=== PATIENT | male | born 1955 | race Caucasian/White ===

== ENCOUNTER → 2019-03-06 | Outpatient (CLI) | payer OTHER, SELFPAY ==
[2017-10-02 23:47] VITALS: BMI 21.1
[2019-03-06 14:15] LABS: AST(SGOT) 23 U/L (15-37); Alanine Aminotransfer ALT/SGPT 40 U/L (16-61); Albumin, Serum 3.7 g/dL (3.2-5.0); Alkaline Phosphatase 87 U/L (45-117); Cholesterol 163 mg/dL (200); Globulin 3.5 g/dL (2.2-4.2); High Density Lipoprotein 56 mg/dL; PSA,Total - Annual Screen 0.41 ng/mL (0.00-4.00); Protein, Total 7.2 g/dL (6.4-8.2); Triglycerides 120 mg/dL; Very Low Density Lipoprotein 24 mg/dL (5-40)
== END | disposition home or self-care (01) ==
LOC: MTLAB 12:38
PROVIDERS: Family Provider Family Medicine; PCP Family Medicine; Referring Provider Internal Medicine Cardiovascular Disease; Visit Provider Internal Medicine Cardiovascular Disease
DX: E78.5 Hyperlipidemia, unspecified (principal); I10 Essential (primary) hypertension; I34.1 Nonrheumatic mitral (valve) prolapse; R00.2 Palpitations; Z12.5 Encounter for screening for malignant neoplasm of prostate
CPT/HCPCS: 36415; 80061; 80076; 84153; G0103

== ENCOUNTER 2020-05-16 20:49 | Emergency (ER) | payer OTHER, SELFPAY ==
[2020-03-19 13:48] VITALS: BMI 21.4
[2020-05-16 20:49] VITALS: BP 101/74; PULSE 63; RESP 15; TEMP 36.7; O2SAT 98; BMI 20.9
[2020-05-16] MEDS: Diphth,Pertuss(Acell),Tet Vac 0.5 ML Vial IM (21:38)
--- NOTE | 2020-05-16 21:41 | ED.VISSUMM ---
- ER Visit Summary Date of Service: 05/16/20 Chief Complaint: Laceration History of Present Illness: The patient is a [address] Christie. He is unsure when his last tetanus shot was. He is right-hand dominant. Reports that just prior to coming emergency department he was trimming the roses and cut his left middle finger with the tremors. Reports that he had an aching pain is 6 out of 10 at worst. Is 1 out of 10 currently after ice. He denies any paresthesias. Physical Examination: Vitals: Stable. Afebrile. General: Well-nourished and well-developed. Head: Normocephalic atraumatic. Neck: Supple, no lymphadenopathy. No JVD. Nontender. Cardiovascular: Regular rate and rhythm. No murmurs. Respiratory: No respiratory distress. Clear to auscultation bilaterally. Abdominal: Soft, nontender, nondistended, normal bowel sounds. No guarding, rebound, or peritoneal signs. Back: Nontender. Extremities: Superficial avulsion of the distal left third fingertip. This approximately 1 cm in diameter. The skin is still present. However, it is not viable. He has no subungual hematoma. Skin: Normal color, no rash. Neurologic: Alert and oriented ?3. Cranial nerves II through XII are intact. Normal strength and sensation. Psych: Normal affect. Emergency Department Course and Treatment: Patient had his tetanus updated. His wound was cleansed and a dressing was placed. Treatment Plan: Patient be discharged instructions to keep his wound clean, dry, and covered. Follow-up his primary care physician in 10 to 14 days if not improving. Return to the emergency department for any worsening symptoms. Disposition: To home in improved and stable condition. Impression: 1. Avulsion left third fingertip, 1 cm, not repaired. This note was generated with [employer] dictation software. It may contain incorrect words, spelling, and punctuation that were not noted in review of the chart prior to signing ED Disposition - Plan for ED Patient: Disposition: Home or Assisted Living Instructions: ED Finger Tip Amputation Open Treatment Referrals: Alexander Christie MD [Primary Care Provider] - 10-14 Days if not better
== END 2020-05-16 22:11 | disposition home or self-care (01) ==
PROVIDERS: Emergency Provider Emergency Medicine; PCP Family Medicine
DX: S61.213A Laceration without foreign body of left middle finger without damage to nail, initial encounter (principal); W27.1XXA Contact with garden tool, initial encounter; Y93.9 Activity, unspecified; Y92.89 Other specified places as the place of occurrence of the external cause; Y99.9 Unspecified external cause status
CPT/HCPCS: 90715; 99282; A4216

== ENCOUNTER → 2021-04-29 11:41 | Outpatient (CLI) | payer OTHER, SELFPAY ==
[2021-04-08 15:25] VITALS: BMI 22.3
[2021-04-29 13:05] LABS: AST(SGOT) 26 U/L (15-37); Alanine Aminotransfer ALT/SGPT 37 U/L (16-61); Albumin, Serum 3.6 g/dL (3.2-5.0); Alkaline Phosphatase 75 U/L (45-117); Bilirubin, Direct 0.14 mg/dL (0.00-0.30); Cholesterol 181 mg/dL (200); Globulin 3.6 g/dL (2.2-4.2); High Density Lipoprotein 61 mg/dL; Protein, Total 7.2 g/dL (6.4-8.2); Triglycerides 122 mg/dL; Very Low Density Lipoprotein 24 mg/dL (5-40)
== END ==
PROVIDERS: PCP Family Medicine; Referring Provider Internal Medicine Cardiovascular Disease; Visit Provider Internal Medicine Cardiovascular Disease
DX: E78.5 Hyperlipidemia, unspecified (principal); I10 Essential (primary) hypertension; I34.1 Nonrheumatic mitral (valve) prolapse
CPT/HCPCS: 36415; 80061; 80076

== ENCOUNTER → 2021-05-21 15:43 | Outpatient (CLI) | payer OTHER, SELFPAY ==
[2021-04-08 15:25] VITALS: BMI 22.3
--- NOTE | 2021-05-21 15:50 | MRI_ITS ---
STUDY: MRI BRAIN WITHOUT CONTRAST REASON FOR EXAM: Male, 65 years old. Chronic HEADACHES x 16 months TECHNIQUE: Standardized multiplanar fat and water weighted pulse sequences were obtained. COMPARISON: None. FINDINGS: There is mild cerebral atrophy with widening of the extra-axial spaces and ventricular dilatation. Normal white matter tracts of the supratentorial brain. There is no evidence for recent intracranial ischemia or other cause of cytotoxic edema on diffusion weighted imaging (DWI). Normal T2* images of the brain without demonstrated susceptibility artifact. There is no demonstrated hemosiderin stain. Normal bilateral basal ganglia. Normal thalami. There is no extra-axial fluid accumulation. Normal flow voids within the major intracranial circulation suggesting patency by spin echo criteria. Normal sella turcica, pituitary gland, infundibular stalk, optic chiasm and hypothalamus. Normal tectal plate and pineal gland. Normal midbrain, nury and medulla. Normal cerebellum. Normal basal cisterns. Normal bilateral temporal bones. Normal bilateral internal auditory canals. No demonstrated orbital abnormality, within the constraints of a routine brain study. Normal visualized paranasal sinuses. Normal calvarium and skull base. Normal visualized soft tissue structures. Normal visualized upper cervical spine. MRI/Brain without Contrast IMPRESSION: Normal unenhanced MRI of the brain. Electronically Signed: Vu Cortez MD at 18:31 EDT Tel , Service support ,
== END ==
PROVIDERS: PCP Family Medicine; Referring Provider Family Medicine; Visit Provider Family Medicine
DX: R51.9 Headache, unspecified (principal)
CPT/HCPCS: 70551

== ENCOUNTER → 2021-08-18 16:48 | Outpatient (CLI) | payer OTHER, SELFPAY ==
[2021-08-18 18:55] LABS: PSA,Total - Annual Screen 0.43 ng/mL (0.00-4.00)
[2021-08-18 19:14] LABS: Vitamin D,25 Hydroxy 74.8 ng/mL
== END ==
PROVIDERS: PCP Family Medicine; Referring Provider Family Medicine; Visit Provider Family Medicine
DX: E55.9 Vitamin D deficiency, unspecified (principal); Z12.5 Encounter for screening for malignant neoplasm of prostate
CPT/HCPCS: 36415; 82306; 84153; G0103

== ENCOUNTER → 2021-09-03 | Outpatient (CLI) | payer OTHER, SELFPAY | END | disposition home or self-care (01) | LOC: LABSPEC 15:15 | PROVIDERS: PCP Family Medicine; Referring Provider Physician Assistant; Visit Provider Physician Assistant | DX: Z11.52 Encounter for screening for COVID-19 (principal) | CPT/HCPCS: 87635; U0005; U0003 ==

== ENCOUNTER 2021-12-21 10:27 | Outpatient (CLI) | payer BC, SELFPAY | END 2021-12-21 23:59 | disposition short-term general hospital (02) | LOC: LABSPEC 10:28 | PROVIDERS: PCP Family Medicine; Visit Provider Physician Assistant | DX: Z20.822 Contact with and (suspected) exposure to COVID-19 (principal) | CPT/HCPCS: 87635; U0003; U0005 ==

== ENCOUNTER 2022-02-28 22:13 | Emergency (ER) | payer BC, SELFPAY ==
[2022-02-28 22:15] VITALS: BP 126/76; PULSE 73; RESP 16; TEMP 35.9; O2SAT 95; BMI 21.7
--- NOTE | 2022-02-28 23:11 | EDS_ITS ---
HPI History of Present Illness Chief Complaint: Other, Pain/Inj Narrative Narrative: Patient is a 66-year-old male who states he was playing in a hockey game today when he tried to block a shot. He states he put his hand and stick down towards the eyes to block a past and the puck struck him in the right hand. He reports he was wearing his hockey gloves but noticed some pain despite the thick padding. He states about 10 minutes later he went took his glove off and he noticed that his ring was deformed. He states that there has been no numbness tingling weakness or color change to the finger but he cannot get the ring off because of the deformity and has concerned this could progress to a ring impaction and therefore comes in for evaluation. [facility] Medical History (Updated 02/28/22 @ 23:[address] Renard Darby, DO) Allergic rhinitis BPH (benign prostatic hyperplasia) Essential (primary) hypertension Hyperlipidemia Malaria Nonrheumatic mitral valve prolapse Home Medications finasteride 5 mg PO DAILY 10/02/17 [History Last Taken Unknown] albuterol sulfate 90 mcg/actuation aerosol inhaler 1 inh INHALATION Q6H PRN g 03/19/20 [History Last Taken Unknown] atorvastatin 10 mg tablet 5 mg PO DAILY #45 tab 02/20/21 [Rx Last Taken Unknown] escitalopram oxalate 5 mg tablet 5 mg PO DAILY tab 04/08/21 [History Last Taken Unknown] lisinopril 20 mg tablet 20 mg PO DAILY #90 tab 04/08/21 [Rx Last Taken Unknown] lorazepam 1 mg tablet 1 mg PO DAILY PRN tab 04/08/21 [History Last Taken Unknown] propranolol 10 mg tablet 10 mg PO BID #180 tab 06/02/21 [Rx Last Taken Unknown] dexlansoprazole [Dexilant] mg 02/28/22 [History Last Taken Unknown] montelukast mg 02/28/22 [History Last Taken Unknown] Allergy/AdvReac Type Severity Reaction Status Date / Time No Known Allergies Allergy Verified 02/28/22 22:21 Family History Father CAD (coronary artery disease) Myocardial infarction [place] age 52 Mother CVA (cerebral vascular accident) Surgical History History of oral surgery Social History Smoking Status: Never smoker ROS ROS ED Constitutional Constitutional ED: Denies chills or fever(s) ENT ENT ED: Denies sore throat Cardiovascular Cardiovascular: Denies chest pain Respiratory/Chest Respiratory/Chest: Denies cough or dyspnea Gastrointestinal Gastrointestinal: Denies abdominal pain, diarrhea, nausea or vomiting Genitourinary Genitourinary ED: Denies dysuria Musculoskeletal Musculoskeletal: Reports other Details: Positive right hand/finger pain ; Denies myalgias Integumentary Denies rash Neurologic Neurologic: Denies headache(s), paresthesias or weakness Hematologic/Lymphatic Hematologic/Lymphatic: Denies easy bleeding or easy bruising EXAM Physical Exam Const Vital Signs: 02/28/22 22:15 02/28/22 23:14 Temperature 96.6 F L Temperature Source Temporal Pulse Rate 73 64 Respiratory Rate 16 16 Blood Pressure 126/76 H 136/72 H Blood Pressure Mean 92 Pulse Ox 95 Oxygen Delivery Method Room Air Positive well nourished and well developed General Appearance ED: well developed Eyes PERRL and EOMs intact bilaterally Neck supple Resp normal respiratory effort and clear to auscultation bilaterally Cardio regular rate and regular rhythm Extremity Extremity Narrative: Right upper extremity is neurovascularly intact; AIN/PIN are intact and normal. There is mild soft tissue swelling at the proximal phalanx of the right fourth digit. There is a ring present that is deformed as well compressing the soft tissue but there is no obvious bony deformity and capillary refill is less than 3 seconds color is normal and there is no subungual hematoma. Neuro oriented x3 and CN's II-XII intact bilaterally Sensorium / Orientation: alert Motor Exam: strength 5/5 throughout Psych mental status grossly normal Skin no rashes or lesions noted MDM MDM MDM Narrative Medical decision making narrative: Patient presented to the ER with a compressed ring causing some swelling to the proximal fourth phalanx. However there is no signs of ligamentous or tendon injury no bony deformity and no signs of neurovascular compromise. At this time the ring does need to be removed and as it cannot be slid over the finger secondary to his deformity and proximal phalanx swelling Ring cutters were used. The ring cutter was removed the ring without difficulty. Patient tolerated the procedure well without complication. Once the ring was removed patient remained neurovascular intact with normal hand/finger function. Discharge Plan Triage Chief Complaint: Other, Pain/Inj ED Provider: Renard Darby Dx/Rx/DC Orders Clinical Impression: Soft tissues foreign body Prescriptions: No Action albuterol sulfate 90 mcg/actuation HFA aerosol inhaler 1 inh INHALATION Q6H PRN (Reason: Sob &/Or Wheezing) RF: 0 escitalopram oxalate 5 mg tablet 5 mg PO DAILY RF: 0 lorazepam 1 mg tablet 1 mg PO DAILY PRN (Reason: Anxiety) RF: 0 lisinopril 20 mg tablet 20 mg PO DAILY Qty: 90 RF: 3 finasteride 5 MG tablet 5 mg PO DAILY RF: 0 montelukast 10 mg tablet RF: 0 dexlansoprazole [Dexilant] 60 mg capsule,biphase delayed releas RF: 0 atorvastatin 10 mg tablet 5 mg PO DAILY Qty: 45 RF: 4 propranolol 10 mg tablet 10 mg PO BID Qty: 180 RF: 3 Primary Care Provider: Alexander Christie Referrals: Alexander Christie MD [Primary Care Provider] - Disposition Disposition: Home, Self Care Discharge Date/Time: 02/28/22 23:15
[2022-02-28 23:14] VITALS: BP 136/72; PULSE 64; RESP 16
== END 2022-02-28 23:15 | disposition home or self-care (01) ==
LOC: ED 22:36
PROVIDERS: Emergency Provider Emergency Medicine; PCP Family Medicine; Visit Provider Emergency Medicine
DX: S60.444A External constriction of right ring finger, initial encounter (principal); W49.04XA Ring or other jewelry causing external constriction, initial encounter; I10 Essential (primary) hypertension; E78.5 Hyperlipidemia, unspecified; N40.0 Benign prostatic hyperplasia without lower urinary tract symptoms; I34.1 Nonrheumatic mitral (valve) prolapse; Z79.899 Other long term (current) drug therapy
CPT/HCPCS: 99282

== ENCOUNTER 2022-03-02 15:08 | Outpatient (CLI) | payer BC, SELFPAY ==
[2022-03-02 18:24] LABS: AST(SGOT) 16 U/L (15-37); Alanine Aminotransfer ALT/SGPT 27 U/L (16-61); Albumin, Serum 3.6 g/dL (3.2-5.0); Alkaline Phosphatase 67 U/L (45-117); Bilirubin, Direct 0.17 mg/dL (0.00-0.30); Cholesterol 224 mg/dL (200); Globulin 3.6 g/dL (2.2-4.2); High Density Lipoprotein 66 mg/dL; Protein, Total 7.2 g/dL (6.4-8.2); Triglycerides 124 mg/dL; Very Low Density Lipoprotein 25 mg/dL (5-40)
== END 2022-03-02 23:59 | disposition home or self-care (01) ==
PROVIDERS: PCP Family Medicine; Referring Provider Internal Medicine Cardiovascular Disease; Visit Provider Internal Medicine Cardiovascular Disease
DX: E78.00 Pure hypercholesterolemia, unspecified (principal)
CPT/HCPCS: 36415; 80061; 80076

== ENCOUNTER → 2022-04-06 | Outpatient (CLI) | payer BC, SELFPAY ==
--- NOTE | 2022-04-06 08:58 | STE_ITS ---
Reason For Study: CHEST PAIN Stress Results Protocol: Ian Protocol Maximum Predicted HR: 152 bpm Target HR: 129 bpm % Maximum Predicted HR: 90 % DurationHeart Rate Stage (mm:ss) (bpm) BP Comment BASELINE 56 148/85 STAGE 1 3:00 81 138/84 STAGE 2 3:00 109 158/84 STAGE 3 3:00 125 182/100SOB NOTED STAGE 4 1:30 137 / INCREASED SOB RECOVERY 102 152/92 Stress Duration: 10:30 mm:ss Maximum Stress HR: 137 bpm Baseline Echocardiogram Findings Stress Echo Wall motion Data Resting WM Intermediate WM Stress WM ECHO/Stress Test Echo w/o Contrast Interpretation Summary Sinus stress echo. 66-year-old male with a history of hypertension chest pain. Stress protocol: Rest EKG demonstrates sinus bradycardia with a rate of 56 bpm normal intervals are noted resting blood pressure is 148/82 mmHg. The patient exercised according to regular Ian protocol for total duration of 10 minutes and 30 seconds completing 1 minute and 30 seconds into s tage IV of the Ian protocol. The maximum heart rate attained was 139 bpm which was 91% of max impa ct at heart rate the maximum workload was 13.4 metabolic equivalents. The patient maintained sinus r hythm throughout the recording. At rest there were no ST or T wave changes noted to suggest ischemia and at peak exercise upsloping ST changes were noted which did not meet the criteria for ischemia. O ccasional premature ventricular complex was noted during recovery. No clinical angina was noted the test was terminated due to leg fatigue. The peak blood pressure was 182/100 mmHg. Stress echocardiogram. Resting and stress echocardiographic images were obtaine d and demonstrated preserved ejection fraction at rest estimated EF 55 to 60% and a peak ejection fraction of 70%. No wall motion abnormalities were noted to suggest ischemia. Conclusion: Normal exercise myocardial perfusion stress test at a high workload. Good functional aerobic capacity. Ordering Physician: Jacques Hernandez Referring Physician: Jacques Hernandez Performed By: Radha Aguilar RDCS
== END | disposition home or self-care (01) ==
LOC: CVS 08:56
PROVIDERS: PCP Family Medicine; Referring Provider Internal Medicine Cardiovascular Disease; Visit Provider Internal Medicine Cardiovascular Disease
DX: I10 Essential (primary) hypertension (principal); R07.9 Chest pain, unspecified
CPT/HCPCS: 93017; 93350

== ENCOUNTER 2022-04-10 17:07 | Emergency (ER) | payer BC, SELFPAY ==
[2022-04-10 17:08] VITALS: BP 135/92; PULSE 70; RESP 11; TEMP 37.1; O2SAT 98; BMI 22.2
--- NOTE | 2022-04-10 17:24 | EKG12_ITS ---
Test Reason : CP Blood Pressure : / mmHG Vent. Rate : 063 BPM Atrial Rate : 063 BPM P-R Int : 142 ms QRS Dur : 088 ms QT Int : 406 ms P-R-T Axes : -12 021 044 degrees QTc Int : 415 ms Normal sinus rhythm Normal ECG Confirmed by ARNOLD CRAWFORD MD ([id number]), video editor JANET GONZALEZ ([id number]) on 04/12/2022 1:44:56 PM Referred By: KAIA
--- NOTE | 2022-04-10 17:26 | CT_ITS ---
INDICATION: chest pain, rule out dissection EXAMINATION: CTA CHEST, ABDOMEN AND PELVIS WITH CONTRAST - TECHNIQUE: A CTA of the chest, abdomen, and pelvis is obtained with sagittal and coronal reconstructed MIP views. Three-dimensional surface rendered sequence of the thoracic and abdominal aorta was obtained. A radiation dose optimization technique was used for this scan. mL of Isovue-[id number]. Oral contrast: None. COMPARISON: None. FINDINGS: CT CHEST: THORACIC AORTA: No atheromatous disease, no aneurysmal changes or dissection. ABDOMINAL AORTA: No aneurysm or dissection. Mild atherosclerotic disease. The iliac arteries are unremarkable. LUNGS: The lungs are well-expanded without acute changes. There are granulomatous nodules. No effusions or pneumothorax. MEDIASTINUM: The thyroid gland is normal. No mediastinal or hilar adenopathy. HEART: Heart is normal size. No pericardial effusion. CT ABDOMEN AND PELVIS: LIVER: The liver enhances homogeneously. No masses identified. GALLBLADDER: The CBD is normal. Normal gallbladder. SPLEEN: Normal. PANCREAS: No masses or inflammation. ADRENAL GLANDS: Normal. KIDNEYS AND URETERS: The kidneys both enhance appropriately. There are normal size and shape. No hydronephrosis or nephrolithiasis. No renal masses or cysts. STOMACH: Normal. SMALL BOWEL: No abnormal distention of the small bowel. MESENTERY: No mesenteric inflammation. No ascites. COLON: No significant diverticulosis, masses or inflammation. The colon otherwise is normal. There is a large fatty ileocecal valve. APPENDIX: The appendix is visualized and normal. IVC: Normal. RETROPERITONEUM: No retroperitoneal lymphadenopathy. PELVIC STRUCTURES: Normal bladder. SOFT TISSUES ABDOMEN: The anterior abdominal wall is normal. SOFT TISSUE CHEST: The extrathoracic soft tissues are normal. BONES: No fractures or significant degenerative disease. CT/CTA Chst, Abd, Pel W and/or WO IMPRESSION: Normal contrast-enhanced CT of the chest. Normal contrast-enhanced CT of the abdomen and pelvis. Electronically Signed: Domingo Hartmann DO at 19:14 EDT Reading Location ID and State: [facility] / [place] Tel [phone], Service support ,
--- NOTE | 2022-04-10 17:28 | ED.VIS.CHEST ---
HPI <MARIELY Medrano - Last Filed: 04/10/22 18:39> History of Present Illness Chief Complaint: Chest Pain Narrative Narrative: 66-year-old male with PMH of HTN, HLD, GERD presents with chest and abdominal pain. He was working outside in the yard all day weeding and moving mulch. He went to the store and was loading 9 bags of mulch in the back of his car around 3:30 pm. While putting the last bag in he felt immediate sharp pain in his lower midsternal/upper abdominal area. No radiation to his back. No shortness of breath. Mild nausea, no vomiting. He walked back into the store to buy something else and still had the pain and felt slightly confused. He said when he came outside he was not sure where his car was again. The pain subsided after about 20 to 30 minutes. He denies cardiac history, history of aneurysm/dissection, or DVT/PE. Since 2019 he was having some dyspnea on exertion so just this last week he had a stress test which was negative. He does not smoke and denies drug use. PFSH <MARIELY Medrano - Last Filed: 04/10/22 18:39> PFSH Medical History Allergic rhinitis BPH (benign prostatic hyperplasia) Essential (primary) hypertension Hyperlipidemia Malaria Nonrheumatic mitral valve prolapse Soft tissues foreign body Home Medications finasteride 5 mg PO DAILY 10/02/17 [History Last Taken Unknown] albuterol sulfate 90 mcg/actuation aerosol inhaler 1 inh INHALATION Q6H PRN g 03/19/20 [History Last Taken Unknown] lorazepam 1 mg tablet 1 mg PO DAILY PRN tab 04/08/21 [History Last Taken Unknown] dexlansoprazole [Dexilant] mg 02/28/22 [History Last Taken Unknown] montelukast mg 02/28/22 [History Last Taken Unknown] propranolol 10 mg tablet 10 mg PO DAILY tab 03/03/22 [History Last Taken Unknown] atorvastatin 10 mg tablet 5 mg PO DAILY #45 tab 04/07/22 [Rx Last Taken Unknown] lisinopril 20 mg tablet 20 mg PO BID #180 tab 04/07/22 [Rx Last Taken Unknown] Allergy/AdvReac Type Severity Reaction Status Date / Time escitalopram AdvReac Diarrhea Verified 03/03/22 16:31 TREE NUTS Allergy NEEDS Uncoded 04/10/22 17:12 FOLLOW-UP Family History Father CAD (coronary artery disease) Myocardial infarction [place] age 52 Mother CVA (cerebral vascular accident) Surgical History History of oral surgery Social History Smoking Status: Never smoker ROS <MARIELY Medrano - Last Filed: 04/10/22 18:39> ROS ED ROS Narrative Constitutional: Negative for fever, chills, malaise. Eyes: Negative for visual change. ENT: Negative for sore throat, ear pain, rhinorrhea. CVS: Positive for chest pain. Negative for palpitations, syncope. Respiratory: Negative for shortness of breath, cough, orthopnea. GI: Positive for abdominal pain, nausea. Negative for vomiting, diarrhea, constipation, melena, hematochezia. : Negative for dysuria, hematuria or frequency. Neuro: Negative for headache, motor/sensory dysfunction. Skin: Negative for rash, abscess, or wound. Musc: Negative for joint pain, swelling, trauma. Heme: Negative for easy bruising, bleeding, lymphadenopathy. EXAM <MARIELY Medrano - Last Filed: 04/10/22 18:39> Physical Exam Narrative Exam Narrative: CONST: Patient sitting in no acute distress. EYES: Normal inspection. NECK: Normal inspection. RESP: No respiratory distress, CTAB. CVS: Regular rate and rhythm, no murmur, no gallop. ABD: Soft with slight RUQ tenderness, no guarding or rebound, nondistended, no pulsatile mass. Back: Normal inspection, no CVA tenderness. SKIN: Color normal, no rash, warm, dry, intact. EXTREMITIES: Normal appearance, no pedal edema. NEURO: Oriented x4. PSYCH: Normal affect. Const Vital Signs: 04/10/22 17:08 04/10/22 17:10 04/10/22 17:37 Temperature 98.7 F Temperature Source Oral Pulse Rate 70 Respiratory Rate 11 L Respiratory Effort Normal Non-Labored Blood Pressure 135/92 H Blood Pressure Mean 106 Pulse Ox 98 Oxygen Delivery Method Room Air Room Air 04/10/22 18:00 04/10/22 19:00 04/10/22 20:54 Temperature Temperature Source Pulse Rate 66 62 66 Respiratory Rate 18 15 18 Respiratory Effort Blood Pressure 143/80 H 131/82 H 140/90 H Blood Pressure Mean 101 98 Pulse Ox 96 100 99 Oxygen Delivery Method Room Air Room Air <Dr. Sujata Montes De Oca MD - Last Filed: 04/11/22 00:05> Physical Exam Const Vital Signs: 04/10/22 17:08 04/10/22 17:10 04/10/22 17:37 Temperature 98.7 F Temperature Source Oral Pulse Rate 70 Respiratory Rate 11 L Respiratory Effort Normal Non-Labored Blood Pressure 135/92 H Blood Pressure Mean 106 Pulse Ox 98 Oxygen Delivery Method Room Air Room Air 04/10/22 18:00 04/10/22 19:00 04/10/22 20:54 Temperature Temperature Source Pulse Rate 66 62 66 Respiratory Rate 18 15 18 Respiratory Effort Blood Pressure 143/80 H 131/82 H 140/90 H Blood Pressure Mean 101 98 Pulse Ox 96 100 99 Oxygen Delivery Method Room Air Room Air <MARIELY Medrano - Last Filed: 04/10/22 18:39> Heart Score History: Moderately Suspicious ECG: Normal Age: >/= 65 years Risk Factors: 1 or 2 Risk Factors Troponin: </= Normal Limit Score: 4 MDM <MARIELY Medrano - Last Filed: 04/10/22 18:39> [facility] Narrative Medical decision making narrative: Patient presents with chest pain/upper abdominal pain that occurred after exertion. He appears well nontoxic. Afebrile and vital signs within normal limits. On examination heart is regular rate and rhythm. Lungs clear. No reproducible pain of the chest wall, mild tenderness in the upper abdomen but no guarding or rebound. No pulsatile mass. Upper and lower extremity pulses are strong and equal. EKG is normal sinus rhythm with no acute ischemia and troponin is less than 3. I also have low concern for ACS as he had a normal stress test within the last week. Basic labs unremarkable. Due to the sharp nature of his pain extending into his abdomen a CTA of the chest abdomen pelvis was obtained to rule out dissection. Lab Data Labs: Laboratory Results - last 24 hr 04/10/22 04/10/22 04/10/22 17:10 17:10 19:35 WBC 8.2 RBC 4.78 Hgb 13.9 Hct 42.7 MCV 89.3 MCH 29.1 MCHC 32.6 RDW Std Deviation 41.7 RDW Coeff of Kandace 12.6 Plt Count 326 MPV 9.9 Immature Gran % (Auto) 0.200 Neut % (Auto) 49.2 Lymph % (Auto) 32.9 Woodward % (Auto) 13.3 H Eos % (Auto) 4.0 Baso % (Auto) 0.4 Absolute Neuts (auto) 4.0 Absolute Lymphs (auto) 2.69 Nucleated RBC % 0 Sodium 142 Potassium 4.0 Chloride 109 H Carbon Dioxide 24.0 Anion Gap 9 BUN 19 H Creatinine 1.22 Estim Creat Clear Calc 56.07 Est GFR (MDRD) Af Amer 76 Est GFR (MDRD) Non-Af 63 BUN/Creatinine Ratio 15.6 Glucose 94 Calcium 9.3 Troponin I High Sens < 3 L < 3 L Radiography Chest X-Ray - ED: 1 View, Read by ED Physician, Read by Radiologist, Normal, Heart, Lungs, Mediastinum, Bony Structures and No Acute Disease Diagnostic Testing: Clinical Impression(s) from Imaging Studies Chest/Abdomen/Pelvis CTA 04/10/22 17:26 IMPRESSION: Normal contrast-enhanced CT of the chest. Normal contrast-enhanced CT of the abdomen and pelvis. Electronically Signed: Domingo Hartmann DO at 19:14 EDT , Chest X-Ray 04/10/22 18:10 IMPRESSION: Right pulmonary granulomas. Electronically Signed: Domingo Hartmann DO at 19:51 EDT , ED attending interpretation shows normal heart size, no acute infiltrate, edema, or effusion. EKG Initial EKG: Attestation: I personally reviewed and interpreted this EKG as follows: Interpretation: Sinus Rhythm Comments: Normal sinus rhythm 63 bpm, no ischemia <Dr. Sujata Montes De Oca MD - Last Filed: 04/11/22 00:05> [facility] Lab Data Attestation: I reviewed the patient's lab results. Labs: Laboratory Results - last 24 hr 04/10/22 04/10/22 04/10/22 17:10 17:10 19:35 WBC 8.2 RBC 4.78 Hgb 13.9 Hct 42.7 MCV 89.3 MCH 29.1 MCHC 32.6 RDW Std Deviation 41.7 RDW Coeff of Kandace 12.6 Plt Count 326 MPV 9.9 Immature Gran % (Auto) 0.200 Neut % (Auto) 49.2 Lymph % (Auto) 32.9 Woodward % (Auto) 13.3 H Eos % (Auto) 4.0 Baso % (Auto) 0.4 Absolute Neuts (auto) 4.0 Absolute Lymphs (auto) 2.69 Nucleated RBC % 0 Sodium 142 Potassium 4.0 Chloride 109 H Carbon Dioxide 24.0 Anion Gap 9 BUN 19 H Creatinine 1.22 Estim Creat Clear Calc 56.07 Est GFR (MDRD) Af Amer 76 Est GFR (MDRD) Non-Af 63 BUN/Creatinine Ratio 15.6 Glucose 94 Calcium 9.3 Troponin I High Sens < 3 L < 3 L Radiography Chest X-Ray - ED: 1 View, Read by ED Physician, Normal, Heart, Lungs and Mediastinum Diagnostic Testing: Clinical Impression(s) from Imaging Studies Chest/Abdomen/Pelvis CTA 04/10/22 17:26 IMPRESSION: Normal contrast-enhanced CT of the chest. Normal contrast-enhanced CT of the abdomen and pelvis. Electronically Signed: Domingo Hartmann DO at 19:14 EDT , Chest X-Ray 04/10/22 18:10 IMPRESSION: Right pulmonary granulomas. Electronically Signed: Domingo Hartmann DO at 19:51 EDT , EKG Initial EKG: Attestation: I personally reviewed and interpreted this EKG as follows: Interpretation: Sinus Rhythm (Sinus at 63 with no acute ischemia.) Treatment and Re-Evaluation Narrative: Patient seen and evaluated with UZIEL. I personally interviewed and examined the patient. I was involved in all aspects of patient's orders, interpretation of results, and treatment. Patient presents secondary to chest pain while loading mulch into his SUV today. He is pain-free on arrival to the emergency room. He did have a stress test earlier this week that was unremarkable. Patient sitting upright in bed no acute distress. Head and neck examination unremarkable. Heart is regular rate and rhythm. Lung sounds are clear. Abdomen is soft and nontender. Neuro exam normal. EKG and chest x-ray unremarkable per my interpretation. Lab work normal including negative repeat troponin. CTA obtained to rule out dissection and this is unremarkable. Patient be discharged home to continue supportive care. Reassurance provided. Return instructions given. Discharge Plan Triage Chief Complaint: Chest Pain ED Midlevel Provider: Terri Lucas ED Provider: Sujata Montes De Oca Dx/Rx/DC Orders Clinical Impression: Atypical chest pain Instructions: ED Chest Pain, Noncardiac Prescriptions: No Action albuterol sulfate 90 mcg/actuation HFA aerosol inhaler 1 inh INHALATION Q6H PRN (Reason: Sob &/Or Wheezing) RF: 0 lorazepam 1 mg tablet 1 mg PO DAILY PRN (Reason: Anxiety) RF: 0 propranolol 10 mg tablet 10 mg PO DAILY RF: 0 finasteride 5 MG tablet 5 mg PO DAILY RF: 0 montelukast 10 mg tablet RF: 0 dexlansoprazole [Dexilant] 60 mg capsule,biphase delayed releas RF: 0 atorvastatin 10 mg tablet 5 mg PO DAILY Qty: 45 RF: 4 lisinopril 20 mg tablet 20 mg PO BID Qty: 180 RF: 3 Primary Care Provider: Alexander Christie Referrals: Alexander Christie MD [Primary Care Provider] - 1-2 Weeks Disposition Disposition: Home, Self Care Discharge Date/Time: 04/10/22 21:08
[2022-04-10] MEDS: Aspirin 81 MG TAB.CHEW 324 MG PO (17:31)
[2022-04-10] MEDS: 0.9% Normal Saline 1,000 ML 1000 ML IV (17:32)
[2022-04-10 17:35] LABS: Absolute Lymphocyte Count 2.69 X10^3/uL (0.83-4.51); Basophil# 0.03 X10^3/uL; Basophil% 0.4 % (0-1); Eosinophil# 0.33 X10^3/uL; Hematocrit 42.7 % (40-54); Hemoglobin 13.9 g/dL (13.0-16.5); Lymphocyte # 2.69 X10^3/ul (0.83-4.51); Lymphocyte % 32.9 % (19-41); Mean Corp Hgb Conc 32.6 g/dL (32-36); Mean Corpuscular Hgb 29.1 pg (27.0-32.0); Mean Corpuscular Volume 89.3 fL (80-94); Mean Platelet Vol. 9.9 fl (6.2-12.0); Monocyte# 1.09 X10^3/uL; Monocyte% 13.3 % (0-10); NRBC Flagged by Analyzer 0 % (0-5); Neutrophil # 4.01 X10^3/uL (2.7-7.7); Neutrophil % 49.2 % (47-70); Platelet Count 326 K/mm3 (150-450); RBC Distribution Width CV 12.6 % (11.6-14.6); RBC Distribution Width SD 41.7 fl (35.1-43.9); Red Blood Count 4.78 M/mm3 (4.6-6.2); White Blood Count 8.2 K/mm3 (4.4-11.0)
[2022-04-10 17:52] LABS: Anion Gap 9 (5-15); BUN 19 mg/dL (7-18); BUN/Creat Ratio 15.6 RATIO (10-20); Calcium,Total 9.3 mg/dL (8.5-10.1); Chloride 109 mmol/L (98-107); Creatinine, Serum 1.22 mg/dL (0.70-1.30); EST Glomerular Filtration Rate 63 mL/min (>60); Est Glom Filt Rate - Afr Amer 76 mL/min (>60); Estimated Creatinine Clearance 56.07 ml/min; Glucose 94 mg/dL (74-106); Sodium Level 142 mmol/L (136-145); Troponin-I HS (w/2H Reflex) < 3 pg/mL (3.0-78.0)
[2022-04-10 18:00] VITALS: BP 143/80; PULSE 66; RESP 18; O2SAT 96
--- NOTE | 2022-04-10 18:10 | RAD_ITS ---
STUDY: X-RAY CHEST REASON FOR EXAM: Male, 66 years old. Chest pain TECHNIQUE: Frontal view COMPARISON: 03/28/2017 FINDINGS: The lungs are expanded. Right pulmonary granulomatous. Normal size heart. Normal mediastinum and bee. Normal visualized pulmonary arteries. Normal visualized aortic arch and descending thoracic aorta. Normal visualized thoracic spine. Normal visualized ribs, clavicles, and shoulders. There is no demonstrated abnormality of the visualized soft tissue structures of the upper abdomen. RAD/Chest 1 View (Portable) IMPRESSION: Right pulmonary granulomas. Electronically Signed: Domingo Hartmann DO at 19:51 EDT ,
[2022-04-10 19:00] VITALS: BP 131/82; PULSE 62; RESP 15; O2SAT 100
[2022-04-10 20:45] LABS: Troponin-I HS < 3 pg/mL (3.0-78.0)
[2022-04-10 20:54] VITALS: BP 140/90; PULSE 66; RESP 18; O2SAT 99
== END 2022-04-10 21:08 | disposition home or self-care (01) ==
PROVIDERS: Physician Assistant; Emergency Provider Emergency Medicine; PCP Family Medicine; Visit Provider Emergency Medicine
DX: R07.89 Other chest pain (principal); N40.0 Benign prostatic hyperplasia without lower urinary tract symptoms; I10 Essential (primary) hypertension; E78.5 Hyperlipidemia, unspecified; I34.1 Nonrheumatic mitral (valve) prolapse; Z79.899 Other long term (current) drug therapy; K21.9 Gastro-esophageal reflux disease without esophagitis; R11.0 Nausea
CPT/HCPCS: 71045; 71275; 74174; 80048; 84484; 85025; 93005; 96360; 99285; J7030; Q9967

== ENCOUNTER 2022-10-29 16:42 | Outpatient (CLI) | payer BC, SELFPAY | END 2022-10-29 23:59 | disposition home or self-care (01) | LOC: LABSPEC 16:44 | PROVIDERS: PCP Family Medicine; Visit Provider Otolaryngology | DX: R05.9 Cough, unspecified (principal) | CPT/HCPCS: 87070; 87205 ==

== ENCOUNTER → 2023-08-23 | Outpatient (CLI) | payer BC, SELFPAY ==
--- NOTE | 2023-08-23 08:35 | RAD_ITS ---
STUDY: X-RAY - ESOPHAGUS (BARIUM SWALLOW) WITH FLUOROSCOPY REASON FOR EXAM: Male, 68 years old. GERD TECHNIQUE: 16 view(s) of the esophagus were obtained following swallowing of barium. FLUOROSCOPY TIME (if supplied): (36 seconds) minutes/seconds. 16.95 mGy COMPARISON: None. FINDINGS: There is no demonstrated esophageal foreign body. There is no demonstrated stricture or mucosal abnormality. Normal gastroesophageal junction, without a demonstrated hiatal hernia. The patient ingested a 12 mm tablet of barium without any difficulty. Normal visualized aortic arch and descending thoracic aorta. Normal visualized pulmonary parenchyma. Normal visualized osseous structures of the thorax. RAD/Esophagus Single Contrast IMPRESSION: Normal plain film x-ray examination (barium swallow) of the esophagus. Electronically Signed: Carrington Holden MD at 12:37 EDT ,
== END | disposition home or self-care (01) ==
LOC: RAD 08:24
PROVIDERS: PCP Family Medicine; Referring Provider Otolaryngology; Visit Provider Otolaryngology
DX: R13.14 Dysphagia, pharyngoesophageal phase (principal); K21.9 Gastro-esophageal reflux disease without esophagitis
CPT/HCPCS: 74220

== ENCOUNTER → 2024-04-27 | Outpatient (CLI) | payer BC, SELFPAY ==
[2024-04-27 13:07] LABS: ALB/GLOB Ratio 0.9 RATIO (0.9-2.4); AST(SGOT) 20 U/L (15-37); Alanine Aminotransfer ALT/SGPT 19 U/L (16-61); Albumin, Serum 3.6 g/dL (3.2-5.0); Alkaline Phosphatase 64 U/L (45-117); Anion Gap 4 (5-15); BUN 13 mg/dL (7-18); BUN/Creat Ratio 11.5 RATIO (10-20); Calcium,Total 9.1 mg/dL (8.5-10.1); Chloride 106 mmol/L (98-107); Cholesterol 198 mg/dL (200); Creatinine, Serum 1.13 mg/dL (0.70-1.30); EST Glomerular Filtration Rate 68 mL/min (>60); Est Glom Filt Rate - Afr Amer 82 mL/min (>60); Globulin 3.8 g/dL (2.2-4.2); Glucose 89 mg/dL (74-106); High Density Lipoprotein 58 mg/dL; Potassium 3.9 mmol/L (3.5-5.1); Protein, Total 7.4 g/dL (6.4-8.2); Sodium Level 139 mmol/L (136-145); Triglycerides 113 mg/dL; Very Low Density Lipoprotein 23 mg/dL (5-40)
== END | disposition home or self-care (01) ==
PROVIDERS: PCP Family Medicine; Referring Provider Internal Medicine Cardiovascular Disease; Visit Provider Internal Medicine Cardiovascular Disease
DX: R00.2 Palpitations (principal); R07.89 Other chest pain; E78.5 Hyperlipidemia, unspecified; I10 Essential (primary) hypertension
CPT/HCPCS: 36415; 80053; 80061

== ENCOUNTER → 2024-05-03 | Outpatient (CLI) | payer BC, SELFPAY ==
--- NOTE | 2024-05-03 13:23 | CT_ITS ---
STUDY: CT CHEST WITH T WITHOUT CONTRAST REASON FOR EXAM: Male, 68 years old. CHEST TIGHTNESS, FAMILY HX OF [place] AND ANEURYSM RADIATION DOSAGE (If Supplied By Facility): CTDIvol = ( 27.16 ) mGy, DLP = ( 1694.3 ) mGycm TECHNIQUE: Transaxial imaging was performed pre and post intravenous administration of 100 cc of Isovue-370.. Cardiac over read examination. Individualized dose optimization techniques were used for this CT. COMPARISON: No relevant priors. FINDINGS: CHEST There is a 5.3 mm calcified granuloma in the peripheral lateral aspect of the right upper lobe as seen on axial image #37. Mild linear scarring and/or atelectasis at the lung bases. There is no demonstrated pleural abnormality. There are calcifications of the coronary arteries. Normal mediastinum. Normal hilar regions. Normal unenhanced pulmonary arteries. Normal aorta arch and descending thoracic aorta. Normal osseous structures. There is no demonstrated abnormality of the visualized upper abdomen. CT/Limited Chest CT Cardiac Only IMPRESSION: Coronary artery calcification. Calcified granuloma in the peripheral lateral aspect of the right upper lobe. Electronically Signed: Carrington Holden MD at 9:25 EDT ,
[2024-05-03 13:40] VITALS: BP 143/90; PULSE 56; RESP 14; O2SAT 98; BMI 24.2
[2024-05-03 14:15] VITALS: BP 143/90; PULSE 56
[2024-05-03] MEDS: Nitroglycerin SL (ED/IMG/CATH) 0.4 MG TABLET SL (14:15)
[2024-05-03 14:30] VITALS: BP 109/74; PULSE 54; RESP 14; O2SAT 96
--- NOTE | 2024-05-04 09:44 | CCTA.WCONT ---
CCTA w/Cont Coronary Arteries Date of Study:: 05/03/24 Chest pain Coronary Calcium Scoring: High-resolution Computed Tomographic imaging of the chest was performed on [05/03/2024], with particular attention paid to the coronary arteries. Intravenous contrast agent was administered per protocol and images reconstructed and displayed. LEFT MAIN CORONARY ARTERY: Arises from the left coronary cusp and bifurcates into a left anterior descending artery and left circumflex artery no significant atherosclerotic plaquing is present [] LEFT ANTERIOR DESCENDING CORONARY ARTERY: Left anterior descending artery is a medium size vessel with 2 areas of plaque formation in the proximal and mid segments. There is mild luminal stenosis noted in those areas. The vessel continues and wraps around the apex of the ventricle. [] LEFT CIRCUMFLEX CORONARY ARTERY: Nondominant vessel with a proximal eccentric 30 to 40% stenosis smooth, and mid segment focal calcified area with no significant stenosis present. [] RIGHT CORONARY ARTERY: Dominant vessel with no significant atherosclerotic plaquing present. CORONARY CALCIUM SCORE: 78.7. Percentile ranking between 25th and 50th percentile. Conclusion: Coronary CT angio gram with mild atherosclerotic plaquing, coronary calcium score below 100, and nonstenotic soft plaque noted in the proximal circumflex artery. []
== END | disposition home or self-care (01) ==
LOC: CT 13:22
PROVIDERS: PCP Family Medicine; Referring Provider Internal Medicine Cardiovascular Disease; Visit Provider Internal Medicine Cardiovascular Disease
DX: R07.89 Other chest pain (principal); Z82.49 Family history of ischemic heart disease and other diseases of the circulatory system; R06.02 Shortness of breath; R00.2 Palpitations; I10 Essential (primary) hypertension; E78.5 Hyperlipidemia, unspecified; I34.1 Nonrheumatic mitral (valve) prolapse; I25.10 Atherosclerotic heart disease of native coronary artery without angina pectoris
CPT/HCPCS: 75571; 75574; 76380; Q9967

== ENCOUNTER → 2024-08-01 | Outpatient (CLI) | payer BC, SELFPAY | END | disposition home or self-care (01) | LOC: PSN 11:59 | PROVIDERS: PCP Family Medicine; Referring Provider Internal Medicine Cardiovascular Disease; Visit Provider Internal Medicine Cardiovascular Disease | DX: R00.2 Palpitations (principal) | CPT/HCPCS: 93225; 93226 ==

== ENCOUNTER 2024-09-19 12:00 | Outpatient (RCR) | payer BC, SELFPAY ==
--- NOTE | 2024-05-18 14:36 | HP.PTEVAL ---
Patient's Visit Information Visit Information Visit Information: JODIE SIDDIQUI is a 68 year old M referred to Physical Therapy by Dr. Kai Thorne, with a diagnosis of L knee OA adn pain. 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 EG to recheck upon return to ensure POC still appropriate. Subjective Subjective: L knee pain. Was in [place] getting ready to do a hike 85 miles. Had pain in L lateral knee a number of times with hiking over the years as he is an avid hiker. Got PFitis and neuroma and forgot about knee pain. That got better after the first mile in the am. Took alot of advil. L knee then continued to hurt. Feels left lateral knee pain every now and then over the years. Gearing up for this hike he was doing a steep hill after 20 miles and got sharp pain in February. Gone quickly but happened again with more steps. Pain was underneath knee cap and lateral and transient. Not painful at rest. Steps at home hurt sometimes with dull ache. Saw Dr. Thorne who did x rays and knees are in good shape. will leave for [place] lilibeth a week and will be gone for 6 weeks and will be hiking again. Currently is just a dull achy feeling with walking alot but no limping or sharp pains lately. Typically used to hurt at the bottom of a steep hill. Sleep is fine and this pain is minor. Taking care of self is I and painfree. 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 Pain L knee achy: Pain Intensity (Out of 10): N/A Objective Objective: L knee tender lateral joint line minimally and lateral knee cap minimally. Walks normal and I, steps reciprocal without rail and no pain. - varus and valgus tests, - bounce home, - patellar grind. - disco. Full aROM L knee adn R knee without pain in NWB and WB stoop and squat today. Pt is in excellent shape3 and moves well. reflexes 1/3 patella adn achilles Sensation LE WNL to gross light touch. strength 4+/5 in knee flexion adn ext without pain, hip abd and rotations 3+/5 no pain B. ankle 5/5 no pain. Good coordination to reciprocal toe and heel tap. Balance/Special Test Scores Lower Extremity Functional Score: 72 Goals Goal 1:: I appropriate HEP for hip stabs to minimize future knee pain and maximize comfortable funciton. Goal Time Frame: 2-4 Weeks Rehabilitation Potential Physical Therapy Diagnosis: l hip weakness unstable femur and intermittent knee pain Rehabilitation Potential: Good Anticipated Interventions Text: Thank you for the opportunity to evaluate your patient. For Medicare and Medicare HMO plans, please review the plan of care and approve it. It will need to be FAXED BACK to us at [phone] for Medicare purposes. For Medicare only, by signing this I certify the plan of care. Please let me know if there are questions or concerns regarding this plan of care. Physician Signature: Date:
--- NOTE | 2024-08-31 09:58 | HP.PTREVAL ---
Re-Evaluation Intro: Dr. Kai Thorne, DO, It has been my pleasure to treat JODIE SIDDIQUI over the last 2 visits for L knee OA adn pain. Please see the progress note below for an update on the physical therapy plan of care! Subjective Subjective: Was in [place] for a couple months and then tied up with a youngster that he brought back. Leg held up OK and is improving even with the activity. time between twinges is increased and intensity is reduced. has played 2 hockey games recently without incident in the leg. Twinges occurring 1-2x/week with squatting and twisting down to low cupboards. Hurts 1 or less. Transient. Objective Objective/Function: Walking and squatting without issues. 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 Goal Time Frame: 2-4 Weeks Goal Progress: still appropriate. Anticipated Interventions Re-Evaluation Ending Re-evaluation ending: Please do not hesitate to contact me at [phone] by phone or if you have questions or concerns regarding this new plan of care! Sincerely, Jovi Lock, DPT, OCS, CSCS
--- NOTE | 2024-09-19 13:32 | HP.PTDCSUM ---
Discharge Summary D/C summary: It has been my pleasure to treat JODIE SIDDIQUI referred by Dr. Kai Thorne DO, with the diagnosis of L knee OA adn pain for a total of 7 visit(s). Discharge Date: 09/19/24 Please see the following information for a summary of their discharge status. Subjective Subjective: Workout went OK. 3instances of slight pain in knee after doing heavy work around house and in yard. Will continue himself 2-3 x week. Pain L knee achy: Pain Intensity (Out of 10): 0 Overall Improvement % Improvement: 90 Objective Objective/Function: reassess subjective adn verbal I with ex. Goals Goal 1:: I appropriate HEP for hip stabs to minimize future knee pain and maximize comfortable funciton. Goal Progress: Goal Met Plan Plan: d/c to HEP in gym 2x/week and home 2x/week/. D/C Information d/c sentence: If there are questions or concerns regarding this patient's physical therapy, please feel free to call me at [phone]. Thank you for the referral of this patient. Sincerely, Jovi Lock, DPT, OCS, CSCS Balance/Gait/Functional tests Balance/Special Test Scores Lower Extremity Functional Score: 72 Improvement % Improvement: 90
== END 2024-09-19 19:00 | disposition home or self-care (01) ==
LOC: PT 12:00
PROVIDERS: PCP Family Medicine; Referring Provider Student in an Organized Health Care Education/Training Program; Visit Provider Student in an Organized Health Care Education/Training Program
DX: M25.562 Pain in left knee (principal); M17.12 Unilateral primary osteoarthritis, left knee
CPT/HCPCS: 97110; 97161

== ENCOUNTER → 2024-10-19 | Outpatient (CLI) | payer BC, SELFPAY ==
[2024-10-19 15:35] LABS: Hemoglobin 14.3 g/dL (13.0-16.5); Mean Corp Hgb Conc 32.5 g/dL (32-36); Mean Corpuscular Hgb 29.9 pg (27.0-32.0); Mean Corpuscular Volume 91.9 fL (80-94); Mean Platelet Vol. 10.7 fl (6.2-12.0); Platelet Count 290 K/mm3 (150-450); RBC Distribution Width CV 12.7 % (11.6-14.6); RBC Distribution Width SD 43.1 fl (35.1-43.9); Red Blood Count 4.79 M/mm3 (4.6-6.2); White Blood Count 7.1 K/mm3 (4.4-11.0)
[2024-10-19 16:20] LABS: Vitamin D,25 Hydroxy 41.5 ng/mL
[2024-10-19 16:21] LABS: ALB/GLOB Ratio 0.9 RATIO (0.9-2.4); AST(SGOT) 19 U/L (15-37); Alanine Aminotransfer ALT/SGPT 24 U/L (16-61); Albumin, Serum 3.4 g/dL (3.2-5.0); Alkaline Phosphatase 69 U/L (45-117); Anion Gap 4 (5-15); BUN 13 mg/dL (7-18); BUN/Creat Ratio 12.4 RATIO (10-20); Calcium,Total 9.1 mg/dL (8.5-10.1); Chloride 105 mmol/L (98-107); Cholesterol 232 mg/dL (200); Creatinine, Serum 1.05 mg/dL (0.70-1.30); EST Glomerular Filtration Rate 74 mL/min (>60); Est Glom Filt Rate - Afr Amer 90 mL/min (>60); Globulin 3.7 g/dL (2.2-4.2); Glucose 91 mg/dL (74-106); High Density Lipoprotein 61 mg/dL; Magnesium 2.1 mg/dL (1.6-2.6); PSA,Total - Annual Screen 0.47 ng/mL (0.00-4.00); Potassium 4.4 mmol/L (3.5-5.1); Protein, Total 7.1 g/dL (6.4-8.2); Sodium Level 139 mmol/L (136-145); Triglycerides 211 mg/dL; Very Low Density Lipoprotein 42 mg/dL (5-40)
== END | disposition home or self-care (01) ==
PROVIDERS: PCP Family Medicine; Referring Provider Family Medicine; Visit Provider Family Medicine
DX: I10 Essential (primary) hypertension (principal); I34.1 Nonrheumatic mitral (valve) prolapse; K21.9 Gastro-esophageal reflux disease without esophagitis; E55.9 Vitamin D deficiency, unspecified; N40.0 Benign prostatic hyperplasia without lower urinary tract symptoms
CPT/HCPCS: 36415; 80053; 80061; 82306; 83735; 84153; 85027; G0103

== ENCOUNTER → 2024-11-09 | Outpatient (CLI) | payer BC, SELFPAY | END | disposition home or self-care (01) | LOC: LAB 11:53 | PROVIDERS: PCP Family Medicine; Referring Provider Family Medicine; Visit Provider Family Medicine | DX: L65.9 Nonscarring hair loss, unspecified (principal) | CPT/HCPCS: 36415; 84402; 84443 ==

== ENCOUNTER → 2025-07-16 | Outpatient (CLI) | payer BC, SELFPAY ==
[2025-07-16 12:59] LABS: Hematocrit 39.8 % (40-54); Hemoglobin 13.2 g/dL (13.0-16.5); Immature Granulocytes Count 0.020 X10^3/uL (0.0-0.0); Mean Corp Hgb Conc 33.2 g/dL (32-36); Mean Corpuscular Volume 89.0 fL (80-94); Mean Platelet Vol. 9.9 fl (6.2-12.0); NRBC Flagged by Analyzer 0 % (0-5); POSITIVE MORPHOLOGY YES; Platelet Count 282 K/mm3 (150-450); RBC Distribution Width CV 13.2 % (11.6-14.6); RBC Distribution Width SD 43.6 fl (35.1-43.9); Red Blood Count 4.47 M/mm3 (4.6-6.2); White Blood Count 5.8 K/mm3 (4.4-11.0)
[2025-07-16 13:01] LABS: Differential Indicated SCAN CRITERIA MET
[2025-07-16 13:23] LABS: Differential Comment SCANNED
[2025-07-16 13:56] LABS: AST(SGOT) 20 U/L (<=37); Alanine Aminotransfer ALT/SGPT 17 U/L (<=46); Albumin, Serum 3.9 g/dL (3.4-4.8); Alkaline Phosphatase 67 U/L (40-129); Anion Gap 10 (5-15); BUN 11 mg/dL (4-19); BUN/Creat Ratio 11.3 RATIO (10-20); Bilirubin, Direct 0.24 mg/dL (0.00-0.30); Calcium,Total 9.1 mg/dL (7.6-11.0); Carbon Dioxide 26.3 mmol/L (21.0-32.0); Chloride 105 mmol/L (98-108); Globulin 2.7 g/dL (2.2-4.2); Glucose 92 mg/dL (70-99); Potassium 4.1 mmol/L (3.3-5.1)
[2025-07-16 15:40] LABS: Cholesterol 167 mg/dL (<=200); Low Density Lipoprotein Calc. 93 mg/dL; Triglycerides 95 mg/dL; Very Low Density Lipoprotein 19 mg/dL (5-40); cholesterol:hdl ratio screen 3.03
--- OUTSIDE RECORDS SUMMARY | 2025-07-16 21:15 | XMS RPT_ITS | CCD ---
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 Yesi Christie Primary Care Provider [phone] Dr. Yesi Christie Referring Provider [phone] Antoinette SCHUSTER, [place] Leon Guillermo Attending Provider MARIELY Wolfe Attending Provider Dr. Jacques Hernandez Attending Provider Dr. Yesi Christie Primary Care Provider Dr. Yesi Christie Referring Provider Dr. LAMONT COATES Attending Arleneny des Membreno MD, Yesi Aquino Primary Care Provider Sonu Caal DO Primary Care Provider [phone] oSnu Caal DO Primary Care Provider Yesi Patel Primary Care Unavailable David, Jacques Attending Unavailable David, Jacques Referring Unavailable David, Jacques Consulting Unavailable David, Jacques Attending Unavailable Yesi Patel Primary Care Unavailable David, Jacques Referring Unavailable Lulu, Chalon Primary Care Unavailable Lulu, Chalon Attending Unavailable Lulu, Chalon Referring Unavailable Lulu, Chalon Primary Care Unavailable Lulu, Chalon Attending Unavailable Lulu, Chalon Referring Unavailable Yesi Patel Primary Care Unavailable David, [place] Attending Unavailable David, Jacques Referring Unavailable David, [place] Attending Unavailable Yesi Patel E Primary Care Unavailable David, Jacques Referring Unavailable Schinner, Yesi E Primary Care Unavailable Nayana Thornes Attending Unavailable Spittle, Kai Referring Unavailable David, [place] Attending Unavailable Schinner, Yesi E Referring Unavailable Schinner, Yesi E Primary Care Unavailable WilianinYesi dominique E Primary Care Unavailable David, [place] Attending Unavailable David, [place] Referring Unavailable Schinner, Yesi E Primary Care Unavailable David, [place] Referring Unavailable David, Jacques Attending Unavailable Unavailable Primary Care Provider UnavailYESI Szymanski Attending Unavailable YESI ZELAYA Attending Unavailable SONU CAAL Primary Care Unavailable Allergies Allergy Classification Reported Allergen(s) Allergy Type Date of Onset Reaction(s) Facility cashew nut allergenic extract (1 source) cashew nut allergenic extract Drug Allergy 5 GI [facility] (12 sources) clemastine; Translations: [TAVIST D] allergy to substance 1 Urinary retention [facility] Work Phone: (4 sources) clemastine/pheny lpropanolamine drug allergy 6 Urinary retention [facility] Work Phone: (5 sources) Escitalopram Drug Allergy 2 Diarrhea [facility] (1 source) tree nut, unspecified Allergy to substance 2 NEEDS FOLLOW-UP [facility] Work Phone: (3 sources) tree nut, unspecified; Translations: [tree nut] Allergy to substance 2 NEEDS FOLLOW-UP [facility] (13 sources) cashew nut allergenic extract; Translations: [CASHEW NUT] Drug Allergy 5 GI [facility] (14 sources) Nut - Unspecified; Translations: [NUT - UNSPECIFIED] Drug Allergy 5 GI [facility] (1 source) Escitalopram Drug Allergy 4 [facility] Repository Medications Current Medications Medication Drug Class(es) Dates Sig (Normalized) Sig (Original) [id number] 200 actuat albuterol 0.09 mg/actuat metered dose inhaler (19 sources) beta2-Adrenergic Agonist Start: 03-19-2020 Albuterol Sulfate Active 1 INH INHALATION EVERY 6 HOURS March 19, 2020 12:00am Start: 03-09-2015 PROAIR HFA 90 mcg/actuation inhaler as needed. 03/09/2015 Active Comment on above: as needed. amoxicillin 500 mg oral capsule (2 sources) Penicillin-class Antibacterial Start: 2 take 2000 mg by mouth every hour Amoxicillin Active 2000 MG PO .COMPLEX 4 August 24, 2022 12:00am 2,000 mg orally 1 hour prior to dental procedure; atorvastatin 10 mg oral tablet (20 sources) HMG-CoA Reductase Inhibitor Start: 8 End: 3 take 5 mg by mouth once daily Atorvastatin Active 5 MG PO DAILY August 03, 2023 3:45pm Start: 10-02-2017 End: 11-07-2018 take 10 mg by mouth once daily Atorvastatin Discontinu ed 10 MG PO DAILY October 02, 2017 12:00am November 07, 2018 5:47pm Start: 07-27-2011 take 0.5 tablet by m outh once daily LIPITOR 10 MG TABS 1/2 tablet by mouth daily ATORVASTATIN CALCIUM [id number] Jacques Hernandez MD Comment on above: Take 10 mg by mouth as directed. Take one half tablet of 10 mg . betamethasone 1 mg/ml topical cream (14 sources) Corticosteroid Start: 10-28-2022 End: 08-16-2023 betamethasone valerate 0.1 % cream Apply twice daily as needed to the face for psoriasis. 15 g 1 08/16/2023 Active Comment on above: Apply twice daily as needed to the face for psoriasis. betamethasone dipropionate 0.643 mg/ml / calcipotriene 0.05 mg/ml topical foam (20 sources) Corticosteroid, Vitamin D Analog Start: 08-19-2021 End: 10-28-2022 calcipotriene-betametha sone (ENSTILAR) 0.005-0.064 % foam Indications: Psoriasis Apply to affected area once daily as needed. 60 g 5 10/28/2022 Active Start: 03-19-2020 End: 04-08-2021 Calcipotriene-Betamethasone Discontinued 1 APPLIC TOPICAL DAILY March 19, 2020 12:00am April 08, 2021 3:48pm Comment on above: Apply to affected ar ea once daily as needed. calcipotriene 0.49789 mg/mg topical ointment (13 sources) Vitamin D Analog Start: 03-17-2020 calcipotriene (DOVONEX) 0.005 % oint Apply 1 application to affected area twice daily. 120 g 3 03/17/2020 Active Comment on above: Apply 1 application to affected area twice daily. clobetasol propionate 0.5 mg/ml medicated shampoo (8 sources) Corticosteroid Start: 01-24-2024 Clobetasol Propionate (CLOBEX) 0.05 % sham Apply to affected area once daily. Apply to a dry scalp once daily as needed, leave on for 15 minutes before showering. 118 mL 3 01/24/2024 Active Start: 10-28-2022 End: 02-15-2023 Clobetasol Propionate (CLOBE X) 0.05 % sham Apply to affected area once daily. Apply to a dry scalp once daily as needed, leave on for 15 minutes before showering. 118 mL 3 10/28/2022 02/15/2023 Discontinued End: 01-24-2024 Clobetasol Propionate 0.05 % sham Apply to affected area. 0 01/24/2024 Discontinued Comment on above: Apply to affected ar ea once daily. Apply to a dry scalp once daily as needed, leave on for 15 minutes before showering. Apply to affected ar ea. Dexlansoprazole (Dexilant) 60 mg capsule,biphase delayed releas (6 sources) Start: 02-28-2022 Dexlansoprazole (Dexilant) 60 mg capsule,biphase delayed releas Active MG February 28, 2022 10:35pm Start: 02-28-2022 Dexlansoprazol e (Dexilant) 60 mg capsule,biphase delayed releas Active MG February 28, 2022 12:00am Start: 02-28-2022 Dexlansoprazol e (Dexilant) 60 mg capsule,biphase delayed releas Active MG February 27, 2022 11:00pm finasteride 5 mg oral tablet (19 sources) 5-alpha Reductase Inhibitor Start: 10-02-2017 take 1 tablet by mouth once daily finasteride (PROSCAR) 5 mg tablet Take 1 tablet by mouth once daily. 90 tablet 06/05/2018 Active Comment on above: Take 1 tablet by [facility] once daily. fluticasone propionate 0.05 mg/actuat metered dose nasal spray (13 sources) Corticosteroid take 1 spray(s) nasal route once daily as needed fluticasone (FLONASE) 50 mcg/actuation nasal spray Use 1 [place] in each nostril once daily. Taking as needed, per patient Active Comment on above: Use 1 [place] in each nostril once daily. Taking as needed, per patient hydrocortisone 25 mg/ml topical lotion (20 sources) Corticosteroid Start: 08-19-2021 hydrocortisone (HYTONE) 2.5 % lotion Apply to affected area twice daily as needed (for psoriasis of the perez area and the ears.). 59 mL 3 08/19/2021 Active Start: 02-13-2019 hydrocortisone valerate (WESTCORT) 0.2 % cream Apply 1 application to affected area twice daily as needed (for rash). 60 g 1 02/13/2019 Active Start: 07-27-2011 End: 04-12-2014 HYDROCORTISONE 0.5 % OINT Ap ply as directed HYDROCORTISONE [id number] Jacques Hernandez MD Comment on above: Apply 1 application to affected area twice daily as needed (for rash). Apply to affected ar ea twice daily as needed (for psoriasis of the perez area and the ears.). ibuprofen 600 mg oral tablet (13 sources) Nonsteroidal Anti-inflammatory Drug Start: 4 take 1 tablet by mouth three times daily at mealtime as needed ibuprofen (MOTRIN) 600 mg tablet Take 600 mg by mouth three times daily with meals. As needed 10/11/2014 Active Comment on above: Take 600 mg by mouth three times daily with meals. As needed ammonium lactate 120 mg/ml topical cream (4 sources) Start: 4 ammonium lactate (LAC-HYDRIN) 12 % cream Apply 1 application to affected area as needed for dry skin. 385 g 3 01/24/2024 Active Comment on above: Apply 1 application to affected area as needed for dry skin. lisinopril 20 mg oral tablet (20 sources) Angiotensin Converting Enzyme Inhibitor Start: 2 End: 3 take 20 mg by mouth twice daily Lisinopril Active 20 MG PO TWICE A DAY 180 March 25, 2023 4:51pm Start: 04-08-2021 End: 03-03-2022 take 20 mg by mouth once daily Lisinopril Discontinued 20 MG PO DAILY 90 April 08, 2021 4:14pm March 03, 2022 4:41pm Start: 08-29-2015 End: 04-08-2021 take 10 mg by mouth once daily Lisinopril Discontinued 10 MG PO DAILY 90 August 25, 2020 10:07am April 08, 2021 4:16pm Comment on above: Take 10 mg by mouth once daily. LORazepam 1 mg oral tablet (6 sources) Benzodiazepine Start: 04-08-20 21 take 1 mg by mouth once daily Lorazepam Active 1 MG PO DAILY April 08, 2021 12:00am montelukast 10 mg oral tablet (6 sources) Leukotriene Receptor Antagonist Start: 02-29-20 22 Montelukast Active MG February 28, 2022 12:00am pimecrolimus 10 mg/ml topical cream (4 sources) Calcineurin Inhibitor Immunosuppressant Start: 01-24-20 24 pimecrolimus (ELIDEL) 1 % cream Apply to affected area two times a day as needed (for dermatitis). 60 g 3 01/24/2024 Active Comment on above: Apply to affected ar ea two times a day as needed (for dermatitis). propranolol hydrochloride 10 mg oral tablet (20 sources) beta-Adrenergic Colleen Start: 03-03-20 22 take 10 mg by mouth once daily Propranolol Active 10 MG PO DAILY March 03, 2022 4:03pm Start: 06-02-2021 End: 03-03-2022 take 10 mg by mouth twice daily Propranolol Discontinu ed 10 MG PO TWICE A DAY 180 June 02, 2021 9:24am March 03, 2022 4:03pm Start: 05-16-2020 End: 06-02-2021 take 10 mg by mouth once daily Propranolol Discontinue d 10 MG PO DAILY May 16, 2020 9:54pm June 02, 2021 9:24am Start: 03-19-2020 End: 03-19-2020 take 10 mg by mouth once daily Propranolol Discontinue d 10 MG PO DAILY March 19, 2020 2:07pm March 19, 2020 2:49pm Start: 03-19-2020 End: 05-16-2020 take 10 mg by mouth twice daily Propranolol Discontinu ed 10 MG PO TWICE A DAY 180 March 19, 2020 12:00am May 16, 2020 9:54pm Start: 03-07-2019 End: 03-19-2020 take 5 mg by mouth once daily Propranolol Discontinued 5 MG PO DAILY 45 January 28, 2020 1:01pm March 19, 2020 2:05pm Start: 10-02-2017 End: 03-07-2019 take 10 mg by mouth once daily Propranolol Discontinue d 10 MG PO DAILY October 02, 2017 12:00am March 07, 2019 3:06pm Start: 04-12-2014 PROPRANOLOL HC L 10 MG TABS 1/2 tablet as needed PROPRANOLOL HCL [id number] Jacques Hernandez MD Start: 07-27-2011 End: 04-12-2014 take 1 tablet by mouth once daily as needed PROPRANOLOL HCL 10 MG TABS One tablet by mouth daily as needed PROPRANOLOL HCL [id number] Jacques Hernandez MD take 2 tablets by mo ut once daily PROPRANOLOL HCL (PROPRANOLOL ORAL) Take 10 mg by mouth as directed. 2 tablet daily Active take 2 tablets by mo uth once daily PROPRANOLOL HCL (PROPRANOLOL ORAL) Take 10 mg by mouth as directed. 2 tablet daily 0 Active Comment on above: Take 10 mg by mouth as directed. 2 tablet daily Roflumilast (1 source) Phosphodiesterase 4 Inhibitor Start: 02-27-2025 roflumilast (ZORYVE) 0.15 % cream Apply to affected area once daily. 60 g 2 02/27/2025 Active zinc pyrithione 0.02 mg/mg medicated bar soap (13 sources) Start: 10-28-2022 Pyrithione Zinc (DERMAZINC) 2 % bar Apply 1 application to affected area once daily. 1 Each 5 10/28/2022 Active Comment on above: Apply 1 application to affected area once daily. Completed/Discontinued Medications Medication Drug Class(es) Dates Sig (Normalized) Sig (Original) ALPRAZolam 0.25 mg oral tablet (12 sources) Benzodiazepine Start: 11-02-2016 take 1 tablet by mouth once daily as needed XANAX 0.25 MG TABS One tablet by mouth daily prn ALPRAZOLAM [id number] Jacques Hernandez MD Start: 07-27-2011 take 1 tablet by jose twice daily XANAX 0.25 MG TABS One tablet by mouth twice daily needed (takes very rarely) ALPRAZOLAM [id number] Jacques Hernandez MD aspirin 81 mg oral strip (12 sources) Nonsteroidal Anti-inflammatory Drug Start: 04-12-2014 End: 08-29-2015 take 1 tablet by mouth once daily ASPIRIN 81 MG TABS One tablet by mouth daily ASPIRIN [id number] Jacques Hernandez MD Start: 07-27-2011 ASPIRIN 325 MG TABS Not taking regularly ASPIRIN [id number] Abbie Wynne cetirizine hydrochloride 10 mg oral tablet (8 sources) Histamine-1 Receptor Antagonist Start: 04-12-2014 take 1 tablet by mouth once daily ZYRTEC ALLERGY 10 MG TABS One tablet by mouth daily CETIRIZINE HCL [id number] Jacques Hernandez MD cholecalciferol 2000 unt oral tablet (17 sources) Vitamin D Start: 04-12-2014 take 1 tablet by mouth once daily VITAMIN D 2000 UNIT TABS One tablet by mouth daily CHOLECALCIFEROL [id number] Jacques Hernandez MD Comment on above: Take 2,000 Units by mouth once daily. ciprofloxacin 500 mg oral tablet (8 sources) Quinolone Antimicrobial Start: 04-12-2014 End: 08-29-2015 take 1 tablet by mouth twice daily CIPRO 500 MG TABS One tablet by mouth twice daily CIPROFLOXACIN HCL [id number] Jacques Hernandez MD clarithromycin 50 mg/ml oral suspension (8 sources) Macrolide Antimicrobial Start: 08-29-2015 End: 12-24-2015 take 1 tablet by mouth once daily CLARITHROMYCIN 250 MG/5ML SUSR One tablet by mouth daily for 30 days for sinus infection CLARITHROMYCIN [id number] Jacques Hernandez MD dexlansoprazole 60 mg delayed release oral capsule (20 sources) Proton Pump Inhibitor Start: 10-02-2017 End: 04-08-2021 take 60 mg by mouth once daily Dexlansoprazole Discontinued 60 MG PO DAILY March 19, 2020 2:01pm April 08, 2021 3:48pm Start: 07-27-2011 take 1 tablet by jose once daily as needed DEXILANT 30 MG CPDR One tablet by mouth daily as needed DEXLANSOPRAZOLE [id number] Jacques Hernandez MD DEXLANSOPRAZOLE (DEXILANT ORAL) Take 160 mg by mouth as needed. Active DEXLANSOPRAZOLE (DEXILANT ORAL) Take 160 mg by mouth as needed. 0 Active Comment on above: Take 160 mg by mouth as needed. escitalopram 5 mg oral tablet (6 sources) Serotonin Reuptake Inhibitor Start: 04-08-20 End: 03-03-20 take 5 mg by mouth once daily Escitalopram Oxalate Discontinued 5 MG PO DAILY April 08, 2021 12:00am March 03, 2022 4:01pm 30 actuat fluticasone furoate 0.1 mg/actuat / vilanterol 0.025 mg/actuat dry powder inhaler (15 sources) Corticosteroid, beta2-Adrenergic Agonist Start: 05-16-20 End: 04-08-20 take 1 puff(s) by inhalation once daily Fluticasone Furoate-Vilanterol Discontinued 1 PUFF IH DAILY May 16, 2020 12:00am April 08, 2021 3:48pm Start: 03-19-2020 End: 04-08-2021 Fluticasone Furoate-Vilanter ol Discontinued 1 INH INHALATION DAILY March 19, 2020 12:00am April 08, 2021 3:48pm Start: 03-11-2020 End: 02-15-2023 BREO ELLIPTA 100-25 mcg/dose inhaler loratadine 10 mg oral tablet (17 sources) Start: 04-12-2014 take 1 tablet by mouth once daily CLARITIN 10 MG CAPS One tablet by mouth daily LORATADINE [id number] Jacques Hernandez MD LORATADINE (CLAR ITIN ORAL) Take by mouth. Active LORATADINE (CLAR ITIN ORAL) Take by mouth. 0 Active Comment on above: Take by mouth. sulfacetamide sodium 100 mg/ml / sulfur 50 mg/ml medicated liquid soap (5 sources) Sulfonamide Antibacterial Start: 01-11-2023 End: 08-16-2023 Sulfacetamide Sodium-Sulfur 10-5 % (w/w) clsr Indications: Psoriasis Apply to affected area once daily. For the face. 227 g 3 01/11/2023 08/16/2023 Discontinued Comment on above: Apply to affected ar ea once daily. For the face. Problems Active Problems Problem Classification Problem Date Documented Da te Episodic/Chronic Diseases of white blood cells (1 source) Eosinophil count raised; Translations: [Eosinophilia, unspecified type] 11-07-2023 Chronic Disorders of lipid metabolism (20 sources) Hyperlipidemia; Translations: [Hyperlipidemia, unspecified] Onset: 07-27-2011 07-27-2011 Chronic Essential hypertension (20 sources) Hypertensive disorder; Translations: [Essential hypertension] Onset: 08-29-2015 08-29-2015 Chronic Heart valve disorders (18 sources) Mitral valve prolapse; Translations: [Nonrheumatic mitral (valve) prolapse] Onset: 03-08-2019 02-15-2023 Chronic Immunizations and screening for infectious disease (18 sources) Patient encounter status; Translations: [Encounter for screening for COVID-19] Episodic Lymphadenitis (1 source) Inguinal lymphadenopathy; Translations: [Localized enlarged lymph nodes] Episodic Osteoarthritis (1 source) Unilateral primary osteoarthritis, left knee; Translations: [Unilateral primary osteoarthritis, left knee] Onset: 10-01-2024 Chronic Other and unspecified benign neoplasm (2 sources) Multiple benign melanocytic nevi ; Translations: [Melanocytic nevi, unspecified] Episodic Other and unspecified benign neoplasm (3 sources) Senile angioma; Translations: [Hemangioma of skin and subcutaneous tissue] Episodic Other connective tissue disease (5 sources) Foreign body; Translations: [Residual foreign body in soft tissue] 03-08-2022 Episodic Other inflammatory condition of skin (4 sources) Psoriasis; Translations: [Psoriasis, unspecified] Chronic Other inflammatory condition of skin (1 source) Seborrheic dermatitis; Translations: [Seborrheic dermatitis, unspecified] 02-27-2025 Episodic Other lower respiratory disease (13 sources) Dyspnea; Translations: [Shortness of breath] Onset: 07-27-2011 Resolved: 08-29-2015 08-29-2015 Episodic Other non-traumatic joint disorders (1 source) Pain in left knee; Translations: [Pain in left knee] Onset: 10-01-2024 Episodic Other skin disorders (2 sources) Telogen effluvium; Translations: [Telogen effluvium] 08-16-2023 Episodic Other skin disorders (2 sources) Inflamed seborrheic keratosis; Translations: [Inflamed seborrheic keratosis] 08-16-2023 Episodic Other skin disorders (5 sources) Seborrheic keratosis; Translations: [Other seborrheic keratosis] Onset: 05-19-2014 Resolved: 11-03-2014 08-16-2023 Episodic Other skin disorders (2 sources) Alopecia; Translations: [Androgenic alopecia, unspecified] 11-07-2023 Episodic Other skin disorders (1 source) Asteatosis cutis; Translations: [Xerosis cutis] 02-19-2024 Episodic Other skin disorders (1 source) Nonscarring hair loss, unspecified; Translations: [Nonscarring hair loss, unspecified] Onset: 12-12-2024 Episodic Residual codes; unclassified (1 source) Flushing; Translations: [Flushing] Episodic Past or Other Problems Problem Classification Problem Date Documented Date Episodic/Chronic Allergic reactions (13 sources) Solar degeneration; Translations: [Other skin changes due to chronic exposure to nonionizing radiation] Onset: 05-19-2014 05-19-2014 Episodic Cardiac dysrhythmias (12 sources) Palpitations; Translations: [Intermittent palpitations] Onset: 07-27-2011 07-27-2011 Episodic Nonspecific chest pain (13 sources) Chest discomfort; Translations: [Atypical chest pain] Onset: 07-27-2011 Resolved: 08-29-2015 08-29-2015 Episodic Other aftercare (4 sources) Other retirement (current) drug therapy; Translations: [Other retirement (current) drug therapy] Onset: 07-27-2011 07-27-2011 Episodic Other and unspecified benign neoplasm (2 sources) Melanocytic nevi of unspecified part of face; Translations: [Benign neoplasm of skin of other and unspecified parts of face] Onset: 05-19-2014 Resolved: 11-03-2014 11-03-2014 Episodic Other circulatory disease (4 sources) Electrocardiogram abnormal; Translations: [Abnormal electrocardiogram [ECG] [EKG]] Onset: 07-27-2011 07-27-2011 Episodic Other lower respiratory disease (4 sources) Shortness of breath; Translations: [Shortness of breath] Onset: 05-11-2024 Episodic Other skin disorders (14 sources) Actinic keratosis; Translations: [Actinic keratosis] Onset: 05-19-2014 Episodic Other skin disorders (2 sources) Sebaceous hyperplasia; Translations: [Other specified follicular disorders] Onset: 05-19-2014 Resolved: 11-03-2014 11-03-2014 Episodic Other skin disorders (2 sources) Solar lentigo; Translations: [Other melanin hyperpigmentation] Onset: 05-19-2014 Resolved: 11-03-2014 11-03-2014 Episodic Other skin disorders (2 sources) Changes in skin texture; Translations: [Other skin changes] Onset: 07-07-2014 Resolved: 11-03-2014 11-03-2014 Episodic Residual codes; unclassified (1 source) Family history of ischemic heart disease and other diseases of the circulatory system; Translations: [Family history of ischemic heart disease and other diseases of the circulatory system] Onset: 05-11-2024 Episodic Results Test Name Value Interpretation Reference Range Facility OV 02-27-2025 [facility] Office Visit (DER[facility] ) JODIE JAIN ([id number]) 1955 M Date Time Provider Department 02/27/25 3:40 PM YESI ZELAYA During your visit today, we recorded the following information about you: Yesi Zelaya MD 02/27/2025 6:19 PM Signed [facility] Department of Dermatology Yesi Zelaya MD 02/27/2025 Last visit in Dermatology: 04/25/2024 Ambient AI software not used during the patient portion of the visit. 1. Psoriasis (L40.9) 2. Seborrheic dermatitis (L21.9) - Psoriasis on lower extremities is well-controlled; no active lesions noted today. Mild psoriasis on the perez area intermittently flares; minimal scaling observed today. - Discussed potential overlap with seborrheic dermatitis on the face. - Initiated trial of 0.15% roflumilast cream, to be used once daily as needed for maintenance. - Betamethasone valerate cream to be reserved for flares. 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 - Patient reports improvement with dietary changes and use of a biotin-containing shampoo. - No scaling of the scalp noted. 4. Seborrheic keratosis (L82.1) - Multiple hyperkeratotic, stuck-on papules less than 1 cm in diameter on the left supraclavicular area and back; no bleeding or significant inflammation, but pruritic. - Discussed treatment options including liquid nitrogen; deferred due to insurance coverage concerns. - Advised use of small amounts of betamethasone valerate or roflumilast cream as needed for pruritus. 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 - No treatment necessary at this time. We discussed the risks, benefits, alternatives, and expected outcomes concerning the prescribed medications. We answered any patient questions regarding these medications and reviewed their use. Requested Prescriptions Signed Prescriptions Disp Refills roflumilast (ZORYVE) 0.15 % cream 60 g 2 Sig: Apply to affected area once daily. Return in about 3 months (around 05/29/2025) for EST appt, skin check. --- Chief complaint: Patient presents with: LESION, SKIN: Spots on chest and backback itchy been there for a couple months No data to display Additional HPI: Jodie is a 69-year-old male presenting for evaluation of psoriasis, pruritic hypokeratotic papules on the left supraclavicular area and back, and small red papules on the torso. Jodie reports that his psoriasis on the lower extremities has been well-controlled and has essentially resolved following a fall in [facility], which resulted in a large abrasion on the right knee. This incident required tetanus immunization, antibiotics, and debridement. He notes persistent mild psoriasis in the perez area, which intermittently flares. He manages this with sparing and intermittent use of betamethasone valerate, approximately once every 7-10 days. He also reports the recent appearance of pruritic hypokeratotic papules on the left supraclavicular area and back, with no known inciting factors. Additionally, he has noticed small red papules on his torso. Previous hair loss, thought to be telogen effluvium, has improved, which he attributes to better nutrition and the use of a biotin-containing shampoo. He denies any scaling of the scalp. Jodie mentions a recent colonoscopy that showed no polyps and reports overall improved health. He had an episode of COVID-19 several months ago but has fully recovered. Past medical history is reviewed. Medication list is reviewed. Review of Systems: Skin: (+) pruritus on left supraclavicular area, (+) intermittent facial dermatitis flares Physical exam: General: Well-appearing. Skin: Minimal scaling on perez; hyperpigmentation on bilateral lower extremities at sites of previous psoriasis, no active psoriasis; healed wound on right extensor knee with slightly atrophic scar; hyperkeratotic, small, stuck-on papules on left supraclavicular area and back, each less than 1 cm, no bleeding or obvious inflammation other than pruritus; scattered prabhakar red papules diffusely on trunk. To waist: Scalp, face, ears, neck, back, chest, abdomen, bilateral upper extremities Labs: Imaging: Tests: - Colonoscopy: No polyps identified Intake by Shreyas Pillai LPN Attending signature: Yesi Zelaya MD This note is completed at 6:19 PM on 02/27/2025 and reflects the services provided at the time of the appointment. I agree with the Chief Complaint, ROS, and Past Histories that may have been independently gathered by the clinical instructional support services director and the remaining scribed note (including AI-generated content) is reviewed and accurately describes my personal service to the patient. Yesi Zelaya MD 02/27/2025 6:19 PM Addendum - Apply 0.15% Zoryve (more content not included)... Normal [facility] Testosterone Freeon 12-17-20 24 TESTOSTER FREE 8.0 pg/mL Normal 6.6-18.1 [facility] Comment on above: Order Comment: Order Date: 11/08/24 Order Info: [id number] - TESTOF Result Comment: Perf ormed at: [facility] [id number] Car Sales Associate: Luz Maria Weaver MD, Phone: [phone] Performed By: #### L 737.6891, D9807.8346 #### [facility] [address] [place], [place], [id number] Thyroid Stim Hormone (TSH)on 11-09-2024 TSH 1.310 uIU/mL Normal 0.358-3.740 [facility] Comment on above: Order Comment: Order Date: 11/08/24 Order Info: [id number] - TSH Performed By: #### L 260.1480, V9782.3876 #### [facility] [address] [place], [place], [id number] CBC-Complete Blood Cnt No Di ffon 10-19-2024 Erythrocyte distribution width (RBC) [Ratio] 12.7 % Normal 11.6-14.6 [facility] Comment on above: Order Comment: Order Date: 09/25/24 Order Info: [id number] - CBC Performed By: #### L 100.0500, L500.4050, L506.1000, L501.9910, L500.4100 #### [facility] [address] [place], [address] Hematocrit (Bld) [Volume fraction] 44.0 % Normal 40-54 [facility] Comment on above: Order Comment: Order Date: 09/25/24 Order Info: [id number] - CBC Performed By: #### L 100.0500, L500.4050, L506.1000, L501.9910, L500.4100 #### [facility] [address] [place], [place], [phone] (417) Hemoglobin (Bld) [Mass/Vol] 14.3 g/dL Normal 13.0-16.5 [facility] Comment on above: Order Comment: Order Date: 09/25/24 Order Info: [id number] - CBC Performed By: #### L 100.0500, L500.4050, L506.1000, L501.9910, L500.4100 #### [facility] [address] [place], [address] MCH (RBC) [Entitic mass] 29.9 pg Normal 27.0-32.0 [facility] Comment on above: Order Comment: Order Date: 09/25/24 Order Info: [id number] - CBC Performed By: #### L 100.0500, L500.4050, L506.1000, L501.9910, L500.4100 #### [facility] [address] [place], [address] MCHC (RBC) [Mass/Vol] 32.5 g/dL Normal 32-36 [facility] Comment on above: Order Comment: Order Date: 09/25/24 Order Info: [id number] - CBC Performed By: #### L 100.0500, L500.4050, L506.1000, L501.9910, L500.4100 #### [facility] [address] [place], [address] MCV (RBC) [Entitic vol] 91.9 fL Normal 80-94 [facility] Comment on above: Order Comment: Order Date: 09/25/24 Order Info: [id number] - CBC Performed By: #### L 100.0500, L500.4050, L506.1000, L501.9910, L500.4100 #### [facility] [address] [place], [address] Platelet mean volume (Bld) [Entitic vol] 10.7 fL Normal 6.2-12.0 [facility] Comment on above: Order Comment: Order Date: 09/25/24 Order Info: [id number] - CBC Performed By: #### L 100.0500, L500.4050, L506.1000, L501.9910, L500.4100 #### [facility] [address] [place], [address] Platelets (Bld) [#/Vol] 290 10*3/uL Normal 150-450 [facility] Comment on above: Order Comment: Order Date: 09/25/24 Order Info: [id number] - CBC Performed By: #### L 100.0500, L500.4050, L506.1000, L501.9910, L500.4100 #### [facility] [address] [place], [address] RBC (Bld) [#/Vol] 4.79 10*6/uL Normal 4.6-6.2 [facility] Comment on above: Order Comment: Order Date: 09/25/24 Order Info: [id number] - CBC Performed By: #### L 100.0500, L500.4050, L506.1000, L501.9910, L500.4100 #### [facility] [address] [place], [address] RDW SD 43.1 fl Normal 35.1-43.9 [facility] Comment on above: Order Comment: Order Date: 09/25/24 Order Info: [id number] - CBC Performed By: #### L 100.0500, L500.4050, L506.1000, L501.9910, L500.4100 #### [facility] [address] [place], [address] WBC (Bld) [#/Vol] 7.1 10*3/uL Normal 4.4-11.0 [facility] Comment on above: Order Comment: Order Date: 09/25/24 Order Info: [id number] - CBC Performed By: #### L 100.0500, L500.4050, L506.1000, L501.9910, L500.4100 #### [facility] [address] [place], [address] Comprehensive Metabolic Prof ilon 10-19-2024 Albumin [Mass/Vol] 3.4 g/dL Normal 3.2-5.0 [facility] Comment on above: Order Comment: Order Date: 09/25/24 Order Info: [id number] - CMP Order Info: [id number] - LIPID Order Info: [id number] - MG Order Info: 2857-1 - PSA Performed By: #### L 100.0500, L500.4050, L506.1000, L501.9910, L500.4100 #### [facility] [address] [place], [address] Albumin/Globulin [Mass ratio] 0.9 {ratio} Normal 0.9-2.4 [facility] Comment on above: Order Comment: Order Date: 09/25/24 Order Info: 86-1 - CMP Order Info: [id number] - LIPID Order Info: [id number] - MG Order Info: 2857-1 - PSA Performed By: #### L 100.0500, L500.4050, L506.1000, L501.9910, L500.4100 #### [facility] [address] [place], [place], [id number] ALK P 69 U/L Normal 45-117 [facility] Comment on above: Order Comment: Order Date: 09/25/24 Order Info: 0786-1 - CMP Order Info: [id number] - LIPID Order Info: [id number] - MG Order Info: 2857-1 - PSA Performed By: #### L 100.0500, L500.4050, L506.1000, L501.9910, L500.4100 #### [facility] [address] [place], [place], [address] ALT [Catalytic activity/Vol] 24 U/L Normal 16-61 [facility] Comment on above: Order Comment: Order Date: 09/25/24 Order Info: 0786-1 - CMP Order Info: [id number] - LIPID Order Info: [id number] - MG Order Info: 2857-1 - PSA Performed By: #### L 100.0500, L500.4050, L506.1000, L501.9910, L500.4100 #### [facility] [address] [place], [address] AST [Catalytic activity/Vol] 19 U/L Normal 15-37 [facility] Comment on above: Order Comment: Order Date: 09/25/24 Order Info: 0786-1 - CMP Order Info: [id number] - LIPID Order Info: [id number] - MG Order Info: [id number] - PSA Performed By: #### L 100.0500, L500.4050, L506.1000, L501.9910, L500.4100 #### [facility] [address] [place], [address] Bilirubin [Mass/Vol] 0.60 mg/dL Normal 0.20-1.00 [facility] Comment on above: Order Comment: Order Date: 09/25/24 Order Info: 86-1 - CMP Order Info: [id number] - LIPID Order Info: [id number] - MG Order Info: [id number] - PSA Result Comment: For patients on eltrombopag therapy, use of Dimension [place] TBIL is not recommended. Performed By: #### L 100.0500, L500.4050, L506.1000, L501.9910, L500.4100 #### [facility] [address] [place], [address] BUN/CRE 12.4 RATIO Normal 10-20 [facility] Comment on above: Order Comment: Order Date: 09/25/24 Order Info: 0786-1 - CMP Order Info: [id number] - LIPID Order Info: [id number] - MG Order Info: 7-1 - PSA Performed By: #### L 100.0500, L500.4050, L506.1000, L501.9910, L500.4100 #### [facility] [address] [place], [address] CA,Total 9.1 mg/dL Normal 8.5-10.1 [facility] Comment on above: Order Comment: Order Date: 09/25/24 Order Info: 86-1 - CMP Order Info: [id number] - LIPID Order Info: [id number] - MG Order Info: 2856-1 - PSA Performed By: #### L 100.0500, L500.4050, L506.1000, L501.9910, L500.4100 #### [facility] [address] [place], [address] Chloride [Moles/Vol] 105 mmol/L Normal 98-107 [facility] Comment on above: Order Comment: Order Date: 09/25/24 Order Info: 785-1 - CMP Order Info: [id number] - LIPID Order Info: [id number] - MG Order Info: 1 - PSA Performed By: #### L 100.0500, L500.4050, L506.1000, L501.9910, L500.4100 #### [facility] [address] [place], [address] CO2 [Moles/Vol] 30.0 mmol/L Normal 21.0-32.0 [facility] Comment on above: Order Comment: Order Date: 09/25/24 Order Info: 785- - CMP Order Info: [id number] - LIPID Order Info: [id number] - MG Order Info: 1 - PSA Performed By: #### L 100.0500, L500.4050, L506.1000, L501.9910, L500.4100 #### [facility] [address] [place], [address] Creatinine [Mass/Vol] 1.05 mg/dL Normal 0.70-1.30 [facility] Comment on above: Order Comment: Order Date: 09/25/24 Order Info: 86-1 - CMP Order Info: [id number] - LIPID Order Info: [id number] - MG Order Info: 2856-1 - PSA Result Comment: The validity of the calculated GFR GFRAA in patients over 70 years has not been determined. Clinical correlation is essential. Performed By: #### L 100.0500, L500.4050, L506.1000, L501.9910, L500.4100 #### [facility] [address] [place], [address] EST GFR - AA 90 mL/min Normal >60 [facility] Comment on above: Order Comment: Order Date: 09/25/24 Order Info: 0786-1 - CMP Order Info: [id number] - LIPID Order Info: [id number] - MG Order Info: 285-1 - PSA Result Comment: Afri can Ken[place] GFR Calc Performed By: #### L 100.0500, L500.4050, L506.1000, L501.9910, L500.4100 #### [facility] [address] [place], [place], [id number] GAP 4 Low 5-15 [facility] Comment on above: Order Comment: Order Date: 09/25/24 Order Info: 785-1 - CMP Order Info: [id number] - LIPID Order Info: [id number] - MG Order Info: [id number] - PSA Performed By: #### L 100.0500, L500.4050, L506.1000, L501.9910, L500.4100 #### [facility] [address] [place], [place], [address] GFR/1.73 sq M.predicted among non-blacks MDRD (S/P/Bld) [Vol rate/Area] 74 mL/min/{1.73_m2} Normal >60 [facility] Comment on above: Order Comment: Order Date: 09/25/24 Order Info: 785-1 - CMP Order Info: [id number] - LIPID Order Info: [id number] - MG Order Info: 2857-1 - PSA Result Comment: Non- GFR Calc Performed By: #### L 100.0500, L500.4050, L506.1000, L501.9910, L500.4100 #### [facility] [address] [place], [address] Globulin (S) [Mass/Vol] 3.7 g/dL Normal 2.2-4.2 [facility] Comment on above: Order Comment: Order Date: 09/25/24 Order Info: 0786-1 - CMP Order Info: [id number] - LIPID Order Info: [id number] - MG Order Info: 2857-1 - PSA Performed By: #### L 100.0500, L500.4050, L506.1000, L501.9910, L500.4100 #### [facility] [address] [place], [address] Glucose [Mass/Vol] 91 mg/dL Normal 74-106 [facility] Comment on above: Order Comment: Order Date: 09/25/24 Order Info: 785-1 - CMP Order Info: - LIPID Order Info: [id number] - MG Order Info: 2857-1 - PSA Performed By: #### L 100.0500, L500.4050, L506.1000, L501.9910, L500.4100 #### [facility] [address] [place], [address] Potassium [Moles/Vol] 4.4 mmol/L Normal 3.5-5.1 [facility] Comment on above: Order Comment: Order Date: 09/25/24 Order Info: 785-1 - CMP Order Info: [id number] - LIPID Order Info: [id number] - MG Order Info: 2857-1 - PSA Performed By: #### L 100.0500, L500.4050, L506.1000, L501.9910, L500.4100 #### [facility] [address] [place], [address] Sodium [Moles/Vol] 139 mmol/L Normal 136-145 [facility] Comment on above: Order Comment: Order Date: 09/25/24 Order Info: 86-1 - CMP Order Info: [id number] - LIPID Order Info: [id number] - MG Order Info: 2856-1 - PSA Performed By: #### L 100.0500, L500.4050, L506.1000, L501.9910, L500.4100 #### [facility] [address] [place], [address] T PROT 7.1 g/dL Normal 6.4-8.2 [facility] Comment on above: Order Comment: Order Date: 09/25/24 Order Info: 86-1 - CMP Order Info: [id number] - LIPID Order Info: [id number] - MG Order Info: [id number] - PSA Performed By: #### L 100.0500, L500.4050, L506.1000, L501.9910, L500.4100 #### [facility] [address] [place], [address] Urea nitrogen [Mass/Vol] 13 mg/dL Normal 7-18 [facility] Comment on above: Order Comment: Order Date: 09/25/24 Order Info: 785-11 - CMP Order Info: - LIPID Order Info: [id number] - MG Order Info: [id number] - PSA Performed By: #### L 100.0500, L500.4050, L506.1000, L501.9910, L500.4100 #### [facility] [address] [place], [address] Lipid Profileon 10-19-2024 Cholesterol [Mass/Vol] 232 mg/dL High 200 [facility] Comment on above: Order Comment: Order Date: 09/25/24Order Info: 07- - CMPOrder Info: [id number] - LIPIDOrder Info: [id number] - MGOrder Info: 2857-1 - PSA Result Comment: <200 mg/dL Desirable 200-240 mg/dL Borderline >240 mg/dL High Risk Performed By: #### L 100.0500, L500.4050, L506.1000, L501.9910, L500.4100 ####[facility] [address] [place], [address] Cholesterol in HDL [Mass/Vol] 61 mg/dL Normal [facility] Comment on above: Order Comment: Order Date: 09/25/24Order Info: 785- - CMPOrder Info: [id number] - LIPIDOrder Info: [id number] - MGOrder Info: 2857-1 - PSA Result Comment: The drugs N-Acetylcysteine and Metamizole may falsely depress this assay. Reference Range HDL <40 mg/dL Low HDL Cholesterol HDL >or= 60 mg/dL High HDL Cholesterol Performed By: #### L 100.0500, L500.4050, L506.1000, L501.9910, L500.4100 ####[facility] [address] [place], [address] Cholesterol in LDL [Mass/Vol] 129 mg/dL Normal 0-130 [facility] Comment on above: Order Comment: Order Date: 09/25/24Order Info: 785-11 - CMPOrder Info: - LIPIDOrder Info: [id number] - MGOrder Info: 2857-1 - PSA Performed By: #### L 100.0500, L500.4050, L506.1000, L501.9910, L500.4100 ####[facility] [address] [place], [address] Cholesterol in VLDL [Mass/Vol] 42 mg/dL High 5-40 [facility] Comment on above: Order Comment: Order Date: 09/25/24Order Info: 785-11 - CMPOrder Info: [id number] - LIPIDOrder Info: [id number] - MGOrder Info: 2857-1 - PSA Performed By: #### L 100.0500, L500.4050, L506.1000, L501.9910, L500.4100 ####[facility] [address] [place], [address] Triglyceride [Mass/Vol] 211 mg/dL High [facility] Comment on above: Order Comment: Order Date: 09/25/24Order Info: 0786-1 - CMPOrder Info: [id number] - LIPIDOrder Info: [id number] - MGOrder Info: 285- - PSA Result Comment: The drugs N-Acetylcysteine and Metamizole may falsely depress this assay. Serum Triglycerides Reference Interval Normal <150 mg/dL Borderline high 150 - 199 mg/dL High 200 - 499 mg/dL Very High > or = 500 mg/dL Performed By: #### L 100.0500, L500.4050, L506.1000, L501.9910, L500.4100 ####[facility] [address] [place], [place], [address] Magnesiumon 10-19-2024 Magnesium [Mass/Vol] 2.1 mg/dL Normal 1.6-2.6 [facility] Comment on above: Order Comment: Order Date: 09/25/24Order Info: 0786 - CMPOrder Info: - LIPIDOrder Info: - MGOrder Info: [id number] - PSA Performed By: #### L 501.5200 ####[facility] [address] [place], [place], [address] PSA,Total - Annual Screenon 10-19-2024 PSA,TOT SCREEN 0.47 ng/mL Normal 0.00-4.00 [facility] Comment on above: Order Comment: Order Date: 09/25/24Order Info: 0786- - CMPOrder Info: - LIPIDOrder Info: - MGOrder Info: [id number] - PSA Result Comment: This test was performed using the TPSA assay method for the [employer] chemistry system. Values obtained with different assay methods cannot be used interchangably. When changing PSA assays in the course of monitoring a patient, additional sequential testing should be carried out to confirm baseline values. Performed By: #### L 100.0500, L500.4050, L506.1000, L501.9910, L500.4100 ####[facility] [address] [place], [place], [id number] Vitamin D,25 Hydroxyon 10-19 Vitamin D 25-OH 41.5 ng/mL Normal [facility] Comment on above: Order Comment: Order Date: 09/25/24 Order Info: [id number] - VITD25 Result Comment: Rosario min D 25(OH) Status Range Deficiency <20 ng/mL (50nmol/L) Insufficiency 20 - 30 ng/mL (50 - 75 nmol/L) Sufficiency 30 - 100 ng/mL (75 - 250 nmol/L) Toxicity >100 ng/mL (>250 nmol/L) Performed By: #### L 100.0500, L500.4050, L506.1000, L501.9910, L500.4100 #### [facility] [address] [place], [place], [id number] PT D/C Summary (1)on 024 PT D/C Summary (1) [facility] [address] [place] [address]. [address] [place] [address] / REHABILITATION SERVICES DISCHARGE SUMMARY MR#: [id number] Acct: [id number] Name: JODIE JAIN Rep #: [id number] : 1955 69 From: Jovi Lock DPT, OCS, CSCS Referring Dr.: Dr. Kai Thorne DO Status: REG RCR Insurance: [employer] INSURANCE Discharge Summary D/C summary: It has been my pleasure to treat JODIE Boone CHEN referred by Dr. Kai Thorne, , with the diagnosis of L knee OA adn pain for a total of 7 visit(s). Discharge Date: 09/19/24 Please see the following information for a summary of their discharge status. Subjective Subjective: Workout went OK. 3instances of slight pain in knee after doing heavy work around house and in yard. Will continue himself 2-3 x week. Pain L knee achy: Pain Intensity (Out of 10): 0 Overall Improvement % Improvement: 90 Objective Objective/Function: reassess subjective adn verbal I with ex. Goals Goal 1:: I appropriate HEP for hip stabs to minimize future knee pain and maximize comfortable funciton. Goal Progress: Goal Met Plan Plan: d/c to HEP in gym 2x/week and home 2x/week/. D/C Information d/c sentence: If there are questions or concerns regarding this patient's physical therapy, please feel free to call me at [phone]. Thank you for the referral of this patient. Sincerely, Jovi Lock DPT, OCS, CSCS Balance/Gait/Function al tests Balance/Special Test Scores Lower Extremity Functional Score: 72 Improvement % Improvement: 90 09/19/24 1332 CC: Dr. Yesi Patel MD; Dr. Kai Thorne DO EBG Signed Normal [facility] Re-Evaluation - PT (1)on Re-Evaluation - PT (1) [facility] [address] [place] [address] [address] [place] [address] / REEVALUATION / MEDICARE RECERTIFICATION PHYSICAL THERAPY MR#: [id number] Acct: [id number] Name: JODIE JAIN Rep #: [id number] : 1955 69 From: Jovi Lock DPT, OCS, CSCS Referring Dr.: Dr. Kai Thorne DO Status:REG RC R Insurance: [employer] PA[employer] INSURANCE Re-Evaluation Intro: Dr. Kai Thorne DO, It has been my pleasure to treat JODIE JAIN over the last 2 visits for L knee OA adn pain. Please see the progress note below for an update on the physical therapy plan of care! Subjective Subjective: Was in [place] for a couple months and then tied up with a youngster that he brought back. Leg held up OK and is improving even with the activity. time between twinges is increased and intensity is reduced. has played 2 hockey games recently without incident in the leg. Twinges occurring 1-2x/week with squatting and twisting down to low cupboards. Hurts 1 or less. Transient. Objective Objective/Function: Walking and squatting without issues. 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 gym and band with pics pt will join gym and do HEP after d/c Balance/Gait/Function al tests Balance/Special Test Scores Lower Extremity Functional Score: 72 Goals Goals Goal 1:: I appropriate HEP for hip stabs to minimize future knee pain and maximize comfortable funciton. Goal Time Frame: 2-4 Weeks Goal Progress: still appropriate. Anticipated Interventions Re-Evaluation Ending Re-evaluation ending: Please do not hesitate to contact me at [phone] by phone or if you have questions or concerns regarding this new plan of care! Sincerely, Jovi oLck, PAPIT, OCS, CSCS 08/31/24 0958 CC: Dr. Yesi Patel MD; Dr. Kai Thorne DO EBG Signed For Medicare only, by signing this I certify the plan of care. Physicians Signature Date Normal [facility] Visit Reporton Cardiology Visit Report [facility] [address] [place] [address] OFFICE VISIT Date of Service: 05/22/24 MR#: [id number] Acct: [id number] Name: JODIE JAIN Mely Rep #: [id number] : 1955 Provider: Dr. Jacques Hernandez MD Age/Sex: 68/M [place] [facility] Status: Signed HPI [facility] History of Present Illness Details: 68-year-old gentleman with a history of hypertension, palpitations, and hyperlipidemia.??? As you know he does have equivocal mitral valve prolapse. He tells me that he has overall been doing quite well. He did have 2 episodes of COVID the last 1 being rather brief. He did have a few unusual feelings around that time with occasional palpitations. He has not had any shortness of breath no chest pain no pedal edema. You remember last year he underwent a stress echocardiogram where he exercised to 13.4 metabolic equivalents without any evidence of ischemia. He says that while he was in it today he did develop some palpitations and chest discomfort he did contact our office and had some adjustments to his medications and eventually also had a coronary calcium score CT angiogram performed which demonstrated mild atherosclerotic plaquing with a calcium score of 78. His physical exam at that particular time is unremarkable Intake Vital Signs 05/03/24 13:40 05/22/24 13:47 Height 5 ft 6 in 5 ft 6 in Weight: 147 lb 5 oz BMI 23.8 BP 99/72 Blood Pressure Location Lt brachial Position Sitting Respiration 16 Pulse 53 L Pulse Source Monitor Intake Visit Reasons: 1 Y FU Poll Watcher Required: No Accompanied by: Is patient in pain?: No Allergies tree nut Allergy (Verified 05/22/24 13:59) NEEDS FOLLOW-UP escitalopram Adverse Reaction (Severe, Verified 05/22/24 14:00) Diarrhea Medications ???Medication ???Instructions ???Recorded ???Confirmed ???Type finasteride 5 mg tablet 5 mg PO DAILY 10/02/17 05/22/24 History albuterol sulfate 90 mcg/actuation 1 inh inhalation Q6H PRN Sob /Or 03/19/20 05/22/24 History aerosol inhaler Wheezing lorazepam 1 mg tablet 1 mg PO DAILY PRN Anxiety 04/08/21 05/22/24 History amoxicillin 500 mg capsule 2,000 mg (4 x 500 mg) PO .COMPLEX 08/24/22 05/22/24 Rx #4 caps atorvastatin 10 mg tablet 5 mg (1/2 x 10 mg) PO DAILY #45 08/03/23 05/22/24 Rx tabs lisinopril 40 mg tablet 40 mg PO DAILY #90 tabs 04/13/24 05/22/24 Rx propranolol 10 mg tablet 10 mg PO .COMPLEX #180 tabs 04/13/24 05/22/24 Rx fluticasone propionate 50 2 spray intranasal DAILY PRN 05/03/24 05/22/24 History mcg/actuation nasal allergy symptoms spray,suspension (24 Hour Allergy Relief) loratadine 10 mg disintegrating 10 mg PO DAILY 05/03/24 05/22/24 History tablet (Alavert) betamethasone valerate 0.1 % applic topical PRN 05/22/24 05/22/24 History topical cream calcipotriene 0.005 topical PRN 05/22/24 05/22/24 History %-betamethasone 0.064 % topical foam (Enstilar) dexlansoprazole 60 mg 60 mg PO DAILY PRN 05/22/24 05/22/24 History capsule,biphase delayed release (Dexilant) Have you fallen in the past year?: No PFSH Medical History Soft tissues foreign body BPH (benign prostatic hyperplasia) Essential (primary) hypertension Nonrheumatic mitral valve prolapse Allergic rhinitis Malaria Hyperlipidemia Surgical History History of oral surgery Family History Father CAD (coronary artery disease) Myocardial infarction [place] age 52 Mother CVA (cerebral vascular accident) Social History Smoking Status: Never smoker ROS Const Const: Positive for fatigue; Negative for weakness, headache(s), daytime sleepiness or difficulty sleeping ENT ENT: Negative for headache(s), dizziness or Nosebleed/epistaxis Cardio Chest Pain: Yes Frequency: other (while hiking on vacation ) Character: dull (ache/pressure) Onset: exercise Location: mid sternal, left chest and right chest Duration: minutes Exacerbation: exercise Relieving: other (propanolol) Recurrence: exercise Palpitations: Yes (in the afternoon for 10-15 min) feels like its: fast and thumping Edema: None Resp Respiratory: Positive for SOB with activity; Negative for SOB at rest, SOB orthopnea SOB lying down or Cough GI GI: Negative nausea, vomiting or heartburn Neuro Neuro: Negative for dizziness, lightheadedness, near syncope, headache(s) or weakness Endo Endo: Positive for fatigue Cardiology Exam Const Appearance: cooperative, healthy appearing, no acute distress, well developed and well groomed Nutritional Appearance: average body habitus and well romel (more content not included)... Normal [facility] Inital Evaluation (1) - PTon 05-18-2024 Inital Evaluation (1) - PT [facility] Physical [facility] [address] [place] [address] / REHABILITATION SERVICES INITIAL EVALUATION MR#: [id number] Acct: [id number] Name: JODIE JAIN Rep #: [id number] : 1955 68 From: Jovi Lock DPT, OCS, CSCS Referring Dr.: Dr. Kai Thorne DO Status: REG RCR Insurance: [employer] SELF PAY INSURANCE Patient's Visit Information Visit Information Visit Information: JODIE JAIN is a 68 year old M referred to Physical Therapy by Dr. Kai Thorne DO with a diagnosis of L knee OA adn pain. 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 EG to recheck upon return to ensure POC still appropriate. Subjective Subjective: L knee pain. Was in [place] getting ready to do a hike 85 miles. Had pain in L lateral knee a number of times with hiking over the years as he is an avid hiker. Got PFitis and neuroma and forgot about knee pain. That got better after the first mile in the am. Took alot of advil. L knee then continued to hurt. Feels left lateral knee pain every now and then over the years. Gearing up for this hike he was doing a steep hill after 20 miles and got sharp pain in February. Gone quickly but happened again with more steps. Pain was underneath knee cap and lateral and transient. Not painful at rest. Steps at home hurt sometimes with dull ache. Saw Dr. Thorne who did x rays and knees are in good shape. will leave for [place] lilibeth a week and will be gone for 6 weeks and will be hiking again. Currently is just a dull achy feeling with walking alot but no limping or sharp pains lately. Typically used to hurt at the bottom of a steep hill. Sleep is fine and this pain is minor. Taking care of self is I and painfree. Works at [employer] and does study abroad. 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 Pain L knee achy: Pain Intensity (Out of 10): N/A Objective Objective: L knee tender lateral joint line minimally and lateral knee cap minimally. Walks normal and I, steps reciprocal without rail and no pain. - varus and valgus tests, - bounce home, - patellar grind. - disco. Full aROM L knee adn R knee without pain in NWB and WB stoop and squat today. Pt is in excellent shape3 and moves well. reflexes 1/3 patella adn achilles Sensation LE WNL to gross light touch. strength 4+/5 in knee flexion adn ext without pain, hip abd and rotations 3+/5 no pain B. ankle 5/5 no pain. Good coordination to reciprocal toe and heel tap. Balance/Special Test Scores Lower Extremity Functional Score: 72 Goals Goal 1:: I appropriate HEP for hip stabs to minimize future knee pain and maximize comfortable funciton. Goal Time Frame: 2-4 Weeks Rehabilitation Potential Physical Therapy Diagnosis: l hip weakness unstable femur and intermittent knee pain Rehabilitation Potential: Good Anticipated Interventions Text: Thank you for the opportunity to evaluate your patient. For Medicare and Medicare HMO plans, please review the plan of care and approve it. It will need to be FAXED BACK to us at [phone] for Medicare purposes. For Medicare only, by signing this I certify the plan of care. Please let me know if there are questions or concerns regarding this plan of care. Physician Signature: Date : 05/18/24 1436 CC: Dr. Yesi Patel MD; Dr. Kai Thorne DO EBG Signed Normal [facility] Coronary Angiography CTon Coronary Angiography CT [facility] Imaging Services [address] [place] [address] 05/04/24 0944 MR#: [id number] Acct: [id number] Name: JODIE JAIN Rep #: [id number] : 1955 68 From: Jacques Hernandez MD PCP: Dr. Yesi Patel MD Status:REG CLI Y Location: CT CCTA w/Cont Coronary Arteries Date of Study:: 05/03/24 Chest pain Coronary Calcium Scoring: High-resolution Computed Tomographic imaging of the chest was performed on [05/03/2024], with particular attention paid to the coronary arteries. Intravenous contrast agent was administered per protocol and images reconstructed and displayed. LEFT MAIN CORONARY ARTERY: Arises from the left coronary cusp and bifurcates into a left anterior descending artery and left circumflex artery no significant atherosclerotic plaquing is present [] LEFT ANTERIOR DESCENDING CORONARY ARTERY: Left anterior descending artery is a medium size vessel with 2 areas of plaque formation in the proximal and mid segments. There is mild luminal stenosis noted in those areas. The vessel continues and wraps around the apex of the ventricle. [] LEFT CIRCUMFLEX CORONARY ARTERY: Nondominant vessel with a proximal eccentric 30 to 40% stenosis smooth, and mid segment focal calcified area with no significant stenosis present. [] RIGHT CORONARY ARTERY: Dominant vessel with no significant atherosclerotic plaquing present. CORONARY CALCIUM SCORE: 78.7. Percentile ranking between 25th and 50th percentile. Conclusion: Coronary CT angio gram with mild atherosclerotic plaquing, coronary calcium score below 100, and nonstenotic soft plaque noted in the proximal circumflex artery. [] 05/04/24 0946 Date Jacques Hernandez MD Cosigner Signature (if applicable): Date CC: Dr. Jacques Hernandez MD; Dr. Yesi Patel MD Signed Normal [facility] Limited Chest CT Cardiac Onl [facility] 05-03-[address] Cardiac Only [facility] Imaging Services [address] [place] [address] Cardiac Only MR#: [id number] Acct: [id number] Name: JODIE JAIN Rep #: [id number] : 1955 M 68 From: Carrington trujillo MD PCP: Dr. Yesi Patel MD Status: REG CLI Study: Limited Chest CT Cardiac Only Date of Exam: Exam# [id number] Ordering Dr: Jacques Hernandez MD [id number] STUDY: CT CHEST WITH T WITHOUT CONTRAST REASON FOR EXAM: Male, 68 years old. CHEST TIGHTNESS, FAMILY HX OF ND AND ANEURYSM RADIATION DOSAGE (If Supplied By Facility): CTDIvol = ( 27.16 ) mGy, DLP = ( 1694.3 ) mGycm TECHNIQUE: Transaxial imaging was performed pre and post intravenous administration of 100 cc of Isovue-370.. Cardiac over read examination. Individualized dose optimization techniques were used for this CT. COMPARISON: No relevant priors. FINDINGS: CHEST There is a 5.3 mm calcified granuloma in the peripheral lateral aspect of the right upper lobe as seen on axial image #37. Mild linear scarring and/or atelectasis at the lung bases. There is no demonstrated pleural abnormality. There are calcifications of the coronary arteries. Normal mediastinum. Normal hilar regions. Normal unenhanced pulmonary arteries. Normal aorta arch and descending thoracic aorta. Normal osseous structures. There is no demonstrated abnormality of the visualized upper abdomen. CT/Limited Chest CT Cardiac Only IMPRESSION: Coronary artery calcification. Calcified granuloma in the peripheral lateral aspect of the right upper lobe. Electronically Signed: Carrington Holden MD at 9:25 EDT , CC: Dr. Jacques Hernandez MD; Dr. Yesi Patel MD Varnish Dipper: Signed Normal [facility] Comprehensive Metabolic Prof ilon 04-27-2024 Albumin [Mass/Vol] 3.6 g/dL Normal 3.2-5.0 [facility] Comment on above: Performed By: #### L 500.4050, L500.4100 ####[facility] [address] [place], [address] Albumin/Globulin [Mass ratio] 0.9 {ratio} Normal 0.9-2.4 [facility] Comment on above: Performed By: #### L 500.4050, L500.4100 ####[facility] [address] [place], [address] ALK P 64 U/L Normal 45-117 [facility] Comment on above: Performed By: #### L 500.4050, L500.4100 ####[facility] [address] [place], [address] ALT [Catalytic activity/Vol] 19 U/L Normal 16-61 [facility] Comment on above: Performed By: #### L 500.4050, L500.4100 ####[facility] [address] [place], [address] AST [Catalytic activity/Vol] 20 U/L Normal 15-37 [facility] Comment on above: Performed By: #### L 500.4050, L500.4100 ####[facility] [address] [place], [address] Bilirubin [Mass/Vol] 0.90 mg/dL Normal 0.20-1.00 [facility] Comment on above: Result Comment: For patients on eltrombopag therapy, use of Dimension [place] TBIL is not recommended. Performed By: #### L 500.4050, L500.4100 ####[facility] [address] [place], [address] BUN/CRE 11.5 RATIO Normal 10-20 [facility] Comment on above: Performed By: #### L 500.4050, L500.4100 ####[facility] [address] [place], [address] CA,Total 9.1 mg/dL Normal 8.5-10.1 [facility] Comment on above: Performed By: #### L 500.4050, L500.4100 ####[facility] [address] [place], [address] Chloride [Moles/Vol] 106 mmol/L Normal 98-107 [facility] Comment on above: Performed By: #### L 500.4050, L500.4100 ####[facility] [address] [place], [address] CO2 [Moles/Vol] 29.0 mmol/L Normal 21.0-32.0 [facility] Comment on above: Performed By: #### L 500.4050, L500.4100 ####[facility] [address] [place], [address] Creatinine [Mass/Vol] 1.13 mg/dL Normal 0.70-1.30 [facility] Comment on above: Result Comment: The validity of the calculated GFR GFRAA in patients over 70 years has not been determined. Clinical correlation is essential. Performed By: #### L 500.4050, L500.4100 ####[facility] [address] [place], [address] EST GFR - AA 82 mL/min Normal >60 [facility] Comment on above: Result Comment: Afri can Ken[place] GFR Calc Performed By: #### L 500.4050, L500.4100 ####[facility] [address] [place], [address] GAP 4 Low 5-15 [facility] Comment on above: Performed By: #### L 500.4050, L500.4100 ####[facility] [address] [place], [address] GFR/1.73 sq M.predicted among non-blacks MDRD (S/P/Bld) [Vol rate/Area] 68 mL/min/{1.73_m2} Normal >60 [facility] Comment on above: Result Comment: Non- GFR Calc Performed By: #### L 500.4050, L500.4100 ####[facility] [address] [place], [address] Globulin (S) [Mass/Vol] 3.8 g/dL Normal 2.2-4.2 [facility] Comment on above: Performed By: #### L 500.4050, L500.4100 ####[facility] [address] [place], [address] Glucose [Mass/Vol] 89 mg/dL Normal 74-106 [facility] Comment on above: Performed By: #### L 500.4050, L500.4100 ####[facility] [address] [place], [address] Potassium [Moles/Vol] 3.9 mmol/L Normal 3.5-5.1 [facility] Comment on above: Performed By: #### L 500.4050, L500.4100 ####[facility] [address] [place], [address] Sodium [Moles/Vol] 139 mmol/L Normal 136-145 [facility] Comment on above: Performed By: #### L 500.4050, L500.4100 ####[facility] [address] [place], [address] T PROT 7.4 g/dL Normal 6.4-8.2 [facility] Comment on above: Performed By: #### L 500.4050, L500.4100 ####[facility] [address] [place], [address] Urea nitrogen [Mass/Vol] 13 mg/dL Normal 7-18 [facility] Comment on above: Performed By: #### L 500.4050, L500.4100 ####[facility] [address] [place], [address] Lipid Profileon 04-27-2024 Cholesterol [Mass/Vol] 198 mg/dL Normal 200 [facility] Comment on above: Result Comment: <200 mg/dL Desirable 200-240 mg/dL Borderline >240 mg/dL High Risk Performed By: #### L 500.4050, L500.4100 ####[facility] [address] [place], [address] Cholesterol in HDL [Mass/Vol] 58 mg/dL Normal [facility] Comment on above: Result Comment: The drugs N-Acetylcysteine and Metamizole may falsely depress this assay. Reference Range HDL <40 mg/dL Low HDL Cholesterol HDL >or= 60 mg/dL High HDL Cholesterol Performed By: #### L 500.4050, L500.4100 ####[facility] [address] [place], [address] Cholesterol in LDL [Mass/Vol] 117 mg/dL Normal 0-130 [facility] Comment on above: Performed By: #### L 500.4050, L500.4100 ####[facility] [address] [place], [address] Cholesterol in VLDL [Mass/Vol] 23 mg/dL Normal 5-40 [facility] Comment on above: Performed By: #### L 500.4050, L500.4100 ####[facility] [address] [place], [address] Triglyceride [Mass/Vol] 113 mg/dL Normal [facility] Comment on above: Result Comment: The drugs N-Acetylcysteine and Metamizole may falsely depress this assay. Serum Triglycerides Reference Interval Normal <150 mg/dL Borderline high 150 - 199 mg/dL High 200 - 499 mg/dL Very High > or = 500 mg/dL Performed By: #### L 500.4050, L500.4100 ####[facility] [address] [place], [address] CNOVon 04-25-2024 CNOV Office Visit (DERMST ) JODIE JAIN ([id number]) 1955 M Date Time Provider Department 04/25/24 2:00 PM YESI ZELAYA During your visit today, we recorded the following information about you: Yesi Zelaya MD 05/03/2024 9:20 AM Signed Department of Dermatology Yesi Zelaya MD 04/25/2024 Last visit in Dermatology: 01/24/2024 Objective/Assessment/ Plan 1. Seborrheic keratosis 2. Multiple benign nevi 3. Prabhakar angioma 4. Psoriasis Related Medications calcipotriene-betamet hasone (ENSTILAR) 0.005-0.064 % foam Apply to affected area once daily as needed. 5. Skin cancer screening The patient's skin was examined for evidence of cutaneous malignancy. The nature of sun-induced photo-aging and skin cancers is discussed. Sun avoidance, protective clothing, and the use of 30-SPF sunscreens is advised. Observe closely for skin damage/changes, and call if such occurs. The patient's psoriasis is well controlled at the present. The remaining diagnoses are benign and require no additional treatment at this time. Follow-up as noted below or as needed. Plan follow-up with us at least annually. --- Chief Complaint: Patient presents with: Full Body Skin Check Subjective and Objective No data to display HPI: Jodie Jain is a 68 year old male who presents for skin check. Desires: Total body skin check History of skin cancer?: No Areas of particular concern?: No Past medical history is reviewed. Medication list is reviewed. Physical Exam included: Scalp, face, ears, neck, chest, back, abdomen, bilateral upper extremities, bilateral lower extremities, buttocks, hands, feet, nails and hair Intake: Chery Miner LPN Attending signature: Yesi Zelaya MD This note is completed at 9:18 AM on 05/03/2024 and reflects the services provided at the time of the appointment. I agree with the Chief Complaint, ROS, and Past Histories independently gathered by the clinical instructional support services director. Chery Miner LPN 04/25/2024 2:16 PM Signed GENERAL SUN SAFETY Thank you for allowing me to examine you for signs of skin cancer today. We had an opportunity to discuss my findings and any treatments I recommended. I believe that there are several steps that a person can do to help prevent skin cancers and to detect them at an early, treatable stage: 1. I highly recommend that once a month you perform your own complete skin check looking for changing or unusual spots. Use a wall-mounted mirror and a hand mirror to assist in seeing body areas that are difficult to see otherwise. If you have a family member that can assist, this is often helpful. Additional information can be obtained at: www.skincancer.org/sk jl-cvuenw-zwnxmtyietp /early-detection 2. In many cases, skin cancer can be prevented. The best way to protect yourself is to avoid too much sun and sunburns. Health care providers believe that ultraviolet rays (UV rays) from the sun damage the skin and over time lead to skin cancer. Here are ways to protect yourself: -Don't spend long periods of time in direct sunlight. -Wear hats with brims to protect your face and ears. -Wear long-sleeved shirts and pants to protect your arms and legs. -Use broad spectrum sunscreens with a SPF (skin protection factor) of 30 or higher that protect against burning and tanning rays. Apply the lotion 30 minutes before you go outside. (Broad-spectrum sunscreens protect against UV-B and UV-A rays.) -Wear sunglasses to protect your eyes. -Use a lip balm with sunscreen. -Avoid the sun between 10am and 4pm. -Show any changing mole to your health care provider. Allergies As of Date: 04/25/2024 Noted Allergy Reaction NUT - UNSPECIFIED 12/27/2014 8 - GI Upset Comments: Tree nuts CASHEW NUT 12/13/2014 8 - GI Upset Date Reviewed: 04/25/2024 Reviewed by: Chery Miner LPN - Fully Assessed Reason for Visit: Full Body Skin Check [1445] Primary Visit Diagnosis:Seborrheic keratosis [L82.1] Other Visit Diagnoses:Multiple benign nevi [D22.9] Prabhakar angioma [D18.01] Psoriasis [L40.9] Skin cancer screening [Z12.83] Prescriptions as of 05/03/2024 - Clobetasol Propionate (CLOBEX) 0.05 % sham Apply to affected area once daily. Apply to a dry scalp once daily as needed, leave on for 15 minutes before showering. - pimecrolimus (ELIDEL) 1 % cream Apply to affected area two times a day as needed (for dermatitis). - ammonium lactate (LAC-HYDRIN) 12 % cream Apply 1 application to affected area as needed for dry skin. - betamethasone valerate 0.1 % cream Apply twice daily as needed to the face for psoriasis. - Pyrithione Zinc (DERMAZINC) 2 % bar Apply 1 application to affected area once daily. - calcipotriene-betamet hasone (ENSTILAR) 0.005-0.064 % foam Apply to affected area once daily as needed. - hydrocortisone (more content not included)... Normal [facility] ZINC BLDon 08-22-2023 Zinc [Mass/Vol] 60 ug/dL 60 - 120 ug/dL [facility] Iron and Iron binding capaci ty panelon 08-20-2023 Iron [Mass/Vol] 168 ug/dL 41 - 186 ug/dL [facility] Iron binding capacity [Mass/Vol] 317 ug/dL 232 - 386 ug/dL [facility] Iron/TIBC [Molar ratio] 53.0 % 15.0 - 57.0 % [facility] MAGNESIUM Don 08-20-2023 Magnesium [Mass/Vol] 1.9 mg/dL 1.7 - 2 .3 mg/dL [facility] TSH BLDon 08-20-2023 TSH Qn 1.350 m[IU]/L 0.270 - 4.200 mIU/L [facility] VITAMIN D 25 HYDROXYon 08-20 25-hydroxyvitamin D3 [Mass/Vol] 117.0 ng/mL High 31.0 - 80.0 ng/mL [facility] CBC W Auto Differential pane l (Bld)on 08-19-2023 Basophils (Bld) [#/Vol] 0.05 10*3/uL <0.11 k/uL [facility] Basophils/100 WBC (Bld) 0.8 % [facility] Differential cell count method Nom (Bld) Auto [facility] Eosinophils (Bld) [#/Vol] 0.67 10*3/uL High <0.46 k/uL [facility] Eosinophils/100 WBC (Bld) 10.3 % [facility] Erythrocyte distribution width (RBC) [Ratio] 12.8 % 11.5 - 15.0 % [facility] Hematocrit (Bld) [Volume fraction] 44.1 % 39.0 - 51.0 % [facility] Hemoglobin (Bld) [Mass/Vol] 14.1 g/dL 13.0 - 17.0 g/dL [facility] Immature granulocytes (Bld) [#/Vol] <0.10 k/uL [facility] Immature granulocytes/100 WBC (Bld) 0.2 % [facility] Lymphocytes (Bld) [#/Vol] 2.32 10*3/uL 1.00 - 4.00 k/uL [facility] Lymphocytes/100 WBC (Bld) 35.6 % [facility] MCH (RBC) [Entitic mass] 29.3 pg 26.0 - 34.0 pg [facility] MCHC (RBC) [Mass/Vol] 32.0 g/dL 30.5 - 36.0 g/dL [facility] MCV (RBC) [Entitic vol] 91.5 fL 80.0 - 100.0 fL [facility] Monocytes (Bld) [#/Vol] 0.77 10*3/uL <0.87 k/uL [facility] Monocytes/100 WBC (Bld) 11.8 % [facility] Neutrophils (Bld) [#/Vol] 2.69 10*3/uL 1.45 - 7.50 k/uL [facility] Neutrophils/100 WBC (Bld) 41.3 % [facility] Nucleated RBC (Bld) [#/Vol] <0.01 k/uL [facility] Nucleated RBC/100 WBC (Bld) [Ratio] 0.0 /100 WBC [facility] Platelet mean volume (Bld) [Entitic vol] 10.6 fL 9.0 - 12.7 fL [facility] Platelets (Bld) [#/Vol] 282 10*3/uL 150 - 400 k/uL [facility] RBC (Bld) [#/Vol] 4.82 10*6/uL 4.20 - 6.0 0 m/uL [facility] WBC (Bld) [#/Vol] 6.51 10*3/uL 3.70 - 11. 00 k/uL [facility] 08-26-2022 [facility] Surgical Pathology Department Name JODIE JAIN Pathologist: JANETTE ARIAS DMD Date of Procedure: 08/26/2022 Date Received: 08/26/2022 Date Reported 08/30/2022 Submitting Physician: LAMONT COATES MD, DDS Location: [facility] [facility] Other External # FINAL DIAGNOSIS A. ANTERIOR MAXILLA, BIOPSY: -- FIBROUS AND GRANULATION TISSUE (PERIAPICAL GRANULOMA) WITH MODERATE ACUTE AND CHRONIC INFLAMMATION ICD-10: M27.2 Electronically Signed Out By JANETTE ARIAS DMD/IJS By the signature on this report, the individual or group listed as making the Final Interpretation/Diagno sis certifies that they have reviewed this case. Diagnostic interpretation performed at [facility], [place] [address] [address] [facility] [address] Microscopic Description: The sections consist of fibrous and granulation tissue with moderate acute and chronic inflammation consisting chiefly of plasma cells, lymphocytes and neutrophils. Scant fragments of calcific debris are present. Cystic epithelial lining, as seen in radicular (periapical) cysts, is not present in any examined sections. Clinical History: The lesion was biopsied from the anterior maxilla where it measures 3.0 x 2.0 x 2.0 cm and has been present since 2019. This represents an incidental finding on routine checkup. 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 Clinical impression: Benign cyst. Specimens Submitted As: A: UA CYST Gross Description: Received in formalin, labeled with the patient's name and hospital number and UA cyst, are multiple portions of mucosal covered soft tissue admixed with blood aggregating to 2.1 x 1.2 x 0.4 cm. The mucosal surface is unremarkable. The resection margin is inked blue. The specimen is bisected and entirely submitted in 3 cassettes. [facility] mk/08/27/2022 [facility] Department of Pathology [address] [place] [address] Normal [facility] Comment on above: Performed By: #### U [facility] #### [facility] Surgical Pathology Department [address] [facility] [address] Absolute lymphocyte counton 04-10-2022 Lymphocytes Auto (Unsp spec) [#/Vol] 2.69 10*3/uL 0.83-4.51 [facility] Work Phone: Basophil percentageon 2021 Basophils/100 WBC (Bld) 0.4 % 0-1 [facility] Work Phone: Chloride [Moles/Vol] 109 mmol/L 98-107 [facility] Work Phone: Eosinophils/100 WBC (Bld) 4.0 % 0-5 [facility] Work Phone: Glucose [Mass/Vol] 94 mg/dL 74-106 [facility] Work Phone: Neutrophils (Bld) [#/Vol] 4.0 10*3/uL 2.0-7.7 [facility] Work Phone: Neutrophils/100 WBC (Bld) 49.2 % 47-70 [facility] Work Phone: Potassium [Moles/Vol] 4.0 mmol/L 3.5-5.1 [facility] Work Phone: Sodium [Moles/Vol] 142 mmol/L 136-145 [facility] Work Phone: WBC (Bld) [#/Vol] 8.2 10*3/uL 4.4-11.0 [facility] Work Phone: Blood erythrocytes count (nu mber/volume)on 04-10-2022 RBC (Bld) [#/Vol] 4.78 10*6/uL 4.6-6.2 [facility] Work Phone: Blood hemoglobin measurement (mass/volume)on 04-10-2022 Hemoglobin (Bld) [Mass/Vol] 13.9 g/dL 13.0-16.5 [facility] Work Phone: Blood lymphocytes/100 leukoc yteson 04-10-2022 Lymphocytes/100 WBC (Bld) 32.9 % 19-41 [facility] Work Phone: Blood monocytes/100 leukocyt eson 04-10-2022 Monocytes/100 WBC (Bld) 13.3 % 0-10 [facility] Work Phone: Blood platelet mean volumeon 04-10-2022 Platelet mean volume (Bld) [Entitic vol] 9.9 fL 6.2-12.0 [facility] Work Phone: Determination of erythrocyte mean corpuscular volume (MCV)on 04-10-2022 MCV (RBC) [Entitic vol] 89.3 fL 80-94 [facility] Work Phone: Hematocrit Auto (Bld) [Volum e fraction]on 04-10-2022 Hematocrit (Bld) [Volume fraction] 42.7 % 40-54 [facility] Work Phone: Laboratory - Chemistry and C hemistry - challengeon 04-10-2022 CO2 [Moles/Vol] 24.0 mmol/L 21.0-32.0 [facility] Work Phone: Urea nitrogen/Creatinine [Mass ratio] 15.6 mg/mg 10-20 [facility] Work Phone: Laboratory - Hematology and Cell countson 04-10-2022 Erythrocyte distribution width (RBC) [Entitic vol] 41.7 fL 35.1-43.9 [facility] Work Phone: [phone] Erythrocyte distribution width (RBC) [Ratio] 12.6 % 11.6-14.6 [facility] Work Phone: [phone] Immature granulocytes/100 WBC (Bld) 0.200 % 0.0-0.9 [facility] Work Phone: [phone] Comment on above: IG% - Immature Granu locytes (promyelocytes, myelocytes and metamyelocytes) > 1% indicates that a LEFT SHIFT is Present. MCH (RBC) [Entitic mass] 29.1 pg 27.0-32.0 [facility] Work Phone: [phone] Nucleated RBC/100 WBC (Bld) [Ratio] 0 % 0-5 [facility] Work Phone: [phone] MCHC Auto (RBC) [Mass/Vol]on 04-10-2022 MCHC (RBC) [Mass/Vol] 32.6 g/dL 32-36 [facility] Work Phone: [phone] No Panel Informationon 04-10 Troponin I High Sensitivity < 3 pg/mL 3.0-78.0 [facility] Work Phone: [phone] Comment on above: Please Note: New Jessica t Units and Gender Specific Reference Ranges. For more information see Policy Stat Procedure [place] High Sensitivity Troponin (TNIH) and attachments. Estimated Creatinine Clearance Calc 56.07 ml/min [facility] Work Phone: [phone] Estimated GFR (MDRD) Amer 76 mL/min >60 [facility] Work Phone: [phone] Comment on above: GFR Calc Estimated GFR (MDRD) Non-Af Amer 63 mL/min >60 [facility] Work Phone: [phone] Comment on above: Non- GFR Calc Platelets bldon 04-10-2022 Platelets (Bld) [#/Vol] 326 10*3/uL 150-450 [facility] Work Phone: [phone] Serum or plasma calcium fausto urement (mass/volume)on 04-10-2022 Calcium [Mass/Vol] 9.3 mg/dL 8.5-10.1 [facility] Work Phone: [phone] Serum or plasma creatinine m easurement (mass/volume)on 04-10-2022 Creatinine [Mass/Vol] 1.22 mg/dL 0.70-1.30 [facility] Work Phone: [phone] Comment on above: The validity of the calculated GFR & GFRAA in patients over 70 years has not been determined. Clinical correlation is essential. Serum or plasma urea nitroge n measurement (mass/volume)on 04-10-2022 Urea nitrogen [Mass/Vol] 19 mg/dL 7-18 [facility] Work Phone: [phone] Thin prep Papanicolaou smear with manual screeningon 04-10-2022 Thin prep Papanicolaou smear with manual screening 9 5-15 [facility] Work Phone: [phone] Basophil percentageon 2021 Bilirubin [Mass/Vol] 0.80 mg/dL 0.20-1.00 [facility] Work Phone: [phone] Comment on above: For patients on eltr ombopag therapy, use of Dimension [place] TBIL is not recommended. Cholesterol [Mass/Vol] 224 mg/dL <200 [facility] Work Phone: [phone] Comment on above: <200 mg/dL Desirable 200-240 mg/dL Borderline >240 mg/dL High Risk Protein [Mass/Vol] 7.2 g/dL 6.4-8.2 [facility] Work Phone: [phone] Triglyceride [Mass/Vol] 124 mg/dL [facility] Work Phone: [phone] Comment on above: The drugs N-Acetylcy steine and Metamizole may falsely depress this assay.Serum Triglycerides Reference Interval Normal <150 mg/dL Borderline high 150 - 199 mg/dL High 200 - 499 mg/dL Very High > or = 500 mg/dL Direct bilirubinon Bilirubin.direct [Mass/Vol] 0.17 mg/dL 0.00-0.30 [facility] Work Phone: Laboratory - Chemistry and C hemistry - challengeon 03-02-2022 ALP [Catalytic activity/Vol] 67 U/L 45-117 [facility] Work Phone: [phone] ALT [Catalytic activity/Vol] 27 U/L 16-61 [facility] Work Phone: [phone] Globulin (S) [Mass/Vol] 3.6 g/dL 2.2-4.2 [facility] Work Phone: [phone] Serum or plasma albumin fausto urement (mass/volume)on 03-02-2022 Albumin [Mass/Vol] 3.6 g/dL 3.2-5.0 [facility] Work Phone: [phone] Serum or plasma cholesterol in HDL measurement (mass/volume)on 03-02-2022 Cholesterol in HDL [Mass/Vol] 66 mg/dL [facility] Work Phone: Comment on above: The drugs N-Acetylcy steine and Metamizole may falsely depress this assay. Reference Range HDL <40 mg/dL Low HDL Cholesterol HDL >or= 60 mg/dL High HDL Cholesterol Serum or plasma cholesterol in VLDL measurement (mass/volume)on 03-02-2022 Cholesterol in VLDL [Mass/Vol] 25 mg/dL 5-40 [facility] Work Phone: Serum or plasma low density lipoprotein (LDL) cholesterol measurement (mass/volume)on 03-02-2022 Cholesterol in LDL [Mass/Vol] 133 mg/dL 0-130 [facility] Work Phone: [phone] Thin prep Papanicolaou smear with manual screeningon 03-02-2022 Thin prep Papanicolaou smear with manual screening 16 U/L 15-37 [facility] Work Phone: [phone] Laboratory - Microbiology an d Antimicrobial susceptibilityon 12-20-2021 SARS-CoV-2 (COVID-19) RNA SULEMA+probe Ql (Unsp spec) Not detected Not Detect [facility] Work Phone: Comment on above: Normal Reference Ran ge: Not DetectedMethod:(RT-PCR) real-time reverse transcriptase PCRLuminex MANJU Instrument*The Food and Drug Administration (FDA) has issued an Emergency Use Authorization (EAU) for the MANJU SARS-CoV-2 Assay for the rapid detection of the virus that causes COVID-19. This test has been validated, but the FDAs independent review of this validation is pending.*Negative results do not preclude infection and should not be used as the sole basis for treatment or patient management. Optimum specimen types and timing for peak viral levels during infections caused by SARS-CoV-2 have not been determined. Collection of multiple specimens from the same patient may be necessary to detect the virus. The possibility of a false negative result should be considered if the patient has clinical presentation or has had recent exposure. Laboratory - Microbiology an d Antimicrobial susceptibilityon 11-12-2021 SARS-CoV-2 (COVID-19) RNA SULEMA+probe Ql (Unsp spec) Not detected [facility] Work Phone: No Panel Informationon 11-12 POC Nasal Swab Influenza A,B Not detected [facility] Work Phone: POC Nasal Swab RSV Not detected [facility] Work Phone: Lab Report: Lipid Profileon 04-01-2017 Cholesterol 155 mg/dL Invalid Interpretation Code 200 [facility] Work Phone: [phone] HDL Cholesterol 62 mg/dL Invalid Interpretation Code [facility] Work Phone: [phone] LDL Cholesterol 77 mg/dL Invalid Interpretation Code 0-130 [facility] Work Phone: [phone] Triglyceride 78 mg/dL Invalid Interpretation Code [facility] Work Phone: [phone] very low density lipoproteins 16 mg/dL Invalid Interpretation Code 5-40 [facility] Work Phone: [phone] Lab Report: Liver Profileon 04-01-2017 Alanine aminotransferase (ALT) 32 U/L Invalid Interpretation Code 12-78 [facility] Work Phone: [phone] Albumin 3.7 g/dL Invalid Interpretation Code 3.4-5.0 [facility] Work Phone: [phone] Alkaline phosphatase (ALP) 63 U/L Invalid Interpretation Code 45-117 [facility] Work Phone: [phone] Aspartate aminotransferase (AST) 18 U/L Invalid Interpretation Code 15-37 [facility] Phone: [phone] Bilirubin (direct) 0.13 mg/dL Invalid Interpretation Code 0.00-0.30 [facility] Phone: [phone] Bilirubin (total) 0.60 mg/dL Invalid Interpretation Code 0.20-1.00 [facility] Phone: [phone] Globulin 3.4 g/dL Invalid Interpretation Code 2.3-3.5 [facility] Phone: [phone] Protein 7.1 g/dL Invalid Interpretation Code 6.4-8.2 [facility] Phone: [phone] Office Visiton 03-29-2017 Documentation of current medications (procedure) Done Invalid Interpretation Code [facility] Phone: [phone] Fall risk assessment Fall risk assessment Invali d Interpretation Code [facility] Phone: [phone] Lab Report: Lipid Profileon 08-06-2016 Cholesterol 180 mg/dL Invalid Interpretation Code 200 [facility] Phone: [phone] HDL Cholesterol 55 mg/dL Invalid Interpretation Code [facility] Phone: [phone] LDL Cholesterol 98 mg/dL Invalid Interpretation Code 0-130 [facility] Phone: [phone] Triglyceride 134 mg/dL Invalid Interpretation Code [facility] Phone: [phone] very low density lipoproteins 27 mg/dL Invalid Interpretation Code 5-40 [facility] Phone: [phone] Lab Report: Liver Profileon 08-06-2016 Alanine aminotransferase (ALT) 30 U/L Invalid Interpretation Code 12-78 [facility] Phone: [phone] Albumin 3.8 g/dL Invalid Interpretation Code 3.4-5.0 [facility] Phone: [phone] Alkaline phosphatase (ALP) 58 U/L Invalid Interpretation Code 50-136 [facility] Phone: [phone] Aspartate aminotransferase (AST) 21 U/L Invalid Interpretation Code 15-37 [facility] Phone: [phone] Bilirubin (direct) 0.14 mg/dL Invalid Interpretation Code 0.00-0.30 [facility] Phone: [phone] Bilirubin (total) 0.90 mg/dL Invalid Interpretation Code 0.20-1.00 [facility] Phone: [phone] Globulin 3.5 g/dL Invalid Interpretation Code 2.3-3.5 [facility] Phone: [phone] Protein 7.3 g/dL Invalid Interpretation Code 6.4-8.2 [facility] Phone: [phone] Office Visiton 08-05-2016 Tobacco use CPHS Former smoker Invalid Interpretation Code [facility] Phone: [phone] Office Visiton 12-24-2015 General cardiovascular disease 10Y risk [#] Miladys.Trung'Agokp 4 % Invalid Interpretation Code [facility] Phone: [phone] Office Visiton 08-29-2015 cardiac risk group B Invalid Interpretation Code [facility] Phone: [phone] Replaced Document: Midmark E CG Observationson 08-29-2015 electrocardiogram interpretation Sinus Bradycardia WITHIN NORMAL LIMITS Invalid Interpretation Code [facility] Phone: [phone] GE use only - for LinkLogic import when terms are not otherwise specified 408 ms Invalid Interpretation Code [facility] Phone: [phone] P wave axis, electrocardiogram -1 deg Invalid Interpretation Code [facility] Phone: [phone] NV interval, electrocardiogram 152 ms Invalid Interpretation Code [facility] Phone: [phone] Pulse (Heart Rate) 55 /min Invalid Interpretation Code [facility] Phone: [phone] QRS axis, electrocardiogram 13 deg Invalid Interpretation Code [facility] Phone: [phone] QRS duration, electrocardiogram 96 ms Invalid Interpretation Code [facility] Phone: [phone] QT interval, electrocardiogram new path ms Invalid Interpretation Code [facility] Phone: [phone] T wave axis, electrocardiogram 27 deg Invalid Interpretation Code [facility] Phone: [phone] Office Visiton 04-12-2014 Alcoholism counseling (procedure) no Invalid Interpretation Code [facility] Phone: [phone] Lab Report: BMPon 07-14-2012 Calcium 8.8 mg/dL Normal 8.5-10.1 [facility] Work Phone: [phone] Chloride 105 mmol/L Normal 98-107 [facility] Work Phone: [phone] Creatinine 1.1 mg/dL Normal 0.8-1.3 [facility] Work Phone: [phone] Glucose 84 mg/dL Normal 70-110 [facility] Work [phone] Potassium 4.1 mmol/L Normal 3.5-5.1 [facility] Work Phone: [phone] Sodium 138 mmol/L Normal 136-145 [facility] Work Phone: [phone] Urea nitrogen 14 mg/dL Normal 7-18 [facility] Work Phone: [phone] Lab Report: CBCon 07-14-2012 Erythrocytes (RBC) 4.55 10*6/uL Low 4.6-6.2 [facility] Work Phone: [phone] Hematocrit (HCT) 40.5 % Normal 40-54 [facility] Work Phone: [phone] Hemoglobin (HGB) 13.6 G.DL Normal 13.0-16.5 [facility] Work Phone: [phone] Platelets 276 10*3/mm3 Normal 150-450 [facility] Work Phone: [phone] WBC (Leukocytes) 6.4 10*3/uL Normal 4.4-11.0 [facility] Work Phone: [phone] Clinical Lists Update: Prelo bit sander 08-10-2011 Anion gap 10 mmol/L Invalid Interpretation Code [facility] Work Phone: [phone] BUN/Creatinine Ratio 14.4 mg/mg Invalid Interpretation Code [facility] Work Phone: [phone] CO2 27 mmol/L Invalid Interpretation Code [facility] Work Phone: [phone] MCH 30.6 pg Invalid Interpretation Code [facility] Work Phone: [phone] MCV 91.3 fL Invalid Interpretation Code [facility] Work Phone: Lab Reporton 08-10-2011 Thyroid stimulating hormone (TSH) 1.27 u[iU]/mL Invalid Interpretation Code [facility] Work Phone: [phone] Gram stain for investigation of transfusion reaction Microscopic observation Gram stain Nom (Unsp spec) [facility] Work Phone: [phone] No Panel Information [facility] Vital Signs Date Time Vital Sign Value Performing Clinician Facility 03-24-2023 14:55-0400 Body temperature 96.49 [degF] Mercy Hogan APRN.MANUFACTURING ENGINEERING DIRECTOR Work Phone: [facility] 03-24-2023 14:55-0400 Body weight 70.4 kg Mercy Hogan APRN.MANUFACTURING ENGINEERING DIRECTOR Work Phone: [facility] 03-24-2023 14:55-0400 Diastolic blood pressure 80 mm[Hg] Mercy Hogan APRN.MANUFACTURING ENGINEERING DIRECTOR Work Phone: [facility] 03-24-2023 14:55-0400 Heart rate 57 /min Mercy Hogan APRN.MANUFACTURING ENGINEERING DIRECTOR Work Phone: [facility] 03-24-2023 14:55-0400 Respiratory rate 20 /min Mercy Hogan APRN.MANUFACTURING ENGINEERING DIRECTOR Work Phone: [facility] 03-24-2023 14:55-0400 SaO2% (BldA) [Mass fraction] 99 % Mercy Hogan APRN.MANUFACTURING ENGINEERING DIRECTOR Work Phone: [facility] 03-24-2023 14:55-0400 Systolic blood pressure 114 mm[Hg] Mercy Hogan APRN.MANUFACTURING ENGINEERING DIRECTOR Work Phone: [facility] 02-15-2023 09:01-0400 Body temperature 97.81 [degF] Sonu Caal DO Work Phone: [facility] 02-15-2023 09:01-0400 Body weight 70.26 kg Sonu Caal DO Work Phone: [facility] 02-15-2023 09:01-0400 Diastolic blood pressure 92 mm[Hg] Sonu Caal DO Work Phone: [facility] 02-15-2023 09:01-0400 Heart rate 62 /min Sonu Caal DO Work Phone: [facility] 02-15-2023 09:01-0400 Systolic blood pressure 141 mm[Hg] Sonu Caal DO Work Phone: [facility] 04-10-2022 20:54-0400 Diastolic blood pressure 90 mm[Hg] Dr. Yesi Christie Work Phone: [facility] Work Phone: 04-10-2022 20:54-0400 Heart rate 66 /min Dr. Yesi Christie Work Phone: [facility] Work Phone: 04-10-2022 20:54-0400 Respiratory rate 18 /min Dr. Yesi Christie Work Phone: [facility] Work Phone: 04-10-2022 20:54-0400 SaO2% (BldA) [Mass fraction] 99 % Dr. Yesi Christie Work Phone: [facility] Work Phone: 04-10-2022 20:54-0400 Systolic blood pressure 140 mm[Hg] Dr. Yesi Christie Work Phone: [facility] Work Phone: 04-10-2022 17:08-0400 Body height 175.[address] Yesi Christie Work Phone: [facility] Work Phone: 04-10-2022 17:08-0400 Body mass index (BMI) [Ratio] 22.2 kg/m2 Dr. Yesi Christie Work Phone: [facility] Work Phone: 04-10-2022 17:08-0400 Body temperature 98.7 [degF] Dr. Yesi Christie Work Phone: [facility] Work Phone: 04-10-2022 17:08-0400 Body weight 68.[address] Yesi Christie Work Phone: [facility] Work Phone: 03-03-2022 12:44-0400 Body height 175.[address] Yesi Christie Work Phone: [facility] Work Phone: 03-03-2022 12:44-0400 Body weight 68.[address] Yesi Christie Work Phone: [facility] Work Phone: 03-03-2022 12:44-0400 Diastolic blood pressure 89 mm[Hg] Dr. Yesi Christie Work Phone: [facility] Work Phone: 03-03-2022 12:44-0400 Heart rate 64 /min Dr. Yesi Christie Work Phone: [facility] Work Phone: 03-03-2022 12:44-0400 Respiratory rate 16 /min Dr. Yesi Christie Work Phone: [facility] Work Phone: 03-03-2022 12:44-0400 SaO2% (BldA) [Mass fraction] 98 % Dr. Yesi Christie Work Phone: [facility] Work Phone: 03-03-2022 12:44-0400 Systolic blood pressure 147 mm[Hg] Dr. Yesi Christie Work Phone: [facility] Work Phone: 02-28-2022 23:14-0400 Diastolic blood pressure 72 mm[Hg] Dr. Yesi Christie Work Phone: [facility] Work Phone: 02-28-2022 23:14-0400 Heart rate 64 /min Dr. Yesi Christie Work Phone: [facility] Work Phone: 02-28-2022 23:14-0400 Respiratory rate 16 /min Dr. Yesi Christie Work Phone: [facility] Work Phone: 02-28-2022 23:14-0400 Systolic blood pressure 136 mm[Hg] Dr. Yesi Christie Work Phone: [facility] Work Phone: 02-28-2022 22:15-0400 Body height 175.[address] Yesi Christie Work Phone: [facility] Work Phone: 02-28-2022 22:15-0400 Body mass index (BMI) [Ratio] 21.7 kg/m2 Dr. Yesi Christie Work Phone: [facility] Work Phone: 02-28-2022 22:15-0400 Body temperature 96.6 [degF] Dr. Yesi Christie Work Phone: [facility] Work Phone: 02-28-2022 22:15-0400 Body weight 66.[address] Yesi Christie Work Phone: [facility] Work Phone: 02-28-2022 22:15-0400 SaO2% (BldA) [Mass fraction] 95 % Dr. Yesi Christie Work Phone: [facility] Work Phone: 11-12-2021 12:36-0500 Body temperature 98 [degF] Dr. Yesi Christie Work Phone: [facility] Work Phone: 11-12-2021 12:36-0500 Diastolic blood pressure 68 mm[Hg] Dr. Yesi Christie Work Phone: [facility] Work Phone: 11-12-2021 12:36-0500 Heart rate 67 /min Dr. Yesi Christie Work Phone: [facility] Work Phone: 11-12-2021 12:36-0500 Respiratory rate 14 /min Dr. Yesi Christie Work Phone: [facility] Work Phone: 11-12-2021 12:36-0500 SaO2% (BldA) [Mass fraction] 98 % Dr. Yesi Christie Work Phone: [facility] Work Phone: 11-12-2021 12:36-0500 Systolic blood pressure 104 mm[Hg] Dr. Yesi Christie Work Phone: [facility] Work Phone: 04-08-2021 15:25-0400 Body mass index (BMI) [Ratio] 22.3 kg/m2 Dr. Yesi Christie Work Phone: [facility] Work Phone: 03-29-2017 13:27-0400 BMI (Body Mass Index) 21.39 kg/m2 Ally [facility] Work Phone: 03-29-2017 13:27-0400 BP Diastolic 60 mm[Hg] [facility] Work Phone: 03-29-2017 13:27-0400 BP Systolic 110 mm[Hg] [facility] Work Phone: 03-29-2017 13:27-0400 Height 177.16 cm [facility] Work Phone: 03-29-2017 13:27-0400 Pulse (Heart Rate) 64 /min Ally [facility] Work Phone: 03-29-2017 13:27-0400 Respiratory Rate 20 /min [facility] Work Phone: 03-29-2017 13:27-0400 Weight 67.13 kg Ally [facility] Work Phone: 08-05-2016 09: BSA (Body Surface Area) 1.83 m2 [facility] Work Phone: 08-29-2015 13:040 BP Diastolic 70 mm[Hg] [facility]ly [employer] [facility] Work Phone: 08-29-2015 13:19-0400 BP Systolic 146 mm[Hg] Ally Cruz [facility] Work Phone: Encounters Encounter Date Encounter Type Care Provider Facility Start: 02-27-2025 End: 02-27-2025 ambulatory YESI NATHALIE Facility:[facility] Start: 02-27-2025 End: 02-27-2025 Patient encounter procedure Yesi Zelaya MD Work Phone: Dermatology Comment on above: Psoriasis; Seborrheic dermatitis; Telogen effluvium; Seborrheic keratosis; Prabhakar angioma Start: 11-09-2024 End: 11-09-2024 ambulatory Chalon Lulu Facility:[facility] Start: 10-19-2024 End: 10-19-2024 ambulatory Chalon Lulu Facility:[facility] Start: 09-19-2024 End: 09-19-2024 ambulatory Yesi Patel Facility:[facility] Start: 08-01-2024 ambulatory Yesi Patel Facilit y:[facility] Start: 08-01-2024 End: 08-01-2024 ambulatory Jacques David Facility:[facility] Start: 05-22-2024 End: 05-22-2024 ambulatory [place] David Facility:[facility] Start: 05-04-2024 ambulatory Yesi Patel Facilit y:[facility] Start: 05-03-2024 End: 05-03-2024 ambulatory [place] David Facility:[facility] Start: 04-27-2024 End: 04-27-2024 ambulatory Yeis Patel Facility:[facility] Start: 04-25-2024 End: 04-25-2024 ambulatory YESI ZELAYA Facility:[facility] Start: 04-25-2024 End: 04-25-2024 Patient encounter procedure Yesi Zelaya MD Work Phone: Dermatology Comment on above: Seborrheic keratosis (Primary Dx); Multiple benign nevi; Prabhakar angioma; Psoriasis; Skin cancer screening Start: 03-14-2024 ambulatory Benjamin Andersen MA [facility] Comment on above: Population Health Na vigation Outreach ([place] [employer] - AWV, Care gaps, HCC gap closure - [place] [facility]) Start: 01-24-2024 End: 01-24-2024 Patient encounter procedure Yesi Zelaya MD Work Phone: Dermatology Comment on above: Inflamed seborrheic keratosis (Primary Dx); Xerosis cutis; Androgenetic alopecia Start: 10-27-2023 End: 10-27-2023 Patient encounter procedure Yesi Zelaya MD Work Phone: Dermatology Comment on above: Androgenetic alopeci a (Primary Dx); Eosinophilia, unspecified type Start: 09-30-2023 Telephone encounter Yesi albarran MD Work Phone: Dermatology Comment on above: Patient Question Start: 08-26-2023 Telephone encounter Yesi albarran MD Work Phone: Dermatology Comment on above: Results Start: 08-23-2023 End: 08-23-2023 ambulatory [facility] Work Phone: Start: 08-23-2023 End: 08-23-2023 Patient encounter procedure [facility], [facility] Work Phone: Start: 08-16-2023 End: 08-16-2023 Patient encounter procedure Yesi Zelaya MD Work Phone: Dermatology Comment on above: Telogen effluvium (P rimary Dx); Inflamed seborrheic keratosis; Seborrheic keratosis Start: 03-24-2023 End: 03-24-2023 Patient encounter procedure Mercy Hogan APRN.CNP Work Phone: [facility] Care Comment on above: Flushing (Primary Dx ) Start: 03-24-2023 Telephone encounter Sonu Gonzalez DO Work Phone: [facility] Start: 02-15-2023 End: 02-15-2023 Patient encounter procedure Sonu Caal DO Work Phone: Family Medicine Comment on above: Lymphadenopathy, ing uinal (Primary Dx); Screening cholesterol level; Screening for prostate cancer; Screening for colon cancer Start: 01-11-2023 End: 01-11-2023 Patient encounter procedure Yesi Zelaya MD Work Phone: Dermatology Comment on above: Multiple benign nevi (Primary Dx); Prabhakar angioma; Psoriasis Start: 10-29-2022 End: 10-29-2022 ambulatory [facility] Work Phone: Start: 10-29-2022 End: 10-29-2022 Patient encounter procedure [facility]Labor[facility], Specimen Start: 10-28-2022 End: 10-28-2022 Patient encounter procedure Yesi Zelaya MD Work Phone: Dermatology Comment on above: Psoriasis (Primary D x); AK (actinic keratosis) Start: 08-26-[address] LAMONT COATES Facility:[facility] Start: 04-10-2022 End: 04-10-2022 Emergency department patient visit Dr. Yesi Christie Work Phone: [facility]Emergency Department Start: 04-06-2022 Non-patient / Non-visit Dr. Abeba Christie Work Phone: [facility] Start: 04-06-2022 End: 04-06-[address] Yesi Christie Work Phone: [facility] Start: 03-03-2022 End: 03-03-[address] Yesi Christie Work Phone: [facility] Start: 03-02-2022 End: 03-02-[address] Yesi Christie Work Phone: [facility], [place] Start: 02-28-2022 End: 02-28-2022 Emergency department patient visit Dr. Yesi Christie Work Phone: [facility] Start: 12-21-2021 End: 12-21-[address] Yesi Christie Work Phone: [facility], Specimen Start: 12-20-2021 End: 12-20-[address] Yesi Christie Work Phone: [facility] Start: 11-12-2021 End: 11-12-[address] Yesi Christie Work Phone: [facility] Start: 10-27-2018 Patient encounter procedure PHYSICIAN [facility] Procedures Date Procedure Procedure Detail Performing Clinician Start: 01-24-2024 CRYOTHERAPY SKIN LESION Yesi Zelaya MD Work Phone: Start: 08-23-2023 Radiography of esophagus Start: 08-16-2023 DESTRUCTION OF LESION Mely Zelaya MD Work Phone: Start: 02-17-2023 Lipid 1996 panel - S jaime or Plasma Yesi Zelaya MD Work Phone: Start: 10-28-2022 CRYOTHERAPY SKIN LESION Yesi Zelaya MD Work Phone: Start: 04-10-2022 Plain chest X-ray Dr. Mely Christie Work Phone: Start: 04-10-2022 CT of thorax, abdome n and pelvis with contrast Dr. Yesi Christie Work Phone: Start: 03-29-2017 End: 04-01-2017 *Hepatic Function Panel [facility] Start: 03-29-2017 End: 04-01-2017 Lipid panel [AGGREGATE] [facility] Start: 02-03-2017 End: 04-16-2017 *Hepatic Function Panel [facility] Start: 02-03-2017 End: 04-16-2017 Lipid panel [AGGREGATE] [facility] Start: 08-05-2016 End: 08-06-2016 *Hepatic Function Panel [facility] Start: 08-05-2016 End: 08-05-2016 ESTELLA Hernandez MD Start: 08-05-2016 End: 08-05-2016 Follow Up Appt 1 year Jacques Hernandez MD Start: 08-05-2016 End: 08-06-2016 Lipid panel [AGGREGATE] [facility] Start: 12-24-2015 End: 12-24-2015 ESTELLA Hernandez MD Start: 12-24-2015 End: 12-24-2015 Follow Up Appt 6 months [facility] Start: 08-29-2015 End: 12-24-2015 ESTELLA Hernandez MD Start: 08-29-2015 End: 08-30-2015 Documentation of current medications Jacques Hernandez MD Start: 08-29-2015 End: 12-24-2015 Follow Up Appt 4 months [facility] Start: 08-28-2015 End: 09-27-2015 *Hepatic Function Panel [facility] Start: 08-28-2015 End: 09-27-2015 Lipid panel [AGGREGATE] [facility] Start: 05-13-2014 End: 12-24-2015 *24 hour urine for metanephrines Jacques Hernandez MD Start: 04-12-2014 End: 04-12-2014 ESTELLA Hernandez MD Start: 04-12-2014 End: 12-24-2015 Echocardiography Jacques Hernandez MD Start: 04-12-2014 End: 04-12-2014 Electrocardiogram, complete Jacques Carrera i, MD Start: 04-12-2014 End: 04-12-2014 Follow Up Appt 3 months [facility] Start: 12-27-2013 End: 04-11-2014 *Hepatic Function Panel [facility] Start: 12-27-2013 End: 04-11-2014 Lipid panel [AGGREGATE] [facility] Start: 12-29-2012 End: 04-12-2014 *Hepatic Function Panel [facility] Start: 12-29-2012 End: 04-12-2014 Lipid panel [AGGREGATE] [facility] Start: 07-12-2012 End: 07-19-2012 *BMP Jacques Hernandez MD Start: 07-12-2012 End: 07-19-2012 *Hepatic Function Panel [facility] Start: 07-12-2012 End: 07-19-2012 CBC W Auto Differential panel - Blood Jacques Hernandez MD Start: 07-12-2012 End: 07-19-2012 Lipid panel [AGGREGATE] [facility] Investigation of tra nsfusion reaction Plan of Treatment Date Care Activity Detail Author Start: 05-16-2030 Urine microalbumin profile DTa P,Tdap,Td Vaccine (2 - Td or Tdap) [facility] Start: 2028 RSV Vaccine (1 - 1-d ose 75+ series) RSV Vaccine (1 - 1-dose 75+ series) [facility] Start: 02-18-2028 Lipid 1996 panel - S jaime or Plasma Lipid Screening [facility] Start: 02-18-2028 Lipid panel Lipid Screening [facility] Start: 02-18-2028 LIPID SCREEN LIPID SCREEN [facility] Start: 02-17-2026 DIABETES SCREEN [facility] Start: 02-17-2026 Diabetes Screening Diabetes Screenin g [facility] Start: 05-06-2025 Covid-19 Vaccine () Covid-19 Vaccine () [facility] Start: 11-28-2024 Advance Directive Discussion Advance Directive Discussion [facility] Start: 07-29-2024 Influenza vaccination [facility] Start: 02-19-2024 Covid-19 Vaccine () Covid-19 Vaccine () [facility] Start: 02-16-2024 ANNUAL PCP TEAM HEALTH CARE ANALYST HENRY DISEASE VISIT ANNUAL PCP TEAM CHRONIC DISEASE VISIT [facility] Start: 11-28-2023 Advance Directive Discussion Advance Directive Discussion [facility] Start: 11-28-2023 Behavioral Health Screening Behavioral Health Screening [facility] Start: 11-28-2023 Depression Assessment Depression Ass essment [facility] Start: 07-29-2023 Covid-19 Vaccine () Covid-19 Vaccine () [facility] Start: 07-29-2023 Influenza vaccination [facility] Start: 02-15-2023 End: 04-17-2023 CBC W Auto Differential panel - Blood CBC + DIFF Lab Routine Lymphadenopathy, inguinal Expected: 02/15/2023, Expires: 04/17/2023 [facility] Work Phone: Comment on above: Expected: 02/15/2023 , Expires: 04/17/2023 Start: 02-15-2023 End: 04-17-2023 Comprehensive metabolic 2000 panel - Serum or Plasma COMP METABOLIC PANEL Lab Routine Lymphadenopathy, inguinal Expected: 02/15/2023, Expires: 04/17/2023 [facility] Work Phone: Comment on above: Expected: 02/15/2023 , Expires: 04/17/2023 Start: 02-15-2023 End: 04-17-2023 Lipid 1996 panel - Serum or Plasma LIPID PANEL BASIC Lab Routine Screening cholesterol level Expected: 02/15/2023, Expires: 04/17/2023 [facility] Work Phone: Comment on above: Expected: 02/15/2023 , Expires: 04/17/2023 Start: 02-15-2023 End: 04-17-2023 PSA/PROSTSPECAG SCRN PSA/PROSTSPECAG SCRN Lab Routine Screening for prostate cancer Expected: 02/15/2023, Expires: 04/17/2023 [facility] Work Phone: Comment on above: Expected: 02/15/2023 , Expires: 04/17/2023 Start: 01-27-2023 Covid-19 Vaccine (6 - Moderna series) Covid-19 Vaccine (6 - Moderna series) [facility] Start: 11-28-2022 ADVANCE DIRECTIVE DISCUSSION ADVANCE DIRECTIVE DISCUSSION [facility] Start: 11-28-2022 DEPRESSION ASSESSMENT DEPRESSION ASS ESSMENT [facility] Start: 08-18-2022 Pneumococcal Vaccine : 50+ (2 of 2 - PCV) Pneumococcal Vaccine: 50+ (2 of 2 - PCV) [facility] Start: 08-18-2022 Pneumococcal Vaccine : 65+ (2 - PCV) Pneumococcal Vaccine: 65+ (2 - PCV) [facility] Start: 08-18-2022 Pneumococcal Vaccine : 65+ (2 of 2 - PCV) Pneumococcal Vaccine: 65+ (2 of 2 - PCV) [facility] Start: 07-29-2022 Influenza vaccination INFLUENZA (#1) [facility] Start: 04-16-2022 LIPID SCREEN LIPID SCREEN [facility] Start: 11-28-2021 ADVANCE DIRECTIVE DISCUSSION ADVANCE DIRECTIVE DISCUSSION [facility] Start: 11-28-2021 DEPRESSION ASSESSMENT DEPRESSION ASS ESSMENT [facility] Start: 2018 Pneumococcal Vaccine : 65+ (1 - PCV) Pneumococcal Vaccine: 65+ (1 - PCV) [facility] Start: 2018 PNEUMOCOCCAL: 65+ (1 - PCV) PNEUMOCOCCAL: 65+ (1 - PCV) [facility] Start: 10-13-2017 End: 10-13-2017 Appointment Appointment [facility] Work Phone: Start: 10-03-2017 End: 04-16-2017 *Hepatic Function Panel *Hepatic Function Panel [facility] Work Phone: Start: 10-03-2017 End: 04-16-2017 Lipid panel [AGGREGATE] *Lipid Profile CC PCP [facility] Work Phone: Start: 03-29-2017 End: 04-01-2017 *Hepatic Function Panel *Hepatic Function Panel [facility] Work Phone: Start: 03-29-2017 End: 03-29-2017 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 [facility] Work Phone: Start: 03-29-2017 End: 03-29-2017 Follow Up Appt 6 months Follow Up Appt 6 months [facility] Work Phone: Start: 03-29-2017 End: 04-01-2017 Lipid panel [AGGREGATE] *Lipid Profile CC PCP [facility] Work Phone: Start: 02-03-2017 End: 04-16-2017 *Hepatic Function Panel *Hepatic Function Panel [facility] Work Phone: Start: 02-03-2017 End: 04-16-2017 Lipid panel [AGGREGATE] *Lipid Profile CC PCP [facility] Work Phone: Start: 08-05-2016 End: 08-06-2016 *Hepatic Function Panel *Hepatic Function Panel [facility] Work Phone: Start: 08-05-2016 End: 08-05-2016 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 [facility] Work Phone: Start: 08-05-2016 End: 08-05-2016 Follow Up Appt 1 year Follow Up Appt 1 year [facility] Work Phone: Start: 08-05-2016 End: 08-06-2016 Lipid panel [AGGREGATE] *Lipid Profile CC PCP [facility] Work Phone: Start: 12-24-2015 End: 12-24-2015 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 [facility] Work Phone: Start: 12-24-2015 End: 12-24-2015 Follow Up Appt 6 months Follow Up Appt 6 months [facility] Work Phone: Start: 08-29-2015 End: 12-24-2015 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 [facility] Work Phone: Start: 08-29-2015 End: 12-24-2015 Follow Up Appt 4 months Follow Up Appt 4 months [facility] Work Phone: Start: 08-28-2015 End: 08-29-2015 *Hepatic Function Panel *Hepatic Function Panel [facility] Work Phone: Start: 08-28-2015 End: 08-29-2015 Lipid panel [AGGREGATE] *Lipid Profile CC PCP [facility] Work Phone: Start: 05-13-2014 End: 05-13-2014 *24 hour urine for metanephrines *24 hour urine for metanephrines [facility] Work Phone: Start: 04-12-2014 End: 04-12-2014 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 [facility] Work Phone: Start: 04-12-2014 End: 04-15-2014 Echocardiography Echocardiogram (complete) [facility] Work Phone: Start: 04-12-2014 End: 04-12-2014 Electrocardiogram, complete EKG (In office) [facility] Work Phone: Start: 04-12-2014 End: 04-12-2014 Follow Up Appt 3 months Follow Up Appt 3 months [facility] Work Phone: Start: 12-27-2013 End: 04-11-2014 *Hepatic Function Panel *Hepatic Function Panel [facility] Work Phone: Start: 12-27-2013 End: 04-11-2014 Lipid panel [AGGREGATE] *Lipid Profile CC PCP [facility] Work Phone: Start: 2013 RSV Vaccine (1 - 1-d ose 60+ series) RSV Vaccine (1 - 1-dose 60+ series) [facility] Start: 12-29-2012 End: 04-12-2014 *Hepatic Function Panel *Hepatic Function Panel [facility] Work Phone: Start: 12-29-2012 End: 04-12-2014 Lipid panel [AGGREGATE] *Lipid Profile [facility] Work Phone: Start: 07-12-2012 End: 07-19-2012 *BMP *BMP [facility] Work Phone: Start: 07-12-2012 End: 07-19-2012 *Hepatic Function Panel *Hepatic Function Panel [facility] Work Phone: Start: 07-12-2012 End: 07-19-2012 CBC W Auto Differential panel - Blood *CBC without Diff [facility] Work Phone: Start: 07-12-2012 End: 07-19-2012 Lipid panel [AGGREGATE] *Lipid Profile [facility] Work Phone: Start: 2003 SHINGRIX VACCINE (1 of 2) MURPHY GRIX VACCINE (1 of 2) [facility] Start: 1998 COLOGUARD (FIT-DNA) COLOGUARD (FIT-D NA) [facility] Start: 1998 Colonoscopy COLONOSCOPY [facility] Start: 1998 COLORECTAL CANCER SCREENING COLORECTAL CANCER SCREENING [facility] Start: [address] COLONOGRAPHY [facility] Start: 1998 DIABETES SCREEN DIABETES SCREEN [facility] Start: 1998 FECAL OCCULT BLOOD FECAL OCCULT BLOO D [facility] Start: 1998 Screening for malign ant neoplasm of colon [facility] Start: 1998 SIGMOIDOSCOPY SIGMOIDOSCOPY [facility] Start: 1972 Urine microalbumin profile [facility] Start: 1971 Anxiety Screening Anxiety Screening [facility] Start: 1971 BP CONTROLLED (<130/80) BP CONTROLLE D (<130/80) [facility] Start: 1971 Depression Screening Depression Scre ening [facility] Start: 1971 HEPATITIS C SCREENING HEPATITIS C [facility] Start: 1971 Hepatitis C screening Hepatitis [facility] Patient Education [facility] Work Phone: Patient referral [facility] Work Phone: Respiratory microbia l culture Respiratory Culture [facility] Work Phone: End: 02-16-2024 Screening colonoscopy COLONOSCOPY SCREENING Endoscopy Routine Screening for colon cancer 1 Occurrences starting 02/15/2023 until 02/16/2024 [facility] Work Phone: Comment on above: 1 Occurrences starti ng 02/15/2023 until 02/16/2024 End: 03-16-2024 US ABDOMEN LTD US ABDOMEN LTD Radiology Routine Lymphadenopathy, inguinal 1 Occurrences starting 02/15/2023 until 03/16/2024 [facility] Work Phone: Comment on above: 1 Occurrences starti ng 02/15/2023 until 03/16/2024 [facility] Immunizations Immunization Date Immunization Notes Care Provider [facility] 05-16-2020 tetanus toxoid, redu vinita diphtheria toxoid, and acellular pertussis vaccine, adsorbed Dr. Yesi Christie Work Phone: [facility] 07-27-2012 influenza virus vaccine, unspecified formulation Yesi Zelaya MD Work Phone: [facility] Payers Date Payer Category Payer Self-pay [id number] 2021 [facility] Subscriber Plan / Payer (Effective 2021-Present) Name: JODIE JAIN Relation to Subscriber: Spouse Name: Cydney Fontenot Date of : 1956 (Home) Address: [address] [place] [id number] Payer ID: [id number] (NAIC) Type: PPO Address: [address] [place] [id number] 2021 Unknown [employer]AV[employer] PPO [id number] 2021-Present [phone] [address] [place] [address] PPO [id number] 2021 Unknown [id number] 2010 Private Health Insurance [id number] 1955 Unknown [id number] Unknown [id number] Unknown [id number] Unknown [id number] Unknown [id number] Unknown [id number] Unknown [id number] Unknown [id number] Unknown [id number] Unknown [id number] Unknown [id number] Social History Date Type Detail Facility Start: 02-28-2022 End: 04-07-2023 Tobacco smoking status NHIS Unknown if ever smoked [facility] Start: 05-16-2020 Non-smoker [facility] Start: 1955 Sex Assigned At Male W [facility] Start: 03-13-2015 Tobacco smoking stat us NHIS Never smoked tobacco [facility] Start: 03-13-2015 Tobacco use and exposure Smokeless tobacco non-user [facility] Start: 03-24-2020 End: 03-24-2023 Alcohol intake Current drinker of alcohol (finding) [facility] Start: 03-24-2020 End: 08-16-2023 Alcohol intake [facility] Start: 1955 Sex Assigned At Not on file [facility] Start: 10-18-2022 End: 10-28-2022 Exposure to SARS-CoV-2 (event) Not sure [facility] Start: 03-24-2023 End: 08-16-2023 Tobacco use panel [facility] National Score (1-100), lower number is lower risk 60 [facility] Functional Status Date Assessment Result Facility 03-13-2015 Are you deaf, or do you have serious difficulty hearing No 03/13/2015 11:21 AM Farzaneh Campo MA No [facility] 03-13-2015 Are you blind, or do you have serious difficulty seeing, even when wearing glasses No 03/13/2015 11:21 AM Farzaneh Campo MA No [facility] 03-13-2015 Do you have serious difficulty walking or climbing stairs No 03/13/2015 11:21 AM Farzaneh Campo MA No [facility] 03-13-2015 Do you have difficul ty dressing or bathing No 03/13/2015 11:21 AM Farzaneh Campo MA No [facility] 03-13-2015 Because of a physica l, mental, or emotional condition, do you have difficulty doing errands alone such as visiting a physician's office or shopping No 03/13/2015 11:21 AM Farzaneh Campo MA No [facility] Mental Status Date Assessment Result Facility 04-10-2022 Cognitive function Voice/Name [facility] Work Phone: 03-13-2015 Because of a physica l, mental, or emotional condition, do you have serious difficulty concentrating, remembering, or making decisions No 03/13/2015 11:21 AM EDT Farzaneh Goodrich MA No [facility] Clinical Notes 07-07-2014 to 02-27-2025 Patient InstructionsYesi Zelaya MD - 02/27/2025 3:40 PM EDTPatient InstructionsYesi Zelaya MD - 04/25/2024 2:12 PM Benjmain Peterson MA - 03/14/2024 7:58 AM EDTPatient Instructions Note Date & Type Note Facility 02-27-2025 Instructions Yesi Zelaya MD - 02/27/2025 6:18 PM EDT - Apply 0.15% Zoryve cream to the face once daily as needed for maintenance. - [place] Betamethasone Valerate cream for facial flares; apply sparingly as needed. - Apply a small amount of Betamethasone Valerate cream to inflamed seborrheic keratosis on the trunk as needed for itching. - Next follow-up appointment in 3-4 months for a complete skin exam. documented in this encounter [facility] 02-27-2025 History of Presen t illness Narrative Images from the original note were not included. [facility] Department of Dermatology Yesi Zelaya MD 02/27/2025 Last visit in Dermatology: 04/25/2024 Ambient AI software not used during the patient portion of the visit. 1. Psoriasis (L40.9) 2. Seborrheic dermatitis (L21.9) - Psoriasis on lower extremities is well-controlled; no active lesions noted today. Mild psoriasis on the perez area intermittently flares; minimal scaling observed today. - Discussed potential overlap with seborrheic dermatitis on the face. - Initiated trial of 0.15% roflumilast cream, to be used once daily as needed for maintenance. - Betamethasone valerate cream to be reserved for flares. 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 - Patient reports improvement with dietary changes and use of a biotin-containing shampoo. - No scaling of the scalp noted. 4. Seborrheic keratosis (L82.1) - Multiple hyperkeratotic, stuck-on papules less than 1 cm in diameter on the left supraclavicular area and back; no bleeding or significant inflammation, but pruritic. - Discussed treatment options including liquid nitrogen; deferred due to insurance coverage concerns. - Advised use of small amounts of betamethasone valerate or roflumilast cream as needed for pruritus. 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 - No treatment necessary at this time. We discussed the risks, benefits, alternatives, and expected outcomes concerning the prescribed medications. We answered any patient questions regarding these medications and reviewed their use. Requested Prescriptions Signed Prescriptions Disp Refills roflumilast (ZORYVE) 0.15 % cream 60 g 2 Sig: Apply to affected area once daily. Return in about 3 months (around 05/29/2025) for EST appt, skin check. Chief complaint: Patient presents with: LESION, SKIN: Spots on chest and backback itchy been there for a couple months No data to display Additional HPI: Jodie is a 69-year-old male presenting for evaluation of psoriasis, pruritic hypokeratotic papules on the left supraclavicular area and back, and small red papules on the torso. Jodie reports that his psoriasis on the lower extremities has been well-controlled and has essentially resolved following a fall in [facility], which resulted in a large abrasion on the right knee. This incident required tetanus immunization, antibiotics, and debridement. He notes persistent mild psoriasis in the perez area, which intermittently flares. He manages this with sparing and intermittent use of betamethasone valerate, approximately once every 7-10 days. He also reports the recent appearance of pruritic hypokeratotic papules on the left supraclavicular area and back, with no known inciting factors. Additionally, he has noticed small red papules on his torso. Previous hair loss, thought to be telogen effluvium, has improved, which he attributes to better nutrition and the use of a biotin-containing shampoo. He denies any scaling of the scalp. Jodie mentions a recent colonoscopy that showed no polyps and reports overall improved health. He had an episode of COVID-19 several months ago but has fully recovered. Past medical history is reviewed. Medication list is reviewed. Review of Systems: Skin: (+) pruritus on left supraclavicular area, (+) intermittent facial dermatitis flares Physical exam: General: Well-appearing. Skin: Minimal scaling on perez; hyperpigmentation on bilateral lower extremities at sites of previous psoriasis, no active psoriasis; healed wound on right extensor knee with slightly atrophic scar; hyperkeratotic, small, stuck-on papules on left supraclavicular area and back, each less than 1 cm, no bleeding or obvious inflammation other than pruritus; scattered prabhakar red papules diffusely on trunk. To waist: Scalp, face, ears, neck, back, chest, abdomen, bilateral upper extremities Labs: Imaging: Tests: - Colonoscopy: No polyps identified Intake by Shreyas Pillai LPN Attending signature: Yesi Zelaya MD This note is completed at 6:19 PM on 02/27/2025 and reflects the services provided at the time of the appointment. I agree with the Chief Complaint, ROS, and Past Histories that may have been independently gathered by the clinical instructional support services director and the remaining scribed note (including AI-generated content) is reviewed and accurately describes my personal service to the patient. documented in this encounter [facility] 02-27-2025 Note HNO ID: [id number] Author: YESI ZELAYA MD Service: ? Author Type: Physician Type: Progress Notes Filed: 02/27/2025 18:19 Note Text: [facility] Department of Dermatology Yesi Zelaya MD 02/27/2025 Last visit in Dermatology: 04/25/2024 Ambient AI software not used during the patient portion of the visit. 1. Psoriasis (L40.9) 2. Seborrheic dermatitis (L21.9) - Psoriasis on lower extremities is well-controlled; no active lesions noted today. Mild psoriasis on the perez area intermittently flares; minimal scaling observed today. - Discussed potential overlap with seborrheic dermatitis on the face. - Initiated trial of 0.15% roflumilast cream, to be used once daily as needed for maintenance. - Betamethasone valerate cream to be reserved for flares. 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 - Patient reports improvement with dietary changes and use of a biotin-containing shampoo. - No scaling of the scalp noted. 4. Seborrheic keratosis (L82.1) - Multiple hyperkeratotic, stuck-on papules less than 1 cm in diameter on the left supraclavicular area and back; no bleeding or significant inflammation, but pruritic. - Discussed treatment options including liquid nitrogen; deferred due to insurance coverage concerns. - Advised use of small amounts of betamethasone valerate or roflumilast cream as needed for pruritus. 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 - No treatment necessary at this time. We discussed the risks, benefits, alternatives, and expected outcomes concerning the prescribed medications. We answered any patient questions regarding these medications and reviewed their use. Requested Prescriptions Signed Prescriptions Disp Refills roflumilast (ZORYVE) 0.15 % cream 60 g 2 Sig: Apply to affected area once daily. Return in about 3 months (around 05/29/2025) for EST appt, skin check. Chief complaint: Patient presents with: LESION, SKIN: Spots on chest and backback itchy been there for a couple months No data to display Additional HPI: Jodie is a 69-year-old male presenting for evaluation of psoriasis, pruritic hypokeratotic papules on the left supraclavicular area and back, and small red papules on the torso. Jodie reports that his psoriasis on the lower extremities has been well-controlled and has essentially resolved following a fall in [facility], which resulted in a large abrasion on the right knee. This incident required tetanus immunization, antibiotics, and debridement. He notes persistent mild psoriasis in the perez area, which intermittently flares. He manages this with sparing and intermittent use of betamethasone valerate, approximately once every 7-10 days. He also reports the recent appearance of pruritic hypokeratotic papules on the left supraclavicular area and back, with no known inciting factors. Additionally, he has noticed small red papules on his torso. Previous hair loss, thought to be telogen effluvium, has improved, which he attributes to better nutrition and the use of a biotin-containing shampoo. He denies any scaling of the scalp. Jodie mentions a recent colonoscopy that showed no polyps and reports overall improved health. He had an episode of COVID-19 several months ago but has fully recovered. Past medical history is reviewed. Medication list is reviewed. Review of Systems: Skin: (+) pruritus on left supraclavicular area, (+) intermittent facial dermatitis flares Physical exam: General: Well-appearing. Skin: Minimal scaling on perez; hyperpigmentation on bilateral lower extremities at sites of previous psoriasis, no active psoriasis; healed wound on right extensor knee with slightly atrophic scar; hyperkeratotic, small, stuck-on papules on left supraclavicular area and back, each less than 1 cm, no bleeding or obvious inflammation other than pruritus; scattered prabhakar red papules diffusely on trunk. To waist: Scalp, face, ears, neck, back, chest, abdomen, bilateral upper extremities Labs: Imaging: Tests: - Colonoscopy: No polyps identified Intake by Shreyas Pillai LPN Attending signature: Yesi Zelaya MD This note is completed at 6:19 PM on 02/27/2025 and reflects the services provided at the time of the appointment. I agree with the Chief Complaint, ROS, and Past Histories that may have been independently gathered by the clinical instructional support services director and the remaining scribed note (including AI-generated content) is reviewed and accurately describes my personal service to the patient. [facility] 04-25-2024 Instructions Chery Miner LPN - 04/25/2024 2:16 PM EDT GENERAL SUN SAFETY Thank you for allowing me to examine you for signs of skin cancer today. We had an opportunity to discuss my findings and any treatments I recommended. I believe that there are several steps that a person can do to help prevent skin cancers and to detect them at an early, treatable stage: 1. I highly recommend that once a month you perform your own complete skin check looking for changing or unusual spots. Use a wall-mounted mirror and a hand mirror to assist in seeing body areas that are difficult to see otherwise. If you have a family member that can assist, this is often helpful. Additional information can be obtained at: www.skincancer.org/yqcy-jbjhqd-m nformation/early-detection 2. In many cases, skin cancer can be prevented. The best way to protect yourself is to avoid too much sun and sunburns. Health care providers believe that ultraviolet rays (UV rays) from the sun damage the skin and over time lead to skin cancer. Here are ways to protect yourself: -Don't spend long periods of time in direct sunlight. -Wear hats with brims to protect your face and ears. -Wear long-sleeved shirts and pants to protect your arms and legs. -Use broad spectrum sunscreens with a SPF (skin protection factor) of 30 or higher that protect against burning and tanning rays. Apply the lotion 30 minutes before you go outside. (Broad-spectrum sunscreens protect against UV-B and UV-A rays.) -Wear sunglasses to protect your eyes. -Use a lip balm with sunscreen. -Avoid the sun between 10am and 4pm. -Show any changing mole to your health care provider. documented in this encounter [facility] 04-25-2024 Note HNO ID: [id number] Author: YESI ZELAYA MD Service: ? Author Type: Physician Type: Progress Notes Filed: 05/03/2024 09:20 Note Text: Department of Dermatology Yesi Zelaya MD 04/25/2024 Last visit in Dermatology: 01/24/2024 Objective/Assessment/Plan 1. Seborrheic keratosis 2. Multiple benign nevi 3. Prabhakar angioma 4. Psoriasis Related Medications calcipotriene-betamethasone (ENSTILAR) 0.005-0.064 % foam Apply to affected area once daily as needed. 5. Skin cancer screening The patient's skin was examined for evidence of cutaneous malignancy. The nature of sun-induced photo-aging and skin cancers is discussed. Sun avoidance, protective clothing, and the use of 30-SPF sunscreens is advised. Observe closely for skin damage/changes, and call if such occurs. The patient's psoriasis is well controlled at the present. The remaining diagnoses are benign and require no additional treatment at this time. Follow-up as noted below or as needed. Plan follow-up with us at least annually. Chief Complaint: Patient presents with: Full Body Skin Check Subjective and Objective No data to display HPI: Jodie Jain is a 68 year old male who presents for skin check. Desires: Total body skin check History of skin cancer?: No Areas of particular concern?: No Past medical history is reviewed. Medication list is reviewed. Physical Exam included: Scalp, face, ears, neck, chest, back, abdomen, bilateral upper extremities, bilateral lower extremities, buttocks, hands, feet, nails and hair Intake: Chery Miner LPN Attending signature: Yesi Zelaya MD This note is completed at 9:18 AM on 05/03/2024 and reflects the services provided at the time of the appointment. I agree with the Chief Complaint, ROS, and Past Histories independently gathered by the clinical instructional support services director. [facility] 04-25-2024 History of Presen t illness Narrative Images from the original note were not included. Department of Dermatology Yesi Zelaya MD 04/25/2024 Last visit in Dermatology: 01/24/2024 Objective/Assessment/Plan 1. Seborrheic keratosis 2. Multiple benign nevi 3. Prabhakar angioma 4. Psoriasis Related Medications calcipotriene-betamethasone (ENSTILAR) 0.005-0.064 % foam Apply to affected area once daily as needed. 5. Skin cancer screening The patient's skin was examined for evidence of cutaneous malignancy. The nature of sun-induced photo-aging and skin cancers is discussed. Sun avoidance, protective clothing, and the use of 30-SPF sunscreens is advised. Observe closely for skin damage/changes, and call if such occurs. The patient's psoriasis is well controlled at the present. The remaining diagnoses are benign and require no additional treatment at this time. Follow-up as noted below or as needed. Plan follow-up with us at least annually. Chief Complaint: Patient presents with: Full Body Skin Check Subjective and Objective No data to display HPI: Jodie Jain is a 68 year old male who presents for skin check. Desires: Total body skin check History of skin cancer?: No Areas of particular concern?: No Past medical history is reviewed. Medication list is reviewed. Physical Exam included: Scalp, face, ears, neck, chest, back, abdomen, bilateral upper extremities, bilateral lower extremities, buttocks, hands, feet, nails and hair Intake: Chery Miner LPN Attending signature: Yesi Zelaya MD This note is completed at 9:18 AM on 05/03/2024 and reflects the services provided at the time of the appointment. I agree with the Chief Complaint, ROS, and Past Histories independently gathered by the clinical instructional support services director. documented in this encounter [facility] 03-14-2024 Note HNO ID: [id number] Author: BENJAMIN ADNERSEN MA Service: ? Author Type: Transmitter Tester Type: Progress Notes Filed: 03/14/2024 10:57 Note Text: POPULATION HEALTH NAVIGATION OUTREACH Action/FYI Patient is on [employer] list for below and needs appointment to address: Hepatitis C Screening BP Controlled (<130/80) Colorectal Cancer Screening RSV Vaccine(1 - 1-dose 60+ series) Pneumococcal Vaccine: 65+(2 of 2 - PCV) Advance Directive Discussion Behavioral Health Screening Annual PCP Team Chronic Disease Visit No results found for: HBA1C Patient due for: Physical Annual Wellness Visit Controlling Blood Pressure Colorectal Cancer Screening Advance Directives Spoke to patient. Declined to schedule at this time. Patient is traveling abroad and will call back when he is ready to schedule and back [place] the states. Reason for Outreach Care Gap/HCC or Scheduling Wellness Visits Care Gaps due: Physical Annual Wellness Visit Controlling Blood Pressure Colorectal Cancer Screening Advance Directives Patient Contacted: Spoke to patient/parent/or legal guardian Patient identified by name and : Yes Care Gap/HCC/Scheduling Wellness actions taken: Patient declined: Patient will call back later to schedule or asks for a call back HCC related Navigation Signature: Benjamin Andersen MA March 14, 2024 7:59 AM [facility] 03-14-2024 History of Presen t illness Narrative POPULATION HEALTH NAVIGATION OUTREACH Action/FYI Patient is on [employer] for [employer] and needs appointment to address: Hepatitis C Screening BP Controlled (<130/80) Colorectal Cancer Screening RSV Vaccine(1 - 1-dose 60+ series) Pneumococcal Vaccine: 65+(2 of 2 - PCV) Advance Directive Discussion Behavioral Health Screening Annual PCP Team Chronic Disease Visit No results found for: HBA1C Patient due for: Physical Annual Wellness Visit Controlling Blood Pressure Colorectal Cancer Screening Advance Directives Spoke to patient. Declined to schedule at this time. Patient is traveling abroad and will call back when he is ready to schedule and back [place] the states. Reason for Outreach Care Gap/HCC or Scheduling Wellness Visits Care Gaps due: Physical Annual Wellness Visit Controlling Blood Pressure Colorectal Cancer Screening Advance Directives Patient Contacted: Spoke to patient/parent/or legal guardian Patient identified by name and : Yes Care Gap/HCC/Scheduling Wellness actions taken: Patient declined: Patient will call back later to schedule or asks for a call back HCC related Navigation Signature: Benjamin Andersen MA March 14, 2024 7:59 AM documented in this encounter [facility] 03-14-2024 Note Patient Outreach (KEATON TNAV) JODIE JAIN ([id number]) 1955 M Date Time Provider Department 03/14/24 BENJAMIN ANDERSEN During your visit today, we recorded the following information about you: Benjamin Andersen MA 03/14/2024 10:57 AM Signed POPULATION HEALTH NAVIGATION OUTREACH Action/FYI Patient is on [employer] list for below and needs appointment to address: Hepatitis C Screening BP Controlled (<130/80) Colorectal Cancer Screening RSV Vaccine(1 - 1-dose 60+ series) Pneumococcal Vaccine: 65+(2 of 2 - PCV) Advance Directive Discussion Behavioral Health Screening Annual PCP Team Chronic Disease Visit No results found for: HBA1C Patient due for: Physical Annual Wellness Visit Controlling Blood Pressure Colorectal Cancer Screening Advance Directives Spoke to patient. Declined to schedule at this time. Patient is traveling abroad and will call back when he is ready to schedule and back [place] the states. Reason for Outreach Care Gap/HCC or Scheduling Wellness Visits Care Gaps due: Physical Annual Wellness Visit Controlling Blood Pressure Colorectal Cancer Screening Advance Directives Patient Contacted: Spoke to patient/parent/or legal guardian Patient identified by name and : Yes Care Gap/HCC/Scheduling Wellness actions taken: Patient declined: Patient will call back later to schedule or asks for a call back HCC related Navigation Signature: Benjamin Andersen MA March 14, 2024 7:59 AM Allergies As of Date: 03/14/2024 Noted Allergy Reaction NUT - UNSPECIFIED 12/27/2014 8 - GI Upset Comments: Tree nuts CASHEW NUT 12/13/2014 8 - GI Upset Date Reviewed: 01/24/2024 Reviewed by: Dacia Gray MA - Fully Assessed Reason for Visit: Population Health Navigation Outreach [3910] Cmt[facility], Care gaps, HCC gap closure - [facility] PCSA Prescriptions as of 03/14/2024 - Clobetasol Propionate (CLOBEX) 0.05 % sham Apply to affected area once daily. Apply to a dry scalp once daily as needed, leave on for 15 minutes before showering. - pimecrolimus (ELIDEL) 1 % cream Apply to affected area two times a day as needed (for dermatitis). - ammonium lactate (LAC-HYDRIN) 12 % cream Apply 1 application to affected area as needed for dry skin. - betamethasone valerate 0.1 % cream Apply twice daily as needed to the face for psoriasis. - Pyrithione Zinc (DERMAZINC) 2 % bar Apply 1 application to affected area once daily. - calcipotriene-betamethasone (ENSTILAR) 0.005-0.064 % foam Apply to affected area once daily as needed. - hydrocortisone (HYTONE) 2.5 % lotion Apply to affected area twice daily as needed (for psoriasis of the perez area and the ears.). - calcipotriene (DOVONEX) 0.005 % oint Apply 1 application to affected area twice daily. - hydrocortisone valerate (WESTCORT) 0.2 % cream Apply 1 application to affected area twice daily as needed (for rash). - finasteride (PROSCAR) 5 mg tablet Take 1 tablet by mouth once daily. - lisinopril (ZESTRIL, PRINIVIL) 10 mg tablet Take 10 mg by mouth once daily. - fluticasone (FLONASE) 50 mcg/actuation nasal spray Use 1 [place] in each nostril once daily. Taking as needed, per patient - cholecalciferol (VITAMIN D3) 50 mcg (2,000 unit) tablet Take 2,000 Units by mouth once daily. - LORATADINE (CLARITIN ORAL) Take by mouth. - PROAIR HFA 90 mcg/actuation inhaler as needed. - ibuprofen (MOTRIN) 600 mg tablet Take 600 mg by mouth three times daily with meals. As needed - DEXLANSOPRAZOLE (DEXILANT ORAL) Take 160 mg by mouth as needed. - atorvastatin 10 mg tablet Take 10 mg by mouth as directed. Take one half tablet of 10 mg . - PROPRANOLOL HCL (PROPRANOLOL ORAL) Take 10 mg by mouth as directed. 2 tablet daily Problem List As Of Date 03/14/2024 Noted Resolved Actinic Keratosis: Premalignant AK [L57.0] 05/19/2014 Actinic skin damage [L57.8] 05/19/2014 Sebaceous hyperplasia of face [L73.8] 05/19/2014 11/03/2014 Other seborrheic keratosis [L82.1] 05/19/2014 11/03/2014 Melanocytic nevus of face [D22.30] 05/19/2014 11/03/2014 Solar lentigo [L81.4] 05/19/2014 11/03/2014 Postinflammatory skin changes [R23.8] 07/07/2014 11/03/2014 Hyperlipidemia [E78.5] 07/27/2011 Hypertension [I10] 08/29/2015 Mitral valve prolapse [I34.1] 03/08/2019 Encounter Status:Closed by BENJAMIN ANDERSEN on 03/14/24 [facility] 01-24-2024 History of Presen t illness Narrative Images from the original note were not included. Department of Dermatology Yesi Zelaya MD 01/24/2024 Last visit in Dermatology: 10/27/2023 Objective/Assessment/Plan 1. Inflamed seborrheic keratosis Left Upper Back Inflamed, erythematous, hyperkeratotic, stuck-on papule. Treated with liquid nitrogen as noted. A discussion of the procedure, the indication, alternatives, and risks/expectations were discussed. These included the risks of redness, prolonged wound healing, blistering, and skin discoloration. The patient desires to proceed. CRYOTHERAPY SKIN LESION - Left Upper Back Complexity: simple Destruction method: cryotherapy Informed consent: discussed and consent obtained Informed consent comment: The risks of hypopigmentation, tenderness, and slow wound healing discussed. Lesion destroyed using liquid nitrogen: Yes Region frozen until ice ball extended beyond lesion: Yes Cryotherapy cycles: 2 Outcome: patient tolerated procedure well with no complications Post-procedure details: wound care instructions given 2. Xerosis cutis Arms and Legs Mild xerosis noted. Am lactin as noted. Apply to the affected area twice daily as needed for flares. 3. Androgenetic alopecia Scalp There is no evidence of inflammation or scarring. Some thinning noted on the frontal scalp, some recession of the frontal hairline is noted. No hair shaft fractures noted. 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 Requested Prescriptions Signed Prescriptions Disp Refills Clobetasol Propionate (CLOBEX) 0.05 % sham 118 mL 3 Sig: Apply to affected area once daily. Apply to a dry scalp once daily as needed, leave on for 15 minutes before showering. pimecrolimus (ELIDEL) 1 % cream 60 g 3 Sig: Apply to affected area two times a day as needed (for dermatitis). ammonium lactate (LAC-HYDRIN) 12 % cream 385 g 3 Sig: Apply 1 application to affected area as needed for dry skin. Refills of medication for psoriasis is provided. Patient uses intermittently. Follow-up as noted below or as needed. Chief Complaint: Patient presents with: Follow Up Subjective and Objective No data to display HPI: Jodie Jain is a 68 year old male who presents for: Follow-up on: - Androgenetic alopecia Also notes that he has overall good control of his psoriasis. Notes some dry skin on the extremities. Also pruritic area on the back is noted. Current treatment: Minoxidil 5% foam Patient reports tolerating the Minoxidil without difficulty. Past medical history is reviewed. Medication list is reviewed. Physical Exam included: Scalp, back and extremities as noted. Attending signature: Yesi Zelaya MD This note is completed at 11:43 AM on 02/19/2024 and reflects the services provided at the time of the appointment. I agree with the Chief Complaint, ROS, and Past Histories independently gathered by the clinical instructional support services director. documented in this encounter [facility] 10-27-2023 Instructions Yesi Zelaya MD - 10/27/2023 9:22 AM EST I recommend topical minoxidil 5% foam applied twice daily to the scalp. This can be applied twice daily to the scalp as directed and obtained over the counter. The generic form should be fine, but I do recommend the foam version over the solution. The eosinophil count could be explained by your allergic-type symptoms. We discussed that you could discuss a product like Astepro with your ENT. documented in this encounter [facility] 10-27-2023 History of Presen t illness Narrative Images from the original note were not included. Department of Dermatology Yesi Zelaya MD 10/27/2023 Last visit in Dermatology: 08/16/2023 Objective/Assessment/Plan 1. Androgenetic alopecia 2. Eosinophilia, unspecified type The elevated eosinophil count is mild, but could be associated with the patient's chronic sinusitis and allergic rhinitis. It continues to trouble him and he sees an ENT physician. He will enquire about intranasal antihistamines, as he has been using intranasal corticosteroids without adequate control. The eosinophil count is unlikely to be associated with the androgenetic alopecia. We discussed various treatments for the hair thinning. Notably, the patient already takes finasteride for prostate hypertrophy. To avoid additional oral agents for present, we discussed the use of topical minoxidil. The risk of temporary hair shedding was discussed. Patient Instructions I recommend topical minoxidil 5% foam applied twice daily to the scalp. This can be applied twice daily to the scalp as directed and obtained over the counter. The generic form should be fine, but I do recommend the foam version over the solution. The eosinophil count could be explained by your allergic-type symptoms. We discussed that you could discuss a product like Astepro with your ENT. Follow-up as noted below or as needed. Chief Complaint: Patient presents with: Hair/Scalp Problem Subjective and Objective No flowsheet data found. HPI: Jodie Jain is a 68 year old male who presents for: -Telogen follow-up -Still notes diffuse hair thinning throughout -Denies pruritis -Patient had labs done at outside lab; brought results in today Slight absolute increased eosinophil count noted. Otherwise cbc, cmp, ferritin, iron were normal. Medication list is reviewed. Physical Exam included: scalp There is no scarring noted. No inflammation, no hair shaft abnormalities. Some decreased density of hair on the vertex and frontal scalp. Some miniaturized hairs noted. Intake: Chery Miner LPN Attending signature: Yesi Zelaya MD This note is completed at 12:27 PM on 11/07/2023 and reflects the services provided at the time of the appointment. I agree with the Chief Complaint, ROS, and Past Histories independently gathered by the clinical instructional support services director. documented in this encounter [facility] 09-30-2023 Miscellaneous Notes Patient called to ask if he can have the results of his labs mailed to his house. Please advise documented in this encounter [facility] 08-26-2023 Miscellaneous Notes Patient called to discuss the results of his labs. Please advise documented in this encounter [facility] 08-16-2023 Instructions Yesi Zelaya MD - 08/16/2023 3:31 PM EDT SKIN CARE AFTER CRYOSURGERY The skin's response to cryosurgery (freezing) can be mild to severe, depending on the depth of the freeze and location of the area treated. You may have minimal redness and swelling with little discomfort or significant discoloration and blistering with considerable discomfort. A burning sensation in the skin may last from several minutes to several hours after the procedure. Follow these instructions when caring for an area treated by cryosurgery: 1. Please clean the area every day with gentle soap and water. It is not necessary to cover the site with a bandage. However, it may be used for protection and it must be changed daily. Do not leave a soiled or wet bandage on the wound. 2. If you are experiencing discomfort you may use a cool compress, elevate the area or take over the counter pain relievers. 3. Apply Vaseline or Aquaphor daily to the site. This can help with itching, irritation, and discomfort. -The lesion may take 2-4 weeks to fully resolve. Depending on the severity of treatment and lesion treated, it may take longer. -DO NOT USE NEOSPORIN OR BACITRACIN as there is a fairly high incidence of allergic response to these products. -You may experience some mild discomfort, redness, swelling, and/or a clear discharge from the wound after your procedure. Severe pain, worsening swelling, and foul-smelling discharge from the site are NOT to be expected. If you have concerns about how your wounds are healing, please send your provider a [employer] message or call . documented in this encounter [facility] 08-16-2023 History of Presen t illness Narrative Images from the original note were not included. Department of Dermatology Yesi Zelaya MD 08/16/2023 Last visit in Dermatology: 01/11/2023 Objective/Assessment/Plan 1. Telogen effluvium Scalp Diffuse thinning of the scalp hair. No scarring or inflammation noted on the scalp. Telogen hairs removed with gentle pull. No evidence of hair shaft abnormalities is appreciated. Discussed treatment options. Labs as noted. * CBC + Auto Diff - Scalp * TSH - Scalp IRON + TIBC - Scalp Vitamin D level - Scalp ZINC BLD - Scalp Related Procedures * MAGNESIUM BLD 2. Inflamed seborrheic keratosis Left Upper Arm - Anterior Inflamed, erythematous, hyperkeratotic, stuck-on papule. DESTRUCTION OF LESION - Left Upper Arm - Anterior Complexity: simple Destruction method: cryotherapy Informed consent: discussed and consent obtained Informed consent comment: The risks of hypopigmentation, tenderness, and slow wound healing discussed. Lesion destroyed using liquid nitrogen: Yes Region frozen until ice ball extended beyond lesion: Yes Cryotherapy cycles: 2 Outcome: patient tolerated procedure well with no complications Post-procedure details: wound care instructions given 3. Seborrheic keratosis Left Upper Back Hyperkeratotic, variably hyperpigmented, stuck on papules. This is a (these are) benign lesion(s), requiring only observation at this time. The benign nature is discussed with the patient, no additional treatment is required at the present. The patient will observe for changes or new symptoms and will contact us for future concerns. Follow-up as noted below or as needed. Chief Complaint: Patient presents with: LESION, SKIN Subjective and Objective No flowsheet data found. HPI: Jodie Jain is a 68 year old male who presents for: For individual lesion(s). Lesion(s): spot Location(s): left upper back and left upper arm (bicep) Duration: ~ 2 months Symptoms: crusty (left upper arm), irregular shape (left upper back Severity: minimal Inciting factors: no inciting factors. Associated symptoms/previous treatments: none Also has noted diffuse hair thinning, no pruritis. No inciting factors. Has had some hair shedding noted. Ongoing for several months. Past medical history is reviewed. Medication list is reviewed. Physical Exam included: As noted. Intake completed by Soni Huston LPN Attending signature: Yesi Zelaya MD This note is completed at 3:35 PM on 09/04/2023 and reflects the services provided at the time of the appointment. I agree with the Chief Complaint, ROS, and Past Histories independently gathered by the clinical instructional support services director. documented in this encounter [facility] 03-25-2023 Miscellaneous Notes Spoke to patient on phone, he is going to call back next week to get this scheduled when he can figure out his schedule. MARILIN Stovall March 25, 2023 3:14 PM Pt was in [facility] and told a consult for allergy testing would be put in for them. Once put in they would like contacted to schedule. Please advise. Janette PSS documented in this encounter [facility] 03-24-2023 History of Presen t illness Narrative Subjective Came in with complaints of a flushing peeling feeling that happened on Tuesday and then once today. Patient is currently COVID-positive. Patient says he ate 1 bite of a peanut butter sandwich today and the flushing episode happened directly after the bite. Patient says his throat did feel tight but feels back to normal now. Patient denies any other symptoms at this time. The history is provided by the patient. No language and literature division chair was used. Review of Systems Constitutional: Negative. Skin: Negative. Objective Physical Exam Constitutional: Appearance: Normal appearance. HENT: Head: Normocephalic. Right Ear: Hearing, tympanic membrane, ear canal and external ear normal. Left Ear: Hearing, tympanic membrane, ear canal and external ear normal. Mouth/Throat: Mouth: Mucous membranes are moist. No injury. Dentition: No gingival swelling. Tongue: No lesions. Tongue does not deviate from midline. Palate: No mass and lesions. Pharynx: Oropharynx is clear. Tonsils: No tonsillar exudate or tonsillar abscesses. 0 on the right. 0 on the left. Cardiovascular: Rate and Rhythm: Normal rate and regular rhythm. Heart sounds: Normal heart sounds. Pulmonary: Effort: Pulmonary effort is normal. Breath sounds: Normal breath sounds. Neurological: Mental Status: He is alert. PAST MEDICAL HISTORY Diagnosis Date Psoriasis PAST SURGICAL HISTORY Procedure Laterality Date PAST SURGICAL HISTORY OF ANTERIOR MAXILLA, BIOPSY, benign ALLERGIES Nut - Unspecified and Cashew Nut MEDICATIONS Sulfacetamide Sodium-Sulfur 10-5 % (w/w) clsr Apply to affected area once daily. For the face. betamethasone valerate 0.1 % cream Apply twice daily as needed to the face for psoriasis. Pyrithione Zinc (DERMAZINC) 2 % bar Apply 1 application to affected area once daily. calcipotriene-betamethasone (ENSTILAR) 0.005-0.064 % foam Apply to affected area once daily as needed. hydrocortisone (HYTONE) 2.5 % lotion Apply to affected area twice daily as needed (for psoriasis of the perez area and the ears.). calcipotriene (DOVONEX) 0.005 % oint Apply 1 application to affected area twice daily. hydrocortisone valerate (WESTCORT) 0.2 % cream Apply 1 application to affected area twice daily as needed (for rash). finasteride (PROSCAR) 5 mg tablet Take 1 tablet by mouth once daily. lisinopril (ZESTRIL, PRINIVIL) 10 mg tablet Take 10 mg by mouth once daily. fluticasone (FLONASE) 50 mcg/actuation nasal spray Use 1 [place] in each nostril once daily. Taking as needed, per patient cholecalciferol (VITAMIN D3) 50 mcg (2,000 unit) tablet Take 2,000 Units by mouth once daily. LORATADINE (CLARITIN ORAL) Take by mouth. PROAIR HFA 90 mcg/actuation inhaler as needed. ibuprofen (MOTRIN) 600 mg tablet Take 600 mg by mouth three times daily with meals. As needed DEXLANSOPRAZOLE (DEXILANT ORAL) Take 160 mg by mouth as needed. atorvastatin 10 mg tablet Take 10 mg by mouth as directed. Take one half tablet of 10 mg . PROPRANOLOL HCL (PROPRANOLOL ORAL) Take 10 mg by mouth as directed. 2 tablet daily FAMILY HISTORY Problem Relation Age of Onset Stroke Mother Heart Attack Father Aneurysm Maternal Grandfather Social History Tobacco Use Smoking status: Never Smokeless tobacco: Never Substance Use Topics Alcohol use: Yes Alcohol/week: 17.5 standard drinks Types: 7 Glasses of Wine (5oz) per week ASSESSMENT/PLAN: 1. Flushing - ICD9: 782.62, ICD10: R23.2 - CONSULT TO ALLERGY/IMMUNOLOGY At this time patient's exam was completely normal. Patient was instructed if this happens again to go to the emergency room. Allergy consult was placed so patient can follow-up about possible peanut allergy though he has had peanut butter sandwiches every day since he was a kid. Patient was okay with this care plan. Mercy Hogan APRN.ELIJAH documented in this encounter [facility] 02-15-2023 History of Presen t illness Narrative Groin Pain (Radiates into left leg ) The history is provided by the patient. No language and literature division chair was used. HISTORY REVIEWED PAST MEDICAL HISTORY Diagnosis Date Psoriasis PAST SURGICAL HISTORY Procedure Laterality Date PAST SURGICAL HISTORY OF ANTERIOR MAXILLA, BIOPSY, benign FAMILY HISTORY Problem Relation Age of Onset Stroke Mother Heart Attack Father Aneurysm Maternal Grandfather Social History Social History Narrative Not on file Allergies: ALLERGIES Allergen Reactions Nut - Unspecified GI Upset Tree nuts Cashew Nut GI Upset Medications: Sulfacetamide Sodium-Sulfur 10-5 % (w/w) clsr Apply to affected area once daily. For the face. betamethasone valerate 0.1 % cream Apply twice daily as needed to the face for psoriasis. Pyrithione Zinc (DERMAZINC) 2 % bar Apply 1 application to affected area once daily. calcipotriene-betamethasone (ENSTILAR) 0.005-0.064 % foam Apply to affected area once daily as needed. hydrocortisone (HYTONE) 2.5 % lotion Apply to affected area twice daily as needed (for psoriasis of the perez area and the ears.). calcipotriene (DOVONEX) 0.005 % oint Apply 1 application to affected area twice daily. hydrocortisone valerate (WESTCORT) 0.2 % cream Apply 1 application to affected area twice daily as needed (for rash). finasteride (PROSCAR) 5 mg tablet Take 1 tablet by mouth once daily. lisinopril (ZESTRIL, PRINIVIL) 10 mg tablet Take 10 mg by mouth once daily. fluticasone (FLONASE) 50 mcg/actuation nasal spray Use 1 [place] in each nostril once daily. Taking as needed, per patient cholecalciferol (VITAMIN D3) 50 mcg (2,000 unit) tablet Take 2,000 Units by mouth once daily. LORATADINE (CLARITIN ORAL) Take by mouth. PROAIR HFA 90 mcg/actuation inhaler as needed. ibuprofen (MOTRIN) 600 mg tablet Take 600 mg by mouth three times daily with meals. As needed DEXLANSOPRAZOLE (DEXILANT ORAL) Take 160 mg by mouth as needed. atorvastatin 10 mg tablet Take 10 mg by mouth as directed. Take one half tablet of 10 mg . PROPRANOLOL HCL (PROPRANOLOL ORAL) Take 10 mg by mouth as directed. 2 tablet daily Clobetasol Propionate (CLOBEX) 0.05 % sham Apply to affected area once daily. Apply to a dry scalp once daily as needed, leave on for 15 minutes before showering. (Patient not taking: Reported on 02/15/2023) BREO ELLIPTA 100-25 mcg/dose inhaler (Patient not taking: Reported on 02/15/2023) Problem List: ACTIVE PROBLEM LIST Actinic Keratosis: Premalignant AK - 05/19/2014 Actinic Skin Damage - 05/19/2014 Review of Systems Gastrointestinal: Positive for abdominal pain. All other systems reviewed and are negative. Physical Exam Vitals and nursing note reviewed. Constitutional: Appearance: He is well-developed. HENT: Head: Normocephalic and atraumatic. Eyes: Conjunctiva/sclera: Conjunctivae normal. Pupils: Pupils are equal, round, and reactive to light. Cardiovascular: Rate and Rhythm: Normal rate and regular rhythm. Heart sounds: Normal heart sounds. No murmur heard. Pulmonary: Effort: Pulmonary effort is normal. No respiratory distress. Breath sounds: Normal breath sounds. No wheezing or rales. Chest: Chest wall: No tenderness. Abdominal: General: Bowel sounds are normal. Palpations: Abdomen is soft. Tenderness: There is no guarding or rebound. Musculoskeletal: Cervical back: Normal range of motion and neck supple. Lymphadenopathy: Cervical: No cervical adenopathy. Skin: General: Skin is warm and dry. Findings: No erythema or rash. Comments: ? Enlarged lymph node left inguinal area at site of pain. BP 141/92 Pulse 62 Temp 36.6 C (97.8 F) (Tympanic) Wt 70.3 kg (154 lb 14.4 oz) BMI 22.39 kg/m ASSESSMENT/PLAN: 1. Lymphadenopathy, inguinal - ICD9: 785.6, ICD10: R59.0 (primary diagnosis) - CBC + DIFF - COMP METABOLIC PANEL - US ABDOMEN LTD 2. Screening cholesterol level - ICD9: V77.91, ICD10: Z13.220 - LIPID PANEL BASIC 3. Screening for prostate cancer - ICD9: V76.44, ICD10: Z12.5 - Counseled on healthy diet and regular exercise - PSA/PROSTSPECAG SCRN Sonu Caal DO documented in this encounter [facility] 01-11-2023 Instructions Farzaneh Goodrich MA - 01/11/2023 2:33 PM EST GENERAL SUN SAFETY Thank you for allowing me to examine you for signs of skin cancer today. We had an opportunity to discuss my findings and any treatments I recommended. I believe that there are several steps that a person can do to help prevent skin cancers and to detect them at an early, treatable stage: 1. I highly recommend that once a month you perform your own complete skin check looking for changing or unusual spots. Use a wall-mounted mirror and a hand mirror to assist in seeing body areas that are difficult to see otherwise. If you have a family member that can assist, this is often helpful. Additional information can be obtained at: www.skincancer.org/kpxi-dpyixk-a nformation/early-detection 2. In many cases, skin cancer can be prevented. The best way to protect yourself is to avoid too much sun and sunburns. Health care providers believe that ultraviolet rays (UV rays) from the sun damage the skin and over time lead to skin cancer. Here are ways to protect yourself: -Don't spend long periods of time in direct sunlight. -Wear hats with brims to protect your face and ears. -Wear long-sleeved shirts and pants to protect your arms and legs. -Use broad spectrum sunscreens with a SPF (skin protection factor) of 30 or higher that protect against burning and tanning rays. Apply the lotion 30 minutes before you go outside. (Broad-spectrum sunscreens protect against UV-B and UV-A rays.) -Wear sunglasses to protect your eyes. -Use a lip balm with sunscreen. -Avoid the sun between 10am and 4pm. -Show any changing mole to your health care provider documented in this encounter [facility] 01-11-2023 History of Presen t illness Narrative Images from the original note were not included. Department of Dermatology Yesi Zelaya MD 01/11/2023 Last visit in Dermatology: 10/28/2022 Objective/Assessment/Plan 1. Multiple benign nevi Scattered variably hyperpigmented macules and papules, with generally good symmetry and internal consistency, one to another. Overall benign-appearing. This is a (these are) benign lesion(s), requiring only observation at this time. The benign nature is discussed with the patient, no additional treatment is required at the present. The patient will observe for changes or new symptoms and will contact us for future concerns. 2. Prabhakar angioma Prabhakar-red papule(s). Distributed widely on the trunk and extremities. This is a (these are) benign lesion(s), requiring only observation at this time. The benign nature is discussed with the patient, no additional treatment is required at the present. The patient will observe for changes or new symptoms and will contact us for future concerns. 3. Psoriasis Head - Anterior (Face), Left Lower Leg - Anterior, Right Lower Leg - Anterior Erythematous, psoriasiform papules and plaques. Sulfacetamide Sodium-Sulfur 10-5 % (w/w) clsr - Head - Anterior (Face) Apply to affected area once daily. For the face. Related Medications calcipotriene-betamethasone (ENSTILAR) 0.005-0.064 % foam Apply to affected area once daily as needed. Trial of sulfacetamide as steroid sparing therapy. Follow-up as noted below or as needed. Chief Complaint: Patient presents with: Full Body Skin Check Subjective and Objective No flowsheet data found. HPI: Jodie Jain is a 67 year old male who presents for: Skin check. Desires: Total body skin check History of skin cancer?: No Areas of particular concern?: Yes: left hand lesion of concern, and left lutheran Psoriasis has been clearing on the body. He has reduced his stress and has returned to playing hockey which has helped. He has been using Hydrocortisone valerate and betamethasone valerate. Past medical history is reviewed. Medication list is reviewed. Physical Exam included: Scalp, face, ears, neck, chest, back, abdomen, bilateral upper extremities, bilateral lower extremities, buttocks, hands, feet, nails and hair Yaritza White RN Attending signature: Yesi Zelaya MD This note is completed at 10:12 PM on 01/16/2023 and reflects the services provided at the time of the appointment. I agree with the Chief Complaint, ROS, and Past Histories independently gathered by the clinical instructional support services director. documented in this encounter [facility] 10-28-2022 Instructions Nilsa Fernandes - 10/28/2022 10:40 AM EST SKIN CARE AFTER CRYOSURGERY The skin's response to cryosurgery (freezing) can be mild to severe, depending on the depth of the freeze and location of the area treated. You may have minimal redness and swelling with little discomfort or significant discoloration and blistering with considerable discomfort. A burning sensation in the skin may last from several minutes to several hours after the procedure. Follow these instructions when caring for an area treated by cryosurgery: 1. Please clean the area every day with gentle soap and water. It is not necessary to cover the site with a bandage. However, it may be used for protection and it must be changed daily. Do not leave a soiled or wet bandage on the wound. 2. If you are experiencing discomfort you may use a cool compress, elevate the area or take over the counter pain relievers. 3. Apply Vaseline or Aquaphor daily to the site. This can help with itching, irritation, and discomfort. -The lesion may take 2-4 weeks to fully resolve. Depending on the severity of treatment and lesion treated, it may take longer. -DO NOT USE NEOSPORIN OR BACITRACIN as there is a fairly high incidence of allergic response to these products. -You may experience some mild discomfort, redness, swelling, and/or a clear discharge from the wound after your procedure. Severe pain, worsening swelling, and foul-smelling discharge from the site are NOT to be expected. If you have concerns about how your wounds are healing, please send your provider a [employer] message or call . documented in this encounter [facility] 10-28-2022 History of Presen t illness Narrative Department of Dermatology Yesi Zelaya MD 10/28/2022 Last visit in Dermatology: 08/19/2021 Objective/Assessment/Plan 1. Psoriasis Scalp Erythematous, psoriasiform papules and plaques. Patient has had good benefit from Enstilar in the past. Not as much relief with calcipotriene solution. calcipotriene-betamethasone (ENSTILAR) 0.005-0.064 % foam - Scalp Apply to affected area once daily as needed. 2. AK (actinic keratosis) (2) Left Forehead, Right Forehead Erythematous, hyperkeratotic papule without induration. LN2 today. CRYOTHERAPY SKIN LESION - Left Forehead, Right Forehead Complexity: simple Destruction method: cryotherapy Informed consent: discussed and consent obtained Lesion destroyed using liquid nitrogen: Yes Region frozen until ice ball extended beyond lesion: Yes Cryotherapy cycles: 2 Outcome: patient tolerated procedure well with no complications Post-procedure details: wound care instructions given Requested Prescriptions Signed Prescriptions Disp Refills Clobetasol Propionate (CLOBEX) 0.05 % sham 118 mL 3 Sig: Apply to affected area once daily. Apply to a dry scalp once daily as needed, leave on for 15 minutes before showering. betamethasone valerate 0.1 % cream 15 g 1 Sig: Apply twice daily as needed to the face for psoriasis. Pyrithione Zinc (DERMAZINC) 2 % bar 1 Each 5 Sig: Apply 1 application to affected area once daily. calcipotriene-betamethasone (ENSTILAR) 0.005-0.064 % foam 60 g 5 Sig: Apply to affected area once daily as needed. We discussed the risks, benefits, alternatives, and expected outcomes concerning the prescribed medications. We answered any patient questions regarding these medications and reviewed their use. Follow-up as noted below or as needed. Chief Complaint: Patient presents with: Derm Problem Subjective and Objective No flowsheet data found. HPI: Jodie Jain is a 67 year old male who presents for: Skin check. Desires: Localized exam of face only History of skin cancer?: No Areas of particular concern?: Yes: Lesion(s): patches Location(s): scalp, ears, face Duration: ~1 year Symptoms: Dry, scaly, itchy Severity: mild Inciting factors: none Associated symptoms/previous treatments: Hydrocortisone 2.5% on face worked previously in the past but recently applying nightly without much improvement. Enstilar foam to the body was very -no longer covered by insurance. Lesion(s): spots Location(s): forehead Duration: ~years Symptoms: Dry, scaly Severity: mild Inciting factors: none Associated symptoms/previous treatments: none Past medical history is reviewed. Medication list is reviewed. Physical Exam included: scalp, face, ears, and neck Intake completed by Chery Miner LPN By signing my name below, INilsa served as a scribe and attest that this documentation has been prepared under the direction and in the presence of Dr. Yesi Zelaya MD Electronically signed, Nilsa Dom, S-III Date: 10/28/2022 Time: 10:21 AM Attending signature: TEACHING PHYSICIAN NOTE OF PERSONAL INVOLVEMENT IN CARE: I have personally seen and examined the patient and performed the medical decision-making components. I have reviewed the medical student documentation and verified the findings in the note as written. Any additions or changes are noted in bold/italics. In addition, as applicable, I agree with the Chief Complaint, ROS, and Past Histories independently gathered by the clinical instructional support services director and the remaining scribed note accurately describes my personal service to the patient. Signature: Yesi Zelaya Date: 11/07/2022 Time: 4:10 PM documented in this encounter [facility] 07-07-2014 History of Past i llness Narrative Problem Noted Date Resolved Date Postinflammatory skin changes 07/07/2014 Sebaceous hyperplasia of face 05/19/2014 Other seborrheic keratosis 05/19/201411/03 Melanocytic nevus of face 05/19/20142013 Solar lentigo 05/19/2014 11/03/2014 documented as of this encounter (statuses as of 11/07/2022) [facility] History of Past illness Narrative* Problem Noted Date Resolved Date Postinflammatory skin changes 07/07/2014 Sebaceous hyperplasia of face 05/19/2014 Other seborrheic keratosis 05/19/201411/03 Melanocytic nevus of face 05/19/20142013 Solar lentigo 05/19/2014 11/03/2014 documented as of this encounter (statuses as of 01/17/2023) [facility] History of Past illness Narrative* Problem Noted Date Resolved Date Postinflammatory skin changes 07/07/2014 Sebaceous hyperplasia of face 05/19/2014 Other seborrheic keratosis 05/19/201411/03 Melanocytic nevus of face 05/19/20142013 Solar lentigo 05/19/2014 11/03/2014 documented as of this encounter (statuses as of 02/15/2023) [facility] [facility] of Past illness Narrative* Problem Noted Date Resolved Date Postinflammatory skin changes 07/07/2014 Sebaceous hyperplasia of face 05/19/2014 Other seborrheic keratosis 05/19/201411/03 Melanocytic nevus of face 05/19/20142013 Solar lentigo 05/19/2014 11/03/2014 documented as of this encounter (statuses as of 03/24/2023) [facility] History of Past illness Narrative* Problem Noted Date Diagnosed Date Resolved Date Postinflammatory skin changes 07/07/2014 11/03/2014 Sebaceous hyperplasia of face 05/19/2014 11/03/2014 Other seborrheic keratosis 05/19/2014 1 01/04/2014 Melanocytic nevus of face 05/19/2014 Solar lentigo 05/19/2014 11/03/2014 documented as of this encounter (statuses as of 09/02/2023) [facility] History of Past illness Narrative* Problem Noted Date Diagnosed Date Resolved Date Postinflammatory skin changes 07/07/2014 11/03/2014 Sebaceous hyperplasia of face 05/19/2014 11/03/2014 Other seborrheic keratosis 05/19/2014 1 01/04/2014 Melanocytic nevus of face 05/19/2014 Solar lentigo 05/19/2014 11/03/2014 documented as of this encounter (statuses as of 09/04/2023) [facility] History of Past illness Narrative* Problem Noted Date Diagnosed Date Resolved Date Postinflammatory skin changes 07/07/2014 11/03/2014 Sebaceous hyperplasia of face 05/19/2014 11/03/2014 Other seborrheic keratosis 05/19/2014 1 01/04/2014 Melanocytic nevus of face 05/19/2014 Solar lentigo 05/19/2014 11/03/2014 documented as of this encounter (statuses as of 10/05/2023) [facility] History of Past illness Narrative* Problem Noted Date Diagnosed Date Resolved Date Postinflammatory skin changes 07/07/2014 11/03/2014 Sebaceous hyperplasia of face 05/19/2014 11/03/2014 Other seborrheic keratosis 05/19/2014 1 01/04/2014 Melanocytic nevus of face 05/19/2014 Solar lentigo 05/19/2014 11/03/2014 documented as of this encounter (statuses as of 11/07/2023) [facility] History of Past illness Narrative* Problem Noted Date Diagnosed Date Resolved Date Postinflammatory skin changes 07/07/2014 11/03/2014 Sebaceous hyperplasia of face 05/19/2014 11/03/2014 Other seborrheic keratosis 05/19/2014 1 01/04/2014 Melanocytic nevus of face 05/19/2014 Solar lentigo 05/19/2014 11/03/2014 documented as of this encounter (statuses as of 02/19/2024) [facility] History of Past illness Narrative* Problem Noted Date Diagnosed Date Resolved Date Postinflammatory skin changes 07/07/2014 11/03/2014 Sebaceous hyperplasia of face 05/19/2014 11/03/2014 Other seborrheic keratosis 05/19/2014 1 01/04/2014 Melanocytic nevus of face 05/19/2014 Solar lentigo 05/19/2014 11/03/2014 documented as of this encounter (statuses as of 03/14/2024) [facility] Diagnosis Onset Date Resolution Status Encounter for screening for COVID-19 acute Encounter for screening for COVID-19 acute [facility] Work Phone: Evaluation note* Diagnosis Onset Date Resolution Status Encounter for screening for COVID-19 resolved Encounter for screening for COVID-19 resolved SOB (shortness of breath) [place] Essential (primary) hypertension chronic Hyperlipidemia [facility] Work Phone: Evaluation note* Diagnosis Onset Date Resolution Status Encounter for screening for COVID-19 resolved SOB (shortness of breath) [place] Essential (primary) hypertension chronic Hyperlipidemia [facility] Work Phone: Evaluation noteNo assessment information available [facility] Work Phone: Evaluation note* Diagnosis Psoriasis- Primary Other psoriasis AK (actinic keratosis) Actinic keratosis documented in this encounter [facility] note* Diagnosis Multiple benign nevi- Primary Benign neoplasm of skin, site unspecified Prabhakar angioma Nevus, non-neoplastic Psoriasis Other psoriasis documented in this encounter [facility] note* Diagnosis Lymphadenopathy, inguinal- Primary Enlargement of lymph nodes Screening cholesterol level Screening for lipoid disorders Screening for prostate cancer Special screening for malignant neoplasm of prostate Screening for colon cancer Special screening for malignant neoplasms, colon [facility] Diagnosis [place]- Primary documented in this encounter [facility] note* Diagnosis Telogen effluvium- Primary Inflamed seborrheic keratosis Seborrheic keratosis Other seborrheic keratosis documented in this encounter [facility] note* Diagnosis Androgenetic alopecia- Primary Other alopecia Eosinophilia, unspecified type documented in this encounter [facility] note* Diagnosis Inflamed seborrheic keratosis- Primary Xerosis cutis Other specified disease of sebaceous glands Androgenetic alopecia Other alopecia documented in this encounter [facility] note* Diagnosis Seborrheic keratosis- Primary Other seborrheic keratosis Multiple benign nevi Benign neoplasm of skin, site unspecified Prabhakar angioma Nevus, non-neoplastic Psoriasis Other psoriasis Skin cancer screening Screening for malignant neoplasm of the skin documented in this encounter [facility] note* Diagnosis Actinic keratosis- Primary Psoriasis Other psoriasis Seborrheic dermatitis Seborrheic dermatitis, unspecified Telogen effluvium Seborrheic keratosis Other seborrheic keratosis Prabhakar angioma Nevus, non-neoplastic documented in this encounter [facility] for referral (narrative)* Outpatient Procedure (Routine) - Pending Review Specialty Diagnoses / Procedures Referred By Deepika vizcarra Referred To Contact [facility] Diagnoses Screening for colon cancer Procedures COLONOSCOPY SCREENING COLONOSCOPY FLX DX W/COLLJ SPEC WHEN PFRMD Sonu Caal, DO [address] [place] [address] [facility] [address] [place] [address] Referral ID Status Reason Start Date Expiration Date Visits Requested Visits Authorized [id number] Pending Review Auto-Generat ed Referral 02/15/2023 02/16/2024 1 1 * Diagnostic Procedure Only (Routine) - Authorized Specialty Diagnoses / Procedures Referred By Contac t Referred To Contact [facility] Diagnoses Lymphadenopathy, inguinal Procedures US ABDOMEN LTD US ABDOMINAL REAL TIME W/IMAGE LIMITED Sonu Caal DO [address] [place] [address] [facility] Referral ID Status Reason Start Date Expiration Date Visits Requested Visits Authorized [id number] Authorized Auto-Generat ed Referral 02/15/2023 03/16/2024 1 1 [facility] Summary Purpose Family History No Family History Records Found Relationship Condition Age at Onset Recorded Date/T sarah father Coronary artery disease Unknown Myocardial infarction Unknown mother Cerebrovascular accident (CVA) Unknown Advance Directives No Advanced Directives Records Found Advance Directive Response Recorded Date/ Time Living Will No February 28, 2022 10:34pm Power of Dancing Teacher No February 28 10:34pm Advance Directive Response Recorded Date/ Time Living Will No April 10, 2022 5 :10pm Power of Dancing Teacher No April 10, 2022 5:10pm Advance Directive Response Recorded Date/ Time Living Will No April 10, 2022 4 :10pm Power of Dancing Teacher No April 10, 2022 4:10pm Chief Complaint and Reason for Visit Chief Complaint COVID-TRAVEL PCR COVID RIGHT RING FINGER PAIN Reason for Visit Encounter for screen ing for COVID-19 Encounter for screening for COVID-19 Chief Complaint COVID-TRAVEL PCR COVID RIGHT RING FINGER PAIN EORDER 1 Y FU,HIGH BP,SOB (WANTS STRESS TEST) Reason for Visit Encounter for screen ing for COVID-19 Encounter for screening for COVID-19 SOB (shortness of breath) Essential (primary) hypertension Hyperlipidemia Chief Complaint PCR COVID RIGHT RING FINGER PAIN EORDER 1 Y FU,HIGH BP,SOB (WANTS STRESS TEST) CHEST PAIN Reason for Visit Encounter for screen ing for COVID-19 SOB (shortness of breath) Essential (primary) hypertension Hyperlipidemia Chief Complaint PCR COVID RIGHT RING FINGER PAIN EORDER 1 Y FU,HIGH BP,SOB (WANTS STRESS TEST) CHEST PAIN CP Reason for Visit Encounter for screen ing for COVID-19 SOB (shortness of breath) Essential (primary) hypertension Hyperlipidemia Chief Complaint Cough Chief Complaint DYSHAGIA Reason for Referral Specialty Diagnoses / Procedures Referred By Deepika t Referred To Contact Allergy Diagnoses Flushing Procedures CONSULT TO ALLERGY/IMMUNOLOGY OFFICE/OUTPATIENT [facility] MDM 60-74 MINUTES Mercy Hogan APRN.MANUFACTURING ENGINEERING DIRECTOR [address] [place] [address] Referral ID Status Reason Start Date Expiration Date Visits Requested Visits Authorized [id number] Authorized PCP Requested Referral 03/24/2023 03/23/2024 1 1 Additional Source Comments (unrecognized sect ion and content) No Status Records FoundNo Status Records FoundNo Status Records FoundNo Status Records Found INFORMATION SOURCE (unrecogn ized section and content) DATE CREATED AUTHOR 11/06/2018 [facility] DATE CREATED AUTHOR AUTHOR'S ORGANIZ ATION 08/30/2022 [facility] DATE CREATED AUTHOR AUTHOR'S ORGANIZ ATION 12/15/2024 [facility] DATE CREATED AUTHOR AUTHOR'S ORGANIZ ATION 03/02/2025 [facility] Goals (unrecognized section and content) Goals may be documented in a n alternate sectionGoals may be documented in an alternate sectionGoals may be documented in an alternate sectionGoals may be documented in an alternate sectionGoals may be documented in an alternate sectionGoals may be documented in an alternate section Source Comments (unrecognize d section and content) In the event this informatio n is protected by the Federal Confidentiality of Alcohol and Drug Abuse Patient Records regulations: The Federal rules restrict any use of the information to criminally investigate or prosecute any alcohol or drug abuse patient.[facility] the event this information is protected by the Federal Confidentiality of Alcohol and Drug Abuse Patient Records regulations: The Federal rules restrict any use of the information to criminally investigate or prosecute any alcohol or drug abuse patient.[facility] the event this information is protected by the Federal Confidentiality of Alcohol and Drug Abuse Patient Records regulations: The Federal rules restrict any use of the information to criminally investigate or prosecute any alcohol or drug abuse patient.[facility] the event this information is protected by the Federal Confidentiality of Alcohol and Drug Abuse Patient Records regulations: The Federal rules restrict any use of the information to criminally investigate or prosecute any alcohol or drug abuse patient.[facility] the event this information is protected by the Federal Confidentiality of Alcohol and Drug Abuse Patient Records regulations: The Federal rules restrict any use of the information to criminally investigate or prosecute any alcohol or drug abuse patient.[facility] the event this information is protected by the Federal Confidentiality of Alcohol and Drug Abuse Patient Records regulations: The Federal rules restrict any use of the information to criminally investigate or prosecute any alcohol or drug abuse patient.[facility] the event this information is protected by the Federal Confidentiality of Alcohol and Drug Abuse Patient Records regulations: The Federal rules restrict any use of the information to criminally investigate or prosecute any alcohol or drug abuse patient.[facility] the event this information is protected by the Federal Confidentiality of Alcohol and Drug Abuse Patient Records regulations: The Federal rules restrict any use of the information to criminally investigate or prosecute any alcohol or drug abuse patient.[facility] the event this information is protected by the Federal Confidentiality of Alcohol and Drug Abuse Patient Records regulations: The Federal rules restrict any use of the information to criminally investigate or prosecute any alcohol or drug abuse patient.[facility] the event this information is protected by the Federal Confidentiality of Alcohol and Drug Abuse Patient Records regulations: The Federal rules restrict any use of the information to criminally investigate or prosecute any alcohol or drug abuse patient.[facility] the event this information is protected by the Federal Confidentiality of Alcohol and Drug Abuse Patient Records regulations: The Federal rules restrict any use of the information to criminally investigate or prosecute any alcohol or drug abuse patient.[facility] the event this information is protected by the Federal Confidentiality of Alcohol and Drug Abuse Patient Records regulations: The Federal rules restrict any use of the information to criminally investigate or prosecute any alcohol or drug abuse patient.[facility] the event this information is protected by the Federal Confidentiality of Alcohol and Drug Abuse Patient Records regulations: The Federal rules restrict any use of the information to criminally investigate or prosecute any alcohol or drug abuse patient.[facility] Reason for Visit (unrecogniz ed section and content) Reason Comments Derm Problem Reason Comments Full Body Skin Check Reason Comments Groin Pain Radiates into left l eg Reason Comments Covid19 Concern + home 03/19, current ly asymptomatic, 2 episodes of hot flashes Reason Comments Results Reason Comments LESION, SKIN Reason Comments Patient Question Reason Comments Hair/Scalp Problem Reason Comments Follow Up Reason Onset Date Comments Population Health Navigation Outreach 03/14/2024 [employer] - AW[employer], Care gaps, HCC gap closure - [facility] Reason Comments LESION, SKIN Spots on chest and b ackback itchy been there for a couple months Care Teams (unrecognized sec tion and content) 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 Relationship Specialty Start Date End Date Yesi Membreno MD PCP - General Family Medicine 05/14/14 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 Relationship Specialty Start Date End Date Yesi Membreno MD PCP - General Family Medicine 05/14/14 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 Relationship Specialty Start Date End Date Yesi Membreno MD PCP - General Family Medicine 05/14/14 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 Relationship Specialty Start Date End Date Sonu Caal, DO [address] [place] [phone] PCP - General Family Medicine 02/22/23 Team Status: Active Member Role Status Dates Dr. Yesi Membreno MD Family Provider Active Dr. Yesi Patel MD Primary Care Provider Active Team Status: Inactive Member Role Status Dates Dr. Yesi Patel MD Primary Care Provider Active Dr. 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 Relationship Specialty Start Date End Date Sonu Caal DO [address] [place] [address] PCP - General Family Medicine 02/22/23 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 Relationship Specialty Start Date End Date Sonu Caal DO [address] [place] [address] PCP - General Family Medicine 02/22/23 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 This clinical summary was aggregated from multiple sources. Caution should be exercised in using it in the provision of clinical care. This summary normalizes information from multiple sources, and as a consequence, information in this document may materially change the coding, format and clinical context of patient data. In addition, data may be omitted in some cases. CLINICAL DECISIONS SHOULD BE BASED ON THE PRIMARY CLINICAL RECORDS. [employer] provides no warranty or guarantee of the accuracy or completeness of information in this document.
== END | disposition home or self-care (01) ==
LOC: LAB 12:40
PROVIDERS: PCP Family Medicine; Referring Provider Internal Medicine Cardiovascular Disease; Visit Provider Internal Medicine Cardiovascular Disease
DX: I10 Essential (primary) hypertension (principal); E78.5 Hyperlipidemia, unspecified; R00.2 Palpitations; I34.1 Nonrheumatic mitral (valve) prolapse; R06.02 Shortness of breath
CPT/HCPCS: 36415; 80048; 80061; 80076; 85025

== ENCOUNTER 2025-11-12 14:17 | Emergency (ER) | payer BC, SELFPAY ==
[2025-11-12 14:18] VITALS: BP 145/92; PULSE 56; RESP 18; TEMP 36; O2SAT 100; BMI 24.7
--- NOTE | 2025-11-12 15:18 | CT_ITS ---
PROCEDURE: ABDOMEN/PELVIS W IV CONT ONLY 11/12/2025 REASON FOR EXAM: EPIGASTRIC, LEFT SIDED ABD PAIN TECHNIQUE: Procedure Code: [id number] Modality: CT Procedure: ABDOMEN/PELVIS W IV CONT ONLY Coronal and Sagittal reconstruction series were provided. CONTRAST: Isovue-300 VOLUME: 96 mL One or more dose reduction techniques were used (e.g., Automated exposure control, adjustment of the mA and/or kV according to patient size, use of iterative reconstruction technique. RADIATION DOSE SUMMARY: CTDlvol: 13.20+ 10.45 mGy DLP: 524.17 mGycm COMPARISON: 04/10/2022 FINDINGS: Lung bases: Partially imaged granuloma RIGHT lung base. Mild atelectasis/scarring.. LAD coronary atherosclerosis and/or stent. Liver: Similar 11 mm hypervascular lesion inferior tip of the RIGHT hepatic lobe, likely hemangioma given stability. Spleen: Unremarkable. Gallbladder: Unremarkable. Pancreas: Unremarkable. Adrenals: Unremarkable. Kidneys: Small cyst on the LEFT. Bowel: Gastric underdistention limits evaluation of wall thickness. Couple sigmoid diverticuli. Normal caliber appendix. Lymph nodes: Unremarkable. Vasculature: Mild atherosclerosis. Peritoneum: Unremarkable. Bladder: Unremarkable. Reproductive Organs: Trace RIGHT hydrocele.. Body Wall: Tiny fat containing RIGHT inguinal hernia.. Bones: Minimal degenerative findings.. CT/Abdomen/Pelvis W IV Cont ONLY IMPRESSION: 1. No acute findings. 2. Additional description as above. Reading Location: [id number]
--- NOTE | 2025-11-12 15:19 | EDS_ITS ---
HPI HPI - GI History of Present Illness Chief Complaint: Abd Pain Narrative Narrative: Patient is a 70-year-old male presenting to the emergency department for epigastric abdominal discomfort on and off since May. Patient has a past medical history of hypertension, hyperlipidemia, chest tightness, shortness of breath, mitral valve prolapse and GERD. Patient has a family history of cardiac disease. Patient states that he was on Dexilant for years and in May his insurance company informed him that they would no longer be covering it. They recommended that he try multiple other PPIs which he has been trialing since May and he has been experiencing the symptoms. Patient states today epigastric pain was worse and he wanted to make sure that he was not having a heart attack. He denies any fever, chills, chest pain, nausea, vomiting, dysuria or hematuria. States he has been having changes to his bowel movements some days having diarrhea and others having constipation. Endorses increasing flatus. He states when he had the pain he did have some shortness of breath that has since resolved. [facility] Medical History Soft tissues foreign body BPH (benign prostatic hyperplasia) Essential (primary) hypertension Nonrheumatic mitral valve prolapse Allergic rhinitis Malaria Hyperlipidemia Home Medications ?Medication ?Instructions ?Recorded ?Last Taken ?Type finasteride 5 mg tablet 5 mg PO DAILY 10/02/1711/12 History albuterol sulfate 90 mcg/actuation 1 inh inhalation Q6 H PRN Sob &/Or 03/19/20 11/09/25 History aerosol inhaler Wheezing lorazepam 1 mg tablet 1 mg PO DAILY PRN Anxiety 10/23/25 History fluticasone propionate 50 2 spray intranasal DAILY PRN 05/03/24 Unknown History mcg/actuation nasal allergy symptoms spray,suspension (24 Hour Allergy Relief) loratadine 10 mg disintegrating 10 mg PO DAILY 4 11/12/25 History tablet (Alavert) betamethasone valerate 0.1 % 1 applic topical BID PRN psoriasis 05/22/24 11/10/25 History topical cream calcipotriene 0.005 1 applic topical PRN psorias is 05/22/24 Unknown History %-betamethasone 0.064 % topical foam (Enstilar) lisinopril 40 mg tablet 40 mg PO DAILY #90 tabs 06/2111/12/25 Rx propranolol 10 mg tablet 10 mg PO .COMPLEX #180 tabs 06/03/25 11/12/25 Rx atorvastatin 10 mg tablet 5 mg (1/2 x 10 mg) PO DAILY #45 09/09/25 11/12/25 Rx tabs ammonium lactate 12 % topical cream 1 applic topical D AILY 11/12/25 Unknown History esomeprazole magnesium 40 mg 40 mg PO DAILY 11/12/25 1 01/13/25 History capsule,delayed release Allergy/AdvReac Type Severity Reaction Status Date / Time tree nut Allergy NEEDS Verified 11/12/25 14:18 FOLLOW-UP Family History Father CAD (coronary artery disease) Myocardial infarction PR age 52 Mother CVA (cerebral vascular accident) Surgical History History of oral surgery Social History Smoking Status: Never smoker ROS ROS ED ROS Narrative see HPI EXAM Physical Exam Narrative Exam Narrative: Vital signs: Reviewed General: Alert and oriented x 3. No acute distress. Well-appearing, nontoxic HEENT: Head is normocephalic and atraumatic, sinuses nontender, pupils equal round and reactive. Nares are patent. Oropharynx and throat exams normal. Neck: Supple without lymphadenopathy nontender Cardiovascular: Regular rate and rhythm, no murmurs. No rubs or gallops. Normal S1 and S2 Respiratory: Clear to auscultation bilaterally. No wheezes, rales, rhonchi Abdominal: Soft and tender to palpation epigastric, left upper quadrant and left lower quadrant. Normal bowel sounds. No guarding or rebound. Nonsurgical abdomen Extremities: No tenderness. No bruising. Normal range of motion. Normal sensation. Skin: No rash or redness. Neurological: Cranial nerves II through XII are grossly intact. Normal strength and sensation. Normal cerebellar function The rest of the physical exam is unremarkable Const Vital Signs: 11/12/25 14:18 11/12/25 16:17 11/12/25 18:12 Temperature 96.8 F L Temperature Source Temporal Pulse Rate 56 L 55 L 55 L Respiratory Rate 18 18 Blood Pressure 145/92 H 155/93 H 123/81 H Blood Pressure Mean 109 113 95 Pulse Ox 100 100 100 Oxygen Delivery Method Room Air Room Air Room Air MDM MDM MDM Narrative Medical decision making narrative: Patient is a 70-year-old male presenting to the emergency department for epigastric pain on and off since May. Patient was seen and examined. Vitals are stable. Patient resting in bed comfortably in no acute distress. Differential includes but is not limited to: Acid reflux, ACS, lower lobe pneumonia, pancreatitis, colitis, diverticulitis. Less likely aortic pathology given there is no tachycardia, no significant hypertension, no ripping or tearing pain, normal neurologic exam and pulses in extremities. EKG, troponin and chest x-ray ordered to rule out ACS, pneumonia because of his pain. He was given a GI cocktail. CT head was also obtained. EKG shows sinus bradycardia at a rate of 49 with no ischemic changes. No dysrhythmia. No evidence of STEMI. Similar to previous EKG in 2021. CBC with no leukocytosis and a normal hemoglobin. CMP with no significant abnormalities. Lipase within normal limits. Troponin and reflex within normal limits. Chest x-ray reviewed myself, no opacities, pneumothorax or wide mediastinum. Radiology read in agreement. CT abdomen pelvis shows no acute findings. There are more chronic findings including a granuloma in the right lung base as well as a likely hemangioma in the liver that was discussed with the patient and at bedside as incidental findings. Urinalysis with no evidence of urinary tract infection. Patient and were updated on the negative workup. Patient had significant improvement in his symptoms with the GI cocktail. Recommended continuation of PPI at home. Patient discharged from the Emergency Department. I do not feel that the patient's evaluation reveals any acute reason for admission at this time. I instructed them to either follow-up with their primary care physician or promptly return to the Emergency Department for reevaluation should symptoms worsen or new symptoms develop. I explained what symptoms would indicate the need to return to the emergency department. Shared decision making was used. The patient voiced understanding of the treatment plan and is agreeable with it. Clinical impression Epigastric pain Abdominal bloating. History & Record Review Discussion w/independent historian: Patient and Significant other Lab Data Attestation: I reviewed the patient's lab results. Labs: Laboratory Results - last 24 hr 11/12/25 11/12/2525 14:50 16:10 16:58 WBC 6.8 RBC 4.69 Hgb 14.0 Hct 42.4 MCV 90.4 MCH 29.9 MCHC 33.0 RDW Std Deviation 43.6 RDW Coeff of Kandace 13.2 Plt Count 263 MPV 11.2 Immature Gran % (Auto) 0.100 Neut % (Auto) 51.0 Lymph % (Auto) 29.5 [place] % (Auto) 12.5 H Eos % (Auto) 6.3 H Baso % (Auto) 0.6 Absolute Neuts (auto) 3.5 Absolute Lymphs (auto) 2.01 Nucleated RBC % 0 Sodium 139 Potassium 4.5 Chloride 105 Carbon Dioxide 25.1 Anion Gap 9 BUN 16 Creatinine 1.08 Estim Creat Clear Calc 55.79 Est GFR (MDRD) Non-Af 73 BUN/Creatinine Ratio 14.6 Glucose 85 Calcium 9.1 Total Bilirubin 0.61 AST 22 ALT 17 Alkaline Phosphatase 57 Troponin T High Sens 7 Troponin T Hi Sens 2 Hr Cancelled Total Protein 6.9 Albumin 4.1 Globulin 2.8 Albumin/Globulin Ratio 1.5 Lipase 29 Urine Color Straw Urine Clarity Clear Urine pH 6.5 Ur Specific [place] 1.015 Urine Protein 15 H Urine Glucose (UA) Normal Urine Ketones Negative Urine Occult Blood 10 H Urine Nitrite Negative Urine Bilirubin Negative Urine Urobilinogen Normal Ur Leukocyte Esterase Negative Urine RBC 0-5 SEEN Urine WBC 0 SEEN Ur Squamous Epith Cells 0 SEEN Urine Bacteria 0 SEEN Urine Mucus 0 SEEN 11/12/25 17:22 WBC RBC Hgb Hct MCV MCH MCHC RDW Std Deviation RDW Coeff of Kandace Plt Count MPV Immature Gran % (Auto) Neut % (Auto) Lymph % (Auto) [place] % (Auto) Eos % (Auto) Baso % (Auto) Absolute Neuts (auto) Absolute Lymphs (auto) Nucleated RBC % Sodium Potassium Chloride Carbon Dioxide Anion Gap BUN Creatinine Estim Creat Clear Calc Est GFR (MDRD) Non-Af BUN/Creatinine Ratio Glucose Calcium Total Bilirubin AST ALT Alkaline Phosphatase Troponin T High Sens Troponin T Hi Sens 2 Hr 7 Total Protein Albumin Globulin Albumin/Globulin Ratio Lipase Urine Color Urine Clarity Urine pH Ur Specific [place] Urine Protein Urine Glucose (UA) Urine Ketones Urine Occult Blood Urine Nitrite Urine Bilirubin Urine Urobilinogen Ur Leukocyte Esterase Urine RBC Urine WBC Ur Squamous Epith Cells Urine Bacteria Urine Mucus Radiography Chest X-Ray - ED: 2 View, Read by ED Physician, Normal, No Acute Disease and No Infiltrates Diagnostic Testing: Clinical Impression(s) from Imaging Studies Abdomen/Pelvis CT 11/12/25 15:18 IMPRESSION: 1. No acute findings. 2. Additional description as above. Reading Location: [facility] Chest X-Ray 11/12/25 15:55 IMPRESSION: Unchanged lung markings. No new focal consolidations. Reading Location: [facility] Discharge Plan Triage Chief Complaint: Abd Pain ED Provider: Petra Rangel Dx/Rx/DC Orders Clinical Impression: Epigastric abdominal pain, Abdominal bloating Instructions: ED GERD (Adult), ED Epigastric Pain Uncertain Cause Prescriptions: No Action albuterol sulfate 90 mcg/actuation HFA aerosol inhaler 1 inh INHALATION Q6H PRN (Reason: Sob &/Or Wheezing) lorazepam 1 mg tablet 1 mg PO DAILY PRN (Reason: Anxiety) Patient Comments: pt takes 1/2 tab finasteride 5 MG tablet 5 mg PO DAILY fluticasone propionate [24 Hour Allergy Relief] 50 mcg/actuation spray,suspen ney 2 spray intranasal DAILY PRN (Reason: allergy symptoms) Rx Instructions: administer into each nostril loratadine [Alavert] 10 mg tablet,disintegrating 10 mg PO DAILY betamethasone valerate 0.1 % cream 1 applic TOPICAL BID PRN (Reason: psoriasis) Patient Comments: Apply twice daily asNneeded to the face for psoriasis. Enstilar 0.005-0.064 % foam 1 applic TOPICAL PRN (Reason: psoriasis) Patient Comments: apply to affected area once daily if needed esomeprazole magnesium 40 mg capsule,delayed release(DR/EC) 40 mg PO DAILY ammonium lactate 12 % cream 1 applic topical DAILY Patient Comments: pt has not started lisinopril 40 mg tablet 40 mg PO DAILY Qty: 90 3RF propranolol 10 mg tablet 10 mg PO .COMPLEX Qty: 180 3RF Rx Instructions: 10 mg orally daily, may take 1 extra tablet daily as needed for palpitaitons; atorvastatin 10 mg tablet 5 mg PO DAILY Qty: 45 4RF Primary Care Provider: Kayla Lawson Referrals: Kayla Lawson MD [Primary Care Provider, [facility]] - As soon as possible Activity Restrictions/Additional Instructions: Your evaluation in the Emergency Department did not reveal any acute reason for admission. However, I want to emphasize that you may be early in the course of a disease process or illness even if it is not present. For this reason you should follow-up within 24 hours for reevaluation with either your primary care physician or if necessary back here in the Emergency Department. You should return to the Emergency Department immediately if your symptoms worsen or new symptoms develop. Print Language: Hebrew Disposition Disposition: Home, Self Care Discharge Date/Time: 11/12/25 18:28
--- NOTE | 2025-11-12 15:22 | EKG12_ITS ---
Test Reason : GENERAL Blood Pressure : */* mmHG Vent. Rate : 49 BPM Atrial Rate : 49 BPM P-R Int : 156 ms QRS Dur : 84 ms QT Int : 422 ms P-R-T Axes : 36 4 29 degrees QTcB Int : 381 ms Sinus bradycardia Otherwise normal ECG Confirmed by Ozzy Capellan ([id number]), technical writer and editor JUAN BARBA ([id number]) on 11/13/2025 10:22:29 AM Referred By: Confirmed By: Ozzy Capellan
[2025-11-12 15:34] LABS: Hematocrit 42.4 % (40-54); Hemoglobin 14.0 g/dL (13.0-16.5); Immature Granulocytes Count 0.010 X10^3/uL (0.0-0.0); Mean Corp Hgb Conc 33.0 g/dL (32-36); Mean Corpuscular Volume 90.4 fL (80-94); Mean Platelet Vol. 11.2 fl (6.2-12.0); NRBC Flagged by Analyzer 0 % (0-5); Platelet Count 263 K/mm3 (150-450); RBC Distribution Width CV 13.2 % (11.6-14.6); RBC Distribution Width SD 43.6 fl (35.1-43.9); Red Blood Count 4.69 M/mm3 (4.6-6.2); White Blood Count 6.8 K/mm3 (4.4-11.0)
--- NOTE | 2025-11-12 15:55 | RAD_ITS ---
PROCEDURE: CHEST PA AND LATERAL 11/12/2025 REASON FOR EXAM: EPIGASTRIC PAIN TECHNIQUE: Procedure Code: RADCXR Modality: DX Procedure: CHEST PA AND LATERAL COMPARISON: 04/10/2022 FINDINGS: Unchanged lung markings. No focal consolidation. No pleural effusion or pneumothorax. Cardiac silhouette is within normal limits. No acute fractures. RAD/Chest PA and Lateral IMPRESSION: Unchanged lung markings. No new focal consolidations. Reading Location: [id number]
[2025-11-12] MEDS: Lidocaine 2% Viscous15 ML UDC 15 ML PO (16:02)
[2025-11-12 16:12] LABS: Lipase 29 U/L (13-75); Troponin T High Sensitivity 7 ng/L (<=22)
[2025-11-12 16:14] LABS: Mucous, Urine 0 SEEN /hpf (<or=2+); Squamous Epithelial Cells - UA 0 SEEN /hpf (0-5)
[2025-11-12 16:17] VITALS: BP 155/93; PULSE 55; O2SAT 100
[2025-11-12 16:17] LABS: Color, Urine Straw (Yellow); Glucose, Dipstick Normal (Normal); Ketone-Dipstick Negative (Negative); Leukocyte Esterase-Dipstick Negative /ul (Negative); Nitrite-Dipstick Negative (Negative); Occult Blood-Urine 10 /ul (Negative); Protein-Dipstick 15 mg/dl (Negative); Specific Gravity, Urine 1.015 (1.002-1.030); Urine Bilirubin Dipstick Negative (Negative)
[2025-11-12 16:19] LABS: AST(SGOT) 22 U/L (<=37); Alanine Aminotransfer ALT/SGPT 17 U/L (<=46); Albumin, Serum 4.1 g/dL (3.4-4.8); Alkaline Phosphatase 57 U/L (40-129); Anion Gap 9 (5-15); BUN 16 mg/dL (4-19); BUN/Creat Ratio 14.6 RATIO (10-20); Calcium,Total 9.1 mg/dL (7.6-11.0); Carbon Dioxide 25.1 mmol/L (21.0-32.0); Chloride 105 mmol/L (98-108); Estimated Creatinine Clearance 55.79 ml/min (50-250); Globulin 2.8 g/dL (2.2-4.2); Glucose 85 mg/dL (70-99); Potassium 4.5 mmol/L (3.3-5.1)
[2025-11-12 16:57] LABS: Red Blood Cells-Urine 0-5 SEEN /hpf (0-5)
[2025-11-12 17:52] LABS: Troponin T High Sens 2 HR 7 ng/L (<=22)
[2025-11-12 18:12] VITALS: BP 123/81; PULSE 55; RESP 18; O2SAT 100
== END 2025-11-12 18:28 | disposition home or self-care (01) ==
PROVIDERS: Emergency Provider Student in an Organized Health Care Education/Training Program; PCP Family Medicine; Visit Provider Student in an Organized Health Care Education/Training Program
DX: R10.13 Epigastric pain (principal); I10 Essential (primary) hypertension; E78.5 Hyperlipidemia, unspecified; R14.0 Abdominal distension (gaseous); N40.0 Benign prostatic hyperplasia without lower urinary tract symptoms; Z79.899 Other long term (current) drug therapy
CPT/HCPCS: 71046; 74177; 80053; 81001; 83690; 84484; 85025; 93005; 99283; Q9967; A4216

== ENCOUNTER → 2025-11-20 | Outpatient (CLI) | payer BC, SELFPAY ==
--- OUTSIDE RECORDS SUMMARY | 2025-11-20 11:46 | XMS RPT_ITS | CCD ---
Author Organization [facility] Care Team Providers Care Automation Specialist Name Role Phone MD Hernandez Cyril S Unavailable Ally Cruz Unavailable Cristina Pickens Unavailable Unavailable Ally Cruz Unavailable NO, PHYSICIAN Unavailable Unavailable Dr. Yesi Christie Primary Care Provider [phone] Yesi Christie Referring Provider Antoinette SCHUSTER, PA Leon Guillermo Attending Provider MARIELY Wolfe Attending Provider [phone] Jacques Hernandez Attending Provider Dr. Yesi Christie Primary Care Provider [phone] Yesi Christie Referring Provider Dr. LAMONT COATES Attending [facility] des Membreno MD, Yesi Aquino Primary Care Provider [phone] Sonu Caal DO Primary Care Provider [phone] Sonu Caal DO Primary Care Provider Unavailable Primary Care Provider UnavailKayla Gardner MD Primary Care Provider Dr. Jacques Hernandez MD Attending Provider [phone] Jacques Hernandez MD Referring Provider Dr. Yesi Patel MD Referring Provider [phone] Jacques Hernandez Attending Unavailable Jacques Hernandez Referring Unavailable Yesi Patel Primary Care Unavailable Kayla Lawson Primary Care Unavailable Kayla Lawson Attending Unavailable Lulu, Chalon Referring Unavailable Lulu, Chalon Primary Care Unavailable Lulu, Chalon Attending Unavailable Lulu, Chalon Referring Unavailable Lulu, Chalon Primary Care Unavailable David, Jacques Referring Unavailable David, Jacques Attending Unavailable David, [place] Attending Unavailable David, Jacques Referring Unavailable Schinner, Yesi E Primary Care Unavailable Lulu, Chalon Primary Care Unavailable Schinner, Yesi E Referring Unavailable David, [place] Attending Unavailable IrlandattJohn lunaolas Attending Unavailable Mati, Kai Referring Unavailable Schinner, Yesi E Primary Care Unavailable VIRI PETERS Attending Unavailable YESI ZELAYA Attending Unavailable Allergies Allergy Classification Reported Allergen(s) Allergy Type Date of Onset Reaction(s) Facility cashew nut allergenic extract (1 source) cashew nut allergenic extract Drug Allergy [address] [facility] (12 sources) clemastine; Translations: [TAVIST D] allergy to substance 1 Urinary retention [facility] Work Phone: (4 sources) clemastine/pheny lpropanolamine drug allergy 6 Urinary retention [facility] Work Phone: (7 sources) Escitalopram Drug Allergy 2 Diarrhea [facility] (1 source) tree nut, unspecified Allergy to substance 2 NEEDS FOLLOW-UP [facility] Work Phone: (5 sources) tree nut, unspecified; Translations: [tree nut] Allergy to substance 2 NEEDS FOLLOW-UP [facility] (15 sources) cashew nut allergenic extract; Translations: [CASHEW NUT] Drug Allergy [address] [facility] (16 sources) Nut - Unspecified; Translations: [NUT - UNSPECIFIED] Drug Allergy [address] [facility] (1 source) Escitalopram Drug Allergy 5 [facility] Repository Medications Current Medications Medication Drug Class(es) Dates Sig (Normalized) Sig (Original) [id number] 200 actuat albuterol 0.09 mg/actuat metered dose inhaler (20 sources) beta2-Adrenergic Agonist Start: 03-19-2020 Albuterol Sulfate 90 mcg/actuation HFA aerosol inhaler Active 1 NMA INHALATION EVERY 6 HOURS as needed for Sob &/Or Wheezing March 19, 2020 12:00am Start: 03-19-2020 Albuterol Sulf ate Active 1 INH INHALATION EVERY 6 HOURS March 19, 2020 12:00am Start: 03-09-2015 PROAIR HFA 90 mcg/actuation inhaler as needed. 03/09/2015 Active Comment on above: as needed. amoxicillin 500 mg oral capsule (4 sources) Penicillin-class Antibacterial Start: 08-24-20 take 4 capsules by mouth every hour Amoxicillin 500 mg capsule Active 2000 mg PO .COMPLEX 4 3 August 24, 2022 12:00am 2,000 mg orally 1 hour prior to dental procedure; Start: 08-24-2022 take 2000 mg by mout h every hour Amoxicillin Active 2000 MG PO .COMPLEX 4 August 24, 2022 12:00am 2,000 mg orally 1 hour prior to dental procedure; betamethasone 1 mg/ml topical cream (20 sources) Corticosteroid Start: 05-03-2024 End: 05-22-2024 Betamethasone Valerate 0.1 % cream Active NMA TOPICAL as needed May 22, 2024 2:03pm Start: 10-28-2022 End: 08-16-2023 betamethasone valerate 0.1 % cream Apply twice daily as needed to the face for psoriasis. 15 g 1 08/16/2023 Active Comment on above: Apply twice daily as needed to the face for psoriasis. betamethasone dipropionate 0.643 mg/ml / calcipotriene 0.05 mg/ml topical foam (20 sources) Corticosteroid, Vitamin D Analog Start: 05-03-2024 End: 05-22-2024 Calcipotriene-Betame thasone (Enstilar) 0.005-0.064 % foam Active TOPICAL as needed May 22, 2024 2:04pm Start: 08-19-2021 End: 10-28-2022 calcipotriene-betamethasone (ENSTILAR) 0.005-0.064 % foam Indications: Psoriasis Apply to affected area once daily as needed. 60 g 5 10/28/2022 Active Start: 03-19-2020 End: 04-08-2021 Calcipotriene-Betamethasone 0.005-0.064 % foam Discontinued 1 NMA TOPICAL DAILY March 19, 2020 12:00am April 08, 2021 3:48pm Start: 03-19-2020 End: 04-08-2021 Calcipotriene-Betamethasone Discontinued 1 APPLIC TOPICAL DAILY March 19, 2020 12:00am April 08, 2021 3:48pm Comment on above: Apply to affected ar ea once daily as needed. calcipotriene 0.15331 mg/mg topical ointment (15 sources) Vitamin D Analog Start: 03-17-2020 calcipotriene (DOVONEX) 0.005 % oint Apply 1 application to affected area twice daily. 120 g 3 03/17/2020 Active Comment on above: Apply 1 application to affected area twice daily. clobetasol propionate 0.5 mg/ml medicated shampoo (10 sources) Corticosteroid Start: 01-24-2024 Clobetasol Propionate (CLOBEX) [...] Dexlansoprazole (Dexilant) 60 mg capsule,biphase delayed releas (10 sources) Start: 05-22-20 take 1 capsule by mouth once daily as needed Dexlansoprazole (Dexilant) 60 mg capsule,biphase delayed releas Active 60 mg PO DAILY as needed May 22, 2024 2:00pm Start: 02-28-2022 Dexlansoprazol e (Dexilant) 60 mg capsule,biphase delayed releas Active MG February 28, 2022 10:35pm Start: 02-28-2022 End: 05-22-2024 take 1 capsule by mouth once daily Dexlansoprazole (Dexilant) 60 mg capsule,biphase delayed releas Discontinued 60 mg PO DAILY February 28, 2022 12:00am May 22, 2024 2:02pm Start: 02-28-2022 Dexlansoprazol e (Dexilant) 60 mg capsule,biphase delayed releas Active MG February 28, 2022 12:00am Start: 02-28-2022 Dexlansoprazol e (Dexilant) 60 mg capsule,biphase delayed releas Active MG February 27, 2022 11:00pm finasteride 5 mg oral tablet (20 sources) 5-alpha Reductase Inhibitor Start: 10-02-2017 take 1 tablet by mouth once daily finasteride (PROSCAR) 5 mg tablet Take 1 tablet by mouth once daily. 90 tablet 06/05/2018 Active Comment on above: Take 1 tablet by jose once daily. fluticasone propionate 0.05 mg/actuat metered dose nasal spray (17 sources) Corticosteroid Start: 05-03-2024 take 50 ug nasal route once daily as needed Fluticasone Propionate (24 Hour Allergy Relief) 50 mcg/actuation spray,suspension Active 2 NMA INTRANASAL DAILY as needed for allergy symptoms May 03, 2024 12:00am administer into each nostril take 1 spray(s) nasa l route once daily as needed fluticasone (FLONASE) 50 mcg/actuation n [place] spray Use 1 [place] in each nostril once daily. Taking as needed, per patient Active Comment on above: Use 1 [place] in each nostril once daily. Taking as [...] % OINT Ap ply as directed HYDROCORTISONE [id number] Jacques Hernandez MD Comment on above: Apply 1 application to affected area twice daily as needed (for rash). Apply to affected ar ea twice daily as needed (for psoriasis of the perez area and the ears.). ibuprofen 600 mg oral tablet (15 sources) Nonsteroidal Anti-inflammatory Drug Start: 4 take 1 tablet by mouth three times daily at mealtime as needed ibuprofen (MOTRIN) 600 mg tablet Take 600 mg by mouth three times daily with meals. As needed 10/11/2014 Active Comment on above: Take 600 mg by mouth three times daily with meals. As needed ammonium lactate 120 mg/ml topical cream (6 sources) Start: 4 ammonium lactate (LAC-HYDRIN) 12 % cream Apply 1 application to affected area as needed for dry skin. 385 g 3 01/24/2024 Active Comment on above: Apply 1 application to affected area as needed for dry skin. lisinopril 40 mg oral tablet (20 sources) Angiotensin Converting Enzyme Inhibitor Start: 4 End: 5 take 1 tablet by mouth once daily Lisinopril 40 mg tablet Active 40 mg PO DAILY 90 June 03, 2025 2:13pm Start: 03-03-2022 End: 04-13-2024 take 1 tablet by mouth twice daily Lisinopril 20 mg tablet Discontinued 20 mg PO TWICE A DAY 180 March 25, 2023 4:51pm April 13, 2024 10:40am Start: 04-08-2021 End: 03-03-2022 take 1 tablet by mouth once daily Lisinopril 20 mg tablet Discontinued 20 mg PO DAILY 90 April 08, 2021 4:14pm March 03, 2022 4:41pm Start: 08-29-2015 End: 04-08-2021 take 1 tablet by mouth once daily Lisinopril 10 mg tablet Discontinued 10 mg PO DAILY 90 August 25, 2020 10:07am April 08, 2021 4:16pm Comment on above: Take 10 mg by mouth once daily. Loratadine (Alavert) 10 mg tablet,disintegratin g (2 sources) Start: 024 take 1 tablet by mouth once daily Loratadine (Alavert) 10 mg tablet,disintegrati ng Active 10 mg PO DAILY May 03, 2024 12:00am LORazepam 1 mg oral tablet (8 sources) Benzodiazepine Start: 021 take 1 tablet by mouth once daily as needed for anxiety Lorazepam 1 mg tablet Active 1 mg PO DAILY as needed for Anxiety April 08, 2021 12:00am pimecrolimus 10 mg/ml topical cream (6 sources) Calcineurin Inhibitor Immunosuppressant Start: 024 pimecrolimus (ELIDEL) 1 % cream Apply to affected area two times a day as needed (for dermatitis). 60 g 3 01/24/2024 Active Comment on above: Apply to affected ar ea two times a day as needed (for dermatitis). Roflumilast (3 sources) Phosphodiesterase 4 Inhibitor Start: 025 roflumilast (ZORYVE) 0.15 % cream Apply to affected area once daily. 60 g 2 02/27/2025 Active Vonoprazan (Voquezna) 10 mg tablet (2 sources) Start: 025 take 1 tablet by mouth once daily Vonoprazan (Voquezna) 10 mg tablet Active 10 mg PO daily July 18, 2025 12:00am zinc pyrithione 0.02 mg/mg medicated bar soap (15 sources) Start: 022 Pyrithione Zinc (DERMAZINC) 2 % bar Apply [...] One tablet by mouth daily prn ALPRAZOLAM [id number] Jacques Hernandez MD Start: 07-27-2011 take 1 tablet by jose twice daily XANAX 0.25 MG TABS One tablet by mouth twice daily needed (takes very rarely) ALPRAZOLAM [id number] Jacques Hernandez MD aspirin 81 mg oral strip (12 sources) Nonsteroidal Anti-inflammatory Drug Start: 04-12-2014 End: 08-29-2015 take 1 tablet by mouth once daily ASPIRIN 81 MG TABS One tablet by mouth daily ASPIRIN [id number] Jacques Hernandez MD Start: 07-27-2011 ASPIRIN 325 MG TABS Not taking regularly ASPIRIN [id number] Abbie Wynne atorvastatin 10 mg oral tablet (20 sources) HMG-CoA Reductase Inhibitor Start: 11-07-2018 End: 08-06-2024 take 5 mg by mouth once daily Atorvastatin 10 mg tablet Discontinued 5 mg PO DAILY 45 August 03, 2023 3:45pm August 06, 2024 12:33pm Start: 11-07-2018 End: 08-03-2023 take 5 mg by mouth once daily Atorvastatin Active 5 MG PO DAILY August 03, 2023 3:45pm Start: 10-02-2017 End: 11-07-2018 take 1 tablet by mouth once daily Atorvastatin 10 MG tablet Discontinued 10 mg PO DAILY October 02, 2017 12:00am November 07, 2018 5:47pm Start: 07-27-2011 take 0.5 tablet by m out once daily LIPITOR 10 MG TABS 1/2 tablet by mouth daily ATORVASTATIN CALCIUM [id number] Jacques Hernandez MD Comment on above: Take 10 mg by mouth as directed. Take one half tablet of 10 mg . cetirizine hydrochloride 10 mg oral tablet (8 sources) Histamine-1 Receptor Antagonist Start: take 1 tablet by mouth once daily ZYRTEC ALLERGY 10 MG TABS One tablet by mouth daily CETIRIZINE HCL [id number] Jacques Hernandez MD cholecalciferol 2000 unt oral tablet (19 sources) Vitamin D Start: take 1 tablet by mouth once daily VITAMIN D 2000 UNIT TABS One tablet by mouth daily CHOLECALCIFEROL [id number] Jacques Hernandez MD Comment on above: Take 2,000 Units by mouth once daily. ciprofloxacin 500 mg oral tablet (8 sources) Quinolone Antimicrobial Start: End: take 1 tablet by mouth twice daily CIPRO 500 MG TABS One tablet by mouth twice daily CIPROFLOXACIN HCL [id number] Jacques Hernandez MD clarithromycin 50 mg/ml oral suspension (8 sources) Macrolide Antimicrobial Start: 015 End: take 1 tablet by mouth once daily CLARITHROMYCIN 250 MG/5ML SUSR One tablet by mouth daily for 30 days for sinus infection CLARITHROMYCIN [id number] Jacques Hernandez MD dexlansoprazole 60 mg delayed release oral capsule (20 sources) Proton Pump Inhibitor Start: 017 End: take 1 capsule by mouth once daily Dexlansoprazole 60 mg capsule,biphase delayed releas Discontinued 60 mg PO DAILY March 19, 2020 2:01pm April 08, 2021 3:48pm Start: 07-27-2011 take 1 tablet by jose th once daily as needed DEXILANT 30 MG CPDR One tablet by mouth daily as needed DEXLANSOPRAZOLE [id number] Jacques Hernandez MD DEXLANSOPRAZOLE (DEXILANT ORAL) Take 160 mg by mouth as needed. Active DEXLANSOPRAZOLE (DEXILANT ORAL) Take 160 mg by mouth as needed. 0 Active Comment on above: Take 160 mg by mouth as needed. escitalopram 5 mg oral tablet (8 sources) Serotonin Reuptake Inhibitor Start: 04-08-20 End: 03-03-20 take 1 tablet by mouth once daily Escitalopram Oxalate 5 mg tablet Discontinued 5 mg PO DAILY April 08, 2021 12:00am March 03, 2022 4:01pm 30 actuat fluticasone furoate 0.1 mg/actuat / vilanterol 0.025 mg/actuat dry powder inhaler (19 sources) Corticosteroid, beta2-Adrenergic Agonist Start: 05-16-20 End: 04-08-20 21 take 1 puff(s) by inhalation once daily Fluticasone Furoate-Vilanterol Discontinued 1 PUFF IH DAILY May 16, 2020 12:00am April 08, 2021 3:48pm Start: 03-19-2020 End: 04-08-2021 Fluticasone Furoate-Vilanter ol 100-25 mcg/dose blister with device Discontinued 1 NMA INHALATION DAILY as needed for Sob &/Or Wheezing March 19, 2020 12:00am April 08, 2021 3:48pm Start: 03-19-2020 End: 04-08-2021 Fluticasone Furoate-Vilanter ol 100-25 mcg/dose blister with device Discontinued 1 NMA IH DAILY May 16, 2020 12:00am April 08, 2021 3:48pm Start: 03-11-2020 End: 02-15-2023 BREO ELLIPTA 100-25 mcg/dose inhaler loratadine 10 mg oral tablet (19 sources) Start: 04-12-2014 take 1 tablet by mouth once daily CLARITIN 10 MG CAPS One tablet by mouth daily LORATADINE [id number] Jacques Hernandez MD LORATADINE (CLAR ITIN ORAL) Take by mouth. Active LORATADINE (CLAR ITIN ORAL) Take by mouth. 0 Active Comment on above: Take by mouth. montelukast 10 mg oral tablet (8 sources) Leukotriene Receptor Antagonist Start: 02-28-2022 End: 05-22-2024 Montelukast 10 mg tablet Discontinued mg February 28, 2022 12:00am May 22, 2024 2:02pm On Hold: Order Changed Start: 02-28-2022 Montelukast Ac tive MG February 28, 2022 12:00am propranolol hydrochloride 10 mg oral tablet (20 sources) beta-Adrenergic Colleen Start: 03-03-2022 End: 06-03-2025 take 1 tablet by mouth once daily as needed Propranolol 10 mg tablet Discontinued 10 mg PO .COMPLEX 180 3 April 13, 2024 10:39am June 03, 2025 2:13pm 10 mg orally daily, may take 1 extra tablet daily as needed for palpitaitons; Start: 06-02-2021 End: 03-03-2022 take 1 tablet by mouth twice daily Propranolol 10 mg tablet Discontinued 10 mg PO TWICE A DAY 180 3 June 02, 2021 9:24am March 03, 2022 4:03pm Start: 05-16-2020 End: 06-02-2021 take 1 tablet by mouth once daily Propranolol 10 MG tablet Discontinued 10 mg PO DAILY May 16, 2020 9:54pm June 02, 2021 9:24am Start: 03-19-2020 End: 03-19-2020 take 1 tablet by mouth once daily Propranolol 10 mg tablet Discontinued 10 mg PO DAILY March 19, 2020 2:07pm March 19, 2020 2:49pm Start: 03-19-2020 End: 05-16-2020 take 1 tablet by mouth twice daily Propranolol 10 mg tablet Discontinued 10 mg PO TWICE A DAY 180 2 March 19, 2020 12:00am May 16, 2020 9:54pm Start: 03-07-2019 End: 03-19-2020 take 5 mg by mouth once daily Propranolol 10 mg tablet Discontinued 5 mg PO DAILY 45 3 January 28, 2020 1:01pm March 19, 2020 2:05pm Start: 03-07-2019 End: 03-19-2020 take 5 mg by mouth once daily Propranolol Discontinued 5 MG PO DAILY January 28, 2020 1:01pm March 19, 2020 2:05pm Start: 10-02-2017 End: 03-07-2019 take 1 tablet by mouth once daily Propranolol 10 MG tablet Discontinued 10 mg PO DAILY October 02, 2017 12:00am March 07, 2019 3:06pm Start: 04-12-2014 PROPRANOLOL HC L 10 MG TABS 1/2 tablet as needed PROPRANOLOL HCL [id number] Jacques Hernandez MD Start: 07-27-2011 End: 04-12-2014 take 1 tablet by mouth once daily as needed PROPRANOLOL HCL 10 MG TABS One tablet by mouth daily as needed PROPRANOLOL HCL [id number] Jacques Hernandez MD take 2 tablets by mo [facility] once daily PROPRANOLOL HCL (PROPRANOLOL ORAL) Take 10 mg by mouth as directed. 2 tablet daily Active take 2 tablets by mo ut once daily PROPRANOLOL HCL (PROPRANOLOL ORAL) Take 10 mg by mouth as directed. 2 tablet daily 0 Active Comment on above: Take 10 mg by mouth as directed. 2 tablet daily sulfacetamide sodium 100 mg/ml / sulfur 50 [...] Onset: 08-29-2015 08-29-2015 Chronic Heart valve disorders (20 sources) Mitral valve prolapse; Translations: [Nonrheumatic mitral (valve) prolapse] Onset: 03-08-2019 02-15-2023 Chronic Immunizations and screening for infectious disease (20 sources) Patient encounter status; Translations: [Encounter for screening for COVID-19] Episodic Lymphadenitis (1 source) Inguinal lymphadenopathy; Translations: [Localized enlarged lymph nodes] Episodic Neoplasms of unspecified nature or uncertain behavior (2 sources) Neoplastic disease; Translations: [Neoplasm of unspecified behavior of bone, soft tissue, and skin] Onset: 08-09-2025 08-09-2025 Episodic Nonspecific chest pain (15 sources) Chest discomfort; Translations: [Atypical chest pain] Onset: 07-27-2011 Resolved: 08-29-2015 08-29-2015 Episodic Osteoarthritis (1 source) Unilateral primary osteoarthritis, left knee; Translations: [Unilateral primary osteoarthritis, left knee] Onset: 10-01-2024 Chronic Other and unspecified benign neoplasm (2 sources) Multiple benign melanocytic nevi ; Translations: [Melanocytic nevi, unspecified] Episodic Other and unspecified benign neoplasm (3 sources) Senile angioma; Translations: [Hemangioma of skin and subcutaneous tissue] Episodic Other connective tissue disease (7 sources) Foreign body; Translations: [Residual foreign body in soft tissue] 03-08-2022 Episodic Other inflammatory condition of skin (4 sources) Psoriasis; Translations: [Psoriasis, unspecified] Chronic Other inflammatory condition of skin (1 source) Seborrheic dermatitis; Translations: [Seborrheic dermatitis, unspecified] 02-27-2025 Episodic Other lower respiratory disease (15 sources) Dyspnea; Translations: [Shortness of breath] Onset: 07-27-2011 Resolved: 08-29-2015 08-29-2015 Episodic Other lower respiratory disease (3 sources) Shortness of breath; Translations: [Shortness of breath] Episodic Other skin disorders (2 sources) Telogen effluvium; Translations: [Telogen effluvium] 08-16-2023 Episodic Other skin disorders (2 sources) Inflamed seborrheic keratosis; Translations: [Inflamed seborrheic keratosis] 08-16-2023 Episodic Other skin disorders (2 sources) Alopecia; Translations: [Androgenic alopecia, unspecified] 11-07-2023 Episodic Other skin disorders (1 source) Asteatosis cutis; Translations: [Xerosis cutis] 02-19-2024 Episodic Other skin disorders (1 source) Other seborrheic keratosis; Translations: [Seborrheic keratosis] Onset: 08-09-2025 Episodic Residual codes; unclassified (1 source) Flushing; Translations: [Flushing] Episodic Residual codes; unclassified (2 sources) FH: Myocardial infarction; Translations: [Family history of ischemic heart disease and other diseases of the circulatory system] 04-13-2024 Episodic Residual codes; unclassified (2 sources) Family history of aneurysm of abdominal aorta; Translations: [Family history of ischemic heart disease and other diseases of the circulatory system] 04-13-2024 Episodic Past or Other Problems Problem Classification Problem Date Documented Date Episodic/Chronic Allergic reactions (15 sources) Solar degeneration; Translations: [Other skin changes due to chronic exposure to nonionizing radiation] Onset: 05-19-2014 05-19-2014 Episodic Cardiac dysrhythmias (14 sources) Palpitations; Translations: [Intermittent palpitations] Onset: 07-27-2011 07-27-2011 Episodic Other aftercare (4 sources) Other long distance 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; Translations: [Other long distance 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] Onset: 07-27-2011 07-27-2011 Episodic Other and unspecified benign neoplasm (4 sources) Melanocytic nevi of unspecified part of face; Translations: [Benign neoplasm of skin of other and unspecified parts of face] Onset: 05-19-2014 Resolved: 11-03-2014 11-03-2014 Episodic Other circulatory disease (4 sources) Electrocardiogram abnormal; Translations: [Abnormal electrocardiogram [ECG] [EKG]] Onset: 07-27-2011 07-27-2011 Episodic Other non-traumatic joint disorders (1 source) Pain in left knee; Translations: [Pain in left knee] Onset: 10-01-2024 Episodic Other skin disorders (16 sources) Actinic keratosis; Translations: [Actinic keratosis] Onset: 05-19-2014 Episodic Other skin disorders (8 sources) Seborrheic keratosis; Translations: [Other seborrheic keratosis] Onset: 05-19-2014 Resolved: 11-03-2014 08-16-2023 Episodic Other skin disorders (4 sources) Sebaceous hyperplasia; Translations: [Other specified follicular disorders] Onset: 05-19-2014 Resolved: 11-03-2014 11-03-2014 Episodic Other skin disorders (4 sources) Solar lentigo; Translations: [Other melanin hyperpigmentation] Onset: 05-19-2014 Resolved: 11-03-2014 11-03-2014 Episodic Other skin disorders (4 sources) Changes in skin texture; Translations: [Other skin changes] Onset: 07-07-2014 Resolved: 11-03-2014 11-03-2014 Episodic Other skin disorders (1 source) Nonscarring hair loss, unspecified; Translations: [Nonscarring hair loss, unspecified] Onset: 12-12-2024 Episodic Results Test Name Value Interpretation Reference Range Facility [facility] 08-09-2025 CNOV Office Visit (DERMST ) JODIE JAIN ([id number]) 1955 M Date Time Provider Department 08/09/25 3:00 PM VIRI PETERS During your visit today, we recorded the following information about you: Viri Peters PA-C 08/09/2025 3:34 PM Signed ESTABLISHED PATIENT 08/09/2025 Last Visit in Dermatology: 02/27/2025 Chief Complaint: LESION, SKIN HPI: Jodie Jain is a 70 year old male. Patient presents with: LESION, SKIN #1 Location: chest Duration: months Symptoms/Course: darker in color Current Treatment: betamethasone Pertinent History: History of skin cancer: No History of atypical nevi: No History of blistering sunburns / tanning bed use: Yes, sunburns Organ transplant / Immunosuppression: Psoriasis Pacemaker / Defibrillator / Heart Valve Replacement: No / : N/A Family history of skin cancer: No PAST MEDICAL HISTORY Diagnosis Date Psoriasis SOCIAL HISTORY[1] ALLERGIES Allergen Reactions Nut - Unspecified GI Upset Tree nuts Cashew Nut GI Upset Current Outpatient Medications Medication Sig roflumilast (ZORYVE) 0.15 % cream Apply to affected area once daily. Clobetasol Propionate (CLOBEX) 0.05 % sham Apply to affected area once daily. Apply to a dry scalp once daily as needed, leave on for 15 minutes before showering. pimecrolimus (ELIDEL) 1 % cream Apply to affected area two times a day as needed (for dermatitis). ammonium lactate (LAC-HYDRIN) 12 % cream Apply 1 application to affected area as needed for dry skin. betamethasone valerate 0.1 % cream Apply twice daily as needed to the face for psoriasis. Pyrithione Zinc (DERMAZINC) 2 % bar Apply 1 application to affected area once daily. calcipotriene-betameth asone (ENSTILAR) 0.005-0.064 % foam Apply to affected [...] (FLONASE) 50 mcg/actuation nasal spray Use 1 [place] in each nostril once daily. Taking as [...] by mouth as directed. 2 tablet daily ROS: Skin as above. PHYSICAL EXAM: Participation of a fellow, resident, medical student, or advanced practice provider student in performing the sensitive examination was discussed with the patient or authorized treasury representative. The patient or authorized treasury representative has agreed to proceed with the sensitive examination. Jett Skin Type: II The patient is a pleasant male in no apparent distress. Alert and oriented x 3. Appears well developed, well nourished, and in otherwise good health. A skin exam of the chest was performed. IMPRESSION Left Breast 0.5 x 0.7 cm Mills to pink lichenoid plaque R/O BLK vs other Left Anterior Neck Brown stuck on waxy papules and plaques ASSESSMENT AND PLAN NEOPLASM OF UNSPECIFIED BEHAVIOR OF BONE, SOFT TISSUE, AND SKIN Left Breast - SKIN / NAIL BIOPSY Type of biopsy: tangential Informed consent: discussed and consent obtained Timeout: patient name, date of , surgical site, and procedure verified Procedure prep: Patient was prepped and draped in usual sterile fashion Prep type: Isopropyl alcohol Anesthesia: the lesion was anesthetized in a standard fashion Anesthetic: 1% lidocaine w/ epinephrine 1-100,000 local infiltration Instrument used: DermaBlade Outcome: patient tolerated procedure well Post-procedure details: sterile dressing applied and wound care instructions given Dressing type: bandage and petrolatum Specimen A - Surgical Pathology 0.5 x 0.7 cm Mills to pink lichenoid plaque R/O ELK vs other SEBORRHEIC KERATOSIS Left Anterior Neck Discussed benign etiology. Reassured and educated Monitor for change and return to care if anything becomes bothersome including but not limited to pain, itching, irritation, bleeding Follow Up: Return PRN or sooner for questions and concerns. Attestation: Intake completed by: Dia Quiles LPN The documentatio (more content not included)... Normal [facility] Pathology biopsy report Hugh (Tiss)on 08-09-2025 AP DISCLAIMER Normal [facility] Comment on above: Order Comment: Speci men Type: TISSUE SPECIMEN Ordering Facility: [facility] Address: [address] [place] [address] Result Comment: Ritu whitaker Developed Test (LDT) Disclaimer: Performance characteristics of immunohistochemical, immunofluorescent, and chromogenic in-situ hybridization tests have been determined by the performing laboratory within the [facility] Department of Pathology and Laboratory Medicine ([facility], [place], [facility], [facility], [facility], [facility], Counts Include [address] [facility], or [facility]) in a manner consistent with CLIA requirements. One or more of these tests may not have been cleared or approved by the FDA. The [facility] Department of Pathology and Laboratory Medicine is regulated under CLIA as qualified to perform high-complexity testing. These tests are used for clinical purposes. These should not be regarded as investigational or for research. Positive and negative controls stain appropriately. Performed By: #### 6 6121-5 #### [facility] CLIA [id number] [address] [place] [address] [place] CASE REPORT Normal [facility] Comment on above: Order Comment: Speci men Type: TISSUE SPECIMEN Ordering Facility: [facility] Address: [address] [place] [address] Result Comment: Surg [facility] Pathology Report Case: [id number] Authorizing Provider: Viri Peters PA-C Collected: 08/09/2025 03:14 PM Ordering Location: Dermatology Received: 08/09/2025 04:24 PM Pathologist: Yesi Davis MD Specimen: Skin, Left Breast Performed By: #### 6 6121-5 #### [facility] CLIA [id number] [address] [place] [address] [place] CLINICAL HISTORY Normal [facility] Comment on above: Order Comment: Speci men Type: TISSUE SPECIMEN Ordering Facility: [facility] Address: [address] [place] [address] Result Comment: 0.5 x 0.7 cm Mills to pink lichenoid plaque R/O BLK vs other Performed By: #### 6 6121-5 #### [facility] CLIA [id number] DIAGNOSIS COMMENT Normal [facility] Comment on above: Order Comment: Speci vincenzo Type: TISSUE SPECIMEN Ordering Facility: [facility] Address: [address] [place] [address] Result Comment: Hist ologic sections show a basketweave stratum corneum overlying a mildly acanthotic epidermis with focal interface changes characterized by vacuolar degeneration of basal keratinocytes with dyskeratotic cells and colloid bodies. Within the dermis, there is a mildly to moderately dense perivascular and interstitial lymphohistiocytic infiltrate containing scattered eosinophils. There is also mild superficial dermal fibrosis with melanoderma. The clinical history and photographs are reviewed. In order to evaluate for a subtle melanocytic proliferation, immunohistochemical staining is performed at the [facility] on block A1 with appropriate controls. A SOX10 stain highlights an essentially normal number and distribution of junctional melanocytes. 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 Clinical correlation is recommended. Dr. Otilia Michael ([facility] dermatopathology) also reviewed the case and agrees with the diagnosis. Performed By: #### 6 6121-5 #### [facility] CLIA [id number] [address] [place] [address] FINAL DIAGNOSIS Normal [facility] Comment on above: Order Comment: Speci men Type: TISSUE SPECIMEN Ordering Facility: [facility] Address: [address] [place] [address] Result Comment: A. S kin, left breast, shave biopsy: - Consistent with benign lichenoid keratosis with melanoderma, see comment. at 1319 EDT Performed By: #### 6 6121-5 #### [facility] CLIA [id number] [address] [place] [address] FINAL PERFORMING LAB Normal [facility] Comment on above: Order Comment: Speci men Type: TISSUE SPECIMEN Ordering Facility: [facility] Address: [address] [place] [address] Result Comment: Diag nostic interpretation performed at: [facility], [address] [place] [address] CLIA# [id number] Wool Cleaner: Kervin Brown MD Performed By: #### 6 6121-5 #### [facility] IA [id number] [address] [place] [address] [place] GROSS DESCRIPTION A. Skin Normal [facility] Comment on above: Order Comment: Speci men Type: TISSUE SPECIMEN Ordering Facility: [facility] Address: [address] [place] [address] Result Comment: Rece ived in formalin is a 0.8 x 0.6 x 0.1 cm shave of skin. On the skin surface there is a 0.7 cm mills-brown, flat and smooth area. The specimen is bisected. Totally submitted in one cassette. Gross examination performed at [facility], [address] [place] [address]. [place] [address] JT 08/09/2025 11:10 PM Performed By: #### 6 6121-5 #### [facility] IA [id number] [address] [place] [address] [place] SKIN / NAIL BIOPSYon 025 Type of biopsy: tangential Informed consent: discussed and consent obtained Timeout: patient name, date of , surgical site, and procedure verified Procedure prep: Patient was prepped and draped in usual sterile fashion Prep type: Isopropyl alcohol Anesthesia: the lesion was anesthetized in a standard fashion Anesthetic: 1% lidocaine w/ epinephrine 1-100,000 local infiltration Instrument used: DermaBlade Outcome: patient tolerated procedure well Post-procedure details: sterile dressing applied and wound care instructions given Dressing type: bandage and petrolatum [facility] Cardiology Visit Reporton Cardiology Visit Report [facility] [address] [place], [place] [address] OFFICE VISIT Date of Service: 07/18/25 MR#: [id number] Acct: [id number] Name: JODIE JAIN Rep #: [id number] : 1955 Provider: Dr. Jacques Hernandez MD Age/Sex: 70/M Location[place] [facility] Status: Signed HPI HPI History of Present Illness Details: 70-year-old gentleman with a history of hypertension, palpitations, and hyperlipidemia.??? As you know he does have equivocal mitral valve prolapse. He tells me that he has overall been doing quite well. He has not had any shortness of [...] calcium score of 78. His physical exam has been rather unremarkable. He has been under some stress but otherwise okay. Intake Vital Signs 05/22/24 13:47 07/18/25 13:00 Height 5 ft 6 in 5 ft 6 in Weight: 145 lb BMI 23.3 BP 128/79 H Blood Pressure Location Lt brachial Position Sitting Respiration 16 Pulse 47 L Pulse Source Monitor Intake Visit Reasons: 1 Y FU Quality Facilitator Required: No Accompanied by: Significant Other Is patient in pain?: No Allergies tree nut Allergy (Verified 07/18/25 13:09) NEEDS FOLLOW-UP escitalopram Adverse Reaction (Severe, Verified 07/18/25 13:09) Diarrhea Medications ???Medication ???Instructions ???Recorded ???Confirmed ???Type finasteride 5 mg tablet 5 mg PO DAILY 10/02/17 07/18/25 Hi story albuterol sulfate 90 mcg/actuation 1 inh inhalation Q6H PRN Sob /O r 03/19/20 07/18/25 History aerosol inhaler Wheezing lorazepam 1 mg tablet 1 mg PO DAILY PRN Anxiety 04/08/21 07/18/25 History amoxicillin 500 mg capsule 2,000 mg (4 x 500 mg) PO .COMPLEX 08/24/22 07/18/25 Rx #4 caps fluticasone propionate 50 2 spray intranasal DAILY PRN 05/0307/18/25 History mcg/actuation nasal allergy symptoms spray,suspension (24 Hour Allergy Relief) loratadine 10 mg disintegrating 10 mg PO DAILY 05/03/24 07/18/25 H istory tablet (Alavert) betamethasone valerate 0.1 % applic topical PRN 05/22/24 History topical cream calcipotriene 0.005 topical PRN 05/22/24 07/18/25 Hist ory %-betamethasone 0.064 % topical foam (Enstilar) dexlansoprazole 60 mg 60 mg PO DAILY PRN 05/22/24 History capsule,biphase delayed release (Dexilant) atorvastatin 10 mg tablet 5 mg (1/2 x 10 mg) PO DAILY #45 07/18/25 Rx tabs lisinopril 40 mg tablet 40 mg PO DAILY #90 tabs 06/03/25 0 07/18/25 Rx propranolol 10 mg tablet 10 mg PO .COMPLEX #180 tabs 07/18/25 Rx vonoprazan 10 mg tablet (Voquezna) 10 mg PO QDAY 07/18/25 07/18/25 History Have you fallen in the past year?: No PFSH Medical History Allergic rhinitis BPH (benign prostatic hyperplasia) Essential (primary) hypertension Hyperlipidemia Malaria Nonrheumatic mitral valve prolapse Soft tissues foreign body Surgical History History of oral surgery Family History Father CAD (coronary artery disease) Myocardial infarction [place] age 52 Mother CVA (cerebral vascular accident) Social History Smoking Status: Never smoker ROS Const Const: Positive for fatigue; Negative for weakness, headache(s), daytime sleepiness or difficulty sleeping ENT ENT: Negative for headache(s), dizziness or Nosebleed/epistaxis Cardio Chest Pain: Yes Frequency: other (comes and goes) Character: other (pressure; sore on palpitation ) Location: epigastric Duration: hours Palpitations: Yes (fluttering) Edema: None Resp Respiratory: Negative for SOB with activity, SOB at rest, SOB orthopnea SOB lying down or Cough GI GI: Negative nausea, vomiting or heartburn Neuro Neuro: Negative for dizziness, lightheadedness, near syncope, headache(s) or weakness Endo Endo: Positive for fatigue Cardiology Exam Const Appearance: cooperative, healthy appearing, no acute distress, well developed and well groomed Nutritional Appearance: average body habitus and well nourished Orientation: alert, awake and oriented x3 Head Head: normal to inspection, normocephalic and atraumatic Ears: hearing grossly normal bilaterally and ex (more content not included)... Normal [facility] Absolute lymphocyte countOrd ered By: Jacques Hernandez on 07-16-2025 Lymphocytes Auto (Unsp spec) [#/Vol] 2.21 10*3/uL 0.83-4.51 [facility] Absolute neutrophil countOrd ered By: [place] David on 07-16-2025 Neutrophils (Bld) [#/Vol] 2.2 10*3/uL 2.0-7.7 [facility] Anion gap in Serum or Plasma Ordered By: Jacques Hernandez on 07-16-2025 Anion gap [Moles/Vol] 10 mmol/L - [facility] Automated lymphocyte count a s percentage of total leukocytesOrdered By: [place] David on 07-16-2025 Lymphocytes/100 WBC Auto (Unsp spec) 38.2 % [facility] BUN/creatinine ratioOrdered By: Jacques David on 07-16-2025 Urea nitrogen/Creatinine [Mass ratio] 11.3 mg/mg - [facility] Basic Metabolic Profile (BMP )on 07-16-2025 BUN/CRE 11.3 RATIO Normal - [facility] Comment on above: Performed By: #### L 500.2500, L100.0100, L500.4100, L500.3400 ####[facility] [address] [place], [place], [id number] Calcium [Mass/Vol] 9.1 mg/dL Normal 7.6-11.0 [facility] Comment on above: Performed By: #### L 500.2500, L100.0100, L500.4100, L500.3400 ####[facility] [address] [place], [address] Chloride [Moles/Vol] 105 mmol/L Normal 98-108 [facility] Comment on above: Performed By: #### L 500.2500, L100.0100, L500.4100, L500.3400 ####[facility] [address] [place], [address] CO2 [Moles/Vol] 26.3 mmol/L Normal 21.0-32.0 [facility] Comment on above: Performed By: #### L 500.2500, L100.0100, L500.4100, L500.3400 ####[facility] [address] [place], [address] Creatinine [Mass/Vol] 0.96 mg/dL Normal 0.70-1.20 [facility] Comment on above: Performed By: #### L 500.2500, L100.0100, L500.4100, L500.3400 ####[facility] [address] [place], [address] GAP 10 Normal 5-15 [facility] Comment on above: Performed By: #### L 500.2500, L100.0100, L500.4100, L500.3400 ####[facility] [address] [place], [address] GFR/1.73 sq M.predicted among non-blacks MDRD (S/P/Bld) [Vol rate/Area] 84 mL/min/{1.73_m2} Normal >60 [facility] Comment on above: Result Comment: mL/m in/1.73m2 CKD-EPI Creatinine Equation (2020) Performed By: #### L 500.2500, L100.0100, L500.4100, L500.3400 ####[facility] [address] [place], [address] Glucose [Mass/Vol] 92 mg/dL Normal 70-99 [facility] Comment on above: Performed By: #### L 500.2500, L100.0100, L500.4100, L500.3400 ####[facility] [address] [place], [address] Potassium [Moles/Vol] 4.1 mmol/L Normal 3.3-5.1 [facility] Comment on above: Performed By: #### L 500.2500, L100.0100, L500.4100, L500.3400 ####[facility] [address] [place], [address] Sodium [Moles/Vol] 141 mmol/L Normal 133-145 [facility] Comment on above: Performed By: #### L 500.2500, L100.0100, L500.4100, L500.3400 ####[facility] [address] [place], [address] Urea nitrogen [Mass/Vol] 11 mg/dL Normal 4-19 [facility] Comment on above: Performed By: #### L 500.2500, L100.0100, L500.4100, L500.3400 ####[facility] [address] [place], [address] Basophil percentageOrdered B y: [place] David on 07-16-2025 Basophils/100 WBC (Bld) 0.5 % 0-1 W [facility] Bilirubin directOrdered By: [place] David on 07-16-2025 Bilirubin.direct [Mass/Vol] 0.24 mg/dL 0.00-0.30 [facility] Bilirubin, totalOrdered By: Jacques David on 07-16-2025 Bilirubin [Mass/Vol] 0.63 mg/dL 0.00-1.30 [facility] Blood manual differential co mment interpretation (narrative result)Ordered By: Jacquesjocelyn Hernandez on 07-16-2025 Manual differential comment Hugh (Bld) [Interp] SCANNED [facility] CBC W/Diff, Automatedon 06-28 SMEAR COMMENT SCANNED Normal [facility] Comment on above: Performed By: #### L 500.2500, L100.0100, L500.4100, L500.3400 #### [facility] [address] [place], [address] Calculated very low density lipoprotein (VLDL) cholesterol measurementOrdered By: Jacques David on 07-16-2025 Calculated very low density lipoprotein (VLDL) cholesterol measurement 19 mg/dL 5-40 [facility] Carbon dioxide, total [Moles /volume] in Central venous bloodOrdered By: [place] David on 07-16-2025 CO2 [Moles/Vol] 26.3 mmol/L 21.0-32.0 [facility] Chloride assayOrdered By: Cy ril David on 07-16-2025 Chloride [Moles/Vol] 105 mmol/L 98-108 [facility] Eosinophil percentageOrdered By: Jacques David on 07-16-2025 Eosinophils/100 WBC (Bld) 8.0 % High 0-5 [facility] Erythrocyte distribution wid th ratioOrdered By: Jacques David on 07-16-2025 Erythrocyte distribution width (RBC) [Ratio] 13.2 % 11.6-14.6 [facility] Erythrocyte distribution wid th standard deviationOrdered By: Jacques David on 07-16-2025 Erythrocyte distribution width (RBC) [Ratio] 43.6 fl 35.1-43.9 [facility] Glomerular filtration rate ( GFR) estimation/1.73 sq m using serum, plasma, or whole bOrdered By: [place] David on 07-16-2025 GFR/1.73 sq M.predicted among non-blacks MDRD (S/P/Bld) [Vol rate/Area] 84 mL/min/{1.73_m2} >60 [facility] Comment on above: mL/min/1.73m2 CKD-EP I Creatinine Equation (2020) Hematocrit Auto (Bld) [Volum e fraction]Ordered By: Jacques David on 07-16-2025 Hematocrit (Bld) [Volume fraction] 39.8 % Low 40-54 [facility] Hemoglobin measurementOrdere d By: [place] David on 07-16-2025 Hemoglobin (Bld) [Mass/Vol] 13.2 g/dL 13.0-16.5 [facility] Immature granulocytes/100 WB C Auto (Bld)Ordered By: [place] [facility] on 07-16-2025 Immature granulocytes/100 WBC (Bld) 0.300 % 0.0-0.9 [facility] Comment on above: IG% - Immature Granu locytes (promyelocytes, myelocytes and metamyelocytes) > 1% indicates that a LEFT SHIFT is Present. LDL calc ser/plasOrdered By: [facility] on 07-16-2025 Cholesterol in LDL [Mass/Vol] 93 mg/dL [facility] Comment on above: Szrpnomxph=071-407 m g/dL & Higher Rjod=915 mg/dL or greaterFriedwald Equation for LDL-C Laboratory - Chemistry and C hemistry - challengeOrdered By: [place] [facility] on 07-16-2025 AST [Catalytic activity/Vol] 20 U/L <38 [facility] Lipid Profileon 07-16-2025 CHOL:HDL 3.03 Normal [facility] Comment on above: Performed By: #### L 500.2500, L100.0100, L500.4100, L500.3400 ####[facility] [address] [place], [address] Cholesterol [Mass/Vol] 167 mg/dL Normal <=200 [facility] Comment on above: Result Comment: Chol esterol level, Desirable <200 mg/dL Borderline high cholesterol 200-239 mg/dL High cholesterol >=240 mg/dL Recommendations of the NCEP Adult Treatment Panel for the following risk-cutoff thresholds for the [place] population. Performed By: #### L 500.2500, L100.0100, L500.4100, L500.3400 ####[facility] [address] [place], [place], [address] Cholesterol in HDL [Mass/Vol] 55 mg/dL Normal [facility] Comment on above: Result Comment: Cate onal Cholesterol Education Program (NCEP) guidelines: <40 mg/dL: Low HDL-cholesterol (major risk factor for CHD) >= 60 mg/dL: High HDL-cholesterol (negative risk factor for CHD) HDL-cholesterol is affected by a number of factors, e.g. smoking, exercise, hormones, sex and age. Performed By: #### L 500.2500, L100.0100, L500.4100, L500.3400 ####[facility] [address] [place], [address] Cholesterol in LDL [Mass/Vol] 93 mg/dL Normal [facility] Comment on above: Result Comment: Bord wredfh=384-411 mg/dL Higher Wizb=925 mg/dL or greater Friedwald Equation for LDL-C Performed By: #### L 500.2500, L100.0100, L500.4100, L500.3400 ####[facility] [address] [place], [address] Cholesterol in VLDL [Mass/Vol] 19 mg/dL Normal 5-40 [facility] Comment on above: Performed By: #### L 500.2500, L100.0100, L500.4100, L500.3400 ####[facility] [address] [place], [address] Triglyceride [Mass/Vol] 95 mg/dL Normal [facility] Comment on above: Result Comment: The drugs N-Acetylcysteine and Metamizole may falsely depress this assay. Normal range: <150 mg/dL Borderline High: 150-199 mg/dL High: 200-499 mg/dL Very High: >500 mg/dL Performed By: #### L 500.2500, L100.0100, L500.4100, L500.3400 ####[facility] [address] [place], [address] Liver Profileon 07-16-2025 Albumin [Mass/Vol] 3.9 g/dL Normal 3.4-4.8 [facility] Comment on above: Performed By: #### L 500.2500, L100.0100, L500.4100, L500.3400 ####[facility] [address] [place], [address] ALK PHOS 67 U/L Normal 40-129 [facility] Comment on above: Performed By: #### L 500.2500, L100.0100, L500.4100, L500.3400 ####[facility] [address] [place], [address] ALT [Catalytic activity/Vol] 17 U/L Normal <=46 [facility] Comment on above: Performed By: #### L 500.2500, L100.0100, L500.4100, L500.3400 ####[facility] [address] [place], [address] AST [Catalytic activity/Vol] 20 U/L Normal <=37 [facility] Comment on above: Performed By: #### L 500.2500, L100.0100, L500.4100, L500.3400 ####[facility] [address] [place], [address] Bilirubin [Mass/Vol] 0.63 mg/dL Normal 0.00-1.30 [facility] Comment on above: Performed By: #### L 500.2500, L100.0100, L500.4100, L500.3400 ####[facility] [address] [place], [address] Bilirubin.direct [Mass/Vol] 0.24 mg/dL Normal 0.00-0.30 [facility] Comment on above: Performed By: #### L 500.2500, L100.0100, L500.4100, L500.3400 ####[facility] [address] [place], [address] Globulin (S) [Mass/Vol] 2.7 g/dL Normal 2.2-4.2 [facility] Comment on above: Performed By: #### L 500.2500, L100.0100, L500.4100, L500.3400 ####[facility] [address] [place], [place], [id number] T PROT 6.6 g/dL Normal 5.9-8.4 [facility] Comment on above: Performed By: #### L 500.2500, L100.0100, L500.4100, L500.3400 ####[facility] [address] [place] [place], [address] MCV (mean corpuscular volume ) determinationOrdered By: [place] David on 07-16-2025 MCV (RBC) [Entitic vol] 89.0 fL 80-94 W [facility] Mean corpuscular hemoglobin (MCH) determinationOrdered By: [place] David on 07-16-2025 MCH (RBC) [Entitic mass] 29.5 pg 27.0-32.0 [facility] Mean corpuscular hemoglobin concentration (MCHC) determinationOrdered By: Jacques David on 07-16-2025 MCHC (RBC) [Mass/Vol] 33.2 g/dL 32-36 [facility] Mean platelet volume determi nationOrdered By: Jacques David on 07-16-2025 Platelet mean volume (Bld) [Entitic vol] 9.9 fL 6.2-12.0 [facility] Monocyte percentageOrdered B y: Jacques David on 07-16-2025 Monocytes/100 WBC (Bld) 14.4 % High 0-10 W [facility] Neutrophil percentageOrdered By: Jacques David on 07-16-2025 Neutrophils/100 WBC (Bld) 38.6 % Low 47-70 [facility] Nucleated red blood cell per centageOrdered By: Jacques David on 07-16-2025 Nucleated RBC/100 WBC (Bld) [Ratio] 0 % 0-5 [facility] Platelet countOrdered By: Cy ril David on 07-16-2025 Platelets (Bld) [#/Vol] 282 10*3/uL 150-450 [facility] Potassium measurement (mass/ volume)Ordered By: Jacques Hernandez on 07-16-2025 Potassium (Unsp spec) [Mass/Vol] 4.1 mmol/L 3.3-5.1 [facility] RBC Auto (Bld) [#/Vol]Ordere d By: Jacques Hernandez on 07-16-2025 RBC (Bld) [#/Vol] 4.47 10*6/uL Low 4.6-6.2 [facility] Screening total cholesterol/ high density lipoprotein (HDL) cholesterol ratioOrdered By: Jacques Hernandez on 07-16-2025 Cholesterol.total/Ama sterol in HDL [Mass ratio] 3.03 {ratio} [facility] Serum creatinine measurement (mass/volume)Ordered By: Jacques Hernandez on 07-16-2025 Creatinine [Mass/Vol] 0.96 mg/dL 0.70-1.20 [facility] Serum globulin measurementOr dered By: Jacques Hernandez on 07-16-2025 Globulin (S) [Mass/Vol] 2.7 g/dL 2.2-4.2 [facility] Serum glucose measurement (m ass/volume)Ordered By: Jacques Hernandez on 07-16-2025 Glucose [Mass/Vol] 92 mg/dL 70-99 [facility] Serum or plasma alanine lopez otransferase (ALT) measurementOrdered By: Jacques Hernandez on 07-16-2025 ALT [Catalytic activity/Vol] 17 U/L <47 [facility] Serum or plasma albumin fausto urement (mass/volume)Ordered By: Jacques Hernandez on 07-16-2025 Albumin [Mass/Vol] 3.9 g/dL 3.4-4.8 [facility] Serum or plasma alkaline hossein sphatase measurementOrdered By: Jacques Hernandez on 07-16-2025 ALP [Catalytic activity/Vol] 67 U/L 40-129 [facility] Serum or plasma calcium fausto urement (mass/volume)Ordered By: Jacques Hernandez on 07-16-2025 Calcium [Mass/Vol] 9.1 mg/dL 7.6-11.0 [facility] Serum or plasma cholesterol in HDL measurement (mass/volume)Ordered By: Jacques Hernandez on 07-16-2025 Cholesterol in HDL [Mass/Vol] 55 mg/dL >40 [facility] Comment on above: National Cholesterol Education Program (NCEP) guidelines:<40 mg/dL: Low HDL-cholesterol (major risk factor for CHD)>= 60 mg/dL: High HDL-cholesterol (negative risk factor for CHD)HDL-cholesterol is affected by a number of factors, e.g. smoking, exercise, hormones, sex and age. Serum or plasma cholesterol measurement (mass/volume)Ordered By: Jacques Hernandez on 07-16-2025 Cholesterol [Mass/Vol] 167 mg/dL <201 [facility] Comment on above: Cholesterol level, D esirable <200 mg/dLBorderline high cholesterol 200-239 mg/dLHigh cholesterol >=240 mg/dLRecommendations of the NCEP Adult Treatment Panel for the following risk-cutoff thresholds for the [place] population. Serum or plasma urea nitroge n measurement (mass/volume)Ordered By: Jacques Hernandez on 07-16-2025 Urea nitrogen [Mass/Vol] 11 mg/dL - [facility] Sodium levelOrdered By: Steve Hernandez on 07-16-2025 Sodium [Moles/Vol] 141 mmol/L 133-145 [facility] Total proteinOrdered By: Kacie bolivar Amadoori on 07-16-2025 Protein [Mass/Vol] 6.6 g/dL 5.9-8.4 [facility] Triglycerides measurementOrd ered By: Jacques Hernandez on 07-16-2025 Triglyceride [Mass/Vol] 95 mg/dL <199 [facility] Comment on above: The drugs N-Acetylcy steine and Metamizole may falsely depress this assay. Normal range: <150 mg/dLBorderline High: 150-199 mg/dLHigh: 200-499 mg/dLVery High: >500 mg/dL White blood cell (WBC) count Ordered By: Jacques Hernandez on 07-16-2025 WBC (Bld) [#/Vol] 5.8 10*3/uL 4.4-11.0 [facility] CNOVon 02-27-2025 CNOV Office Visit (DERMST ) JODIE JAIN ([id number]) 1955 M Date Time Provider Department 02/27/25 3:40 PM YESI ZELAYA During your visit today, we recorded the following information about you: Yesi Zelaya MD 02/27/2025 6:19 PM Signed [facility] Department of Dermatology Yesi Zelaya MD 02/27/2025 [...] (around 05/29/2025) for EST appt, skin check. - Chief complaint: Patient presents with: LESION, SKIN: [...] has essentially resolved following a fall in [facility], which resulted in a large abrasion on [...] have been independently gathered by the clinical application support lead and the remaining scribed note (including AI-generated content) is reviewed and accurately describes my personal service to the patient. Yesi Zelaya MD 02/27/2025 6:19 PM Addendum - Apply 0.15% Zoryve (more content not included)... Normal [facility] Testosterone Freeon 11-13-20 TESTOSTER FREE 8.0 pg/mL Normal 6.6-18.1 [facility] Comment on above: Order Comment: Order Date: 11/08/24Order Info: [id number] - TESTOF Result Comment: Perf ormed at: [facility] [address] [id number] Plate Shop Helper: Luz Maria Weaver MD, Phone: [phone] Performed By: #### L 638.4256, V5066.9228 ####[facility] [id number] [facility] [place], [address] Thyroid Stim Hormone (TSH)on 11-09-2024 TSH 1.310 uIU/mL Normal 0.358-3.740 [facility] Comment on above: Order Comment: Order Date: 11/08/24Order Info: [id number] - TSH Performed By: #### L 828.1745, M5884.5481 ####[facility] [id number] [facility] [place], [place], [id number] CBC-Complete Blood Cnt No Di ffon 10-19-2024 Erythrocyte distribution width (RBC) [Ratio] 12.7 % Normal 11.6-14.6 [facility] Comment on above: Order Comment: Order Date: 09/25/24 Order Info: [id number] - CBC Performed By: #### L 100.0500, L500.4050, L506.1000, L501.9910, L500.4100 #### [facility] [address] [place], [address] Hematocrit (Bld) [Volume fraction] 44.0 % Normal 40-54 [facility] Comment on above: Order Comment: Order Date: 09/25/24 Order Info: [id number] - CBC Performed By: #### L 100.0500, L500.4050, L506.1000, L501.9910, L500.4100 #### [facility] [address] [facility] [facility] [place], [address] Hemoglobin (Bld) [Mass/Vol] 14.3 g/dL Normal 13.0-16.5 [facility] Comment on above: Order Comment: Order Date: 09/25/24 Order Info: [id number] - CBC Performed By: #### L 100.0500, L500.4050, L506.1000, L501.9910, L500.4100 #### [facility] [address] [facility] [place], [address] MCH (RBC) [Entitic mass] 29.9 pg Normal 27.0-32.0 [facility] Comment on above: Order Comment: Order Date: 09/25/24 Order Info: [id number] - CBC Performed By: #### L 100.0500, L500.4050, L506.1000, L501.9910, L500.4100 #### [facility] [address] [place], [address] MCHC (RBC) [Mass/Vol] 32.5 g/dL Normal 32-36 [facility] Comment on above: Order Comment: Order Date: 09/25/24 Order Info: [id number] - CBC Performed By: #### L 100.0500, L500.4050, L506.1000, L501.9910, L500.4100 #### [facility] [address] [place], [address] MCV (RBC) [Entitic vol] 91.9 fL Normal 80-94 [facility] Comment on above: Order Comment: Order Date: 09/25/24 Order Info: [id number] - CBC Performed By: #### L 100.0500, L500.4050, L506.1000, L501.9910, L500.4100 #### [facility] [address] [place], [address] Platelet mean volume (Bld) [Entitic vol] 10.7 fL Normal 6.2-12.0 [facility] Comment on above: Order Comment: Order Date: 09/25/24 Order Info: [id number] - CBC Performed By: #### L 100.0500, L500.4050, L506.1000, L501.9910, L500.4100 #### [facility] [address] [place], [address] Platelets (Bld) [#/Vol] 290 10*3/uL Normal 150-450 [facility] Comment on above: Order Comment: Order Date: 09/25/24 Order Info: [id number] - CBC Performed By: #### L 100.0500, L500.4050, L506.1000, L501.9910, L500.4100 #### [facility] [address] [place], [address] RBC (Bld) [#/Vol] 4.79 10*6/uL Normal 4.6-6.2 [facility] Comment on above: Order Comment: Order Date: 09/25/24 Order Info: [id number] - CBC Performed By: #### L 100.0500, L500.4050, L506.1000, L501.9910, L500.4100 #### [facility] [address] [place], [address] RDW SD 43.1 fl Normal 35.1-43.9 [facility] Comment on above: Order Comment: Order Date: 09/25/24 Order Info: [id number] - CBC Performed By: #### L 100.0500, L500.4050, L506.1000, L501.9910, L500.4100 #### [facility] [address] [facility] [place], [place], [id number] WBC (Bld) [#/Vol] 7.1 10*3/uL Normal 4.4-11.0 [facility] Comment on above: Order Comment: Order Date: 09/25/24 Order Info: [id number] - CBC Performed By: #### L 100.0500, L500.4050, L506.1000, L501.9910, L500.4100 #### [facility] [address] [place], [place], [id number] Comprehensive Metabolic Prof [facility] 10-19-2024 Albumin [Mass/Vol] 3.4 g/dL Normal 3.2-5.0 [facility] Comment on above: Order Comment: Order Date: 09/25/24 Order Info: [id number] - CMP Order Info: [id number] - LIPID Order Info: [id number] - MG Order Info: 2857-1 - PSA Performed By: #### L 100.0500, L500.4050, L506.1000, L501.9910, L500.4100 #### [facility] [address] [facility] [place], [address] Albumin/Globulin [Mass ratio] 0.9 {ratio} Normal 0.9-2.4 [facility] Comment on above: Order Comment: Order Date: 09/25/24 Order Info: [id number] - CMP Order Info: [id number] - LIPID Order Info: [id number] - MG Order Info: 285- - PSA Performed By: #### L 100.0500, L500.4050, L506.1000, L501.9910, L500.4100 #### [facility] [address] [place], [address] ALK P 69 U/L Normal 45-117 [facility] Comment on above: Order Comment: Order Date: 09/25/24 Order Info: 86-1 - CMP Order Info: [id number] - LIPID Order Info: [id number] - MG Order Info: 285-1 - PSA Performed By: #### L 100.0500, L500.4050, L506.1000, L501.9910, L500.4100 #### [facility] [address] [place], [place], [address] ALT [Catalytic activity/Vol] 24 U/L Normal 16-61 [facility] Comment on above: Order Comment: Order Date: 09/25/24 Order Info: 785-1 - CMP Order Info: [id number] - LIPID Order Info: [id number] - MG Order Info: 285-1 - PSA Performed By: #### L 100.0500, L500.4050, L506.1000, L501.9910, L500.4100 #### [facility] [address] [place], [address] AST [Catalytic activity/Vol] 19 U/L Normal 15-37 [facility] Comment on above: Order Comment: Order Date: 09/25/24 Order Info: 86-1 - CMP Order Info: [id number] - LIPID Order Info: [id number] - MG Order Info: 2857-1 - PSA Performed By: #### L 100.0500, L500.4050, L506.1000, L501.9910, L500.4100 #### [facility] [address] [place], [place], [address] Bilirubin [Mass/Vol] 0.60 mg/dL Normal 0.20-1.00 [facility] Comment on above: Order Comment: Order Date: 09/25/24 Order Info: 0786-1 - CMP Order Info: - LIPID Order Info: [id number] - MG Order Info: 1 - PSA Result Comment: For patients on eltrombopag therapy, use of Dimension Rush TBIL is not recommended. Performed By: #### L 100.0500, L500.4050, L506.1000, L501.9910, L500.4100 #### [facility] [address] [place], [address] BUN/CRE 12.4 RATIO Normal 10-20 [facility] Comment on above: Order Comment: Order Date: 09/25/24 Order Info: 785-11 - CMP Order Info: - LIPID Order Info: [id number] - MG Order Info: 2856-11 - PSA Performed By: #### L 100.0500, L500.4050, L506.1000, L501.9910, L500.4100 #### [facility] [address] [place], [place], [address] (658) CA,Total 9.1 mg/dL Normal 8.5-10.1 [facility] Comment on above: Order Comment: Order Date: 09/25/24 Order Info: 785-11 - CMP Order Info: - LIPID Order Info: [id number] - MG Order Info: 1 - PSA Performed By: #### L 100.0500, L500.4050, L506.1000, L501.9910, L500.4100 #### [facility] [address] [place], [address] Chloride [Moles/Vol] 105 mmol/L Normal 98-107 [facility] Comment on above: Order Comment: Order Date: 09/25/24 Order Info: 07 - CMP Order Info: - LIPID Order Info: [id number] - MG Order Info: 2857-1 - PSA Performed By: #### L 100.0500, L500.4050, L506.1000, L501.9910, L500.4100 #### [facility] [address] [place], [address] CO2 [Moles/Vol] 30.0 mmol/L Normal 21.0-32.0 [facility] Comment on above: Order Comment: Order Date: 09/25/24 Order Info: 0786-1 - CMP Order Info: [id number] - LIPID Order Info: [id number] - MG Order Info: 2857-1 - PSA Performed By: #### L 100.0500, L500.4050, L506.1000, L501.9910, L500.4100 #### [facility] [address] [place], [address] Creatinine [Mass/Vol] 1.05 mg/dL Normal 0.70-1.30 [facility] Comment on above: Order Comment: Order Date: 09/25/24 Order Info: 785-11 - CMP Order Info: [id number] - LIPID Order Info: [id number] - MG Order Info: 2856-11 - PSA Result Comment: The validity of the calculated GFR GFRAA in patients over 70 years has not been determined. Clinical correlation is essential. Performed By: #### L 100.0500, L500.4050, L506.1000, L501.9910, L500.4100 #### [facility] [address] [place], [address] EST GFR - AA 90 mL/min Normal >60 [facility] Comment on above: Order Comment: Order Date: 09/25/24 Order Info: 0786-1 - CMP Order Info: [id number] - LIPID Order Info: [id number] - MG Order Info: 2857-1 - PSA Result Comment: Afri can [place] GFR Calc Performed By: #### L 100.0500, L500.4050, L506.1000, L501.9910, L500.4100 #### [facility] [address] [place], [address] GAP 4 Low 5-15 [facility] Comment on above: Order Comment: Order Date: 09/25/24 Order Info: 0786-1 - CMP Order Info: [id number] - LIPID Order Info: [id number] - MG Order Info: 2856-1 - PSA Performed By: #### L 100.0500, L500.4050, L506.1000, L501.9910, L500.4100 #### [facility] [address] [place], [address] GFR/1.73 sq M.predicted among non-blacks MDRD (S/P/Bld) [Vol rate/Area] 74 mL/min/{1.73_m2} Normal >60 [facility] Comment on above: Order Comment: Order Date: 09/25/24 Order Info: 785-11 - CMP Order Info: 11476-3 - LIPID Order Info: [id number] - MG Order Info: 2856-11 - PSA Result Comment: Non- GFR Calc Performed By: #### L 100.0500, L500.4050, L506.1000, L501.9910, L500.4100 #### [facility] [address] [place], [address] Globulin (S) [Mass/Vol] 3.7 g/dL Normal 2.2-4.2 [facility] Comment on above: Order Comment: Order Date: 09/25/24 Order Info: 785-11 - CMP Order Info: [id number] - LIPID Order Info: [id number] - MG Order Info: 2856-11 - PSA Performed By: #### L 100.0500, L500.4050, L506.1000, L501.9910, L500.4100 #### [facility] [address] [place], [address] Glucose [Mass/Vol] 91 mg/dL Normal 74-106 [facility] Comment on above: Order Comment: Order Date: 09/25/24 Order Info: 1 - CMP Order Info: [id number] - LIPID Order Info: [id number] - MG Order Info: 2856-11 - PSA Performed By: #### L 100.0500, L500.4050, L506.1000, L501.9910, L500.4100 #### [facility] [address] [place], [address] Potassium [Moles/Vol] 4.4 mmol/L Normal 3.5-5.1 [facility] Comment on above: Order Comment: Order Date: 09/25/24 Order Info: 0786-1 - CMP Order Info: [id number] - LIPID Order Info: [id number] - MG Order Info: 2857-1 - PSA Performed By: #### L 100.0500, L500.4050, L506.1000, L501.9910, L500.4100 #### [facility] [address] [place], [address] Sodium [Moles/Vol] 139 mmol/L Normal 136-145 [facility] Comment on above: Order Comment: Order Date: 09/25/24 Order Info: 07-1 - CMP Order Info: [id number] - LIPID Order Info: 98421-7 - MG Order Info: 2857-1 - PSA Performed By: #### L 100.0500, L500.4050, L506.1000, L501.9910, L500.4100 #### [facility] [address] [place], [address] T PROT 7.1 g/dL Normal 6.4-8.2 [facility] Comment on above: Order Comment: Order Date: 09/25/24 Order Info: 0786-1 - CMP Order Info: [id number] - LIPID Order Info: [id number] - MG Order Info: 2857-1 - PSA Performed By: #### L 100.0500, L500.4050, L506.1000, L501.9910, L500.4100 #### [facility] [address] [place], [address] Urea nitrogen [Mass/Vol] 13 mg/dL Normal 7-18 [facility] Comment on above: Order Comment: Order Date: 09/25/24 Order Info: 0786-1 - CMP Order Info: [id number] - LIPID Order Info: [id number] - MG Order Info: [id number] - PSA Performed By: #### L 100.0500, L500.4050, L506.1000, L501.9910, L500.4100 #### [facility] [address] [place], [address] Lipid Profileon 10-19-2024 Cholesterol [Mass/Vol] 232 mg/dL High 200 [facility] Comment on above: Order Comment: Order Date: 09/25/24 Order Info: 785-11 - CMP Order Info: - LIPID Order Info: [id number] - MG Order Info: 2856- - PSA Result Comment: <200 mg/dL Desirable 200-240 mg/dL Borderline >240 mg/dL High Risk Performed By: #### L 100.0500, L500.4050, L506.1000, L501.9910, L500.4100 #### [facility] [address] [place], [address] Cholesterol in HDL [Mass/Vol] 61 mg/dL Normal [facility] Comment on above: Order Comment: Order Date: 09/25/24 Order Info: 785-11 - CMP Order Info: [id number] - LIPID Order Info: [id number] - MG Order Info: 2856-11 - PSA Result Comment: The drugs N-Acetylcysteine and Metamizole may falsely depress this assay. Reference Range HDL <40 mg/dL Low HDL Cholesterol HDL >or= 60 mg/dL High HDL Cholesterol Performed By: #### L 100.0500, L500.4050, L506.1000, L501.9910, L500.4100 #### [facility] [address] [place], [address] Cholesterol in LDL [Mass/Vol] 129 mg/dL Normal 0-130 [facility] Comment on above: Order Comment: Order Date: 09/25/24 Order Info: 785- - CMP Order Info: [id number] - LIPID Order Info: [id number] - MG Order Info: 2856-11 - PSA Performed By: #### L 100.0500, L500.4050, L506.1000, L501.9910, L500.4100 #### [facility] [address] [place], [address] Cholesterol in VLDL [Mass/Vol] 42 mg/dL High 5-40 [facility] Comment on above: Order Comment: Order Date: 09/25/24 Order Info: 0786- - CMP Order Info: - LIPID Order Info: [id number] - MG Order Info: 2856-11 - PSA Performed By: #### L 100.0500, L500.4050, L506.1000, L501.9910, L500.4100 #### [facility] [address] [place], [address] Triglyceride [Mass/Vol] 211 mg/dL High [facility] Comment on above: Order Comment: Order Date: 09/25/24 Order Info: 0786 - CMP Order Info: - LIPID Order Info: [id number] - MG Order Info: 2856-11 - PSA Result Comment: The drugs N-Acetylcysteine and Metamizole may falsely depress this assay. Serum Triglycerides Reference Interval Normal <150 mg/dL Borderline high 150 - 199 mg/dL High 200 - 499 mg/dL Very High > or = 500 mg/dL Performed By: #### L 100.0500, L500.4050, L506.1000, L501.9910, L500.4100 #### [facility] [address] [place], [address] Magnesiumon 10-19-2024 Magnesium [Mass/Vol] 2.1 mg/dL Normal 1.6-2.6 [facility] Comment on above: Order Comment: Order Date: 09/25/24 Order Info: 0786-1 - CMP Order Info: [id number] - LIPID Order Info: [id number] - MG Order Info: 2856-11 - PSA Performed By: #### L 501.5200 #### [facility] [address] [place], [place], [address] PSA,Total - Annual Screenon 10-19-2024 PSA,TOT SCREEN 0.47 ng/mL Normal 0.00-4.00 [facility] Comment on above: Order Comment: Order Date: 09/25/24 Order Info: 0786-1 - CMP Order Info: [id number] - LIPID Order Info: [id number] - MG Order Info: 2857-1 - PSA Result Comment: This test was performed using the TPSA assay method for the [employer] chemistry system. Values obtained with different assay methods cannot be used interchangably. When changing PSA assays in the course of monitoring a patient, additional sequential testing should be carried out to confirm baseline values. Performed By: #### L 100.0500, L500.4050, L506.1000, L501.9910, L500.4100 #### [facility] [address] [place], [address] Vitamin D,25 Hydroxyon 10-19 Vitamin D 25-OH 41.5 ng/mL Normal [facility] Comment on above: Order Comment: Order Date: 09/25/24 Order Info: [id number] - VITD25 Result Comment: Rosario min D 25(OH) Status Range Deficiency <20 ng/mL (50nmol/L) Insufficiency 20 - 30 ng/mL (50 - 75 nmol/L) Sufficiency 30 - 100 ng/mL (75 - 250 nmol/L) Toxicity >100 ng/mL (>250 nmol/L) Performed By: #### L 100.0500, L500.4050, L506.1000, L501.9910, L500.4100 #### [facility] [address] [place], [address] PT D/C Summary (1)on 024 PT D/C Summary (1) [facility] Physical Therapy [address] [place] [address] / REHABILITATION SERVICES DISCHARGE SUMMARY MR#: [id number] Acct: [id number] Name: JODIE JAIN Rep #: [id number] : 1955 69 From: Jovi TURPINT, OCS, CSCS Referring Dr.: Dr. Kai Thorne DO Status: REG RCR Insurance: [employer] SELF PAY INSURANCE Discharge Summary D/C summary: It has been my pleasure to treat JODIE JAIN referred by Dr. Kai Thorne DO, with the diagnosis of L knee OA [...] please feel free to call me at [phone]. Thank you for the referral of this patient. Sincerely, Jovi Lock, PAPIT, OCS, CSCS Balance/Gait/Functiona l tests Balance/Special Test Scores Lower Extremity Functional Score: 72 Improvement % Improvement: 90 09/19/24 1332 CC: Dr. Yesi Patel MD; Dr. Kai Thorne DO EBG Signed Normal [facility] Re-Evaluation - PT (1)on Re-Evaluation - PT (1) [facility] [address] [place] [address] [address] [place] [address] / REEVALUATION / MEDICARE RECERTIFICATION PHYSICAL THERAPY MR#: [id number] Acct: [id number] Name: JODIE JAIN Rep #: [id number] [...] plan of care! 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 Goal Time Frame: 2-4 Weeks Goal Progress: still appropriate. Anticipated Interventions Re-Evaluation Ending Re-evaluation ending: Please do not hesitate to contact me at [phone] by phone or if you have questions or concerns regarding this new plan of care! Sincerely, Jovi Lock DPT, OCS, CSCS 08/31/24 0958 CC: Dr. Yesi Patel MD; Dr. Kai Thorne DO EBG Signed For Medicare only, by signing this I certify the plan of care. Physicians Signature Date Normal [facility] ZINC Don 08-22-2023 Zinc [Mass/Vol] 60 ug/dL 60 - 120 ug/dL [facility] Iron and Iron binding capaci ty panelon 08-20-2023 Iron [Mass/Vol] 168 ug/dL 41 - 186 ug/dL [facility] Iron binding capacity [Mass/Vol] 317 ug/dL 232 - 386 ug/dL [facility] Iron/TIBC [Molar ratio] 53.0 % 15.0 - 57.0 % [facility] MAGNESIUM [facility] 08-20-2023 Magnesium [Mass/Vol] 1.9 mg/dL 1.7 - 2 .3 mg/dL [facility] TSH [facility] 08-20-2023 TSH Qn 1.350 m[IU]/L 0.270 - 4.200 mIU/L [facility] VITAMIN D 25 HYDROXYon 08-20 25-hydroxyvitamin D3 [Mass/Vol] 117.0 ng/mL High 31.0 - 80.0 ng/mL [facility] CBC W Auto Differential pane l (Bld)on 08-19-2023 Basophils (Bld) [#/Vol] 0.05 10*3/uL <0.11 k/uL [facility] Basophils/100 WBC (Bld) 0.8 % [facility] Differential cell count method Nom (Bld) Auto [facility] Eosinophils (Bld) [#/Vol] 0.67 10*3/uL High <0.46 k/uL [facility] Eosinophils/100 WBC (Bld) 10.3 % [facility] Erythrocyte distribution width (RBC) [Ratio] 12.8 % 11.5 - 15.0 % [facility] Hematocrit (Bld) [Volume fraction] 44.1 % 39.0 - 51.0 % [facility] Hemoglobin (Bld) [Mass/Vol] 14.1 g/dL 13.0 - 17.0 g/dL [facility] Immature granulocytes (Bld) [#/Vol] <0.10 k/uL [facility] Immature granulocytes/100 WBC (Bld) 0.2 % [facility] Lymphocytes (Bld) [#/Vol] 2.32 10*3/uL 1.00 - 4.00 k/uL [facility] Lymphocytes/100 WBC (Bld) 35.6 % [facility] MCH (RBC) [Entitic mass] 29.3 pg 26.0 - 34.0 pg [facility] MCHC (RBC) [Mass/Vol] 32.0 g/dL 30.5 - 36.0 g/dL [facility] MCV (RBC) [Entitic vol] 91.5 fL 80.0 - 100.0 fL [facility] Monocytes (Bld) [#/Vol] 0.77 10*3/uL <0.87 k/uL [facility] Monocytes/100 WBC (Bld) 11.8 % [facility] Neutrophils (Bld) [#/Vol] 2.69 10*3/uL 1.45 - 7.50 k/uL [facility] Neutrophils/100 WBC (Bld) 41.3 % [facility] Nucleated RBC (Bld) [#/Vol] <0.01 k/uL [facility] Nucleated RBC/100 WBC (Bld) [Ratio] 0.0 /100 WBC [facility] Platelet mean volume (Bld) [Entitic vol] 10.6 fL 9.0 - 12.7 fL [facility] Platelets (Bld) [#/Vol] 282 10*3/uL 150 - 400 k/uL [facility] RBC (Bld) [#/Vol] 4.82 10*6/uL 4.20 - 6.0 0 m/uL [facility] WBC (Bld) [#/Vol] 6.51 10*3/uL 3.70 - 11. 00 k/uL [facility]2022 [facility] Surgical Pathology Department Name JODIE JAIN Pathologist: JANETTE ARIAS DMD Date of Procedure: 08/26/2022 Date Received: 08/26/2022 Date Reported 08/30/2022 Submitting Physician: LAMONT COATES MD, DDS Location: [facility] Other External # FINAL DIAGNOSIS A. 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 Diagnostic interpretation performed at [address] [place] [id number] Microscopic Description: The sections consist of fibrous [...] bisected and entirely submitted in 3 cassettes. MKM mk/08/27/2022 [facility] Department of Pathology [id number] [place] [address] [facility] Comment on above: Performed By: #### [place] [facility] [place] #### [facility] Surgical Pathology Department [address] [place], [place] [id number] Absolute lymphocyte counton 04-10-2022 Lymphocytes Auto (Unsp spec) [#/Vol] 2.69 10*3/uL 0.83-4.51 [facility] Work Phone: Basophil percentageon 2021 Basophils/100 WBC (Bld) 0.4 % 0-1 [facility] Work [facility]: Chloride [Moles/Vol] 109 mmol/L 98-107 [place] [facility] Work Phone: Eosinophils/100 WBC (Bld) 4.0 % 0-5 [facility] Work Phone: Glucose [Mass/Vol] 94 mg/dL 74-106 [place] [facility] Work Phone: Neutrophils (Bld) [#/Vol] 4.0 10*3/uL 2.0-7.7 [facility] Work Phone: Neutrophils/100 WBC (Bld) 49.2 % 47-70 [facility] Work Phone: Potassium [Moles/Vol] 4.0 mmol/L 3.5-5.1 [facility]: Sodium [Moles/Vol] 142 mmol/L 136-145 [facility] Work Phone: [phone] WBC (Bld) [#/Vol] 8.2 10*3/uL 4.4-11.0 [facility] Work Phone: Blood erythrocytes count (nu mber/volume)on 04-10-2022 RBC (Bld) [#/Vol] 4.78 10*6/uL 4.6-6.2 [facility]: Blood hemoglobin measurement (mass/volume)on 04-10-2022 Hemoglobin (Bld) [Mass/Vol] 13.9 g/dL 13.0-16.5 [facility] Work Phone: Blood lymphocytes/100 leukoc yteson 04-10-2022 Lymphocytes/100 WBC (Bld) 32.9 % 19-41 [facility] Work Phone: Blood monocytes/100 leukocyt eson 04-10-2022 Monocytes/100 WBC (Bld) 13.3 % 0-10 W [facility] Work Phone: Blood platelet mean volumeon 04-10-2022 Platelet mean volume (Bld) [Entitic vol] 9.9 fL 6.2-12.0 [facility] Work Phone: Determination of erythrocyte mean corpuscular volume (MCV)on 04-10-2022 MCV (RBC) [Entitic vol] 89.3 fL 80-94 W [facility] Work Phone: Hematocrit Auto (Bld) [Volum e fraction]on 04-10-2022 Hematocrit (Bld) [Volume fraction] 42.7 % 40-54 [facility] Work Phone: Laboratory - Chemistry and C hemistry - challengeon 04-10-2022 CO2 [Moles/Vol] 24.0 mmol/L 21.0-32.0 [facility] Work Phone: Urea nitrogen/Creatinine [Mass ratio] 15.6 mg/mg 10-20 [facility] Work Phone: Laboratory - Hematology and Cell countson 04-10-2022 Erythrocyte distribution width (RBC) [Entitic vol] 41.7 fL 35.1-43.9 [facility] Work Phone: Erythrocyte distribution width (RBC) [Ratio] 12.6 % 11.6-14.6 [facility] Work Phone: Immature granulocytes/100 WBC (Bld) 0.200 % 0.0-0.9 [facility] Work Phone: Comment on above: IG% - Immature Granu locytes (promyelocytes, myelocytes and metamyelocytes) > 1% indicates that a LEFT SHIFT is Present. MCH (RBC) [Entitic mass] 29.1 pg 27.0-32.0 [facility] Work Phone: Nucleated RBC/100 WBC (Bld) [Ratio] 0 % 0-5 [facility] Work Phone: MCHC Auto (RBC) [Mass/Vol]on 04-10-2022 MCHC (RBC) [Mass/Vol] 32.6 g/dL 32-36 [facility] Work Phone: No Panel Informationon 04-10 Troponin I High Sensitivity < 3 pg/mL 3.0-78.0 [facility] Work Phone: Comment on above: Please Note: New Jessica t Units and Gender Specific Reference Ranges. For more information see Policy Stat Procedure Rush High Sensitivity Troponin (TNIH) and attachments. Estimated Creatinine Clearance Calc 56.07 ml/min [facility] Work Phone: Estimated GFR (MDRD) Amer 76 mL/min >60 [facility] Work Phone: Comment on above: GFR Calc Estimated GFR (MDRD) Non-Af Amer 63 mL/min >60 [facility] Work Phone: Comment on above: Non- GFR Calc Platelets bldon 04-10-2022 Platelets (Bld) [#/Vol] 326 10*3/uL 150-450 [facility] Work Phone: Serum or plasma calcium fausto urement (mass/volume)on 04-10-2022 Calcium [Mass/Vol] 9.3 mg/dL 8.5-10.1 [facility] Work Phone: Serum or plasma creatinine m easurement (mass/volume)on 04-10-2022 Creatinine [Mass/Vol] 1.22 mg/dL 0.70-1.30 [facility] Work Phone: Comment on above: The validity of the calculated GFR & GFRAA in patients over 70 years has not been determined. Clinical correlation is essential. Serum or plasma urea nitroge n measurement (mass/volume)on 04-10-2022 Urea nitrogen [Mass/Vol] 19 mg/dL 7-18 [facility] Work Phone: Thin prep Papanicolaou smear with manual screeningon 04-10-2022 Thin prep Papanicolaou smear with manual screening 9 5-15 [facility] Work Phone: Basophil percentageon 2021 Bilirubin [Mass/Vol] 0.80 mg/dL 0.20-1.00 [facility] Work Phone: Comment on above: For patients on eltr ombopag therapy, use of Dimension Rush TBIL is not recommended. Cholesterol [Mass/Vol] 224 mg/dL <200 [facility] Work Phone: Comment on above: <200 mg/dL Desirable 200-240 mg/dL Borderline >240 mg/dL High Risk Protein [Mass/Vol] 7.2 g/dL 6.4-8.2 [facility] Work Phone: Triglyceride [Mass/Vol] 124 mg/dL W [facility] Work Phone: Comment on above: The drugs N-Acetylcy steine and Metamizole may falsely depress this assay.Serum Triglycerides Reference Interval Normal <150 mg/dL Borderline high 150 - 199 mg/dL High 200 - 499 mg/dL Very High > or = 500 mg/dL Direct bilirubinon Bilirubin.direct [Mass/Vol] 0.17 mg/dL 0.00-0.30 [facility] Work Phone: Laboratory - Chemistry and C hemistry - challengeon 03-02-2022 ALP [Catalytic activity/Vol] 67 U/L 45-117 [facility] Work Phone: ALT [Catalytic activity/Vol] 27 U/L 16-61 [facility] Work Phone: Globulin (S) [Mass/Vol] 3.6 g/dL 2.2-4.2 W [facility] Work Phone: Serum or plasma albumin fausto urement (mass/volume)on 03-02-2022 Albumin [Mass/Vol] 3.6 g/dL 3.2-5.0 [facility] Work Phone: Serum or plasma cholesterol in HDL measurement (mass/volume)on 03-02-2022 Cholesterol in HDL [Mass/Vol] 66 mg/dL [facility] Work Phone: Comment on above: The drugs N-Acetylcy steine and Metamizole may falsely depress this assay. Reference Range HDL <40 mg/dL Low HDL Cholesterol HDL >or= 60 mg/dL High HDL Cholesterol Serum or plasma cholesterol in VLDL measurement (mass/volume)on 03-02-2022 Cholesterol in VLDL [Mass/Vol] 25 mg/dL 5-40 [facility] Work Phone: Serum or plasma low density lipoprotein (LDL) cholesterol measurement (mass/volume)on 03-02-2022 Cholesterol in LDL [Mass/Vol] 133 mg/dL 0-130 [facility] Work Phone: Thin prep Papanicolaou smear with manual screeningon 03-02-2022 Thin prep Papanicolaou smear with manual screening 16 U/L 15-37 [facility] Work Phone: Laboratory - Microbiology an d Antimicrobial susceptibilityon 12-20-2021 SARS-CoV-2 (COVID-19) RNA SULEMA+probe Ql (Unsp spec) Not detected Not Detect [facility] Work Phone: Comment on above: Normal Reference [...] RNA SULEMA+probe Ql (Unsp spec) Not detected [facility] Work Phone: No Panel Informationon 11-12 POC Nasal Swab Influenza A,B Not detected [facility] Work Phone: POC Nasal Swab RSV Not detected [facility] Work Phone: Lab Report: Lipid Profileon 04-01-2017 Cholesterol 155 mg/dL Invalid Interpretation Code 200 [facility] Work Phone: HDL Cholesterol 62 mg/dL Invalid Interpretation Code [facility] Work Phone: LDL Cholesterol 77 mg/dL Invalid Interpretation Code 0-130 [facility] Work Phone: Triglyceride 78 mg/dL Invalid Interpretation Code [facility] Work Phone: [phone] very low density lipoproteins 16 mg/dL Invalid Interpretation Code 5-40 [employer] Phone: [phone] Lab Report: Liver Profileon 04-01-2017 Alanine aminotransferase (ALT) 32 U/L Invalid Interpretation Code 12-78 [email or web address] Work Phone: [phone] Albumin 3.7 g/dL Invalid Interpretation Code 3.4-5.0 [employer] Phone: [phone] Alkaline phosphatase (ALP) 63 U/L Invalid Interpretation Code 45-117 [email or web address] Work Phone: [phone] Aspartate aminotransferase (AST) 18 U/L Invalid Interpretation Code 15-37 [employer] Phone: [phone] Bilirubin (direct) 0.13 mg/dL Invalid Interpretation Code 0.00-0.30 [employer] Phone: [phone] Bilirubin (total) 0.60 mg/dL Invalid Interpretation Code 0.20-1.00 [employer] Phone: [phone] Globulin 3.4 g/dL Invalid Interpretation Code 2.3-3.5 [employer] Phone: [phone] Protein 7.1 g/dL Invalid Interpretation Code 6.4-8.2 [employer] Phone: [phone] Office Visiton 03-29-2017 Documentation of current medications (procedure) Done Invalid Interpretation Code [employer] Phone: [phone] Fall risk assessment Fall risk assessment Invali d Interpretation Code [employer] Phone: [phone] Lab Report: Lipid Profileon 08-06-2016 Cholesterol 180 mg/dL Invalid Interpretation Code 200 [employer] Phone: [phone] HDL Cholesterol 55 mg/dL Invalid Interpretation Code [employer] Phone: [phone] LDL Cholesterol 98 mg/dL Invalid Interpretation Code 0-130 [employer] Phone: [phone] Triglyceride 134 mg/dL Invalid Interpretation Code [employer] Phone: [phone] very low density lipoproteins 27 mg/dL Invalid Interpretation Code 5-40 [employer] Phone: [phone] Lab Report: Liver Profileon 08-06-2016 Alanine aminotransferase (ALT) 30 U/L Invalid Interpretation Code 12-78 [email or web address] Work Phone: [phone] Albumin 3.8 g/dL Invalid Interpretation Code 3.4-5.0 [email or web address] Work Phone: [phone] Alkaline phosphatase (ALP) 58 U/L Invalid Interpretation Code 50-136 [email or web address] Work Phone: [phone] Aspartate aminotransferase (AST) 21 U/L Invalid Interpretation Code 15-37 [email or web address] Work Phone: [phone] Bilirubin (direct) 0.14 mg/dL Invalid Interpretation Code 0.00-0.30 [email or web address] Work Phone: [phone] Bilirubin (total) 0.90 mg/dL Invalid Interpretation Code 0.20-1.00 [employer] Phone: [phone] Globulin 3.5 g/dL Invalid Interpretation Code 2.3-3.5 [employer] Phone: [phone] Protein 7.3 g/dL Invalid Interpretation Code 6.4-8.2 [employer] Phone: [phone] Office Visiton 08-05-2016 Tobacco use CPHS Former smoker Invalid Interpretation Code [employer] Phone: [phone] Office Visiton 12-24-2015 General cardiovascular disease 10Y risk [#] Annona.D'Agostynes 4 % Invalid Interpretation Code [employer] Phone: [phone] Office Visiton 08-29-2015 cardiac risk group B Invalid Interpretation Code [employer] Phone: [phone] Replaced Document: Josemark E CG Observationson 08-29-2015 electrocardiogram interpretation Sinus Bradycardia WITHIN NORMAL LIMITS Invalid Interpretation Code [employer] Phone: [phone] GE use only - for [employer] import when terms are not otherwise specified 408 ms Invalid Interpretation Code [employer] Phone: [phone] P wave axis, electrocardiogram -1 deg Invalid Interpretation Code [employer] Phone: [phone] WA interval, electrocardiogram 152 ms Invalid Interpretation Code [employer] Phone: [phone] Pulse (Heart Rate) 55 /min Invalid Interpretation Code [employer] Phone: [phone] QRS axis, electrocardiogram 13 deg Invalid Interpretation Code [facility] Work Phone: [phone] QRS duration, electrocardiogram 96 ms Invalid Interpretation Code [facility] Work Phone: [phone] QT interval, electrocardiogram new path ms Invalid Interpretation Code [facility] Work Phone: [phone] T wave axis, electrocardiogram 27 deg Invalid Interpretation Code [facility] Work Phone: [phone] Office Visiton 04-12-2014 Alcoholism counseling (procedure) no Invalid Interpretation Code [facility] Work Phone: [phone] Lab Report: BMPon 07-14-2012 Calcium 8.8 mg/dL Normal 8.5-10.1 [facility] Work Phone: [phone] Chloride 105 mmol/L Normal 98-107 [facility] Work Phone: [phone] Creatinine 1.1 mg/dL Normal 0.8-1.3 [facility] [email or web address] Work Phone: [phone] Glucose 84 mg/dL Normal 70-110 [facility] Work Phone: [phone] Potassium 4.1 mmol/L Normal 3.5-5.1 [facility] Work Phone: [phone] Sodium 138 mmol/L Normal 136-145 [facility] Work Phone: [phone] Urea nitrogen 14 mg/dL Normal 7-18 [facility] Work Phone: [phone] Lab Report: CBCon 07-14-2012 Erythrocytes (RBC) 4.55 10*6/uL Low 4.6-6.[address] [facility] Work Phone: [phone] Hematocrit (HCT) 40.5 % Normal 40-54 [facility] Work Phone: [phone] Hemoglobin (HGB) 13.6 G.DL Normal 13.0-16.5 [facility] Work Phone: [phone] Platelets 276 10*3/mm3 Normal 150-450 [facility] Work Phone: [phone] WBC (Leukocytes) 6.4 10*3/uL Normal 4.4-11.0 [facility] Work Phone: [phone] Clinical 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 Anion gap 10 mmol/L Invalid Interpretation Code [facility] Work Phone: [phone] BUN/Creatinine Ratio 14.4 mg/mg Invalid Interpretation Code [facility] Work Phone: [phone] CO2 27 mmol/L Invalid Interpretation Code [facility] Work Phone: [phone] MCH 30.6 pg Invalid Interpretation Code [facility] Work Phone: [phone] MCV 91.3 fL Invalid Interpretation Code [facility] Work Phone: [phone] Lab Reporton 08-10-2011 Thyroid stimulating hormone (TSH) 1.27 u[iU]/mL Invalid Interpretation Code [facility] Work Phone: [phone] Gram stain for investigation of transfusion reaction Microscopic observation Gram stain Nom (Unsp spec) [facility] Work Phone: No Panel Information [facility] Vital Signs Date Time Vital Sign Value Performing Clinician Facility 07-18-2025 13:00-0400 Body height 167.64 cm Kayla Lawson MD Work Phone: [facility] 07-18-2025 13:00-0400 Body mass index (BMI) [Ratio] 23.3 kg/m2 Kayla Lawson MD Work Phone: [facility] 07-18-2025 13:00-0400 Body weight 65.77 kg Kayla Lawson MD Work Phone: [facility] 07-18-2025 13:00-0400 Diastolic blood pressure 79 mm[Hg] Kayla Lawson MD Work Phone: [facility] 07-18-2025 13:00-0400 Heart rate 47 /min Kayla Lawson MD Work Phone: [facility] 07-18-2025 13:00-0400 Respiratory rate 16 /min Kayla Lawson MD Work Phone: [facility] 07-18-2025 13:00-0400 Systolic blood pressure 128 mm[Hg] Kayla Lawson MD Work Phone: [facility] 03-24-2023 14:55-0400 Body temperature 96.49 [degF] Mercy Hogna APRN.[employer]REET [employer] Work Phone: [facility] 03-24-2023 14:55-0400 Body weight 70.4 kg Mercy Hogan APRN.STRE[employer] Work Phone: [facility] 03-24-2023 14:55-0400 Diastolic blood pressure 80 mm[Hg] Mercy Hogan APRN.STRE[employer] Work Phone: [facility] 03-24-2023 14:55-0400 Heart rate 57 /min Mercy Hogan APRN.STRE[employer] Work Phone: [facility] 03-24-2023 14:55-0400 Respiratory rate 20 /min Mercy Hogan APRN.STRE[employer] Work Phone: [facility] 03-24-2023 14:55-0400 SaO2% (BldA) [Mass fraction] 99 % Mercy Hogan APRN.[employer]RE[employer] Work Phone: [facility] 03-24-2023 14:55-0400 Systolic blood pressure 114 mm[Hg] Mercy Hogan APRN.STRE[employer] Work Phone: [facility] 02-15-2023 09:01-0400 Body temperature 97.81 [degF] Sonu Didich DO Work Phone: [facility] 02-15-2023 09:01-0400 Body weight 70.26 kg Sonu Didich DO Work Phone: [facility] 02-15-2023 09:01-0400 Diastolic blood pressure 92 mm[Hg] Sonu Didich DO Work Phone: [facility] 02-15-2023 09:01-0400 Heart rate 62 /min Sonu Didich DO Work Phone: [facility] 02-15-2023 09:01-0400 Systolic blood pressure 141 mm[Hg] Sonu Didich DO Work Phone: [facility] 04-10-2022 20:54-0400 Diastolic blood pressure 90 mm[Hg] Dr. Yesi Christie Work Phone: [facility] Work Phone: 04-10-2022 20:54-0400 Heart rate 66 /min Dr. Yesi Christie Work Phone: [facility] Work Phone: 04-10-2022 20:54-0400 Respiratory rate 18 /min Dr. Yesi Christie Work Phone: [facility] Work Phone: 04-10-2022 20:54-0400 SaO2% (BldA) [Mass fraction] 99 % Dr. Yesi Christie Work Phone: [facility] Work Phone: 04-10-2022 20:54-0400 Systolic blood pressure 140 mm[Hg] Dr. Yesi Christie Work Phone: [facility] Work Phone: 04-10-2022 17:08-0400 Body height 175.[address] Yesi Christie Work Phone: [facility] Work Phone: 04-10-2022 17:08-0400 Body mass index (BMI) [Ratio] 22.2 kg/m2 Dr. Yesi Christie Work Phone: [facility] Work Phone: 04-10-2022 17:08-0400 Body temperature 98.7 [degF] Dr. Yesi Christie Work Phone: [facility] Work Phone: 04-10-2022 17:08-0400 Body weight 68.[address] Yesi Christie Work Phone: [facility] Work Phone: 03-03-2022 12:44-0400 Body height 175.[address] Yesi Christie Work Phone: [facility] Work Phone: 03-03-2022 12:44-0400 Body weight 68.[address] Yesi Christie Work Phone: [facility] Work Phone: 03-03-2022 12:44-0400 Diastolic blood pressure 89 mm[Hg] Dr. Ysei Christie Work Phone: [facility] Work Phone: 03-03-2022 12:44-0400 Heart rate 64 /min Dr. Yesi Christie Work Phone: [facility] Work Phone: 03-03-2022 12:44-0400 Respiratory rate 16 /min Dr. Yesi Christie Work Phone: [facility] Work Phone: 03-03-2022 12:44-0400 SaO2% (BldA) [Mass fraction] 98 % Dr. Yesi Christie Work Phone: [facility] Work Phone: 03-03-2022 12:44-0400 Systolic blood pressure 147 mm[Hg] Dr. Yesi Christie Work Phone: [facility] Work Phone: 02-28-2022 23:14-0400 Diastolic blood pressure 72 mm[Hg] Dr. Yesi Christie Work Phone: [facility] Work Phone: 02-28-2022 23:14-0400 Heart rate 64 /min Dr. Yesi Christie Work Phone: [facility] Work Phone: 02-28-2022 23:14-0400 Respiratory rate 16 /min Dr. Yesi Christie Work Phone: [facility] Work Phone: 02-28-2022 23:14-0400 Systolic blood pressure 136 mm[Hg] Dr. Yesi Christie Work Phone: [facility] Work Phone: 02-28-2022 22:15-0400 Body height 175.[address] Yesi Christie Work Phone: [facility] Work Phone: 02-28-2022 22:15-0400 Body mass index (BMI) [Ratio] 21.7 kg/m2 Dr. Yesi Christie Work Phone: [facility] Work Phone: 02-28-2022 22:15-0400 Body temperature 96.6 [degF] Dr. Yesi Christie Work Phone: [facility] Work Phone: 02-28-2022 22:15-0400 Body weight 66.[address] Yesi Christie Work Phone: [facility] Work Phone: 02-28-2022 22:15-0400 SaO2% (BldA) [Mass fraction] 95 % Dr. Yesi Christie Work Phone: [facility] Work Phone: 11-12-2021 12:36-0500 Body temperature 98 [degF] Dr. Yesi Christie Work Phone: [facility] Work Phone: 11-12-2021 12:36-0500 Diastolic blood pressure 68 mm[Hg] Dr. Yesi Christie Work Phone: [facility] Work Phone: 11-12-2021 12:36-0500 Heart rate 67 /min Dr. Yesi Christie Work Phone: [facility] Work Phone: 11-12-2021 12:36-0500 Respiratory rate 14 /min Dr. Yesi Christie Work Phone: [facility] Work Phone: 11-12-2021 12:36-0500 SaO2% (BldA) [Mass fraction] 98 % Dr. Yesi Christie Work Phone: [facility] Work Phone: 11-12-2021 12:36-0500 Systolic blood pressure 104 mm[Hg] Dr. Yesi Christie Work Phone: [facility] Work Phone: 04-08-2021 15:25-0400 Body mass index (BMI) [Ratio] 22.3 kg/m2 Dr. Yesi Christie Work Phone: [facility] Work Phone: 03-29-2017 13:27-0400 BMI (Body Mass Index) 21.39 kg/m2 [facility] Work Phone: 03-29-2017 13:27-0400 BP Diastolic 60 mm[Hg] [facility] Work Phone: 03-29-2017 13:27-0400 BP Systolic 110 mm[Hg] [facility] Work Phone: 03-29-2017 13:27-0400 Height 177.16 cm [facility] Work Phone: 03-29-2017 13:27-0400 Pulse (Heart Rate) 64 /min [facility] Work Phone: 03-29-2017 13:27-0400 Respiratory Rate 20 /min [facility] Work Phone: 03-29-2017 13:27-0400 Weight 67.13 kg [facility] Work Phone: 08-05-2016 09:23-0400 BSA (Body Surface Area) 1.83 m2 [facility] Work Phone: 08-29-2015 13:19-0400 BP Diastolic 70 mm[Hg] [facility] Work Phone: 08-29-2015 13:19-0400 BP Systolic 146 mm[Hg] Ally [facility] Work Phone: Encounters Encounter Date Encounter Type Care Provider Facility Start: 08-13-2025 End: 08-13-2025 Follow-up encounter Viri Peters PA-C Work Phone: Dermatology Start: 08-09-2025 End: 08-09-2025 ambulatory VIRI PETERS Facility:[facility] Start: 08-09-2025 End: 08-09-2025 Patient encounter procedure Viri Peters PA-C Work Phone: Dermatology Comment on above: Neoplasm of unspecif ied behavior of bone, soft tissue, and skin (Primary Dx); Seborrheic keratosis Start: 07-18-2025 End: 07-18-[address] Jacques Hernandez MD -[facility] Work Phone: Start: 07-18-2025 End: 07-18-2025 ambulatory Kayla Lawson MD Work Phone: -[facility] Start: 07-16-2025 End: 07-16-2025 ambulatory Kayla Lawson MD Work Phone: -Laboratory Start: 07-16-2025 End: 07-16-[address] Jacques Hernandez MD -Laboratory Work Phone: Start: 07-16-2025 End: 07-16-2025 ambulatory Kayla Lawson Facility:[facility] Start: 02-27-2025 End: 02-27-2025 ambulatory YESI ZELAYA Facility:[facility] Start: 02-27-2025 End: 02-27-2025 Patient encounter procedure Yesi Zelaya MD Work Phone: Dermatology Comment on above: Psoriasis; Seborrheic dermatitis; Telogen effluvium; Seborrheic keratosis; Prabhakar angioma Start: 11-09-2024 End: 11-09-2024 ambulatory Chalgrabiel Lulu Facility:[facility] Start: 10-19-2024 End: 10-19-2024 ambulatory [facility] Facility:[facility] Start: 09-19-2024 End: 09-19-2024 ambulatory Kai Thorne Facility:[facility] Start: 08-01-2024 ambulatory [facility] Facility:[facility] Start: 08-01-2024 End: 08-01-2024 ambulatory [facility] Facility:[facility] Start: 04-25-2024 End: 04-25-2024 Patient encounter procedure Yesi Zelaya MD Work Phone: Dermatology Comment on above: Seborrheic keratosis (Primary Dx); Multiple benign nevi; Prabhakar angioma; Psoriasis; Skin cancer screening Start: 03-14-2024 ambulatory Xiomara Sprague MA [facility] [place] Comment on above: Population Health [facility] ([employer] - AW[facility], Care gaps, HCC gap closure - [facility]) Start: 01-24-2024 End: 01-24-2024 Patient encounter procedure [...] above: Results Start: 08-23-2023 End: 08-23-2023 ambulatory [facility] Work Phone: Start: 08-23-2023 End: 08-23-2023 Patient encounter procedure [facility]-Radiology, [facility] Work Phone: Start: 08-16-2023 End: 08-16-2023 Patient encounter procedure Yesi Zelaya MD Work Phone: Dermatology Comment on above: Telogen effluvium (P rimary Dx); Inflamed seborrheic keratosis; Seborrheic keratosis Start: 03-24-2023 End: 03-24-2023 Patient encounter procedure Mercy Hogan APRN.CNP Work Phone: [facility] Comment on above: Flushing (Primary Dx ) Start: 03-24-2023 Telephone encounter Sonu Guillermo Laura montenegro DO Work Phone: [facility] [place] Start: 02-15-2023 End: 02-15-2023 Patient encounter procedure Sonu Guillermo Ten DO Work Phone: Family Medicine Comment on above: Lymphadenopathy, ing uinal (Primary Dx); Screening cholesterol level; Screening for prostate cancer; Screening for colon cancer Start: 01-11-2023 End: 01-11-2023 Patient encounter procedure Yesi Zelaya MD Work Phone: Dermatology Comment on above: Multiple benign nevi (Primary Dx); Prabhakar angioma; Psoriasis Start: 10-29-2022 End: 10-29-2022 ambulatory [facility] Work Phone: Start: 10-29-2022 End: 10-29-2022 Patient encounter procedure [facility]-Laboratory, Specimen Start: 10-28-2022 End: 10-28-2022 Patient encounter procedure Yesi Zelaya MD Work Phone: Dermatology Comment on above: Psoriasis (Primary D x); AK (actinic keratosis) Start: 08-26-[address] LAMONT COATES Facility:[facility] Start: 04-10-2022 End: 04-10-2022 Emergency department patient visit Dr. Yesi Christie Work Phone: [facility]-Emergency Department Start: 04-06-2022 Non-patient / Non-visit Dr. Abeba Christie Work Phone: [facility] Start: 04-06-2022 End: 04-06-[address] Yesi Christie Work Phone: [facility]-Cardiovascula [facility] Services Start: 03-03-2022 End: 03-03-[address] Yesi Christie Work Phone: [facility] Start: 03-02-2022 End: 03-02-[address] [facility] [place] Start: 02-28-2022 End: 02-28-2022 Emergency department patient visit Dr. Yesi Christie [facility] Start: 12-21-2021 End: 12-21-[address] Yesi Christie [facility] Start: 12-20-2021 End: 12-20-[address] Yesi Christie Work Phone: [facility] Start: 11-12-2021 End: 11-12-[address] Yesi Christie Work Phone: [facility] Start: 10-27-2018 Patient encounter procedure [facility]YSICIAN [facility] Procedures Date Procedure Procedure Detail Performing Clinician Start: 08-09-2025 SKIN / NAIL BIOPSY Oumar Peters PA-C Work Phone: Start: 01-24-2024 CRYOTHERAPY SKIN LESION Yesi Zelaya [...] Start: 03-29-2017 End: 04-01-2017 *Hepatic Function Panel JacquesEagle Dia Start: 03-29-2017 End: 04-01-2017 Lipid panel [AGGREGATE] [place] Mona Eagle Hernandez Start: 02-03-2017 End: 04-16-2017 *Hepatic Function Panel Jacques Mona Eagle Hernandez Start: 02-03-2017 End: 04-16-2017 Lipid panel [AGGREGATE] Jacques Eagle Ruvalcaba Start: 08-05-2016 End: 08-06-2016 *Hepatic Function Panel [...] Jacques Hernandez MD Start: 04-12-2014 End: 04-12-2014 MUSEUM CURATOR Jacques Hernandez MD Start: 04-12-2014 End: 12-24-2015 Echocardiography [...] Detail Author Start: 05-16-2030 Urine microalbumin profile DTaP,Tdap,Td Vaccine (2 - Td or Tdap) [facility] Start: 2028 RSV Vaccine (1 - 1-d ose 75+ series) RSV Vaccine (1 - 1-dose 75+ series) [facility] Start: 02-18-2028 Lipid 1996 panel - S jaime or Plasma Lipid Screening [facility] Start: 02-18-2028 Lipid panel Lipid Screening [facility] Start: 02-18-2028 LIPID SCREEN LIPID SCREEN [facility] Start: 02-17-2026 DIABETES SCREEN DIABETES SCREEN [facility] Start: 02-17-2026 Diabetes Screening Diabetes Screenin g [facility] Start: 11-07-2025 End: 11-07-2025 Patient encounter procedure 11/07/2025 9:20 AM EST Office Visit Dermatology [address] [place] [address] [place] [address] [place] [address] follow up Dermatology Comment on above: follow up Start: 07-29-2025 Influenza vaccination Influenza Vacc ine (#1) [facility] Start: 05-06-2025 Covid-19 Vaccine ( season) Covid-19 Vaccine ( season) [facility] Start: 11-28-2024 Advance Directive Discussion Advance Directive Discussion [facility] Start: 07-29-2024 Influenza vaccination C [facility] Start: 02-19-2024 Covid-19 Vaccine ( season) Covid-19 Vaccine ( season) [facility] Start: 02-16-2024 ANNUAL PCP TEAM OUTBOUND SALES SPECIALIST HENRY DISEASE VISIT ANNUAL PCP TEAM CHRONIC DISEASE VISIT [facility] Start: 11-28-2023 Advance Directive Discussion Advance Directive Discussion [facility] Start: 11-28-2023 Behavioral Health Screening Behavioral Health Screening [facility] Start: 11-28-2023 Depression Assessment Depression Ass essment [facility] Start: 07-29-2023 Covid-19 Vaccine ( season) Covid-19 Vaccine () [facility] Start: 07-29-2023 Influenza vaccination [facility] Start: 02-15-2023 End: 04-17-2023 CBC W Auto Differential panel - Blood CBC + DIFF Lab Routine Lymphadenopathy, inguinal Expected: 02/15/2023, Expires: 04/17/2023 [facility] Work Phone: Comment on above: Expected: 02/15/2023 , Expires: 04/17/2023 Start: 02-15-2023 End: 04-17-2023 Comprehensive metabolic 2000 panel - Serum or Plasma COMP METABOLIC PANEL Lab Routine Lymphadenopathy, inguinal Expected: 02/15/2023, Expires: 04/17/2023 [facility] Work Phone: Comment on above: Expected: 02/15/2023 , Expires: 04/17/2023 Start: 02-15-2023 End: 04-17-2023 Lipid 1996 panel - Serum or Plasma LIPID PANEL BASIC Lab Routine Screening cholesterol level Expected: 02/15/2023, Expires: 04/17/2023 [facility] Work Phone: Comment on above: Expected: 02/15/2023 , Expires: 04/17/2023 Start: 02-15-2023 End: 04-17-2023 PSA/PROSTSPECAG SCRN PSA/PROSTSPECAG SCRN Lab Routine Screening for prostate cancer Expected: 02/15/2023, Expires: 04/17/2023 [facility] Work Phone: Comment on above: Expected: 02/15/2023 , Expires: 04/17/2023 Start: 01-27-2023 Covid-19 Vaccine (6 - Moderna series) Covid-19 Vaccine (6 - Moderna series) [facility] Start: 11-28-2022 ADVANCE DIRECTIVE DISCUSSION ADVANCE DIRECTIVE DISCUSSION [facility] Start: 11-28-2022 DEPRESSION ASSESSMENT DEPRESSION ASS ESSMENT [facility] Start: 08-18-2022 Pneumococcal Vaccine : 50+ (2 of 2 - PCV) Pneumococcal Vaccine: 50+ (2 of 2 - PCV) [facility] Start: 08-18-2022 Pneumococcal Vaccine : 65+ (2 - PCV) Pneumococcal Vaccine: 65+ (2 - PCV) [facility] Start: 08-18-2022 Pneumococcal Vaccine : 65+ (2 of 2 - PCV) Pneumococcal Vaccine: 65+ (2 of 2 - PCV) [facility] Start: 07-29-2022 Influenza vaccination INFLUENZA (#1) [facility] Start: 04-16-2022 LIPID SCREEN LIPID SCREEN [facility] Start: 11-28-2021 ADVANCE DIRECTIVE DISCUSSION ADVANCE DIRECTIVE DISCUSSION [facility] Start: 11-28-2021 DEPRESSION ASSESSMENT DEPRESSION ASS ESSMENT [facility] Start: 2018 Pneumococcal Vaccine : 65+ (1 - PCV) Pneumococcal Vaccine: 65+ (1 - PCV) [facility] Start: 2018 PNEUMOCOCCAL: 65+ (1 - PCV) PNEUMOCOCCAL: 65+ (1 - PCV) [facility] Start: 10-13-2017 End: 10-13-2017 Appointment Appointment [facility] Work Phone: Start: 10-03-2017 End: 04-16-2017 *Hepatic Function Panel *Hepatic Function Panel [facility] Work Phone: Start: 10-03-2017 End: 04-16-2017 Lipid panel [AGGREGATE] *Lipid Profile CC PCP [facility] Work Phone: Start: 03-29-2017 End: 04-01-2017 *Hepatic Function Panel *Hepatic Function Panel [facility] Work Phone: Start: 03-29-2017 End: 03-29-2017 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 [facility] Work Phone: Start: 03-29-2017 End: 03-29-2017 Follow Up Appt 6 months Follow Up Appt 6 months [facility] Work Phone: Start: 03-29-2017 End: 04-01-2017 Lipid panel [AGGREGATE] *Lipid Profile CC PCP [facility] Work Phone: Start: 02-03-2017 End: 04-16-2017 *Hepatic Function Panel *Hepatic Function Panel [facility] Work Phone: Start: 02-03-2017 End: 04-16-2017 Lipid panel [AGGREGATE] *Lipid Profile CC PCP [facility] Work Phone: Start: 08-05-2016 End: 08-06-2016 *Hepatic Function Panel *Hepatic Function Panel [facility] Work Phone: Start: 08-05-2016 End: 08-05-2016 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 [facility] Work Phone: Start: 08-05-2016 End: 08-05-2016 Follow Up Appt 1 year Follow Up Appt 1 year [facility] Work Phone: Start: 08-05-2016 End: 08-06-2016 Lipid panel [AGGREGATE] *Lipid Profile CC PCP [facility] Work Phone: Start: 12-24-2015 End: 12-24-2015 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 [facility] Work Phone: Start: 12-24-2015 End: 12-24-2015 Follow Up Appt 6 months Follow Up Appt 6 months [facility] Work Phone: Start: 08-29-2015 End: 12-24-2015 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 [facility] Work Phone: Start: 08-29-2015 End: 12-24-2015 Follow Up Appt 4 months Follow Up Appt 4 months [facility] Work Phone: Start: 08-28-2015 End: 08-29-2015 *Hepatic Function Panel *Hepatic Function Panel [facility] Work Phone: Start: 08-28-2015 End: 08-29-2015 Lipid panel [AGGREGATE] *Lipid Profile CC PCP [facility] Work Phone: Start: 05-13-2014 End: 05-13-2014 *24 hour urine for metanephrines *24 hour urine for metanephrines [facility] Work Phone: Start: 04-12-2014 End: 04-12-2014 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 [facility] Work Phone: Start: 04-12-2014 End: 04-15-2014 Echocardiography Echocardiogram (complete) [email or web address] Work Phone: Start: 04-12-2014 End: 04-12-2014 Electrocardiogram, complete EKG (In office) [email or web address] Work Phone: Start: 04-12-2014 End: 04-12-2014 Follow Up Appt 3 months Follow Up Appt 3 months [facility] Work Phone: Start: 12-27-2013 End: 04-11-2014 *Hepatic Function Panel *Hepatic Function Panel [facility] Work Phone: Start: 12-27-2013 End: 04-11-2014 Lipid panel [AGGREGATE] *Lipid Profile CC PCP [email or web address] Work Phone: Start: 2013 RSV Vaccine (1 - 1-d ose 60+ series) RSV Vaccine (1 - 1-dose 60+ series) [facility] Start: 12-29-2012 End: 04-12-2014 *Hepatic Function Panel *Hepatic Function Panel [facility] Work Phone: Start: 12-29-2012 End: 04-12-2014 Lipid panel [AGGREGATE] *Lipid Profile [employer] [facility] Work Phone: Start: 07-12-2012 End: 07-19-2012 *BMP *BMP [email or web address] Work Phone: Start: 07-12-2012 End: 07-19-2012 *Hepatic Function Panel *Hepatic Function Panel [facility] Work Phone: Start: 07-12-2012 End: 07-19-2012 CBC W Auto Differential panel - Blood *CBC without Diff [email or web address] Work Phone: Start: 07-12-2012 End: 07-19-2012 Lipid panel [AGGREGATE] *Lipid Profile [facility] Work Phone: Start: 2003 SHINGRIX VACCINE (1 of 2) MURPHY GRIX VACCINE (1 of 2) [facility] Start: 1998 COLOGUARD (FIT-DNA) COLOGUARD (FIT-D NA) [facility] Start: 1998 Colonoscopy COLONOSCOPY [facility] Start: 1998 COLORECTAL CANCER SCREENING COLORECTAL CANCER SCREENING [facility] Start: [address] COLONOGRAPHY [facility] Start: 1998 DIABETES SCREEN DIABETES SCREEN [facility] Start: 1998 FECAL OCCULT BLOOD FECAL OCCULT BLOO D [facility] Start: 1998 Screening for malign ant neoplasm of colon [facility] Start: 1998 SIGMOIDOSCOPY SIGMOIDOSCOPY [facility] Start: 1972 Urine microalbumin profile [facility] Start: 1971 Anxiety Screening Anxiety Screening [facility] Start: 1971 BP CONTROLLED (<130/80) BP CONTROLLE D (<130/80) [facility] Start: 1971 Depression Screening Depression Scre ening [facility] Start: 1971 HEPATITIS C SCREENING HEPATITIS C [facility] Start: 1971 Hepatitis C screening Hepatitis C [facility] Patient Education [facility] Work Phone: Patient referral [facility] Work Phone: Respiratory microbia l culture Respiratory Culture [facility] Work Phone: End: 02-16-2024 Screening colonoscopy COLONOSCOPY SCREENING Endoscopy Routine Screening for colon cancer 1 Occurrences starting 02/15/2023 until 02/16/2024 [facility] Work Phone: Comment on above: 1 Occurrences starti ng 02/15/2023 until 02/16/2024 Tissue Pathology bio psy report [facility] Work Phone: Comment on above: Release Upon Orderin g for 1 Occurrences starting 08/09/2025 End: 03-16-2024 US ABDOMEN LTD US ABDOMEN LTD Radiology Routine Lymphadenopathy, inguinal 1 Occurrences starting 02/15/2023 until 03/16/2024 [facility] Work Phone: Comment on above: 1 Occurrences starti ng 02/15/2023 until 03/16/2024 [facility] Immunizations Immunization Date Immunization Notes Care Provider Fa von 05-16-2020 tetanus toxoid, redu vinita diphtheria toxoid, and acellular pertussis vaccine, adsorbed Dr. Yesi Christie Work Phone: [facility] 07-27-2012 influenza virus vaccine, unspecified formulation Yesi Zelaya MD Work Phone: [facility] Payers Date Payer Category Payer Self-pay [id number] 2021 [employer] BLUE ACCE SS PPO [id number] 2021 Unknown [employer] BLUE ACCE SS PPO [id number] 2021-Present [phone] [place] [address] PPO [id number] 2021 Unknown [id number] 2010 Private Health Insurance [id number] 1955 Unknown [id number] Unknown [id number] Unknown [id number] Unknown [id number] Unknown [id number] Unknown [id number] Unknown [id number] Unknown [id number] Social History Date Type Detail Facility Start: 02-28-2022 End: 04-07-2023 Tobacco smoking status [facility] Unknown if ever smoked [facility] Start: 05-16-2020 Non-smoker [facility] Start: 1955 Sex Assigned At Male [facility] Start: 03-13-2015 End: 04-07-2023 Tobacco smoking status [facility] Never smoked tobacco [facility] Start: 03-13-2015 Tobacco use and exposure Smokeless tobacco non-user [facility] Start: 03-24-2020 End: 03-24-2023 Alcohol intake Current drinker of alcohol (finding) [facility] Start: 03-24-2020 End: 08-16-2023 Alcohol intake [facility] Start: 1955 Sex Assigned At Not on file C [facility] Start: 10-18-2022 End: 10-28-2022 Exposure to SARS-CoV-2 (event) Not sure [facility] Start: 03-24-2023 End: 08-16-2023 Tobacco use panel [facility] Start: 10-29-2012 National Score (1-100), lower number is lower risk 60 [facility] Functional Status Date Assessment Result Facility 03-13-2015 Are you deaf, or do you have serious difficulty hearing No 03/13/2015 11:21 AM Farzaneh Campo MA No [facility] 03-13-2015 Are you blind, or do you have serious difficulty seeing, even when wearing glasses No 03/13/2015 11:21 AM EDT Farzaneh Goodrich MA No [facility] 03-13-2015 Do you have serious difficulty walking or climbing stairs No 03/13/2015 11:21 AM EDT Farzaneh Goodrich MA No [facility] 03-13-2015 Do you have difficul ty dressing or bathing No 03/13/2015 11:21 AM EDT Farzaneh Goodrich MA No [facility] 03-13-2015 Because of a physica l, mental, or emotional condition, do you have difficulty doing errands alone such as visiting a physician's office or shopping No 03/13/2015 11:21 AM EDT Farzaneh Goodrich MA [facility] Mental Status Date Assessment Result Facility 04-10-2022 Cognitive function Voice/Name [place] Work Phone: 03-13-2015 Because of a physica l, mental, or emotional condition, do you have serious difficulty concentrating, remembering, or making decisions No 03/13/2015 11:21 AM EDT Farzaneh Goodrich MA No [facility] Clinical Notes 07-07-2014 to 08-13-2025 Telephone Encounter - Gypsy Rubi RN - 08/13/2025 1:30 PM EDTTelephone Encounter - Gypsy Rubi RN - 08/13/2025 1:30 PM EDTPatient Viri Daigle PA-C - 08/09/2025 3:00 PM EDT Note Date & Type Note Facility 08-13-2025 Telephone encounter Note Spoke with patient, discussed results below. Patient verbalizes understanding and has no further questions at this time. Pathology report mailed to patient's home address. [facility] 08-13-2025 Miscellaneous Notes Spoke with patient, discussed results below. Patient verbalizes understanding and has no further questions at this time. Pathology report mailed to patient's home address. documented in this encounter [facility] 08-09-2025 Instructions Dia Quiles LPN - 08/09/2025 3:17 PM EDT CARE FOR YOUR SHAVE BIOPSY SITE Please follow these instructions for daily wound care: 1. Wash the area every day with gentle soap and water. 2. Apply a thin layer of Vaseline or Aquaphor to the wound site to keep the area slightly greasy at all time (this helps to prevent scabbing). Please do not use an old tub of ointment as this can introduce germs into your wound and cause infection. 3. Cover with a bandage and continue this daily process until the wound is healed. Do not leave a soiled or wet bandage on the wound. -Keep the area clean and dry with the bandage in place the day of surgery. -If you experience any bleeding, please apply pressure to the area for approximately 10 minutes. -You may shower, but do not soak in a bathtub, hot tub, pool, schulte, etc until after the wound has healed. -DO NOT USE NEOSPORIN OR BACITRACIN as [...] are healing, please send your provider a [employer] message or call . documented in this encounter [facility] 08-09-2025 History of Presen t illness Narrative Images from the original note were not included. ESTABLISHED PATIENT 08/09/2025 Last Visit in Dermatology: 02/27/2025 Chief Complaint: LESION, SKIN HPI: Jodie Jain is a 70 year old male. Patient presents with: LESION, SKIN #1 Location: chest Duration: months Symptoms/Course: darker in color Current Treatment: betamethasone Pertinent History: History of skin cancer: No History of atypical nevi: No History of blistering sunburns / tanning bed use: Yes, sunburns Organ transplant / Immunosuppression: Psoriasis Pacemaker / Defibrillator / Heart Valve Replacement: No / : N/A Family history of skin cancer: No PAST MEDICAL HISTORY Diagnosis Date Psoriasis SOCIAL HISTORY[1] ALLERGIES Allergen Reactions Nut - Unspecified GI Upset Tree nuts Cashew Nut GI Upset Current Outpatient Medications Medication Sig roflumilast (ZORYVE) 0.15 % cream Apply to affected area once daily. Clobetasol Propionate (CLOBEX) 0.05 % sham Apply to affected area once daily. Apply to a dry scalp once daily as needed, leave on for 15 minutes before showering. pimecrolimus (ELIDEL) 1 % cream Apply to affected area two times a day as needed (for dermatitis). ammonium lactate (LAC-HYDRIN) 12 % cream Apply 1 application to affected area as needed for dry skin. betamethasone valerate 0.1 % cream Apply twice [...] (FLONASE) 50 mcg/actuation nasal spray Use 1 [place] in each nostril once daily. Taking as [...] by mouth as directed. 2 tablet daily ROS: Skin as above. PHYSICAL EXAM: Participation of a fellow, resident, medical student, or advanced practice provider student in performing the sensitive examination was discussed with the patient or authorized treasury representative. The patient or authorized treasury representative has agreed to proceed with the sensitive examination. Jett Skin Type: II The patient is a pleasant male in no apparent distress. Alert and oriented x 3. Appears well developed, well nourished, and in otherwise good health. A skin exam of the chest was performed. IMPRESSION Left Breast 0.5 x 0.7 cm Mills to pink lichenoid plaque R/O BLK vs other Left Anterior Neck Brown stuck on waxy papules and plaques ASSESSMENT & PLAN NEOPLASM OF UNSPECIFIED BEHAVIOR OF BONE, SOFT TISSUE, AND SKIN Left Breast - SKIN / NAIL BIOPSY Type of biopsy: tangential Informed consent: discussed and consent obtained Timeout: patient name, date of , surgical site, and procedure verified Procedure prep: Patient was prepped and draped in usual sterile fashion Prep type: Isopropyl alcohol Anesthesia: the lesion was anesthetized in a standard fashion Anesthetic: 1% lidocaine w/ epinephrine 1-100,000 local infiltration Instrument used: DermaBlade Outcome: patient tolerated procedure well Post-procedure details: sterile dressing applied and wound care instructions given Dressing type: bandage and petrolatum Specimen A - Surgical Pathology 0.5 x 0.7 cm Mills to pink lichenoid plaque R/O ELK vs other SEBORRHEIC KERATOSIS Left Anterior Neck Discussed benign etiology. Reassured and educated Monitor for change and return to care if anything becomes bothersome including but not limited to pain, itching, irritation, bleeding Follow Up: Return PRN or sooner for questions and concerns. Attestation: Intake completed by: Dia Quiles LPN The documentation for this note was completed by Dia Quiles LPN acting as scribe for Viri Peters PA-C I agree with the Chief Complaint, ROS, and Past Histories independently gathered by the clinical application support lead and the remaining scribed note accurately describes my personal service to the patient. Viri Peters PA-C August 09, 2025 3:34 PM Medical Decision Making: Problems: Minimal: Self-limited or minor problem Risk: Moderate: Moderate risk from testing/treatment Medical Decision Making Level: 2 - Straightforward Procedure: shave biopsy Informed Consent Consent Obtained: Verbal Fielding Protocol A moment to CARE was completed SIGN IN Personnel directly involved with the procedure wore the appropriate PPE Special Equipment: N/A Patient/Surrogate Stated/Verified: Patient name, Date of , Relevant allergies and Intended procedure TIME OUT Correct side/site marked and visible. Medications required for procedure verified. Fire risk assessed and interventions discussed. SIGN OUT All instruments, equipment, possible retained foreign bodies accounted for. Dia Quiles LPN [1] Social History Tobacco Use Smoking status: Never Smokeless tobacco: Never Substance Use Topics Alcohol use: Yes Alcohol/week: 7.0 standard drinks of alcohol Types: 7 Glasses of Wine (5oz) per week documented in this encounter [facility] 08-09-2025 Note HNO ID: [id number] Author: VIRI PETERS PA-C Service: ? Author Type: Physician Enhanced Environmental Operator Type: Progress Notes Filed: 08/09/2025 15:34 Note Text: ESTABLISHED PATIENT 08/09/2025 Last Visit in Dermatology: 02/27/2025 Chief Complaint: LESION, SKIN HPI: Jodie Jain is a 70 year old male. Patient presents with: LESION, SKIN #1 Location: chest Duration: months Symptoms/Course: darker in color Current Treatment: betamethasone Pertinent History: History of skin cancer: No History of atypical nevi: No History of blistering sunburns / tanning bed use: Yes, sunburns Organ transplant / Immunosuppression: Psoriasis Pacemaker / Defibrillator / Heart Valve Replacement: No / : N/A Family history of skin cancer: No PAST MEDICAL HISTORY Diagnosis Date Psoriasis SOCIAL HISTORY[1] ALLERGIES Allergen Reactions Nut - Unspecified GI Upset Tree nuts Cashew Nut GI Upset Current Outpatient Medications Medication Sig roflumilast (ZORYVE) 0.15 % cream Apply to affected area once daily. Clobetasol Propionate (CLOBEX) 0.05 % sham Apply to affected area once daily. Apply to a dry scalp once daily as needed, leave on for 15 minutes before showering. pimecrolimus (ELIDEL) 1 % cream Apply to affected area two times a day as needed (for dermatitis). ammonium lactate (LAC-HYDRIN) 12 % cream Apply 1 application to affected area as needed for dry skin. betamethasone valerate 0.1 % cream Apply twice [...] (FLONASE) 50 mcg/actuation nasal spray Use 1 [place] in each nostril once daily. Taking as [...] by mouth as directed. 2 tablet daily ROS: Skin as above. PHYSICAL EXAM: Participation of a fellow, resident, medical student, or advanced practice provider student in performing the sensitive examination was discussed with the patient or authorized treasury representative. The patient or authorized treasury representative has agreed to proceed with the sensitive examination. Jett Skin Type: II The patient is a pleasant male in no apparent distress. Alert and oriented x 3. Appears well developed, well nourished, and in otherwise good health. A skin exam of the chest was performed. IMPRESSION Left Breast 0.5 x 0.7 cm Mills to pink lichenoid plaque R/O BLK vs other Left Anterior Neck Brown stuck on waxy papules and plaques ASSESSMENT AND PLAN NEOPLASM OF UNSPECIFIED BEHAVIOR OF BONE, SOFT TISSUE, AND SKIN Left Breast - SKIN / NAIL BIOPSY Type of biopsy: tangential Informed consent: discussed and consent obtained Timeout: patient name, date of , surgical site, and procedure verified Procedure prep: Patient was prepped and draped in usual sterile fashion Prep type: Isopropyl alcohol Anesthesia: the lesion was anesthetized in a standard fashion Anesthetic: 1% lidocaine w/ epinephrine 1-100,000 local infiltration Instrument used: DermaBlade Outcome: patient tolerated procedure well Post-procedure details: sterile dressing applied and wound care instructions given Dressing type: bandage and petrolatum Specimen A - Surgical Pathology 0.5 x 0.7 cm Mills to pink lichenoid plaque R/O ELK vs other SEBORRHEIC KERATOSIS Left Anterior Neck Discussed benign etiology. Reassured and educated Monitor for change and return to care if anything becomes bothersome including but not limited to pain, itching, irritation, bleeding Follow Up: Return PRN or sooner for questions and concerns. Attestation: Intake completed by: Dia Quiles LPN The documentation for this note was completed by Dia Quiles LPN acting as scribe for Viri Peters PA-C I agree with the Chief Complaint, ROS, and Past Histories independently gathered b (more content not included)... [facility] 07-18-2025 Evaluation note Diagnosis Onset Date Resolution Essential (primary) hypertension chronic July 18 12:59pm Hyperlipidemia chronic June 12:59pm Intermittent palpitations chronic July 18 12:59pm Nonrheumatic mitral valve prolapse chronic July 18 12:59pm [facility] Work Phone: [phone]) 703-163704-02-2025 Instructions* Patient Instructions* Yesi Zelaya MD - 02/27/2025 6:18 PM EDT - Apply 0.15% Zoryve cream to the face once daily as needed for maintenance. - [place] Betamethasone Valerate cream for facial flares; apply sparingly as needed. - Apply a small amount of Betamethasone Valerate cream to inflamed seborrheic keratosis on the trunk as needed for itching. - Next follow-up appointment in 3-4 months for a complete skin exam. documented in this encounterUniversity [facility] History of Present illness Narrative* Yesi Zelaya MD - 02/27/2025 3:40 PM EDT Images from the original note were not included. [facility] Department of Dermatology Yesi Zelaya MD 02/27/2025 [...] with dietary changes and use of a biotin- containing shampoo. - No scaling of the scalp [...] presenting for evaluation of psoriasis, pruritic hypokeratotic papuleson the left supraclavicular area and back, and small red papules on the torso. Jodie reports that his psoriasis on the lower extremities has been well- controlled and has essentially resolved following a fall in [facility], which resulted in a large abrasion on the right knee. This incident required tetanus immunization, antibiotics, and debridement. He notes persistent mild psoriasis in the perez area, which intermittently flares. He manages this with sparing and intermittent use of betamethasone valerate, approximately once every 7-10 days. He also reports the recent appearance of pruritic hypokeratotic papules on the left supraclaviculararea and back, with no known inciting factors. [...] than pruritus; scattered prabhakar red papules diffusely ontrunk. To waist: Scalp, face, ears, neck, back, chest, abdomen, bilateral upper extremities Labs: Imaging: Tests: - Colonoscopy: No polyps identified Intake by Shreyas Pillai LPN Attending signature: Yesi Zelaya MD This note is completed at 6:19 PM on 02/27/2025 and reflects the services provided at the time of theappointment. I agree with the Chief Complaint, ROS, and Past Histories that may have been independently gatheredby the clinical application support lead and the remaining scribed note (including AI-generated content) is reviewed and accurately describes my personal service to the patient. documented in this encounterUniversity [facility]als [facility]04-02-2025 NoteHNO ID: [id number] Author: YESI ZELAYA MD Service: ? Author Type: Physician Type: Progress Notes Filed: 02/27/2025 18:19 Note Text: [facility] Department of Dermatology Yesi Zelaya MD 02/27/2025 [...] has essentially resolved following a fall in [facility], which resulted in a large abrasion on [...] have been independently gathered by the clinical application support lead and the remaining scribed note (including AI-generated content) is reviewed and accurately describes my personal service to the patient.[facility]05-[facility] Instructions* Patient Instructions* Chery Miner LPN - 04/25/2024 2:16 PM [...] mirror to assist in seeing body areas thatare difficult to see otherwise. If you have a family member that can assist, this is often helpful.Additional information can be obtained at: www.skincancer.org/mfec-qhxjah-kcsgomatxep/early-detection 2. In many cases, skin cancer can [...] your health care provider. documented in this encounterUniversity [facility]als [facility]05-29-2024 History of Present illness Narrative* Yesi Zelaya MD - 04/25/2024 2:12 PM EDT Images from the original note were not [...] advised. Observe closely for skin damage/changes, and callif such occurs. The patient's psoriasis is well [...] the services provided at the time of theappointment. I agree with the Chief Complaint, ROS, and Past Histories independently gathered by the clinical application support lead. documented in this encounterUniversity Hospitals [facility]04-17-2024 History of Present illness Narrative* Xiomara Sprague MA - 03/14/2024 7:58 AM EDT POPULATION HEALTH NAVIGATION OUTREACH Action/FYI Patient is on [employer] list for below and needs appointment to [...] a call back HCC related Navigation Signature: Xiomara Sprague MA March 14, 2024 7:59 AM documented in this encounterUniversity Hospitals [facility]02-27-2024 History of Present illness Narrative* Yesi Zelaya MD - 01/24/2024 1:00 PM EST Images from the original note were not included. Department of Dermatology Yesi Zelaya MD 01/24/2024 Last visit in Dermatology: 10/27/2023 Objective/Assessment/Plan 1. Inflamed seborrheic keratosis Left Upper Back Inflamed, erythematous, hyperkeratotic, stuck-on papule. Treated with liquid nitrogen as noted. A discussion of the procedure, the indication, alternatives,and risks/expectations were discussed. These included the risks [...] at least the next 12 months to dye expert effectiveness. Requested Prescriptions Signed Prescriptions Disp Refills [...] Past Histories independently gathered by the clinical application support lead. documented in this encounterUniversity Hospitals [facility]11-30-2023 Instructions* Patient Instructions* Yesi Zelaya MD - 10/27/2023 9:22 AM EST I recommend topical minoxidil 5% foam applied twice daily to the scalp. This can be applied twice daily to the scalp as directed and obtained over the counter. The genericform should be fine, but I do recommend the foam version over the solution. The eosinophil count could be explained by your allergic-type symptoms. We discussed that you coulddiscuss a product like Astepro with your ENT. documented in this encounterUniversity Hospitals [facility]11-30-2023 History of Present illness Narrative* Yesi Zelaya MD - 10/27/2023 8:40 AM EST Images from the original note were not included. Department of Dermatology Yesi Zelaya MD 10/27/2023 Last visit in Dermatology: 08/16/2023 Objective/Assessment/Plan 1. Androgenetic alopecia 2. Eosinophilia, unspecified type The elevated eosinophil count is mild, but could be associated with the patient's chronic sinusitisand allergic rhinitis. It continues to trouble him [...] directed and obtained over the counter. The genericform should be fine, but I do recommend the foam version over the solution. The eosinophil count could be explained by your allergic-type symptoms. We discussed that you coulddiscuss a product like Astepro with your ENT. [...] no hair shaft abnormalities. Some decreased density ofhair on the vertex and frontal scalp. Some miniaturized hairs noted. Intake: Chery Miner LPN Attending signature: Yesi Zelaya MD This note is completed at 12:27 PM on 11/07/2023 and reflects the services provided at the time of the appointment. I agree with the Chief Complaint, ROS, and Past Histories independently gathered by the clinical application support lead. documented in this encounterUniversity Hospitals [facility]11-03-2023 Miscellaneous Notes* Telephone Encounter - Sherice Villagran - 09/30/2023 4:07 PM EDT Patient called to ask if he can have the results of his labs mailed to his house. Please advise documented in this encounterUniversity Hospitals [facility]09-29-2023 Miscellaneous Notes* Telephone Encounter - Sherice Villagran - 08/26/2023 12:03 PM EDT Patient called to discuss the results of his labs. Please advise documented in this encounterUniversity Hospitals [facility]09-19-2023 Instructions* Patient Instructions* Yesi Zelaya MD - 08/16/2023 3:31 PM [...] are healing, please send your provider a [employer] message or call . documented in this encounterUniversity Hospitals [facility]09-19-2023 History of Present illness Narrative* Yesi Zelaya MD - 08/16/2023 2:40 PM EDT Images from the original note were not [...] Past Histories independently gathered by the clinical application support lead. documented in this encounterUniversity Hospitals [facility]04-28-2023 Miscellaneous Notes* Telephone Encounter - Monique Minor - 03/25/2023 3:12 PM EDT Spoke to patient on phone, he is going to call back next week to get this scheduled when he can figure out his schedule. MARILIN Stovall March 25, 2023 3:14 PM * Telephone Encounter - Janette Sheridan - 03/24/2023 3:35 PM EDT Pt was in [facility] and told a consult for allergy testing would be put in for them. Once put in they would like contacted to schedule. Please advise. Janette GASTON documented in this encounterUniversity Hospitals Portage [facility] Center04-27-2023 History of Present illness Narrative* Mercy Hogan APRN.STREET CLEANER - 03/24/2023 3:36 PM EDT Subjective Came in with complaints of a [...] history is provided by the patient. No automotive repair technician was used. Review of Systems Constitutional: Negative. [...] area twice daily as needed (for psoriasis ofthe perez area and the ears.). calcipotriene (DOVONEX) [...] (FLONASE) 50 mcg/actuation nasal spray Use 1 [place] in each nostril once daily. Taking as [...] plan. Mercy Hogan APRN.ELIJAH documented in this encounterUniversity Hospitals Portage [facility] Center03-21-2023 History of Present illness Narrative* Sonu Caal DO - 02/15/2023 9:27 AM EDT Groin Pain (Radiates into left leg ) The history is provided by the patient. No automotive repair technician was used. HISTORY REVIEWED PAST MEDICAL HISTORY [...] area twice daily as needed (for psoriasis ofthe perez area and the ears.). calcipotriene (DOVONEX) [...] (FLONASE) 50 mcg/actuation nasal spray Use 1 [place] in each nostril once daily. Taking as [...] SCRN Sonu Caal DO documented in this encounterUniversity Hospitals Portage [facility] Center02-14-2023 Instructions* Patient Instructions* Farzaneh Goodrich MA - 01/11/2023 2:33 PM [...] mirror to assist in seeing body areas thatare difficult to see otherwise. If you have a family member that can assist, this is often helpful.Additional information can be obtained at: www.skincancer.org/qjey-bhoazs-uoaqwslqyan/early-detection 2. In many cases, skin cancer can [...] your health care provider documented in this encounterUniversity Hospitals Portage [facility] Center02-14-2023 History of Present illness Narrative* Yesi Zelaya MD - 01/11/2023 1:49 PM EST Images from the original note were not [...] left hand lesion of concern, and left jewish Psoriasis has been clearing on the body. He has reduced his stress and has returned to playing hockey which has helped. He has been using Hydrocortisone valerate and betamethasone valerate. Past medical history is reviewed. Medication list is reviewed. Physical Exam included: Scalp, face, ears, neck, chest, back, abdomen, bilateral upper extremities, bilateral lower extremities, buttocks, hands, feet, nails and hair Yaritza Garst, RN Attending signature: Yesi Zelaya MD This note is completed at 10:12 PM on 01/16/2023 and reflects the services provided at the time of the appointment. I agree with the Chief Complaint, ROS, and Past Histories independently gathered by the clinical application support lead. documented in this encounterUniversity Hospitals Port[facility] Center12-01-2022 Instructions* Patient Instructions* Nilsa Fernandes - 10/28/2022 10:40 AM EST [...] are healing, please send your provider a [employer] message or call . documented in this encounterUniversity Hospitals Port[facility] Center12-01-2022 History of Present illness Narrative* Yesi Zelaya MD - 10/28/2022 10:00 AM EST Department of Dermatology Yesi Zelaya MD 10/28/2022 [...] Miner LPN By signing my name below, I, Nilsa Fernandes served as a scribe and attest that this documentationhas been prepared under the direction and in the presence of Dr. Yesi Zelaya MD Electronically signed, Nilsa Fernandes S-III Date: 10/28/2022 Time: 10:21 AM Attending [...] the Chief Complaint, ROS, and Past Histories independentlygathered by the clinical application support lead and the remaining scribed note accurately describes my personal service to the patient. Signature: Yesi Zelaya Date: 11/07/2022 Time: 4:10 PM documented in this encounterUniversity Hospitals Port[facility] Center08-10-2014 History of Past illness Narrative* Problem Noted Date Resolved Date Postinflammatory skin changes 07/07/2014 Sebaceous hyperplasia of face 05/19/2014 Other seborrheic keratosis 05/19/201411/03 Melanocytic nevus of face 05/19/20142013 Solar lentigo 05/19/2014 11/03/2014 documented as of this encounter (statuses as of 11/07/2022) [facility] of [facility] illness Narrative* Problem Noted Date Resolved Date Postinflammatory skin changes 07/07/2014 Sebaceous hyperplasia of face 05/19/2014 Other seborrheic keratosis 05/19/201411/03 Melanocytic nevus of face 05/19/20142013 Solar lentigo 05/19/2014 11/03/2014 documented as of this encounter (statuses as of 01/17/2023) [facility] of [facility] Narrative* Problem Noted Date Resolved Date Postinflammatory skin changes 07/07/2014 Sebaceous hyperplasia of face 05/19/2014 Other seborrheic keratosis 05/19/201411/03 Melanocytic nevus of face 05/19/20142013 Solar lentigo 05/19/2014 11/03/2014 documented as of this encounter (statuses as of 02/15/2023) [facility] Narrative* Problem Noted Date Resolved Date Postinflammatory skin changes 07/07/2014 Sebaceous hyperplasia of face 05/19/2014 Other seborrheic keratosis 05/19/201411/03 Melanocytic nevus of face 05/19/20142013 Solar lentigo 05/19/2014 11/03/2014 documented as of this encounter (statuses as of 03/24/2023) [facility] Narrative* Problem Noted Date Diagnosed Date Resolved Date Postinflammatory skin changes 07/07/2014 11/03/2014 Sebaceous hyperplasia of face 05/19/2014 11/03/2014 Other seborrheic keratosis 05/19/2014 1 01/04/2014 Melanocytic nevus of face 05/19/2014 Solar lentigo 05/19/2014 11/03/2014 documented as of this encounter (statuses as of 09/02/2023) [facility] Narrative* Problem Noted Date Diagnosed Date Resolved Date Postinflammatory skin changes 07/07/2014 11/03/2014 Sebaceous hyperplasia of face 05/19/2014 11/03/2014 Other seborrheic keratosis 05/19/2014 1 01/04/2014 Melanocytic nevus of face 05/19/2014 Solar lentigo 05/19/2014 11/03/2014 documented as of this encounter (statuses as of 09/04/2023) [facility] Narrative* Problem Noted Date Diagnosed Date Resolved Date Postinflammatory skin changes 07/07/2014 11/03/2014 Sebaceous hyperplasia of face 05/19/2014 11/03/2014 Other seborrheic keratosis 05/19/2014 1 01/04/2014 Melanocytic nevus of face 05/19/2014 [place] lentigo 05/19/2014 11/03/2014 documented as of this encounter (statuses as of 10/05/2023) [place] [address]-10-2014 History of Past illness Narrative* Problem Noted Date Diagnosed Date Resolved Date Postinflammatory skin changes 07/07/2014 11/03/2014 Sebaceous hyperplasia of face 05/19/2014 11/03/2014 Other seborrheic keratosis 05/19/2014 1 01/04/2014 Melanocytic nevus of face 05/19/2014 Solar lentigo 05/19/2014 11/03/2014 documented as of this encounter (statuses as of 11/07/2023) [facility] Narrative* Problem Noted Date Diagnosed Date Resolved Date Postinflammatory skin changes 07/07/2014 11/03/2014 Sebaceous hyperplasia of face 05/19/2014 11/03/2014 Other seborrheic keratosis 05/19/2014 1 01/04/2014 Melanocytic nevus of face 05/19/2014 Solar lentigo 05/19/2014 11/03/2014 documented as of this encounter (statuses as of 02/19/2024) [facility] Narrative* Problem Noted Date Diagnosed Date Resolved Date Postinflammatory skin changes 07/07/2014 11/03/2014 Sebaceous hyperplasia of face 05/19/2014 11/03/2014 Other seborrheic keratosis 05/19/2014 1 01/04/2014 Melanocytic nevus of face 05/19/2014 [place] lentigo 05/19/2014 11/03/2014 documented as of this encounter (statuses as of 03/14/2024) [facility] Diagnosis Onset Date Resolution Status Encounter for screening for COVID-19 acute Encounter for screening for COVID-19 acute [facility] Work Phone: evaluation note* Diagnosis Onset Date Resolution Status Encounter for screening for COVID-19 resolved Encounter for screening for COVID-19 resolved SOB (shortness of breath) ac [place] Essential (primary) hypertension chronic Hyperlipidemia chronic [facility] Work Phone: Evaluation note* Diagnosis Onset Date Resolution Status Encounter for screening for COVID-19 resolved SOB (shortness of breath) ac [place] Essential (primary) hypertension chronic Hyperlipidemia chronic [facility] Work Phone: Evaluation noteNo assessment information available [facility] Work Phone: evaluation note* Diagnosis Psoriasis- Primary Other psoriasis AK (actinic keratosis) Actinic keratosis documented in this encounter [facility]* Diagnosis Multiple benign nevi- Primary Benign neoplasm of skin, site unspecified Prabhakar angioma Nevus, non-neoplastic Psoriasis Other psoriasis documented [facility] this encounter [facility] CenterEvaluation note* Diagnosis Lymphadenopathy, inguinal- Primary Enlargement of lymph nodes Screening cholesterol level Screening for lipoid disorders Screening for prostate cancer Special screening for malignant neoplasm of prostate Screening for colon cancer Special screening for malignant neoplasms, colon [facility] Diagnosis Fl[place]- Primary documented in this [facility]* Diagnosis Telogen effluvium- Primary Inflamed seborrheic keratosis Seborrheic keratosis Other seborrheic keratosis documented in this [facility]* Diagnosis Androgenetic alopecia- Primary Other alopecia Eosinophilia, unspecified type documented [facility] this [facility]* Diagnosis Inflamed seborrheic keratosis- Primary Xerosis cutis Other specified disease of sebaceous glands Androgenetic alopecia Other alopecia documented in this [facility]* Diagnosis Seborrheic keratosis- Primary Other seborrheic keratosis Multiple benign nevi Benign neoplasm of skin, site unspecified Prabhakar angioma Nevus, non-neoplastic Psoriasis Other psoriasis Skin cancer screening Screening for malignant neoplasm of the skin documented in this [facility]* Diagnosis Actinic keratosis- Primary Psoriasis Other psoriasis Seborrheic dermatitis Seborrheic dermatitis, unspecified Telogen effluvium Seborrheic keratosis Other seborrheic keratosis Prabhakar angioma Nevus, non-neoplastic documented in this encounter [facility]* Diagnosis Actinic keratosis- Primary Neoplasm of unspecified behavior of bone, soft tissue, and skin- Primary Seborrheic keratosis Other seborrheic keratosis documented in this encounter [facility] for referral (narrative)* Outpatient Procedure (Routine) - Pending Review Specialty Diagnoses / Procedures Referred By Deepika vizcarra Referred To Contact [facility] Diagnoses Screening for colon cancer Procedures COLONOSCOPY SCREENING COLONOSCOPY FLX DX W/COLLJ SPEC WHEN PFRMD Sonu Caal DO [address] [place] [address] [facility] [address] [place] [id number] Referral ID Status Reason Start Date Expiration Date Visits Requested Visits Authorized [id number] Pending Review Auto-Generat ed Referral 02/15/2023 02/16/2024 1 1 * Diagnostic Procedure Only (Routine) - Authorized Specialty Diagnoses / Procedures Referred By Deepika vizcarra Referred To Contact [facility] Diagnoses Lymphadenopathy, inguinal Procedures US ABDOMEN LTD US ABDOMINAL REAL TIME W/IMAGE LIMITED Sonu Caal DO [address] [place] [address] [facility] Referral ID Status Reason Start Date Expiration Date Visits Requested Visits Authorized [id number] Authorized Auto-Generat ed Referral 02/15/2023 03/16/2024 1 1 [facility] for referral (narrative)No reason for referral [facility] Work Phone: Summary Purpose Family History No Family History Records Found Relationship Condition Age at Onset Recorded Date/T sarah father Coronary artery disease Unknown Myocardial infarction Unknown mother Cerebrovascular accident (CVA) Unknown Advance Directives No Advanced Directives Records Found Advance Directive Response Recorded Date/ Time Living Will No February 28, 2022 10:34pm Power of Administrative Assistant Data Entry No February 28 10:34pm Advance Directive Response Recorded Date/ Time Living Will No April 10, 2022 5 :10pm Power of Administrative Assistant Data Entry No April 10, 2022 5:10pm Advance Directive Response Recorded Date/ Time Living Will No April 10, 2022 4 :10pm Power of Administrative Assistant Data Entry No April 10, 2022 4:10pm Advance Directive Response Recorded Date/ Time Living Will No April 10, 2022 5 :10pm Do you have a Healthcare Power of Administrative Assistant Data Entry? No April 10, 2022 5:10pm Chief Complaint and Reason for Visit Chief [...] Hyperlipidemia Chief Complaint Cough Chief Complaint DYSHAGIA Chief Complaint Admit Date E ORDER July 16, 2025 12 :38pm 1 Y FU July 18, 2025 12 :59pm Reason for Visit Admit Date Essential (primary) hypertension July 18, 2025 12:59pm Hyperlipidemia July 18, 2025 12 :59pm Intermittent palpitations July 18, 2 025 12:59pm Nonrheumatic mitral valve prolapse Augus t 2024 12:59pm Reason for Referral Specialty Diagnoses / Procedures Referred By Contac t Referred To Contact Allergy Diagnoses Flushing Procedures CONSULT TO ALLERGY/IMMUNOLOGY OFFICE/OUTPATIENT NEW HIGH MDM 60-74 MINUTES Mercy Hogan APRN.[employer] [employer] [address] [place] [address] Referral ID Status Reason Start Date Expiration Date Visits Requested Visits Authorized [id number] Authorized PCP Requested Referral 03/24/2023 03/23/2024 1 1 Additional Source Comments (unrecognized sect ion and content) No Status Records FoundNo Status Records FoundNo Status Records FoundNo Status Records Found INFORMATION SOURCE (unrecogn ized section and content) DATE CREATED AUTHOR 11/06/2018 [facility] DATE CREATED AUTHOR AUTHOR'S ORGANIZ ATION 08/30/2022 [facility] DATE CREATED AUTHOR AUTHOR'S ORGANIZ ATION 07/23/2025 [facility] DATE CREATED AUTHOR AUTHOR'S ORGANIZ ATION 08/14/2025 [facility] Goals (unrecognized section and content) Goals [...] or prosecute any alcohol or drug abuse patient.[facility] the event this information is protected by the Federal Confidentiality of Alcohol and Drug Abuse Patient Records regulations: The Federal rules restrict any use of the information to criminally investigate or prosecute any alcohol or drug abuse patient.[facility] the event this information is protected by the Federal Confidentiality of Alcohol and Drug Abuse Patient Records regulations: The Federal rules restrict any use of the information to criminally investigate or prosecute any alcohol or drug abuse patient.[facility] the event this information is protected by the Federal Confidentiality of Alcohol and Drug Abuse Patient Records regulations: The Federal rules restrict any use of the information to criminally investigate or prosecute any alcohol or drug abuse patient.[facility] Center[facility] the event this information is protected by the Federal Confidentiality of Alcohol and Drug Abuse Patient Records regulations: The Federal rules restrict any use of the information to criminally investigate or prosecute any alcohol or drug abuse patient.[facility] CenterIn the event this information is protected by the Federal Confidentiality of Alcohol and Drug Abuse Patient Records regulations: The Federal rules restrict any use of the information to criminally investigate or prosecute any alcohol or drug abuse patient.[facility] Center[facility] the event this information is protected by the Federal Confidentiality of Alcohol and Drug Abuse Patient Records regulations: The Federal rules restrict any use of the information to criminally investigate or prosecute any alcohol or drug abuse patient.[facility] CenterIn the event this information is protected by the Federal Confidentiality of Alcohol and Drug Abuse Patient Records regulations: The Federal rules restrict any use of the information to criminally investigate or prosecute any alcohol or drug abuse patient.[facility] Center[facility] the event this information is protected by the Federal Confidentiality of Alcohol and Drug Abuse Patient Records regulations: The Federal rules restrict any use of the information to criminally investigate or prosecute any alcohol or drug abuse patient.[facility] Center[facility] the event this information is protected by the Federal Confidentiality of Alcohol and Drug Abuse Patient Records regulations: The Federal rules restrict any use of the information to criminally investigate or prosecute any alcohol or drug abuse patient.[facility] CenterIn the event this information is protected by the Federal Confidentiality of Alcohol and Drug Abuse Patient Records regulations: The Federal rules restrict any use of the information to criminally investigate or prosecute any alcohol or drug abuse patient.[facility] CenterIn the event this information is protected by the Federal Confidentiality of Alcohol and Drug Abuse Patient Records regulations: The Federal rules restrict any use of the information to criminally investigate or prosecute any alcohol or drug abuse patient.[facility] CenterIn the event this information is protected by the Federal Confidentiality of Alcohol and Drug Abuse Patient Records regulations: The Federal rules restrict any use of the information to criminally investigate or prosecute any alcohol or drug abuse patient.[facility] CenterIn the event this information is protected by the Federal Confidentiality of Alcohol and Drug Abuse Patient Records regulations: The Federal rules restrict any use of the information to criminally investigate or prosecute any alcohol or drug abuse patient.[facility] CenterIn the event this information is protected by the Federal Confidentiality of Alcohol and Drug Abuse Patient Records regulations: The Federal rules restrict any use of the information to criminally investigate or prosecute any alcohol or drug abuse patient.[facility] Reason for Visit (unrecogniz ed section and [...] Date Comments Population Health Navigation Outreach 03/14/2024 [employer] - AW[facility], Care gaps, HCC gap closure - [place] [facility] Reason Comments LESION, SKIN Spots on chest and b ackback itchy been there for a couple months Care Teams (unrecognized sec tion and content) Automation Specialist Relationship Specialty Start Date End Date Yesi Membreno MD PCP - General Family Medicine 05/14/14 Automation Specialist Relationship Specialty Start Date End Date Yesi Membreno MD PCP - General Family Medicine 05/14/14 Automation Specialist Relationship Specialty Start Date End Date Yesi Membreno MD PCP - General Family Medicine 05/14/14 Automation Specialist Relationship Specialty Start Date End Date Sonu Caal DO [address] [place] [address] PCP - General Family Medicine 02/22/23 Team Status: Active Member Role Status Dates Dr. Yesi Membreno MD Family Provider Active Dr. Yesi Patel MD Primary Care Provider Active Team Status: Inactive Member Role Status Dates Dr. Yesi Patel MD Primary Care Provider Active Dr. Kory Beckford MD Attending Provider, Referring Pr ovider Active Automation Specialist Relationship Specialty Start Date End Date Sonu Caal DO [address] [place] [address] PCP - General Family Medicine 02/22/23 Automation Specialist Relationship Specialty Start Date End Date Sonu Caal DO [address] [place] [address] PCP - General Family Medicine 02/22/23 Automation Specialist Relationship Specialty Start Date End Date Sonu Caal DO [address] [place] [address] PCP - General Family Medicine 02/22/23 Automation Specialist Relationship Specialty Start Date End Date Sonu Caal DO [address] [place] [address] PCP - General Family Medicine 02/22/23 Automation Specialist Relationship Specialty Start Date End Date Sonu Caal DO [address] [place] [address] PCP - General Family Medicine 02/22/23 Automation Specialist Relationship Specialty Start Date End Date Sonu Caal DO [address] [place] [address] PCP - General Family Medicine 02/22/23 Automation Specialist Relationship Specialty Start Date End Date Sonu Caal DO [address] [place] [address] PCP - General Family Medicine 02/22/23 Automation Specialist Relationship Specialty Start Date End Date Sonu Caal DO [address] [place] [address] PCP - General Family Medicine 02/22/23 Team Status: Active Member Role/Relationship Status Dates Kayla Lawson MD Primary Care Provider Active Team Status: Active Member Role/Relationship Status Dates Kayla Lawson MD Primary Care Provider Active St art: July 16, 2025 Dr. Jacques Hernandez MD Attending Provider Active S tart: July 16, 2025 Dr. Jacques Hernandez MD Referring Provider Active S tart: July 16, 2025 Team Status: Inactive Member Role/Relationship Status Dates Dr. Yesi Patel MD Referring Provider Active Start: July 18, 2025 End: July 18, 2025 Dr. Jacques Hernandez MD Attending Provider Active S tart: July 18, 2025 End: July 18, 2025 Kayla Lawson MD Primary Care Provider Active St art: July 18, 2025 End: July 18, 2025 Team Status: Inactive Member Role/Relationship Status Dates Kayla Lawson MD Primary Care Provider Active St art: July 16, 2025 End: July 16, 2025 Dr. Jacques Hernandez MD Attending Provider Active S tart: July 16, 2025 End: July 16, 2025 Dr. Jacques Hernandez MD Referring Provider Active S tart: July 16, 2025 End: July 16, 2025 FOR RECORDS PERTAINING TO PATIENTS WHO ARE [...] BE BASED ON THE PRIMARY CLINICAL RECORDS. [facility], [facility]. provides no warranty or guarantee of the accuracy or completeness of information in this document.
[2025-11-20 14:54] LABS: PSA,Total - Annual Screen 0.25 ng/mL (0.02-4.00)
== END | disposition home or self-care (01) ==
LOC: MTLAB 11:38
PROVIDERS: PCP Family Medicine; Referring Provider Family Medicine; Visit Provider Family Medicine
DX: Z12.5 Encounter for screening for malignant neoplasm of prostate (principal)
CPT/HCPCS: 36415; 84153; G0103